=== PATIENT | female | born 1965 | race Caucasian/White ===

== ENCOUNTER 2020-03-25 15:01 | Inpatient (IN) | payer OTHER, SELFPAY ==
[2020-03-25] VITALS (11 sets, daily range): BP systolic 121–170; BP diastolic 81–102; PULSE 98–106; RESP 14–30; TEMP 36.3–36.8; O2SAT 95–99; BMI 32.5
--- NOTE | 2020-03-25 15:02 | ED.ASTHMA ---
HPI - Asthma General Chief Complaint: Dyspnea Stated Complaint: COPD EXACERBATION Time Seen by Provider: 03/25/20 15:02 Source: patient and EMS Mode of arrival: EMS Limitations: no limitations History of Present Illness HPI Narrative: 54 yo female with hx of COPD on cpap, still smokes, currently on 20mg prednisone, IV magnesium en route, EMS was told by facility sats were 70%, given treatment and CPAP en route on arrival [facility] was asking for Savana MOYER complaint: shortness of breath Onset (ago): day(s) (last night) Severity: severe Context: smoke exposure Associated symptoms: productive cough Treatments Prior to Arrival: inhaled bronchodilator, CPAP and other (2grams IV magnesium) Related Data Current Asthma Therapy: inhaled bronchodilator and inhaled steroid Allergies Allergy/AdvReac Type Severity Reaction Status Date / Time No Known Allergies Allergy Unknown UNKNOWN Verified 03/25/20 15:02 [NO KNOWN ALLERGIES] Review of Systems Review of Systems: Constitutional : No Fever, No Chills ENT/Mouth : No sore throat, No Rhinorrhea, No Swallowing Difficulty Eyes: No Eye Pain, No Swelling, No Redness Cardiovascular : No Chest Pain, positive SOB, No Orthopnea, no Edema Respiratory : pos Cough, No Sputum, pos Wheezing, positive dyspnea Gastrointestinal : No Nausea, No Vomiting, No Diarrhea, No abdominal Pain, No Hematochezia, No Melena Genitourinary : No Dysuria, No Urinary Frequency, No Hematuria Musculoskeletal : No joint pain, No Myalgias Skin : No Skin Lesions, No rash Neuro : No Weakness, No Numbness, No Dizziness, No Headache Psych : No Anxiety/Panic, No Depression Heme/Lymph: No Bruising, No Lymphadenopathy Endocrine : No Polyuria, No Polydipsia All other systems reviewed and are negative PMFSH Past Medical History Medical History Anxiety COPD (chronic obstructive pulmonary disease) Diabetes H/O blood clots Hyperlipidemia Supplemental oxygen dependent Social History Social History Housing: Long Term Alcohol intake: never Smoking Status: Current every day smoker Use of substances other than those prescribed or required for medical reasons: No Advance Directives: No Advance Directives Information Provided: Yes Physical Exam Vital Signs and I&O and Narrative: Vital Signs and I&O: Vital Signs Temp 97.7 F 10/02/20 15:02 Pulse 99 03/25/20 15:02 Resp 30 H 03/25/20 15:02 BP 128/93 H 03/25/20 15:17 Intake & Output 03/24/20 03/25/20 03/25/20 18:59 06:59 18:59 Weight 177 kg Body Mass Index 66.9 Appearance: Alert. Oriented X3. mild resp distress Eyes: Pupils equal, round and reactive to light. ENT: Pharynx normal. Neck: Normal inspection. Neck supple. CVS: tachycardic heart rate and rhythm. Pulses normal. Respiratory: mildrespiratory distress. Breath sounds decreased with exp wheezes throughout Abdomen: Soft and nontender. Skin: Skin warm and dry. Normal skin color. Normal skin turgor. Extremities: No lower extremity edema. No lower extremity edema. Neuro: Oriented X 3. No motor deficit. No sensory deficit. Course Reevaluation(s) Reevaluation #1: signed out to Dr. Llanes pending bipap removal and admission, patient is improving MDM - Asthma MDM Narrative Medical decision making narrative: 54 yo female with longstanding COPD with heavy smoking use, here frequentlyl for same, reports dyspnea since last night she is wheezing, wants bipap for now, will trial for 2 hours and take off, labs, IV steroids, CXR, empiric antibiotics for COPD, doubt PE ACS given AC therapy, likely admit Lab Data Result diagrams: 03/25/20 15:18 03/25/20 15:18 Labs: Lab Results 03/25/20 03/25/20 03/25/20 Range/Units 15:18 15:18 15:18 WBC 12.2 H (4.8-10.8) X10*3/uL RBC 3.99 L (4.20-5.50) X10*6/uL Hgb 9.2 L (12.0-16.0) g/dl Hct 31.7 L (37-47) % MCV 79.4 L (80-98) fL MCH 23.1 L (27.0-33.0) pg MCHC 29.0 L (31.0-35.0) g/dl RDW 21.8 H (11.0-16.0) % Plt Count 274 (160-400) X10*3/uL MPV 10.4 (9.4-12.3) fL Immature Gran % (Auto) 0.5 H (0.0-0.4) % Neut % (Auto) 62.7 (45-73) % Lymph % (Auto) 23.8 (20-40) % [place] % (Auto) 8.8 (2-11) % Eos % (Auto) 3.5 (0-4) % Baso % (Auto) 0.7 (0-2) % Neut # (Auto) 7.6 (2.0-8.3) X10*3/uL Lymph # (Auto) 2.9 (1.2-4.9) X10*3/uL [place] # (Auto) 1.1 (0.1-1.2) X10*3/uL Eos # (Auto) 0.4 (0.0-0.4) X10*3/uL Baso # (Auto) 0.1 (0.0-0.2) X10*3/uL Abs Immat Gran (auto) 0.06 H (0.00-0.03) X10*3/uL Absolute Nucleated RBC 0.000 (0.0-0.012) X10*3/uL Nucleated RBC % (auto) 0.0 (0.0-0.2) /100WBC Hold Blue Top SEE NOTE VBG pH (7.32-7.43) VBG pCO2 mmhg VBG Oxygen Liters/Min VBG pO2 mmhg VBG HCO3 mmol/L VBG O2 Saturation % VBG Base Excess mmol/L Sodium 141 (135-145) mmol/L Potassium 4.2 (3.3-5.1) mmol/l Chloride 106 (96-108) mmol/L Carbon Dioxide 24 (22-29) mmol/L Anion Gap 15 (12-20) BUN 7 L (9-16) mg/dL Creatinine 0.68 (0.5-1.4) mg/dL Estim Creat Clear Calc 151.0 Estimated GFR > 60 Random Glucose 137 H (60-115) mg/dL Lactic Acid (0.5-2.0) mmol/L Calcium 8.6 (8.4-10.2) mg/dL Magnesium 2.0 (1.6-2.6) mg/dL Total Bilirubin 0.3 (0.0-1.0) mg/dL Direct Bilirubin < 0.2 (0.0-0.5) mg/dL AST 16 (5-31) U/L ALT 15 (0-31) U/L Alkaline Phosphatase 80 (39-117) U/L B-Natriuretic Peptide (<100) pg/mL Total Protein 6.0 L (6.5-8.0) g/dL Albumin 3.9 (3.5-5.0) g/dL 03/25/20 03/25/20 03/25/20 Range/Units 15:18 15:18 15:18 WBC (4.8-10.8) X10*3/uL RBC (4.20-5.50) X10*6/uL Hgb (12.0-16.0) g/dl Hct (37-47) % MCV (80-98) fL MCH (27.0-33.0) pg MCHC (31.0-35.0) g/dl RDW (11.0-16.0) % Plt Count (160-400) X10*3/uL MPV (9.4-12.3) fL Immature Gran % (Auto) (0.0-0.4) % Neut % (Auto) (45-73) % Lymph % (Auto) (20-40) % [place] % (Auto) (2-11) % Eos % (Auto) (0-4) % Baso % (Auto) (0-2) % Neut # (Auto) (2.0-8.3) X10*3/uL Lymph # (Auto) (1.2-4.9) X10*3/uL [place] # (Auto) (0.1-1.2) X10*3/uL Eos # (Auto) (0.0-0.4) X10*3/uL Baso # (Auto) (0.0-0.2) X10*3/uL Abs Immat Gran (auto) (0.00-0.03) X10*3/uL Absolute Nucleated RBC (0.0-0.012) X10*3/uL Nucleated RBC % (auto) (0.0-0.2) /100WBC Hold Blue Top VBG pH 7.42 (7.32-7.43) VBG pCO2 40 mmhg VBG Oxygen Liters/Min 30% VBG pO2 160 mmhg VBG HCO3 26 mmol/L VBG O2 Saturation 98.8 % VBG Base Excess 1.4 mmol/L Sodium (135-145) mmol/L Potassium (3.3-5.1) mmol/l Chloride (96-108) mmol/L Carbon Dioxide (22-29) mmol/L Anion Gap (12-20) BUN (9-16) mg/dL Creatinine (0.5-1.4) mg/dL Estim Creat Clear Calc Estimated GFR Random Glucose (60-115) mg/dL Lactic Acid 0.8 (0.5-2.0) mmol/L Calcium (8.4-10.2) mg/dL Magnesium (1.6-2.6) mg/dL Total Bilirubin (0.0-1.0) mg/dL Direct Bilirubin (0.0-0.5) mg/dL AST (5-31) U/L ALT (0-31) U/L Alkaline Phosphatase (39-117) U/L B-Natriuretic Peptide 37 (<100) pg/mL Total Protein (6.5-8.0) g/dL Albumin (3.5-5.0) g/dL ECG Data Attestation: I personally reviewed and interpreted this ECG as follows: ECG interpretation date: 03/25/20 ECG interpretation time: 16:03 Interpretation: Rate: 102 Rhythm:sinus tach [place]: normal Normal P waves. Normal AGUILAR. Normal QRS complex. ST T wave : inverted anterior V1-V3, nonspecific qTC:normal prior studies: unchanged The study has been interpreted contemporaneously by me. . Critical Care Time Critical Care Time Critical Care Time: Yes Total Critical Care Time: 45 Attestation: I personally attest to this time spent taking care of the patient Discharge Plan Discharge Clinical Impression: COPD (chronic obstructive pulmonary disease) Patient Disposition: Admitted As Inpatient
--- NOTE | 2020-03-25 15:03 | ECG_ITS ---
Test Reason : DIFFICULTY BREATHING Blood Pressure : / mmHG Vent. Rate : 102 BPM Atrial Rate : 102 BPM P-R Int : 178 ms QRS Dur : 078 ms QT Int : 356 ms P-R-T Axes : 070 031 066 degrees QTc Int : 463 ms Sinus tachycardia Possible Left atrial enlargement Nonspecific T wave abnormality Abnormal ECG When compared with ECG of 08-MAR-2020 03:45, No significant change was found Referred By: Carmen Ty Electronically Signed By:CECELIA BALDWIN
--- NOTE | 2020-03-25 15:04 | XR_ITS ---
EXAMINATION: XR CHEST CLINICAL INFORMATION: Dyspnea. COMPARISON: Prior chest radiographs, most recently 03/10/2020; CTA chest dated 01/13/2020. TECHNIQUE: Frontal view of the chest was obtained. FINDINGS: No significant abnormality is noted involving the heart, lungs, mediastinum, bony thorax or soft tissues. There are old, healed posterolateral right eighth and ninth rib fractures. IMPRESSION: Unremarkable examination.
[2020-03-25] MEDS: Albuterol Sulfate (0.083%) 2.5 MG/3 ML VIAL.NEB 10 MG INHALE (15:07)
[2020-03-25 15:25] LABS: MANUAL DIFF FLAG NO; Pt Ventilation O2% Venous 30%
[2020-03-25 15:29] LABS: Basophils Absolute Auto 0.1 X10*3/uL (0.0-0.2); Basophils Percent Auto 0.7 % (0-2); Eosinophils Absolute Auto 0.4 X10*3/uL (0.0-0.4); Eosinophils Percent Auto 3.5 % (0-4); Hematocrit 31.7 % (37-47); Hemoglobin 9.2 g/dl (12.0-16.0); Imm Gran Abs Auto 0.06 X10*3/uL (0.00-0.03); Imm Gran Pct Auto 0.5 % (0.0-0.4); Lymphocytes Absolute Auto 2.9 X10*3/uL (1.2-4.9); Lymphocytes Percent Auto 23.8 % (20-40); Mean Corpuscular Hemoglobin 23.1 pg (27.0-33.0); Mean Corpuscular Volume 79.4 fL (80-98); Mean Platelet Volume 10.4 fL (9.4-12.3); Monocytes Absolute Auto 1.1 X10*3/uL (0.1-1.2); Monocytes Percent Auto 8.8 % (2-11); Neutrophils Absolute Auto 7.6 X10*3/uL (2.0-8.3); Neutrophils Percent Auto 62.7 % (45-73); Platelet Count 274 X10*3/uL (160-400); Red Blood Count 3.99 X10*6/uL (4.20-5.50); Red Cell Distribution Width 21.8 % (11.0-16.0); White Blood Count 12.2 X10*3/uL (4.8-10.8)
[2020-03-25 15:39] LABS: PCO2 VBG 40 mmhg; PO2 VBG 160 mmhg; pH VBG 7.42 (7.32-7.43)
[2020-03-25 15:40] LABS: Base Excess VBG 1.4 mmol/L; HCO3 VBG 26 mmol/L; Oxygen Saturation VBG 98.8 %
[2020-03-25 15:41] LABS: Blood Gas Serial # 5414
[2020-03-25] MEDS: methylPREDNISolone Sod Succ/PF 125 MG/2 ML VIAL IVPUSH (15:54)
[2020-03-25] MEDS: cefTRIAXone sodium 1 GM in 0.9 % Sodium Chloride 50 ML IV (15:55)
[2020-03-25 15:56] LABS: Lactic Acid 0.8 mmol/L (0.5-2.0)
--- NOTE | 2020-03-25 15:56 | PC.NURSE ---
pt placed on bipap by rt upon arrival to ed, settings 30%, 05/29
[2020-03-25 16:03] LABS: Alanine Aminotransferase 15 U/L (0-31); Albumin Level 3.9 g/dL (3.5-5.0); Alkaline Phosphatase 80 U/L (39-117); Anion Gap 15 (12-20); Aspartate Amino Transferase 16 U/L (5-31); Bilirubin Direct < 0.2 mg/dL (0.0-0.5); Bilirubin Total 0.3 mg/dL (0.0-1.0); Blood Urea Nitrogen 7 mg/dL (9-16); Calcium 8.6 mg/dL (8.4-10.2); Carbon Dioxide 24 mmol/L (22-29); Chloride 106 mmol/L (96-108); Estimated Glomerular Filt Rate > 60; Glucose Random 137 mg/dL (60-115); Potassium 4.2 mmol/l (3.3-5.1); Sodium 141 mmol/L (135-145)
[2020-03-25 16:06] LABS: B Type Natriuretic Peptide 37 pg/mL (<100)
--- NOTE | 2020-03-25 16:40 | PC.NURSE ---
PT ALERT AND ORIENTED X4. SKIN WPD. RESPIRATIONS LABORED; TACHYPNEIC AT APPROX 30 BREATHS/MIN AT REST, ACCESSORY MUSCLE USE. LUNGS SOUNDS DIMINISHED WITH COURSE WHEEZES BILATERALLY THROUGHOUT. SPO2 100% ON BIPAP 30%, 05/29. SINUS TACH, LOW 100S. IV ACCESS IN PLACE. LABS SENT. MEDICATED ON WAY TO ED WITH 2G MAG AND UPDRAFT BY EMS. MEDICATED WITH SOLUMEDROL, ABX BY THIS RN.
[2020-03-25] MEDS: Doxycycline Hyclate 100 MG in 0.9 % Sodium Chloride 250 ML 250 MG IV (16:43)
--- NOTE | 2020-03-25 18:07 | PC.NURSE ---
pt removed from bipap by rt, per dr. braga order. placed on 3l via nc; spo2 maintaining mid-90s. rr wnl. accessory muscle use still present.
--- NOTE | 2020-03-25 18:30 | ED.SOB ---
HPI - SOB/Dyspnea General Chief Complaint: Dyspnea Stated Complaint: COPD EXACERBATION Time Seen by Provider: 03/25/20 15:02 Source: patient and EMS Mode of arrival: EMS Limitations: no limitations Related Data Home Medications Medication Instructions Recorded Confirmed albuterol sulfate 0.63 mg INHALATION QID PRN 03/25/20 03/25/20 amlodipine 2.5 mg PO DAILY 03/25/20 03/25/20 apixaban 5 mg BID 03/25/20 03/25/20 atorvastatin 20 mg PO BEDTIME 03/25/20 03/25/20 clonidine HCl 0.1 mg PO BEDTIME 03/25/20 03/25/20 clotrimazole 10 mg MUCOUS MEMBRANE 5XD 03/25/20 03/25/20 docusate sodium 100 mg PO BID PRN 03/25/20 03/25/20 doxepin 200 mg PO DAILY 03/25/20 03/25/20 duloxetine 30 mg PO DAILY 03/25/20 03/25/20 fluticasone furoate-vilanterol 1 inh INHALATION DAILY 03/25/20 03/25/20 [Breo Ellipta] folic acid 1 mg PO DAILY 03/25/20 03/25/20 gabapentin 600 mg PO TID 03/25/20 03/25/20 loratadine 10 mg DAILY 03/25/20 03/25/20 melatonin 10 mg PO BEDTIME 03/25/20 03/25/20 metformin 850 mg PO BID 03/25/20 03/25/20 montelukast 10 mg PO BEDTIME 03/25/20 03/25/20 multivitamin 1 tab PO DAILY 03/25/20 03/25/20 paroxetine HCl 40 mg PO DAILY 03/25/20 03/25/20 quetiapine 200 mg PO BEDTIME 03/25/20 03/25/20 tiotropium bromide 1 cap INHALATION DAILY 03/25/20 03/25/20 valsartan 40 mg PO BID 03/25/20 03/25/20 Allergies Allergy/AdvReac Type Severity Reaction Status Date / Time No Known Allergies Allergy Unknown UNKNOWN Verified 03/25/20 15:02 [NO KNOWN ALLERGIES] PMFSH Past Medical History Medical History Anxiety COPD (chronic obstructive pulmonary disease) Diabetes H/O blood clots Hyperlipidemia Supplemental oxygen dependent Social History Social History Housing: Shelter Alcohol intake: never Smoking Status: Current every day smoker Use of substances other than those prescribed or required for medical reasons: No Advance Directives: No Advance Directives Information Provided: Yes Physical Exam Vital Signs and I&O and Narrative: Vital Signs and I&O: Vital Signs Temp 97.3 F 03/25/20 17:01 Pulse 98 03/25/20 18:06 Resp 14 03/25/20 18:06 BP 144/102 H 03/25/20 18:06 Pulse Ox 95 03/25/20 18:06 Intake & Output 03/24/20 03/25/20 03/25/20 18:59 06:59 18:59 Intake Total 300 / 300 Balance 300 / 300 Weight 86 kg Intake: Intake, IV Amoun t 300 / 300 Doxycycline Hy clate 100 mg In 0 250 / 250 .9 % Sodium Ch loride 250 ml @ 250 mls/hr IV ONCE ONE Rx#: [id number] cefTRIAXone so dium 1 gm In 0.9 50 / 50 % Sodium Chlor ana 50 ml @ 100 mls/hr IV ONCE ONE Rx#: [id number] Body Mass Index 32.5 MDM - SOB/Dyspnea Lab Data Result diagrams: 03/25/20 15:18 03/25/20 15:18 Labs: Lab Results 03/25/20 03/25/20 03/25/20 Range/Units 15:18 15:18 15:18 WBC 12.2 H (4.8-10.8) X10*3/uL RBC 3.99 L (4.20-5.50) X10*6/uL Hgb 9.2 L (12.0-16.0) g/dl Hct 31.7 L (37-47) % MCV 79.4 L (80-98) fL MCH 23.1 L (27.0-33.0) pg MCHC 29.0 L (31.0-35.0) g/dl RDW 21.8 H (11.0-16.0) % Plt Count 274 (160-400) X10*3/uL MPV 10.4 (9.4-12.3) fL Immature Gran % (Auto) 0.5 H (0.0-0.4) % Neut % (Auto) 62.7 (45-73) % Lymph % (Auto) 23.8 (20-40) % [place] % (Auto) 8.8 (2-11) % Eos % (Auto) 3.5 (0-4) % Baso % (Auto) 0.7 (0-2) % Neut # (Auto) 7.6 (2.0-8.3) X10*3/uL Lymph # (Auto) 2.9 (1.2-4.9) X10*3/uL [place] # (Auto) 1.1 (0.1-1.2) X10*3/uL Eos # (Auto) 0.4 (0.0-0.4) X10*3/uL Baso # (Auto) 0.1 (0.0-0.2) X10*3/uL Abs Immat Gran (auto) 0.06 H (0.00-0.03) X10*3/uL Absolute Nucleated RBC 0.000 (0.0-0.012) X10*3/uL Nucleated RBC % (auto) 0.0 (0.0-0.2) /100WBC Hold Blue Top SEE NOTE VBG pH (7.32-7.43) VBG pCO2 mmhg VBG Oxygen Liters/Min VBG pO2 mmhg VBG HCO3 mmol/L VBG O2 Saturation % VBG Base Excess mmol/L Sodium 141 (135-145) mmol/L Potassium 4.2 (3.3-5.1) mmol/l Chloride 106 (96-108) mmol/L Carbon Dioxide 24 (22-29) mmol/L Anion Gap 15 (12-20) BUN 7 L (9-16) mg/dL Creatinine 0.68 (0.5-1.4) mg/dL Estim Creat Clear Calc 151.0 Estimated GFR > 60 Random Glucose 137 H (60-115) mg/dL Lactic Acid (0.5-2.0) mmol/L Calcium 8.6 (8.4-10.2) mg/dL Magnesium 2.0 (1.6-2.6) mg/dL Total Bilirubin 0.3 (0.0-1.0) mg/dL Direct Bilirubin < 0.2 (0.0-0.5) mg/dL AST 16 (5-31) U/L ALT 15 (0-31) U/L Alkaline Phosphatase 80 (39-117) U/L B-Natriuretic Peptide (<100) pg/mL Total Protein 6.0 L (6.5-8.0) g/dL Albumin 3.9 (3.5-5.0) g/dL 03/25/20 03/25/20 03/25/20 Range/Units 15:18 15:18 15:18 WBC (4.8-10.8) X10*3/uL RBC (4.20-5.50) X10*6/uL Hgb (12.0-16.0) g/dl Hct (37-47) % MCV (80-98) fL MCH (27.0-33.0) pg MCHC (31.0-35.0) g/dl RDW (11.0-16.0) % Plt Count (160-400) X10*3/uL MPV (9.4-12.3) fL Immature Gran % (Auto) (0.0-0.4) % Neut % (Auto) (45-73) % Lymph % (Auto) (20-40) % [place] % (Auto) (2-11) % Eos % (Auto) (0-4) % Baso % (Auto) (0-2) % Neut # (Auto) (2.0-8.3) X10*3/uL Lymph # (Auto) (1.2-4.9) X10*3/uL [place] # (Auto) (0.1-1.2) X10*3/uL Eos # (Auto) (0.0-0.4) X10*3/uL Baso # (Auto) (0.0-0.2) X10*3/uL Abs Immat Gran (auto) (0.00-0.03) X10*3/uL Absolute Nucleated RBC (0.0-0.012) X10*3/uL Nucleated RBC % (auto) (0.0-0.2) /100WBC Hold Blue Top VBG pH 7.42 (7.32-7.43) VBG pCO2 40 mmhg VBG Oxygen Liters/Min 30% VBG pO2 160 mmhg VBG HCO3 26 mmol/L VBG O2 Saturation 98.8 % VBG Base Excess 1.4 mmol/L Sodium (135-145) mmol/L Potassium (3.3-5.1) mmol/l Chloride (96-108) mmol/L Carbon Dioxide (22-29) mmol/L Anion Gap (12-20) BUN (9-16) mg/dL Creatinine (0.5-1.4) mg/dL Estim Creat Clear Calc Estimated GFR Random Glucose (60-115) mg/dL Lactic Acid 0.8 (0.5-2.0) mmol/L Calcium (8.4-10.2) mg/dL Magnesium (1.6-2.6) mg/dL Total Bilirubin (0.0-1.0) mg/dL Direct Bilirubin (0.0-0.5) mg/dL AST (5-31) U/L ALT (0-31) U/L Alkaline Phosphatase (39-117) U/L B-Natriuretic Peptide 37 (<100) pg/mL Total Protein (6.5-8.0) g/dL Albumin (3.5-5.0) g/dL Discharge Plan Discharge Clinical Impression: COPD (chronic obstructive pulmonary disease), Sepsis Patient Disposition: Admitted As Inpatient
--- NOTE | 2020-03-25 20:12 | PC.NURSE ---
PT AMBULATED TO BATHROOM UNASSISTED. INCREASED RESPIRATIONS AND WHEEZING UPON RETURN TO BED. SAO2 96-97%ON 3L NC. MD NOTIFIED OF INCREASED WOB AWAITING RT FOR TREATMENT. PT AWARE OF PLAN OF CARE.
[2020-03-25] MEDS: Albuterol/Iprat 2.5/0.5MG 3 ML AMPUL.NEB INHALE (20:20)
--- NOTE | 2020-03-25 20:33 | PM.IMHP ---
History of Present Illness Date of Service: 03/25/20 Chief Complaint: shortness of breath this is a 54-year-old female with history of COPD on home O2 2 L, type 2 diabetes, hypertension, HLD, Onc others with frequent hospitalization for COPD exacerbation comes to the hospital complaints of acute onset shortness of breath, cough, increased sputum production. Patient reports that her symptoms started yesterday but worsened overnight. She woke up this morning very fatigued, short of breath, was hardly able to catch her breath, with worsening cough. She has not had any fever or chills, no recent sick contacts and no recent travel. No chest pain, no Palpitations. Patient was recently discharged from the hospital on March 12 After being managed for COPD exacerbation. Patient otherwise denies any headache, change in vision, abdominal pain nausea or vomiting no diarrhea constipation, no urinary symptoms and no lower extremity edema on arrival hemodynamically stable with a pulse ox of 106 and respiratory rate of 24, labs are significant for WBC count of 12.2 ( improving from previous), hemoglobin of 9.2 which is her baseline, pH of 7.42, pCO2 of 40. labs otherwise unremarkable Chest x-ray unremarkable patient will be admitted for management of COPD exacerbation PAST MEDICAL HISTORY: 1. COPD/chronic respiratory failure on 2 L of home O2. 2. History of alcohol dependence. 3. Depression. 4. Hypertension. 5. Dyslipidemia. 6. Peripheral neuropathy. 7. Renal infarct on anticoagulation with Eliquis. 8. Type 2 diabetes. 9. COVID positivity in September 2019. 10. Fatty liver disease 11. diabetes mellitus on metformin Past surgical hx: None Family hx: DM, [facility] in father Social hx: Lives in [facility] house, current active smoker smokes about 1-3 cig/day, denies alcohol and no illicit drugs Review of Systems Review of Systems: Yes all other systems are reviewed and are negative [facility] Medical History Anxiety COPD (chronic obstructive pulmonary disease) Diabetes H/O blood clots Hyperlipidemia Supplemental oxygen dependent Social History Housing: Retirement Alcohol intake: never Smoking Status: Current every day smoker Use of substances other than those prescribed or required for medical reasons: No Advance Directives: No Advance Directives Information Provided: Yes Meds Allergies Allergy/AdvReac Type Severity Reaction Status Date / Time No Known Allergies Allergy Unknown UNKNOWN Verified 03/25/20 15:02 [NO KNOWN ALLERGIES] Home Medications Medication Instructions Recorded Confirmed Type albuterol sulfate 0.63 mg INHALATION QID PRN 03/25/20 03/25/20 History amlodipine 2.5 mg PO DAILY 03/25/20 03/25/20 History apixaban 5 mg BID 03/25/20 03/25/20 History atorvastatin 20 mg PO BEDTIME 03/25/20 03/25/20 History clonidine HCl 0.1 mg PO BEDTIME 03/25/20 03/25/20 History clotrimazole 10 mg MUCOUS MEMBRANE 5XD 03/25/20 03/25/20 History docusate sodium 100 mg PO BID PRN 03/25/20 03/25/20 History doxepin 200 mg PO DAILY 03/25/20 03/25/20 History duloxetine 30 mg PO DAILY 03/25/20 03/25/20 History fluticasone furoate-vilanterol 1 inh INHALATION DAILY 03/25/20 03/25/20 History [Breo Ellipta] folic acid 1 mg PO DAILY 03/25/20 03/25/20 History gabapentin 600 mg PO TID 03/25/20 03/25/20 History loratadine 10 mg DAILY 03/25/20 03/25/20 History melatonin 10 mg PO BEDTIME 03/25/20 03/25/20 History metformin 850 mg PO BID 03/25/20 03/25/20 History montelukast 10 mg PO BEDTIME 03/25/20 03/25/20 History multivitamin 1 tab PO DAILY 03/25/20 03/25/20 History paroxetine HCl 40 mg PO DAILY 03/25/20 03/25/20 History quetiapine 200 mg PO BEDTIME 03/25/20 03/25/20 History tiotropium bromide 1 cap INHALATION DAILY 03/25/20 03/25/20 History valsartan 40 mg PO BID 03/25/20 03/25/20 History Physical Exam Vital Signs and Narrative: Vital Signs: Last Vital Signs Temp 97.6 F 03/25/20 20:07 Pulse 106 H 03/25/20 20:07 Resp 24 H 03/25/20 20:07 BP 129/81 03/25/20 20:07 Pulse Ox 98 10/02/20 19:35 Body Mass Index 32.5 Const: General: cooperative and no acute distress Orientation/consciousness: patient oriented x3 Eyes: General: appearance normal, both eyes and all related structures Pupils: Equal, round and reactive pupils present Resp: Effort & Inspection: normal respiratory effort and able to speak in complete sentences Auscultation: wheezes Cardio: Rate: regular rate Rhythm: regular rhythm GI: Palpation (GI): Soft to palpation Auscultation: normal bowel sounds Skin: General skin exam: no rashes or lesions noted Neuro: General: patient oriented x3 Cranial nerves: Yes Equal, round and reactive pupils present Cognition (Neuro): normal cognition Extrem: General: Yes normal to inspection and Yes no pedal edema Results Labs Labs: Laboratory Tests 03/25/20 03/25/20 03/25/20 15:18 15:18 15:18 WBC 12.2 H RBC 3.99 L Hgb 9.2 L Hct 31.7 L MCV 79.4 L MCH 23.1 L MCHC 29.0 L RDW 21.8 H Plt Count 274 MPV 10.4 Immature Gran % (Auto) 0.5 H Neut % (Auto) 62.7 Lymph % (Auto) 23.8 [place] % (Auto) 8.8 Eos % (Auto) 3.5 Baso % (Auto) 0.7 Neut # (Auto) 7.6 Lymph # (Auto) 2.9 [place] # (Auto) 1.1 Eos # (Auto) 0.4 Baso # (Auto) 0.1 Abs Immat Gran (auto) 0.06 H Absolute Nucleated RBC 0.000 Nucleated RBC % (auto) 0.0 Hold Blue Top SEE NOTE VBG pH VBG pCO2 VBG Oxygen Liters/Min VBG pO2 VBG HCO3 VBG O2 Saturation VBG Base Excess Sodium 141 Potassium 4.2 Chloride 106 Carbon Dioxide 24 Anion Gap 15 BUN 7 L Creatinine 0.68 Estim Creat Clear Calc 151.0 Estimated GFR > 60 Random Glucose 137 H Lactic Acid Calcium 8.6 Magnesium 2.0 Total Bilirubin 0.3 Direct Bilirubin < 0.2 AST 16 ALT 15 Alkaline Phosphatase 80 B-Natriuretic Peptide Total Protein 6.0 L Albumin 3.9 03/25/20 03/25/20 03/25/20 15:18 15:18 15:18 WBC RBC Hgb Hct MCV MCH MCHC RDW Plt Count MPV Immature Gran % (Auto) Neut % (Auto) Lymph % (Auto) [place] % (Auto) Eos % (Auto) Baso % (Auto) Neut # (Auto) Lymph # (Auto) [place] # (Auto) Eos # (Auto) Baso # (Auto) Abs Immat Gran (auto) Absolute Nucleated RBC Nucleated RBC % (auto) Hold Blue Top VBG pH 7.42 VBG pCO2 40 VBG Oxygen Liters/Min 30% VBG pO2 160 VBG HCO3 26 VBG O2 Saturation 98.8 VBG Base Excess 1.4 Sodium Potassium Chloride Carbon Dioxide Anion Gap BUN Creatinine Estim Creat Clear Calc Estimated GFR Random Glucose Lactic Acid 0.8 Calcium Magnesium Total Bilirubin Direct Bilirubin AST ALT Alkaline Phosphatase B-Natriuretic Peptide 37 Total Protein Albumin Assessment and Plan (1) Sepsis: Qualifiers: Severe sepsis acute organ dysfunction type: acute respiratory failure Status: Acute (2) COPD exacerbation: Status: Acute (3) Hypertension: Status: Acute (4) Anxiety: Status: Acute (5) Hyperlipidemia: Status: Acute (6) Diabetes: Status: Acute (7) Renal infarct: Status: Acute # Sepsis - Tachycardia, tachypnea, leukocytosis - Due to COPD exacerbation - Tachycardia and tachypnea has improved - Was initially placed on BIPAP in the ED due to increased work of breathing but has now improved Plan: - Management of COPD with IV Solu-Medrol, DuoNeb, scheduled and p.r.n. - azithromycin for COPD - cultures have been collected and will be followed # COPD exacerbation - with frequent admissions for the same - has dyspnea, sputum production, and worsened cough - she is currently on 3 L of oxygen satting 98%, patient is on 2 L of baseline O2 plan: - 40 IV Solu-Medrol b.i.d., DuoNeb q.i.d. and p.r.n. - azithromycin - titrate O2 to baseline as tolerated # leukocytosis - it has actually improved from previous admission and is most likely secondary to steroid use Plan: - Will follow CBC # hypertension - stable - continue amlodipine # history of renal infarct - continue Eliquis # diabetes mellitus - on metformin- will hold - start low-dose sliding scale insulin - diabetic diet # history of depression/anxiety - will hold Seroquel, and her other psych meds for tonight given her lethargy, resume tomorrow date of service 03/25/2020 DVT prophylaxis: Leigh
--- NOTE | 2020-03-25 21:23 | PC.NURSE ---
PT RESTING IN BED 96%ON 3L VIA NC. AWAITING ADMISSION. SKIN PWD RESPIRATIONS EVEN UNLABORED. IMPROVED WITH PREVIOUSLY ADMINISTERED UPDRAFT.
--- NOTE | 2020-03-25 21:57 | PC.NURSE ---
REPORT GIVEN TO FLOOR, PT AWAITING TRANSPORT.
--- NOTE | 2020-03-25 22:41 | PC.NURSE ---
PATIENT IS RESTING QUIETLY. PULSE RATE DOWN TO 96. PATIENT IS NO LONGER BUCKING THE VENT. SKIN WPD
[2020-03-25] MEDS: Azithromycin 500 MG TABLET PO (23:17)
[2020-03-25 23:35] LABS: Glucose, Whole Blood 232 mg/dL (60-115)
[2020-03-25] MEDS: Apixaban 5 MG TABLET PO (23:55)
[2020-03-25] MEDS: Atorvastatin Calcium 20 MG TABLET PO (23:55)
[2020-03-25] MEDS: Gabapentin 600 MG TABLET PO (23:55)
[2020-03-25] MEDS: cloNIDine HCL 0.1 MG TABLET PO (23:55)
[2020-03-25] MEDS: Montelukast Sodium 10 MG TABLET PO (23:55)
[2020-03-25] MEDS: QUEtiapine Fumarate 200 MG TABLET PO (23:55)
[2020-03-25] MEDS: Valsartan 40 MG TABLET PO (23:55)
[2020-03-26] VITALS (13 sets, daily range): BP systolic 128–161; BP diastolic 76–96; PULSE 102–118; RESP 18–22; TEMP 36.1–37; O2SAT 93–99; BMI 71.4
[2020-03-26] MEDS: 0.9 % Sodium Chloride Flush 3 ML SYRINGE 2 ML IVFLUSH ×5 (00:10→21:31)
[2020-03-26] MEDS: Insulin Lispro 100 UNIT/ML 3 ML VIAL SUBCUT ×4 (00:15→17:07)
[2020-03-26] MEDS: Albuterol/Iprat 2.5/0.5MG 3 ML AMPUL.NEB INHALE ×5 (07:24→19:56)
[2020-03-26 08:01] LABS: Glucose, Whole Blood 190 mg/dL (60-115)
[2020-03-26] MEDS: Apixaban 5 MG TABLET PO ×2 (08:10→21:34)
[2020-03-26] MEDS: PARoxetine HCL 40 MG TABLET PO (08:10)
[2020-03-26] MEDS: amLODIPine Besylate 2.5 MG TABLET PO (08:10)
[2020-03-26] MEDS: Loratadine 10 MG TABLET PO (08:10)
[2020-03-26] MEDS: Valsartan 40 MG TABLET PO ×2 (08:10→21:15)
[2020-03-26] MEDS: Multivitamin TABLET 1 TAB PO (08:11)
[2020-03-26] MEDS: Folic Acid 1 MG TABLET PO (08:11)
[2020-03-26] MEDS: Gabapentin 600 MG TABLET PO ×3 (08:11→21:15)
[2020-03-26] MEDS: DULoxetine HCl 30 MG CAPSULE.DR PO (08:12)
[2020-03-26 08:15] LABS: MANUAL DIFF FLAG NO
--- NOTE | 2020-03-26 08:25 | MHC.CM.PN ---
Patient lives at [facility] and her goal is to return there at time of dc. CM has initiated and will follow for dc planning.Patient is functionally independent and her O2 is supplied through [employer]. PCP/PA is Patti Duckworth at [phone].Patient states that her Sister is her HCP.
[2020-03-26 10:08] LABS: Basophils Percent Auto 0.2 % (0-2); Hematocrit 31.2 % (37-47); Hemoglobin 8.9 g/dl (12.0-16.0); Imm Gran Abs Auto 0.06 X10*3/uL (0.00-0.03); Imm Gran Pct Auto 0.6 % (0.0-0.4); Lymphocytes Absolute Auto 1.2 X10*3/uL (1.2-4.9); Lymphocytes Percent Auto 11.9 % (20-40); Mean Corpuscular HGB Conc 28.5 g/dl (31.0-35.0); Mean Corpuscular Hemoglobin 22.5 pg (27.0-33.0); Mean Corpuscular Volume 78.8 fL (80-98); Mean Platelet Volume 10.2 fL (9.4-12.3); Monocytes Absolute Auto 0.3 X10*3/uL (0.1-1.2); Monocytes Percent Auto 3.5 % (2-11); Neutrophils Absolute Auto 8.1 X10*3/uL (2.0-8.3); Neutrophils Percent Auto 83.8 % (45-73); Platelet Count 291 X10*3/uL (160-400); Red Blood Count 3.96 X10*6/uL (4.20-5.50); Red Cell Distribution Width 21.6 % (11.0-16.0); White Blood Count 9.7 X10*3/uL (4.8-10.8)
[2020-03-26 10:25] LABS: Anion Gap 13 (12-20); Blood Urea Nitrogen 8 mg/dL (9-16); Calcium 8.2 mg/dL (8.4-10.2); Carbon Dioxide 27 mmol/L (22-29); Chloride 104 mmol/L (96-108); Creatinine Clr Calc Pharmacy 141.2; Estimated Glomerular Filt Rate > 60; Glucose Random 262 mg/dL (60-115); Potassium 4.2 mmol/l (3.3-5.1); Sodium 140 mmol/L (135-145)
--- NOTE | 2020-03-26 11:22 | P.PNIM_ITS ---
Subjective Subjective Date of Service: 03/26/20 Interval History: feeling better but still short of breath Physical Exam Vital Signs and I&O and Narrative: Vital Signs and I&O: Vital Signs Temp 98.6 F 03/26/20 09:29 Pulse 115 H 03/26/20 09:29 Resp 18 03/26/20 09:29 BP 138/86 03/26/20 09:29 Pulse Ox 97 03/26/20 09:31 Intake & Output 03/25/20 03/26/20 03/26/20 18:59 06:59 18:59 Intake Total 300 / 2880 2580 / 2880 Output Total 0 / 0 Balance 300 / 2880 2580 / 2880 Urine Output (Aver age ml/kg/hr) 0.00 Weight 86 kg 188.6 kg Intake: Intake, Oral [place] unt 0 / 0 Intake, Intraper itoneal Amount 0 / 0 Intake, IV Amoun t 300 / 2880 2580 / 2880 Doxycycline Hy clate 100 mg In 0 250 / 250 .9 % Sodium Ch loride 250 ml @ 250 mls/hr IV ONCE ONE Rx#: [id number] cefTRIAXone so dium 1 gm In 0.9 50 / 50 % Sodium Chlor ana 50 ml @ 100 mls/hr IV ONCE ONE Rx#: [id number] 0.9 % Sodium C hloride 2,580 ml 2580 / 2580 @ 2580 mls/hr IVCONT .Q1H ONE Rx#:[id number] Output: Output, Urine Am ount 0 / 0 Body Mass Index 71.4 Appearance: Alert. Oriented X3. mild resp distress Eyes: Pupils equal, round and reactive to light. ENT: Pharynx normal. Neck: Normal inspection. Neck supple. CVS: tachycardic heart rate and rhythm. Pulses normal. Respiratory: mildrespiratory distress. Breath sounds decreased with exp wheezes throughout Abdomen: Soft and nontender. Skin: Skin warm and dry. Normal skin color. Normal skin turgor. Extremities: No lower extremity edema. No lower extremity edema. Neuro: Oriented X 3. No motor deficit. No sensory deficit. Const: General: cooperative and no acute distress Orientation/consc iousness: patient oriented x3 Eyes: General: appearance normal, both eyes and all related structures Pupils: Equal, round and reactive pupils present Resp: Effort & Inspection: normal respiratory effort and able to speak in complete sentences Auscultation: wheezes Cardio: Rate: regular rate Rhythm: regular rhythm GI: Palpation (GI): Soft to palpation Auscultation: normal bowel sounds Skin: General skin exam: no rashes or lesions noted Neuro: General: patient oriented x3 Cranial nerves: Yes Equal, round and reactive pupils present Cognition (Neuro): normal cognition Extrem: General: Yes normal to inspection and Yes no pedal edema Objective Data Current Medications Generic Name Dose Route Start Last Admin Trade Name Freq PRN Reason Stop Dose Admin Acetaminophen 650 mg 03/25/20 19:58 Acetaminophen 325 Mg Tablet PO Q6H PRN Pain, Mild (Pain Scale 1-3) Albuterol/Ipratropium 3 ml 03/25/20 19:58 Albuterol/Iprat 2.5/0.5mg 3 Ml Ampul.Neb INHALE RQ4H PRN Shortness of Breath Albuterol/Ipratropium 3 ml 03/26/20 12:00 03/26/20 11:11 Albuterol/Iprat 2.5/0.5mg 3 Ml Ampul.Neb INHALE 3 ml RQ4H WHILE AWAKE CARLOS Administration Amlodipine Besylate 2.5 mg 03/26/20 09:00 03/26/20 08:10 Amlodipine Besylate 2.5 Mg Tablet PO 2.5 mg DAILY CARLOS Administration Protocol Apixaban 5 mg 03/25/20 23:02 03/26/20 08:10 Apixaban 5 Mg Tablet PO 5 mg BID CARLOS Administration Atorvastatin Calcium 20 mg 03/25/20 23:02 03/25/20 23:55 Atorvastatin Calcium 20 Mg Tablet PO 20 mg BEDTIME CARLOS Administration Azithromycin 500 mg 03/25/20 22:00 03/25/20 23:17 Azithromycin 500 Mg Tablet PO 500 mg Q24H CARLOS Administration Clonidine HCl 0.1 mg 03/25/20 23:02 03/25/20 23:55 Clonidine Hcl 0.1 Mg Tablet PO 0.1 mg BEDTIME CARLOS Administration Protocol Clotrimazole 10 mg 03/25/20 23:02 03/26/20 11:09 Clotrimazole 10 Mg Jesus MUCOUS MEM 10 mg 5XD CARLOS Administration Duloxetine HCl 30 mg 03/26/20 09:00 03/26/20 08:12 Duloxetine Hcl 30 Mg Capsule.Dr PO 30 mg DAILY CARLOS Administration Fluticasone/Vilanterol 1 puff 03/26/20 09:00 Fluticasone/Vilanterol 100/25 Blst.W.Dev INHALE DAILY [facility] Folic Acid 1 mg 03/26/20 09:00 03/26/20 08:11 Folic Acid 1 Mg Tablet PO 1 mg DAILY CARLOS Administration Gabapentin 600 mg 03/25/20 23:02 03/26/20 08:11 Gabapentin 600 Mg Tablet PO 600 mg TID CARLOS Administration Insulin Human Lispro 0 unit 03/26/20 07:30 03/26/20 08:09 Insulin Lispro 100 Unit/Ml 3 Ml Vial SUBCUT 2 unit QIDACHS CARLOS Administration Protocol Loratadine 10 mg 03/26/20 09:00 03/26/20 08:10 Loratadine 10 Mg Tablet PO 10 mg DAILY CARLOS Administration Methylprednisolone Sodium Succinate 40 mg 03/25/20 21:00 03/26/20 08:10 Methylprednisolone Sod Succ/Pf 40 Mg/Ml Vial IVPUSH 40 mg Q12H CARLOS Administration Montelukast Sodium 10 mg 03/25/20 23:02 03/25/20 23:55 Montelukast Sodium 10 Mg Tablet PO 10 mg BEDTIME CARLOS Administration Multivitamins/Vitamin C 1 tab 03/26/20 09:00 03/26/20 08:11 Multivitamin Tablet PO 1 tab DAILY CARLOS Administration Ondansetron HCl 4 mg 03/25/20 19:58 Ondansetron Hcl 4 Mg/2 Ml Vial IVPUSH Q8H PRN Nausea and Vomiting Paroxetine HCl 40 mg 03/26/20 09:00 03/26/20 08:10 Paroxetine Hcl 40 Mg Tablet PO 40 mg DAILY CARLOS Administration Pharmacy Consult 1 each 03/25/20 15:50 Consult Rx Perform Med Rec MISCELLANE ONCE PRN Consult order Quetiapine Fumarate 200 mg 03/25/20 23:02 03/25/20 23:55 Quetiapine Fumarate 200 Mg Tablet PO 200 mg BEDTIME CARLOS Administration Sodium Chloride 2 ml 03/26/20 00:00 03/26/20 08:11 0.9 % Sodium Chloride Flush 3 Ml Syringe IVFLUSH 2 ml QSHIFT CARLOS Administration Tiotropium [place] 1 puff 03/26/20 08:00 03/26/20 09:19 Tiotropium [place] 18 Mcg Cap.W.Dev INHALE 1 puff RDAILY CARLOS Administration Valsartan 40 mg 03/25/20 23:02 03/26/20 08:10 Valsartan 40 Mg Tablet PO 40 mg BID CARLOS Administration Protocol Labs CBC & Chem 7: 03/26/20 09:10 03/26/20 09:10 Labs: Laboratory Results - last 24 hr 03/25/20 03/25/20 03/25/20 15:18 15:18 15:18 MCV 79.4 L MCH 23.1 L MCHC 29.0 L RDW 21.8 H Plt Count 274 MPV 10.4 Immature Gran % (Auto) 0.5 H Neut % (Auto) 62.7 Lymph % (Auto) 23.8 [place] % (Auto) 8.8 Eos % (Auto) 3.5 Baso % (Auto) 0.7 Neut # (Auto) 7.6 Lymph # (Auto) 2.9 [place] # (Auto) 1.1 Eos # (Auto) 0.4 Baso # (Auto) 0.1 Abs Immat Gran (auto) 0.06 H Absolute Nucleated RBC 0.000 Nucleated RBC % (auto) 0.0 Hold Blue Top SEE NOTE VBG pH VBG pCO2 VBG Oxygen Liters/Min VBG pO2 VBG HCO3 VBG O2 Saturation VBG Base Excess Anion Gap 15 Estim Creat Clear Calc 151.0 Estimated GFR > 60 POC Glucose Random Glucose 137 H Lactic Acid Calcium 8.6 Magnesium 2.0 Total Bilirubin 0.3 Direct Bilirubin < 0.2 AST 16 ALT 15 Alkaline Phosphatase 80 B-Natriuretic Peptide Total Protein 6.0 L Albumin 3.9 03/25/20 03/25/20 03/25/20 15:18 15:18 15:18 MCV MCH MCHC RDW Plt Count MPV Immature Gran % (Auto) Neut % (Auto) Lymph % (Auto) [place] % (Auto) Eos % (Auto) Baso % (Auto) Neut # (Auto) Lymph # (Auto) [place] # (Auto) Eos # (Auto) Baso # (Auto) Abs Immat Gran (auto) Absolute Nucleated RBC Nucleated RBC % (auto) Hold Blue Top VBG pH 7.42 VBG pCO2 40 VBG Oxygen Liters/Min 30% VBG pO2 160 VBG HCO3 26 VBG O2 Saturation 98.8 VBG Base Excess 1.4 Anion Gap Estim Creat Clear Calc Estimated GFR POC Glucose Random Glucose Lactic Acid 0.8 Calcium Magnesium Total Bilirubin Direct Bilirubin AST ALT Alkaline Phosphatase B-Natriuretic Peptide 37 Total Protein Albumin 03/25/20 03/26/20 03/26/20 23:31 07:58 09:10 MCV 78.8 L MCH 22.5 L MCHC 28.5 L RDW 21.6 H Plt Count 291 MPV 10.2 Immature Gran % (Auto) 0.6 H Neut % (Auto) 83.8 H Lymph % (Auto) 11.9 L [place] % (Auto) 3.5 Eos % (Auto) 0.0 Baso % (Auto) 0.2 Neut # (Auto) 8.1 Lymph # (Auto) 1.2 [place] # (Auto) 0.3 Eos # (Auto) 0.0 Baso # (Auto) 0.0 Abs Immat Gran (auto) 0.06 H Absolute Nucleated RBC 0.000 Nucleated RBC % (auto) 0.0 Hold Blue Top VBG pH VBG pCO2 VBG Oxygen Liters/Min VBG pO2 VBG HCO3 VBG O2 Saturation VBG Base Excess Anion Gap Estim Creat Clear Calc Estimated GFR POC Glucose 232 H 190 H Random Glucose Lactic Acid Calcium Magnesium Total Bilirubin Direct Bilirubin AST ALT Alkaline Phosphatase B-Natriuretic Peptide Total Protein Albumin 03/26/20 09:10 MCV MCH MCHC RDW Plt Count MPV Immature Gran % (Auto) Neut % (Auto) Lymph % (Auto) [place] % (Auto) Eos % (Auto) Baso % (Auto) Neut # (Auto) Lymph # (Auto) [place] # (Auto) Eos # (Auto) Baso # (Auto) Abs Immat Gran (auto) Absolute Nucleated RBC Nucleated RBC % (auto) Hold Blue Top VBG pH VBG pCO2 VBG Oxygen Liters/Min VBG pO2 VBG HCO3 VBG O2 Saturation VBG Base Excess Anion Gap 13 Estim Creat Clear Calc 141.2 Estimated GFR > 60 POC Glucose Random Glucose 262 H D Lactic Acid Calcium 8.2 L Magnesium Total Bilirubin Direct Bilirubin AST ALT Alkaline Phosphatase B-Natriuretic Peptide Total Protein Albumin Assessment and Plan (1) Sepsis: Status: Acute (2) COPD exacerbation: Status: Acute (3) Hypertension: Status: Acute (4) Anxiety: Status: Acute (5) Hyperlipidemia: Status: Acute (6) Diabetes: Status: Acute (7) Renal infarct: Status: Acute Assessment and Plan: 54-year-old female presented with shortness of breath sepsis present on admission due to COPD exacerbation with chronic hypoxic respiratory failure continue steroids and bronchodilators, azithromycin hypertension amlodipine history of renal infarct Eliquis diabetes mellitus - on metformin- will hold - start low-dose sliding scale insulin - diabetic diet
[2020-03-26 12:00] LABS: Glucose, Whole Blood 164 mg/dL (60-115)
[2020-03-26 17:11] LABS: Glucose, Whole Blood 212 mg/dL (60-115)
[2020-03-26] MEDS: Montelukast Sodium 10 MG TABLET PO (21:14)
[2020-03-26] MEDS: QUEtiapine Fumarate 200 MG TABLET PO (21:15)
[2020-03-26] MEDS: Atorvastatin Calcium 20 MG TABLET PO (21:15)
[2020-03-26] MEDS: Azithromycin 500 MG TABLET PO (21:15)
[2020-03-26 21:30] LABS: Glucose, Whole Blood 122 mg/dL (60-115)
[2020-03-26] MEDS: cloNIDine HCL 0.1 MG TABLET PO (21:34)
[2020-03-27] VITALS: BP 123/74; PULSE 109; RESP 18; O2SAT 92
[2020-03-27 03:52] VITALS: BP 121/68; PULSE 102; RESP 19; TEMP 36.4; O2SAT 95
[2020-03-27 04:00] VITALS: O2SAT 95
[2020-03-27 06:00] VITALS: BMI 68.5
[2020-03-27] MEDS: Albuterol/Iprat 2.5/0.5MG 3 ML AMPUL.NEB INHALE (07:31)
[2020-03-27 08:00] VITALS: BP 137/95; PULSE 104; RESP 18; TEMP 36.7; O2SAT 98
[2020-03-27 08:11] LABS: Glucose, Whole Blood 148 mg/dL (60-115)
[2020-03-27 08:25] VITALS: BP 137/95; PULSE 104
[2020-03-27] MEDS: amLODIPine Besylate 2.5 MG TABLET PO (08:25)
[2020-03-27] MEDS: Multivitamin TABLET 1 TAB PO (08:25)
[2020-03-27] MEDS: Loratadine 10 MG TABLET PO (08:25)
[2020-03-27] MEDS: Gabapentin 600 MG TABLET PO (08:25)
[2020-03-27] MEDS: DULoxetine HCl 30 MG CAPSULE.DR PO (08:25)
[2020-03-27] MEDS: Valsartan 40 MG TABLET PO (08:25)
[2020-03-27] MEDS: Apixaban 5 MG TABLET PO (08:25)
[2020-03-27] MEDS: PARoxetine HCL 40 MG TABLET PO (08:25)
[2020-03-27] MEDS: Folic Acid 1 MG TABLET PO (08:25)
--- NOTE | 2020-03-27 09:55 | PM.DS ---
DS: Providers Provider Date of admission: 03/25/20 19:58 Primary care physician: Unknown Physician DS: Diagnosis Discharge Diagnosis (1) Sepsis: Status: Acute (2) COPD exacerbation: Status: Acute (3) Hypertension: Status: Acute (4) Anxiety: Status: Acute (5) Hyperlipidemia: Status: Acute (6) Diabetes: Status: Acute (7) Renal infarct: Status: Acute DS: Summary Hospital Course Hospital Course: patient was admitted for sepsis secondary to COPD exacerbation. She was given steroids and bronchodilators along with azithromycin. Her symptoms significantly improved and she is feeling close to back to baseline. Patient will be discharged home on 5 more days of prednisone 40 mg daily. She will follow-up with Pulmonary as outpatient. Time Spent with Patient Time attestation: Total time spent providing and/or coordinating discharge services: Physical Exam Vital Signs and I&O and Narrative: Vital Signs and I&O: Vital Signs Temp 98.1 F 03/27/20 08:00 Pulse 104 H 03/27/20 08:25 Resp 18 03/27/20 08:00 BP 137/95 H 03/27/20 08:25 Pulse Ox 98 03/27/20 08:00 Intake & Output 03/26/20 03/27/20 03/27/20 18:59 06:59 18:59 Intake Total 240 / 490 250 / 490 Output Total 900 / 1500 600 / 1500 Balance -660 / -1010 -350 / -1010 Urine Output (Aver age ml/kg/hr) 0.40 0.28 Weight 181 kg Intake: Intake, Oral [place] unt 240 / 490 250 / 490 Output: Output, Urine Am ount 900 / 1500 600 / 1500 Other: Breakfast % Eate n 100% Lunch % Eaten 100% Number of Incont inent Voids 0 Number of Unmeas ured Voids 1 Urine Bathroom Urine Color Yellow Yellow Body Mass Index 68.5 Const: General: cooperative and comfortable Resp: Other: Diminished breath sounds, no longer wheezing GI: Other: soft nontender DS: Data Data Completed and Pending Labs on day of discharge: Labs from last 24 hours 03/27/20 03/26/20 03/26/20 08:07 21:07 16:57 WBC RBC Hgb Hct MCV MCH MCHC RDW Plt Count MPV Immature Gran % (Auto) Neut % (Auto) Lymph % (Auto) [place] % (Auto) Eos % (Auto) Baso % (Auto) Neut # (Auto) Lymph # (Auto) [place] # (Auto) Eos # (Auto) Baso # (Auto) Abs Immat Gran (auto) Absolute Nucleated RBC Nucleated RBC % (auto) Sodium Potassium Chloride Carbon Dioxide Anion Gap BUN Creatinine Estim Creat Clear Calc Estimated GFR POC Glucose 148 H 122 H 212 H Random Glucose Calcium 03/26/20 03/26/20 03/26/20 11:57 09:10 09:10 WBC 9.7 RBC 3.96 L Hgb 8.9 L Hct 31.2 L MCV 78.8 L MCH 22.5 L MCHC 28.5 L RDW 21.6 H Plt Count 291 MPV 10.2 Immature Gran % (Auto) 0.6 H Neut % (Auto) 83.8 H Lymph % (Auto) 11.9 L [place] % (Auto) 3.5 Eos % (Auto) 0.0 Baso % (Auto) 0.2 Neut # (Auto) 8.1 Lymph # (Auto) 1.2 [place] # (Auto) 0.3 Eos # (Auto) 0.0 Baso # (Auto) 0.0 Abs Immat Gran (auto) 0.06 H Absolute Nucleated RBC 0.000 Nucleated RBC % (auto) 0.0 Sodium 140 Potassium 4.2 Chloride 104 Carbon Dioxide 27 Anion Gap 13 BUN 8 L Creatinine 0.76 Estim Creat Clear Calc 141.2 Estimated GFR > 60 POC Glucose 164 H Random Glucose 262 H D Calcium 8.2 L Preliminary micro results at discharge 03/25/20 15:51 Blood Culture - Preliminary Blood - Venous No growth after 24 hours. 03/25/20 15:18 Blood Culture - Preliminary Blood - Venous No growth after 24 hours. Discharge Plan Discharge Patient Disposition: Home, Self-Care Referrals: Physician,Unknown [Primary Care Provider] - Discharge Medications: New prednisone 20 mg tablet 40 mg PO DAILY Qty: 10 RF: 0 Continued multivitamin Tablet 1 tab PO DAILY RF: 0 clotrimazole 10 mg Jesus 10 mg MUCOUS MEMBRANE 5XD RF: 0 clonidine HCl 0.1 mg Tablet 0.1 mg PO BEDTIME RF: 0 gabapentin 600 mg Tablet 600 mg PO TID RF: 0 atorvastatin 20 mg Tablet 20 mg PO BEDTIME RF: 0 metformin 850 mg Tablet 850 mg PO BID RF: 0 folic acid 1 mg Tablet 1 mg PO DAILY RF: 0 montelukast 10 mg Tablet 10 mg PO BEDTIME RF: 0 paroxetine HCl 40 mg Tablet 40 mg PO DAILY RF: 0 loratadine 10 mg Tablet 10 mg DAILY RF: 0 valsartan 40 mg Tablet 40 mg PO BID RF: 0 tiotropium bromide 18 mcg Capsule, W/Inhalation Device 1 cap INHALATION DAILY RF: 0 duloxetine 30 mg Capsule,Delayed Release(Dr/Ec) 30 mg PO DAILY RF: 0 Breo Ellipta 100-25 mcg/dose Blister With Device 1 inh INHALATION DAILY RF: 0 albuterol sulfate 0.63 mg/3 mL Solution For Nebulization 0.63 mg INHALATION QID PRN (Reason: Shortness Of Breath) RF: 0 quetiapine 200 mg Tablet 200 mg PO BEDTIME RF: 0 amlodipine 2.5 mg Tablet 2.5 mg PO DAILY RF: 0 doxepin 100 mg Capsule 200 mg PO DAILY RF: 0 docusate sodium 100 mg Tablet 100 mg PO BID PRN (Reason: Constipation) RF: 0 apixaban 5 mg Tablet 5 mg BID RF: 0 melatonin 10 mg Capsule 10 mg PO BEDTIME RF: 0 Discharge Orders: Discharge Order (Routine); Ordered 03/27/20 Ordered By: Rafa Mcfarland Activity on Discharge: As tolerated Visit Report Forms: Patient Portal Discharge page Care Plan Goals: recovery Health Concerns: COPD Plan of Treatment: Prednisone, follow-up pulmonary
--- NOTE | 2020-03-27 10:13 | MHC.CM.PN ---
Patient has been medically cleared for dc to home today, no services. Patient will return home to [facility] via taxi.
== END 2020-03-27 11:10 | disposition home or self-care (01) | DRG 720 ==
LOC: HO.ED 19:54 → HO.S3 20:11 → HO.IMC 21:10
PROVIDERS: Emergency Medicine; Admitting Provider Internal Medicine; Emergency Provider Emergency Medicine; Visit Provider Internal Medicine
DX: A41.9 Sepsis, unspecified organism (principal); Z99.81 Dependence on supplemental oxygen; J44.1 Chronic obstructive pulmonary disease with (acute) exacerbation; E78.5 Hyperlipidemia, unspecified; E11.9 Type 2 diabetes mellitus without complications; D72.829 Elevated white blood cell count, unspecified; F41.9 Anxiety disorder, unspecified; F32.9 Major depressive disorder, single episode, unspecified; Z86.19 Personal history of other infectious and parasitic diseases; F10.21 Alcohol dependence, in remission; F17.210 Nicotine dependence, cigarettes, uncomplicated; Z71.6 Tobacco abuse counseling; Z79.01 Long term (current) use of anticoagulants; Z79.84 Long term (current) use of oral hypoglycemic drugs; Z79.52 Long term (current) use of systemic steroids; Z79.899 Other long term (current) drug therapy
CPT/HCPCS: 36415; 71045; 80048; 80076; 82803; 82947; 83605; 83735; 83880; 85025; 87040; 93005; 93010; 96361; 96365; 96367; 96375; 99284; 99285; 99291; J0696; J2920; J2930

== ENCOUNTER 2020-04-03 02:49 | Inpatient (IN) | payer OTHER, SELFPAY ==
[2020-04-03] VITALS (16 sets, daily range): BP systolic 108–155; BP diastolic 60–90; PULSE 78–120; RESP 15–24; TEMP 36.6–37.2; O2SAT 91–100; BMI 64.5
--- NOTE | 2020-04-03 03:03 | XR_ITS ---
EXAMINATION: XR CHEST CLINICAL INFORMATION: COPD COMPARISON: 03/25/2020 TECHNIQUE: Frontal view of the chest was obtained. FINDINGS: The lungs are well expanded. Linear left basilar atelectasis. No pleural effusion or pneumothorax. The cardiomediastinal silhouette is within normal limits of size. There is a calcified aorta. No acute osseous abnormality. IMPRESSION: Linear left basilar atelectasis. Otherwise clear lungs.
[2020-04-03] MEDS: Albuterol Sulfate (0.083%) 2.5 MG/3 ML VIAL.NEB 10 MG INHALE ×3 (03:09→06:42)
--- NOTE | 2020-04-03 03:10 | ED.SOB ---
HPI - SOB/Dyspnea General Stated Complaint: respiratory distress Time Seen by Provider: 04/03/20 03:01 Source: EMS Mode of arrival: EMS History of Present Illness HPI Narrative: was called bedside secondary to patient being on BiPAP. Patient unable to give history secondary to respiratory distress. As per EMS patient stated to them of increased shortness breath past 2 -3 days to get her home without help and called 9 1 no other history available MD elicited complaint: shortness of breath Pertinent past history: COPD Related Data Home Medications Medication Instructions Recorded Confirmed Breo Ellipta 1 inh INHALATION DAILY 03/25/20 03/25/20 albuterol sulfate 0.63 mg INHALATION QID PRN 03/25/20 03/25/20 amlodipine 2.5 mg PO DAILY 03/25/20 03/25/20 apixaban 5 mg BID 03/25/20 03/25/20 atorvastatin 20 mg PO BEDTIME 03/25/20 03/25/20 clonidine HCl 0.1 mg PO BEDTIME 03/25/20 03/25/20 clotrimazole 10 mg MUCOUS MEMBRANE 5XD 03/25/20 03/25/20 docusate sodium 100 mg PO BID PRN 03/25/20 03/25/20 doxepin 200 mg PO DAILY 03/25/20 03/25/20 duloxetine 30 mg PO DAILY 03/25/20 03/25/20 folic acid 1 mg PO DAILY 03/25/20 03/25/20 gabapentin 600 mg PO TID 03/25/20 03/25/20 loratadine 10 mg DAILY 03/25/20 03/25/20 melatonin 10 mg PO BEDTIME 03/25/20 03/25/20 metformin 850 mg PO BID 03/25/20 03/25/20 montelukast 10 mg PO BEDTIME 03/25/20 03/25/20 multivitamin 1 tab PO DAILY 03/25/20 03/25/20 paroxetine HCl 40 mg PO DAILY 03/25/20 03/25/20 quetiapine 200 mg PO BEDTIME 03/25/20 03/25/20 tiotropium bromide 1 cap INHALATION DAILY 03/25/20 03/25/20 valsartan 40 mg PO BID 03/25/20 03/25/20 Previous Rx's Medication Instructions Recorded prednisone 40 mg PO DAILY #10 tab 10/04/20 Allergies Allergy/AdvReac Type Severity Reaction Status Date / Time No Known Allergies Allergy Unknown UNKNOWN Verified 03/26/20 04:26 [NO KNOWN ALLERGIES] Review of Systems Review of Systems: unable to obtain secondary to respiratory status [facility] Past Medical History Medical History (Updated 03/25/20 @ 21:34 by China Carcamo MD) Anxiety COPD (chronic obstructive pulmonary disease) Diabetes H/O blood clots Hyperlipidemia Supplemental oxygen dependent Family History Family History (Updated 04/03/20 @ 03:11 by Heraclio Llanes DO) Other Family history non-contributory Social History Social History Household Members: Other Housing: Apartment Alcohol intake: former Smoking Status: Current every day smoker Tobacco Type: Cigarette Second Hand Smoke Exposure: Yes service: No Current occupational status: retired Physical Exam Vital Signs: Appearance: Alert. Oriented X3. No acute distress. Eyes: Pupils equal, round and reactive to light. ENT: Pharynx normal. Neck: Normal inspection. Neck supple. No lymph nodes noted. No crepitus CVS: Normal heart rate and rhythm. Pulses normal. Normal S1 and S2 Respiratory: moderate to severe respiratory distress. Breath sounds abnormall. bilateral Wheezing. No rales Abdomen: Soft and nontender. No rigidity. No distention. good BS x4 Skin: Skin warm and dry. Normal skin color. Normal skin turgor. Extremities: No lower extremity edema. Neurovascular intact to all extremities. No Lacerations. No Rash Neuro: Oriented X 3. No motor deficit. No sensory deficit. Moving all extermities. No slurred speech. Course Course Course Narrative: 54-year-old on BiPAP placed by EMS continue the emergency department monitored by me. Patient did receive IV steroids and IV magnesium prior to arrival Critical Care Time Critical Care Time Critical Care Time: Yes Total Critical Care Time: 35 Attestation: I have personally provided the time allotted of critical care time exclusive of time spent on separately billable procedures. Time includes review of laboratory data, radiology results, discussion with consultants and monitoring for potential decompensation. Interventions were performed and documented Discharge Plan Discharge Prescriptions: No Action multivitamin Tablet 1 tab PO DAILY RF: 0 clotrimazole 10 mg Jesus 10 mg MUCOUS MEMBRANE 5XD RF: 0 clonidine HCl 0.1 mg Tablet 0.1 mg PO BEDTIME RF: 0 gabapentin 600 mg Tablet 600 mg PO TID RF: 0 atorvastatin 20 mg Tablet 20 mg PO BEDTIME RF: 0 metformin 850 mg Tablet 850 mg PO BID RF: 0 folic acid 1 mg Tablet 1 mg PO DAILY RF: 0 montelukast 10 mg Tablet 10 mg PO BEDTIME RF: 0 paroxetine HCl 40 mg Tablet 40 mg PO DAILY RF: 0 loratadine 10 mg Tablet 10 mg DAILY RF: 0 valsartan 40 mg Tablet 40 mg PO BID RF: 0 tiotropium bromide 18 mcg Capsule, W/Inhalation Device 1 cap INHALATION DAILY RF: 0 duloxetine 30 mg Capsule,Delayed Release(Dr/Ec) 30 mg PO DAILY RF: 0 Breo Ellipta 100-25 mcg/dose Blister With Device 1 inh INHALATION DAILY RF: 0 albuterol sulfate 0.63 mg/3 mL Solution For Nebulization 0.63 mg INHALATION QID PRN (Reason: Shortness Of Breath) RF: 0 quetiapine 200 mg Tablet 200 mg PO BEDTIME RF: 0 amlodipine 2.5 mg Tablet 2.5 mg PO DAILY RF: 0 doxepin 100 mg Capsule 200 mg PO DAILY RF: 0 docusate sodium 100 mg Tablet 100 mg PO BID PRN (Reason: Constipation) RF: 0 apixaban 5 mg Tablet 5 mg BID RF: 0 melatonin 10 mg Capsule 10 mg PO BEDTIME RF: 0 prednisone 20 mg tablet 40 mg PO DAILY Qty: 10 RF: 0
[2020-04-03 03:58] LABS: MANUAL DIFF FLAG NO
[2020-04-03 04:00] LABS: Basophils Absolute Auto 0.1 X10*3/uL (0.0-0.2); Basophils Percent Auto 0.8 % (0-2); Eosinophils Absolute Auto 0.4 X10*3/uL (0.0-0.4); Eosinophils Percent Auto 3.8 % (0-4); Hematocrit 31.2 % (37-47); Hemoglobin 8.9 g/dl (12.0-16.0); Imm Gran Abs Auto 0.05 X10*3/uL (0.00-0.03); Imm Gran Pct Auto 0.5 % (0.0-0.4); Lymphocytes Absolute Auto 2.3 X10*3/uL (1.2-4.9); Mean Corpuscular HGB Conc 28.5 g/dl (31.0-35.0); Mean Corpuscular Hemoglobin 23.1 pg (27.0-33.0); Mean Corpuscular Volume 80.8 fL (80-98); Mean Platelet Volume 10.2 fL (9.4-12.3); Monocytes Absolute Auto 0.6 X10*3/uL (0.1-1.2); Monocytes Percent Auto 6.6 % (2-11); Neutrophils Absolute Auto 5.8 X10*3/uL (2.0-8.3); Neutrophils Percent Auto 63.3 % (45-73); Platelet Count 359 X10*3/uL (160-400); Red Blood Count 3.86 X10*6/uL (4.20-5.50); Red Cell Distribution Width 21.9 % (11.0-16.0); White Blood Count 9.2 X10*3/uL (4.8-10.8)
[2020-04-03] MEDS: cefTRIAXone sodium 1 GM in 0.9 % Sodium Chloride 50 ML IV (04:09)
[2020-04-03 04:30] LABS: Alanine Aminotransferase 14 U/L (0-31); Albumin Level 3.8 g/dL (3.5-5.0); Alkaline Phosphatase 76 U/L (39-117); Anion Gap 15 (12-20); Aspartate Amino Transferase 10 U/L (5-31); Bilirubin Direct < 0.2 mg/dL (0.0-0.5); Bilirubin Total 0.3 mg/dL (0.0-1.0); Blood Urea Nitrogen 8 mg/dL (9-16); Calcium 8.6 mg/dL (8.4-10.2); Carbon Dioxide 25 mmol/L (22-29); Chloride 104 mmol/L (96-108); Estimated Glomerular Filt Rate > 60; Glucose Random 172 mg/dL (60-115); Lipase 12 U/L (8-78); Potassium 3.7 mmol/l (3.3-5.1); Sodium 140 mmol/L (135-145); Total Protein 5.7 g/dL (6.5-8.0)
[2020-04-03 04:33] LABS: B Type Natriuretic Peptide 20 pg/mL (<100); Troponin-I High Sensitivity < 3.5 ng/L (<3.5-17.0)
[2020-04-03 04:53] LABS: Lactic Acid 1.5 mmol/L (0.5-2.0)
[2020-04-03 05:54] LABS: Base Excess VBG -4.2 mmol/L; HCO3 VBG 24 mmol/L; Oxygen Saturation VBG 90.9 %; PCO2 VBG 56 mmhg; PO2 VBG 72 mmhg; pH VBG 7.24 (7.32-7.43)
[2020-04-03 06:40] LABS: ABG PCO2 58 mmhg (32-45); Base Excess ABG -1.5; HCO3 ABG 26 mmol/l (22-26); PO2 ABG 101 mmhg (83-108); pH ABG 7.27 (7.35-7.45)
[2020-04-03 06:41] LABS: Oxygen Saturation ABG 96.8 %
--- NOTE | 2020-04-03 08:11 | PC.NURSE ---
respiratory called for ABGs
--- NOTE | 2020-04-03 08:22 | PC.NURSE ---
breakfast tray ordered for patient w/ verbal order from Dr. Grier, waiting for results of ABG's prior to giving pt tray
[2020-04-03 08:31] LABS: Pt Ventilation O2% 3 L
[2020-04-03 08:38] LABS: ABG PCO2 46 mmhg (32-45); Base Excess ABG -1.2; HCO3 ABG 25 mmol/l (22-26); Oxygen Saturation ABG 91.4 %; PO2 ABG 68 mmhg (83-108); pH ABG 7.35 (7.35-7.45)
--- NOTE | 2020-04-03 10:58 | PC.NURSE ---
INTRODUCED SELF TO PT. SPO2 ON 2L AT 96%, O2 WAS LOWERED TO 1L , NOW AT 94% SPO2. PT HAS EATEN 100% OF BREAKFAST. WAITING FOR HOSPITALIST INDIRAAL, PT AWARE OF PLAN FOR CARE.
--- NOTE | 2020-04-03 11:08 | PC.NURSE ---
PT REPORTS SIGNIFICANT IMPROVEMENT IN WORK OF BREATHING, CURRENTLY AT BASELINE. RALES HEARD THROUGHOUT. INQURING ABOUT AM MEDS, MEDS TO BE RECONCILED AND APPROVED BY
--- NOTE | 2020-04-03 11:33 | P.HPIM_ITS ---
History of Present Illness Date of Service: 04/03/20 Chief Complaint: SHORTNESS OF BREATH 54-year-old woman well known to the hospitalist service presented with complaints of worsening shortness of breath. She reports her symptoms started yesterday when she went to the store. She was feeling quite short of breath and when she came home 30 in the evening she was trying to get her oxygen set up and the tubing was all twisted and in her effort to get it set up she became quite dyspneic and anxious. She denied fever, chills, nausea, vomiting, recent illness, sick contacts. She uses 2 L of home oxygen as needed. She continues to smoke 2 cigarettes a day. She was noted to be hypoxic by EMS initially she w as placed on BiPAP in the ER. Her symptoms did improve and she was placed on nasal cannula. Initial blood gas was 0.27 however after BiPAP did improve to 7.35 with pCO2 46. She was given several doses of albuterol, 1 dose of Rocephin. She will be admitted for further management of acute on chronic respiratory failure related to COPD. Review of Systems Review of Systems: Denies any recent fever chills or decrease in appetite respiratory See HPI cardiovascular is adjustment of any PND or edema gastrointestinal denies any dysphagia abdominal pain nausea vomiting or diarrhea genitourinary denies any dysuria frequency or hematuria musculoskeletal denies any joint pain or swelling neuropsych denies any weakness or seizures all other systems reviewed are negative [facility] Medical History (Updated 04/03/20 @ 12:10 by Camelia Moore NP) Anxiety COPD (chronic obstructive pulmonary disease) Diabetes H/O blood clots History of DVT (deep vein thrombosis) Hyperlipidemia Supplemental oxygen dependent Functional capacity: independent ambulation Family History (Updated 04/03/20 @ 12:07 by Camelia Moore NP) Father Diabetes mellitus Myocardial infarction Social History (Updated 04/03/20 @ 12:08 by Camelia Moore NP) Household Members: Other Housing: Apartment Alcohol intake: former Smoking Status: Current every day smoker Tobacco Type: Cigarette Second Hand Smoke Exposure: Yes Use of substances other than those prescribed or required for medical reasons: No Advance Directives: No Advance Directives Information Provided: No service: No Current occupational status: retired Meds Allergies Allergy/AdvReac Type Severity Reaction Status Date / Time No Known Allergies Allergy Unknown UNKNOWN Verified 03/26/20 04:26 [NO KNOWN ALLERGIES] Home Medications Medication Instructions Recorded Confirmed Type Breo Ellipta 1 inh INHALATION DAILY 03/25/20 04/03/20 History albuterol sulfate 0.63 mg INHALATION QID PRN 03/25/20 04/03/20 History amlodipine 2.5 mg PO DAILY 03/25/20 04/03/20 History apixaban 5 mg BID 03/25/20 04/03/20 History atorvastatin 20 mg PO BEDTIME 03/25/20 04/03/20 History clonidine HCl 0.1 mg PO BEDTIME 03/25/20 04/03/20 History clotrimazole 10 mg MUCOUS MEMBRANE 5XD 03/25/20 03/25/20 History docusate sodium 100 mg PO BID PRN 03/25/20 04/03/20 History doxepin 200 mg PO DAILY 03/25/20 04/03/20 History duloxetine 30 mg PO DAILY 03/25/20 04/03/20 History folic acid 1 mg PO DAILY 03/25/20 04/03/20 History gabapentin 600 mg PO TID 03/25/20 04/03/20 History loratadine 10 mg DAILY 03/25/20 04/03/20 History melatonin 10 mg PO BEDTIME 03/25/20 04/03/20 History metformin 850 mg PO BID 03/25/20 04/03/20 History montelukast 10 mg PO BEDTIME 03/25/20 04/03/20 History multivitamin 1 tab PO DAILY 03/25/20 04/03/20 History paroxetine HCl 40 mg PO DAILY 03/25/20 04/03/20 History quetiapine 200 mg PO BEDTIME 03/25/20 04/03/20 History tiotropium bromide 1 cap INHALATION DAILY 03/25/20 04/03/20 History valsartan 40 mg PO BID 03/25/20 04/03/20 History Physical Exam Vital Signs and Narrative: Vital Signs: Last Vital Signs Temp 98.6 F 04/03/20 10:56 Pulse 120 H 04/03/20 10:56 Resp 22 H 04/03/20 10:56 BP 123/74 04/03/20 10:56 Pulse Ox 93 04/03/20 10:56 Body Mass Index 64.5 Appearing in no acute distress head is normocephalic atraumatic eyes pupils are PERRLA sclera is anicteric mouth throat mucous membranes are intact and moist neck is supple no lymphadenopathy, no JVD noted lung sounds diminished throughout, with some movement of air heart regular rate rhythm, clear S1, S2 positive bowel sounds, abdomen is soft, nontender neuro patient is alert x3, no focal deficits Results Labs Labs: Laboratory Tests 04/03/20 04/03/20 04/03/20 03:23 03:54 03:54 WBC 9.2 RBC 3.86 L Hgb 8.9 L Hct 31.2 L MCV 80.8 MCH 23.1 L MCHC 28.5 L RDW 21.9 H Plt Count 359 MPV 10.2 Immature Gran % (Auto) 0.5 H Neut % (Auto) 63.3 Lymph % (Auto) 25.0 [place] % (Auto) 6.6 Eos % (Auto) 3.8 Baso % (Auto) 0.8 Lymph # (Auto) 2.3 [place] # (Auto) 0.6 Eos # (Auto) 0.4 Baso # (Auto) 0.1 Abs Immat Gran (auto) 0.05 H Absolute Neuts (auto) 5.8 Absolute Nucleated RBC 0.000 Nucleated RBC % (auto) 0.0 ABG pH 7.27 L ABG pCO2 58 H ABG pO2 101 ABG HCO3 26 ABG O2 Saturation 96.8 ABG Base Excess -1.5 VBG pH VBG pCO2 VBG Oxygen Liters/Min VBG pO2 VBG HCO3 VBG O2 Saturation VBG Base Excess Oxygen Given . Sodium 140 Potassium 3.7 Chloride 104 Carbon Dioxide 25 Anion Gap 15 BUN 8 L Creatinine 0.84 Estim Creat Clear Calc 103.0 Estimated GFR > 60 Random Glucose 172 H Lactic Acid Calcium 8.6 Total Bilirubin 0.3 Direct Bilirubin < 0.2 AST 10 ALT 14 Alkaline Phosphatase 76 Troponin I High Sens B-Natriuretic Peptide Total Protein 5.7 L Albumin 3.8 Lipase 12 04/03/20 04/03/20 04/03/20 03:54 04:08 05:35 WBC RBC Hgb Hct MCV MCH MCHC RDW Plt Count MPV Immature Gran % (Auto) Neut % (Auto) Lymph % (Auto) [place] % (Auto) Eos % (Auto) Baso % (Auto) Lymph # (Auto) [place] # (Auto) Eos # (Auto) Baso # (Auto) Abs Immat Gran (auto) Absolute Neuts (auto) Absolute Nucleated RBC Nucleated RBC % (auto) ABG pH ABG pCO2 ABG pO2 ABG HCO3 ABG O2 Saturation ABG Base Excess VBG pH 7.24 L VBG pCO2 56 VBG Oxygen Liters/Min TNP VBG pO2 72 VBG HCO3 24 VBG O2 Saturation 90.9 VBG Base Excess -4.2 Oxygen Given Sodium Potassium Chloride Carbon Dioxide Anion Gap BUN Creatinine Estim Creat Clear Calc Estimated GFR Random Glucose Lactic Acid 1.5 Calcium Total Bilirubin Direct Bilirubin AST ALT Alkaline Phosphatase Troponin I High Sens < 3.5 B-Natriuretic Peptide 20 Total Protein Albumin Lipase 04/03/20 08:24 WBC RBC Hgb Hct MCV MCH MCHC RDW Plt Count MPV Immature Gran % (Auto) Neut % (Auto) Lymph % (Auto) [place] % (Auto) Eos % (Auto) Baso % (Auto) Lymph # (Auto) [place] # (Auto) Eos # (Auto) Baso # (Auto) Abs Immat Gran (auto) Absolute Neuts (auto) Absolute Nucleated RBC Nucleated RBC % (auto) ABG pH 7.35 ABG pCO2 46 H ABG pO2 68 L ABG HCO3 25 ABG O2 Saturation 91.4 ABG Base Excess -1.2 VBG pH VBG pCO2 VBG Oxygen Liters/Min VBG pO2 VBG HCO3 VBG O2 Saturation VBG Base Excess Oxygen Given 3 L Sodium Potassium Chloride Carbon Dioxide Anion Gap BUN Creatinine Estim Creat Clear Calc Estimated GFR Random Glucose Lactic Acid Calcium Total Bilirubin Direct Bilirubin AST ALT Alkaline Phosphatase Troponin I High Sens B-Natriuretic Peptide Total Protein Albumin Lipase Assessment and Plan (1) Acute and chronic respiratory failure: Status: Acute (2) COPD exacerbation: Status: Acute (3) Diabetes: Status: Acute (4) Hypertension: Status: Acute (5) Anxiety: Status: Acute (6) Hyperlipidemia: Status: Acute (7) History of DVT (deep vein thrombosis): Status: Inactive 54-year-old woman admitted with acute on chronic respiratory failure related to COPD exacerbation. Initially placed on BiPAP while in the ER, symptoms improved patient now on nasal cannula. He Acute on chronic respiratory failure related to COPD exacerbation. Symptoms improved after BiPAP initiation. Will continue IV Solu-Medrol, levalbuterol due to tachycardia, doxycycline. Monitor for worsening symptoms and transferred to higher level of care if BiPAP required. Diabetes mellitus. Sliding scale, ADA diet, continue metformin. Hypertension. Soft blood pressures. Will hold antihypertensives for now. Anxiety/depression. Continue paroxetine and Seroquel. Hyperlipidemia. Continue statin. History of DVT. Continue Eliquis. DVT prophylaxis with Eliquis. Discussed with Dr. Reyes Full code
--- NOTE | 2020-04-03 11:58 | PC.NURSE ---
seen by hospitalist, awaiting transfer orders.
--- NOTE | 2020-04-03 12:53 | PC.NURSE ---
called up to [facility]
--- NOTE | 2020-04-03 12:58 | PC.NURSE ---
report given to andre MIRANDA
[2020-04-03] MEDS: Multivitamin TABLET 1 TAB PO (14:49)
[2020-04-03] MEDS: Gabapentin 600 MG TABLET PO ×2 (14:50→21:29)
[2020-04-03] MEDS: Folic Acid 1 MG TABLET PO (14:50)
[2020-04-03] MEDS: Loratadine 10 MG TABLET PO (14:50)
[2020-04-03] MEDS: PARoxetine HCL 40 MG TABLET PO (14:50)
[2020-04-03] MEDS: metFORMIN HCl 850 MG TABLET PO ×2 (14:50→16:29)
[2020-04-03] MEDS: levalbuterol HCL 1.25 MG/3 ML VIAL.NEB INHALE ×3 (15:09→19:10)
[2020-04-03 16:26] LABS: Glucose, Whole Blood 227 mg/dL (60-115)
[2020-04-03] MEDS: Insulin Lispro 100 UNIT/ML 3 ML VIAL SUBCUT (16:28)
--- NOTE | 2020-04-03 17:36 | P.EN_ITS ---
Event Note Event Note: the patient was seen and evaluated with Camelia Moore NP. I agree with her note, assessment and plan with the following. In summary, 54 years old lady with PMH of COPD on 2 L home O2, active smoker, anxiety and diabetes who presents to the hospital complaining of sudden onset shortness of breath. Denies any fever, chills but reported coughing and bringing clear sputum. CXR in emergency showed no acute changes. She was treated initially on BiPAP in the emergency. Acute on chronic hypoxic respiratory failure COPD exacerbation O2 supplement IV steroids Bronchodilator nebulizer Keep on doxycycline to use BiPAP if needed for worsening symptoms To get home oxygen concentrator. Rest of evaluations by SALES PLANNING ANALYST note.
[2020-04-03 20:37] LABS: Glucose, Whole Blood 144 mg/dL (60-115)
[2020-04-03] MEDS: Atorvastatin Calcium 20 MG TABLET PO (21:29)
[2020-04-03] MEDS: Doxepin HCl 25 MG CAPSULE 200 MG PO (21:29)
[2020-04-03] MEDS: QUEtiapine Fumarate 200 MG TABLET PO (21:29)
[2020-04-03] MEDS: Montelukast Sodium 10 MG TABLET PO (21:29)
[2020-04-03] MEDS: Apixaban 5 MG TABLET PO (21:29)
[2020-04-04 03:53] VITALS: BP 128/77; PULSE 117; RESP 20; TEMP 36.6; O2SAT 93
[2020-04-04 06:40] LABS: MANUAL DIFF FLAG NO
[2020-04-04 07:05] LABS: Basophils Percent Auto 0.3 % (0-2); Eosinophils Absolute Auto 0.1 X10*3/uL (0.0-0.4); Eosinophils Percent Auto 1.1 % (0-4); Hematocrit 32.4 % (37-47); Hemoglobin 9.3 g/dl (12.0-16.0); Imm Gran Abs Auto 0.05 X10*3/uL (0.00-0.03); Imm Gran Pct Auto 0.4 % (0.0-0.4); Lymphocytes Absolute Auto 2.6 X10*3/uL (1.2-4.9); Lymphocytes Percent Auto 21.8 % (20-40); Mean Corpuscular HGB Conc 28.7 g/dl (31.0-35.0); Mean Platelet Volume 10.5 fL (9.4-12.3); Monocytes Absolute Auto 1.3 X10*3/uL (0.1-1.2); Neutrophils Absolute Auto 7.7 X10*3/uL (2.0-8.3); Neutrophils Percent Auto 65.4 % (45-73); Platelet Count 396 X10*3/uL (160-400); Red Blood Count 4.05 X10*6/uL (4.20-5.50); Red Cell Distribution Width 21.8 % (11.0-16.0); White Blood Count 11.8 X10*3/uL (4.8-10.8)
[2020-04-04 07:13] LABS: Glucose, Whole Blood 93 mg/dL (60-115)
[2020-04-04 08:00] VITALS: BP 159/99; PULSE 120; RESP 20; TEMP 36.8; O2SAT 95
[2020-04-04] MEDS: Loratadine 10 MG TABLET PO (08:03)
[2020-04-04] MEDS: metFORMIN HCl 850 MG TABLET PO (08:03)
[2020-04-04] MEDS: Folic Acid 1 MG TABLET PO (08:03)
[2020-04-04] MEDS: Multivitamin TABLET 1 TAB PO (08:03)
[2020-04-04] MEDS: DULoxetine HCl 30 MG CAPSULE.DR PO (08:03)
[2020-04-04] MEDS: Apixaban 5 MG TABLET PO (08:04)
[2020-04-04] MEDS: PARoxetine HCL 40 MG TABLET PO (08:04)
[2020-04-04] MEDS: Gabapentin 600 MG TABLET PO (08:04)
[2020-04-04] MEDS: levalbuterol HCL 1.25 MG/3 ML VIAL.NEB INHALE ×2 (08:13→11:23)
[2020-04-04 11:32] LABS: Glucose, Whole Blood 88 mg/dL (60-115)
[2020-04-04 12:00] VITALS: BP 140/74; PULSE 62; RESP 18; TEMP 36.4; O2SAT 97
--- NOTE | 2020-04-04 17:05 | P.DS_ITS ---
DS: Providers Provider Date of admission: 04/03/20 12:01 Primary care physician: Unknown Physician DS: Diagnosis Discharge Diagnosis (1) Acute and chronic respiratory failure: Status: Acute (2) COPD exacerbation: Status: Acute (3) Diabetes: Status: Acute (4) Hypertension: Status: Acute (5) Anxiety: Status: Acute (6) Hyperlipidemia: Status: Acute (7) History of DVT (deep vein thrombosis): Status: Inactive DS: Summary Hospital Course Hospital Course: admission note HPI 54-year-old woman well known to the hospitalist service presented with complaints of worsening shortness of breath. She reports her symptoms started yesterday when she went to the store. She was feeling quite short of breath and when she came home 30 in the evening she was trying to get her oxygen set up and the tubing was all twisted and in her effort to get it set up she became quite dyspneic and anxious. She denied fever, chills, nausea, vomiting, recent illness, sick contacts. She uses 2 L of home oxygen as needed. She continues to smoke 2 cigarettes a day. She was noted to be hypoxic by EMS initially she was placed on BiPAP in the ER. Her symptoms did improve and she was placed on nasal cannula. Initial blood gas was 0.27 however after BiPAP did improve to 7.35 with pCO2 46. She was given several doses of albuterol, 1 dose of Rocephin. She will be admitted for further management of acute on chronic respiratory failure related to COPD. The patient was admitted to the hospital and started treatment with bronchodilator nebulizers, oxygen supplement, IV steroids, IV doxycycline with fair response as wheezing resolved by the next day and she was saturating 95% on room air. She reported feeling much better and wanted to be discharged home. I have worked with the respiratory therapy to get her concentrator for the oxyg en at home. Continue doxycycline prednisone as prescribed Use nebulizer 6 times a day for the next 3 days at least Use oxygen all the time quit smoking Time Spent with Patient Time attestation: Total time spent providing and/or coordinating discharge services: Physical Exam Vital Signs: Vital Signs: Vital Signs Temp Pulse Resp BP Pulse Ox 04/04/20 12:00 97.6 F 62 18 140/74 H 97 04/04/20 08:00 98.3 F 120 H 20 159/99 H 95 04/04/20 03:53 97.8 F 117 H 20 128/77 93 04/03/20 23:51 98.7 F 110 H 18 139/74 96 04/03/20 19:26 97.9 F 116 H 19 138/72 98 Body Mass Index 64.5 Constitutional : Alert, oriented, not in distress Neck : Normal inspection, Supple Cardiovascular : RRR, S1 S2, no lower extremity edema Respiratory : Fair bilateral air entry but much better time of admission, no crackles or rhonchi, bilateral scattered wheezes. Gastrointestinal: soft, lax, Normal bowel sounds, Non tender Skin : Warm/Dry, No rash Neurological : Alert & oriented x3, No focal deficit DS: Data Data Completed and Pending Labs on day of discharge: Labs from last 24 hours 04/04/20 04/04/20 04/04/20 11:26 07:05 05:52 WBC 11.8 H RBC 4.05 L Hgb 9.3 L Hct 32.4 L MCV 80.0 MCH 23.0 L MCHC 28.7 L RDW 21.8 H Plt Count 396 MPV 10.5 Immature Gran % (Auto) 0.4 Neut % (Auto) 65.4 Lymph % (Auto) 21.8 [place] % (Auto) 11.0 Eos % (Auto) 1.1 Baso % (Auto) 0.3 Lymph # (Auto) 2.6 [place] # (Auto) 1.3 H Eos # (Auto) 0.1 Baso # (Auto) 0.0 Abs Immat Gran (auto) 0.05 H Absolute Neuts (auto) 7.7 Absolute Nucleated RBC 0.000 Nucleated RBC % (auto) 0.0 POC Glucose 88 93 04/03/20 20:34 WBC RBC Hgb Hct MCV MCH MCHC RDW Plt Count MPV Immature Gran % (Auto) Neut % (Auto) Lymph % (Auto) [place] % (Auto) Eos % (Auto) Baso % (Auto) Lymph # (Auto) [place] # (Auto) Eos # (Auto) Baso # (Auto) Abs Immat Gran (auto) Absolute Neuts (auto) Absolute Nucleated RBC Nucleated RBC % (auto) POC Glucose 144 H Preliminary micro results at discharge 04/03/20 04:08 Blood Culture - Preliminary Blood - Venous No growth after 24 hours. 04/03/20 04:08 Blood Culture - Preliminary Blood - Venous No growth after 24 hours. Discharge Plan Discharge Patient Disposition: Home, Self-Care Referrals: Physician,Unknown [Primary Care Provider] - Discharge Medications: New prednisone 20 mg tablet 40 mg PO DAILY Qty: 8 RF: 0 doxycycline monohydrate 100 mg capsule 100 mg PO BID Qty: 8 RF: 0 Continued multivitamin Tablet 1 tab PO DAILY RF: 0 clotrimazole 10 mg Jesus 10 mg MUCOUS MEMBRANE 5XD RF: 0 clonidine HCl 0.1 mg Tablet 0.1 mg PO BEDTIME RF: 0 gabapentin 600 mg Tablet 600 mg PO TID RF: 0 atorvastatin 20 mg Tablet 20 mg PO BEDTIME RF: 0 metformin 850 mg Tablet 850 mg PO BID RF: 0 folic acid 1 mg Tablet 1 mg PO DAILY RF: 0 montelukast 10 mg Tablet 10 mg PO BEDTIME RF: 0 paroxetine HCl 40 mg Tablet 40 mg PO DAILY RF: 0 loratadine 10 mg Tablet 10 mg DAILY RF: 0 valsartan 40 mg Tablet 40 mg PO BID RF: 0 tiotropium bromide 18 mcg Capsule, W/Inhalation Device 1 cap INHALATION DAILY RF: 0 duloxetine 30 mg Capsule,Delayed Release(Dr/Ec) 30 mg PO DAILY RF: 0 Breo Ellipta 100-25 mcg/dose Blister With Device 1 inh INHALATION DAILY RF: 0 albuterol sulfate 0.63 mg/3 mL Solution For Nebulization 0.63 mg INHALATION QID PRN (Reason: Shortness Of Breath) RF: 0 quetiapine 200 mg Tablet 200 mg PO BEDTIME RF: 0 amlodipine 2.5 mg Tablet 2.5 mg PO DAILY RF: 0 doxepin 100 mg Capsule 200 mg PO DAILY RF: 0 docusate sodium 100 mg Tablet 100 mg PO BID PRN (Reason: Constipation) RF: 0 apixaban 5 mg Tablet 5 mg BID RF: 0 melatonin 10 mg Capsule 10 mg PO BEDTIME RF: 0 prednisone 20 mg tablet 40 mg PO DAILY Qty: 10 RF: 0 Discharge Orders: Discharge Order (Routine); Ordered 04/04/20 Ordered By: Mahendra Reyes Diet: advance to your usual diet Activity on Discharge: As tolerated Stand Alone Forms: Community Support Discharge Date/Time: 04/04/20 14:05 Visit Report Forms: Patient Portal Discharge page Care Plan Goals: - Health Concerns: - Plan of Treatment: you were admitted to the hospital and treated for COPD exacerbation with bronchodilators, oxygen, steroids and antibiotic with good response. You were weaned off the oxygen and was able to ambulate on room air. You feel your ready to go home. A concentrator should be delivered to your home today. Continue doxycycline prednisone as prescribed Use your nebulizer 6 times a day for the next 3 days at least Use oxygen all the time quit smoking
== END 2020-04-04 14:05 | disposition home or self-care (01) | DRG 140 ==
LOC: HO.ED 11:24 → HO.IMC 12:44
PROVIDERS: Nurse Practitioner Acute Care; Admitting Provider Internal Medicine; Emergency Provider Emergency Medicine; Visit Provider Student in an Organized Health Care Education/Training Program
DX: J44.1 Chronic obstructive pulmonary disease with (acute) exacerbation (principal); J96.21 Acute and chronic respiratory failure with hypoxia; Z99.81 Dependence on supplemental oxygen; F17.210 Nicotine dependence, cigarettes, uncomplicated; E11.9 Type 2 diabetes mellitus without complications; E78.5 Hyperlipidemia, unspecified; F32.9 Major depressive disorder, single episode, unspecified; F41.9 Anxiety disorder, unspecified; Z86.718 Personal history of other venous thrombosis and embolism; Z71.6 Tobacco abuse counseling; Z79.01 Long term (current) use of anticoagulants; Z79.84 Long term (current) use of oral hypoglycemic drugs; Z79.899 Other long term (current) drug therapy
CPT/HCPCS: 36415; 71045; 80048; 80076; 82803; 82947; 83605; 83690; 83880; 84484; 85025; 87040; 96365; 99285; 99291; J2920

== ENCOUNTER 2020-04-09 15:14 | Emergency (ER) | payer OTHER, SELFPAY ==
[2020-04-09 15:24] VITALS: BP 132/76; BP 136/76; PULSE 115; PULSE 116; RESP 22; TEMP 37.1; O2SAT 99; BMI 35.9
[2020-04-09 15:29] VITALS: RESP 24
[2020-04-09 15:32] VITALS: PULSE 113; O2SAT 99
--- NOTE | 2020-04-09 16:02 | PC.NURSE ---
pt off bipap at this time, sts feeling so much better . pt sts i think all i needed was a tx. i should have taken one before i left the house . pt on 2l o2 nc att, spo2 96%. pt still awaiting primary eval. asking to be discharged since she is feeling better .
--- NOTE | 2020-04-09 16:25 | ECG_ITS ---
Test Reason : DIFF BREATHING Blood Pressure : / mmHG Vent. Rate : 112 BPM Atrial Rate : 112 BPM P-R Int : 180 ms QRS Dur : 080 ms QT Int : 316 ms P-R-T Axes : 069 042 076 degrees QTc Int : 431 ms Sinus tachycardia Low voltage QRS Possible Left atrial enlargement Nonspecific T wave abnormality Abnormal ECG When compared with ECG of 25-MAR-2020 15:50, No significant change was found Referred By: Surekha Chi Electronically Signed By:BARTOLO GONZALEZ MD
--- NOTE | 2020-04-09 16:30 | XR_ITS ---
EXAMINATION: XR CHEST CLINICAL INFORMATION: Shortness of breath, history of COPD. COMPARISON: 04/03/2020 and 03/25/2020 chest radiographs. TECHNIQUE: 2 views of the chest were obtained. FINDINGS: There is generalized hyperinflation. Mild bibasilar linear markings are seen. Diminished lung markings are seen in the upper lobes. The heart and mediastinal structures are unremarkable. IMPRESSION: Mild bibasilar linear atelectasis versus scarring. Evidence for COPD, but no acute cardiopulmonary process.
[2020-04-09 16:42] LABS: MANUAL DIFF FLAG NO
[2020-04-09 16:45] LABS: Basophils Absolute Auto 0.1 X10*3/uL (0.0-0.2); Basophils Percent Auto 0.6 % (0-2); Eosinophils Absolute Auto 0.2 X10*3/uL (0.0-0.4); Eosinophils Percent Auto 1.6 % (0-4); Hematocrit 32.4 % (37-47); Hemoglobin 9.6 g/dl (12.0-16.0); Imm Gran Abs Auto 0.07 X10*3/uL (0.00-0.03); Imm Gran Pct Auto 0.5 % (0.0-0.4); Lymphocytes Absolute Auto 4.9 X10*3/uL (1.2-4.9); Lymphocytes Percent Auto 34.5 % (20-40); Mean Corpuscular HGB Conc 29.6 g/dl (31.0-35.0); Mean Corpuscular Hemoglobin 23.4 pg (27.0-33.0); Mean Platelet Volume 10.4 fL (9.4-12.3); Monocytes Absolute Auto 1.3 X10*3/uL (0.1-1.2); Monocytes Percent Auto 9.2 % (2-11); Neutrophils Absolute Auto 7.7 X10*3/uL (2.0-8.3); Neutrophils Percent Auto 53.6 % (45-73); Platelet Count 365 X10*3/uL (160-400); Red Cell Distribution Width 21.4 % (11.0-16.0); White Blood Count 14.3 X10*3/uL (4.8-10.8)
[2020-04-09 16:54] LABS: Anion Gap 15 (12-20); Blood Urea Nitrogen 16 mg/dL (9-16); Calcium 9.4 mg/dL (8.4-10.2); Carbon Dioxide 28 mmol/L (22-29); Chloride 104 mmol/L (96-108); Creatinine Clr Calc Pharmacy 82.5; Estimated Glomerular Filt Rate > 60; Glucose Random 82 mg/dL (60-115); Sodium 143 mmol/L (135-145)
[2020-04-09 17:02] LABS: B Type Natriuretic Peptide 29 pg/mL (<100)
[2020-04-09 17:19] VITALS: BP 122/75; PULSE 108; RESP 23; TEMP 36.4; O2SAT 92
--- NOTE | 2020-04-09 17:24 | ED_ITS ---
HPI - SOB/Dyspnea General Chief Complaint: Dyspnea Stated Complaint: diff breathing Time Seen by Provider: 04/09/20 16:24 Source: patient Mode of arrival: EMS Limitations: no limitations History of Present Illness HPI Narrative: 54yoF c PMHx of asthma/COPD on home O2 as needed, DM, diverticulosis, ETOH abuse, HTN, HLD c/o worsening SOB while at [employer]. Patient reports she usually uses her [employer] machine prior to leaving her house although today she did not. patient arrived on CPAP with 100% for oxygen satura tion on room air she was found to be 88%. Patient reports she just finished a course of steroids yesterday. Denies any other symptoms complaints or concerns at this time. Related Data Home Medications Medication Instructions Recorded Confirmed Breo Ellipta 1 inh INHALATION DAILY 03/25/20 04/03/20 albuterol sulfate 0.63 mg INHALATION QID PRN 03/25/20 04/03/20 amlodipine 2.5 mg PO DAILY 03/25/20 04/03/20 apixaban 5 mg BID 03/25/20 04/03/20 atorvastatin 20 mg PO BEDTIME 03/25/20 04/03/20 clonidine HCl 0.1 mg PO BEDTIME 03/25/20 04/03/20 clotrimazole 10 mg MUCOUS MEMBRANE 5XD 03/25/20 03/25/20 docusate sodium 100 mg PO BID PRN 03/25/20 04/03/20 doxepin 200 mg PO DAILY 03/25/20 04/03/20 duloxetine 30 mg PO DAILY 03/25/20 04/03/20 folic acid 1 mg PO DAILY 03/25/20 04/03/20 gabapentin 600 mg PO TID 03/25/20 04/03/20 loratadine 10 mg DAILY 03/25/20 04/03/20 melatonin 10 mg PO BEDTIME 03/25/20 04/03/20 metformin 850 mg PO BID 03/25/20 04/03/20 montelukast 10 mg PO BEDTIME 03/25/20 04/03/20 multivitamin 1 tab PO DAILY 03/25/20 04/03/20 paroxetine HCl 40 mg PO DAILY 03/25/20 04/03/20 quetiapine 200 mg PO BEDTIME 03/25/20 04/03/20 tiotropium bromide 1 cap INHALATION DAILY 03/25/20 04/03/20 valsartan 40 mg PO BID 03/25/20 04/03/20 Previous Rx's Medication Instructions Recorded prednisone 40 mg PO DAILY #10 tab 03/27/20 doxycycline monohydrate 100 mg PO BID #8 cap 04/04/20 prednisone 40 mg PO DAILY #8 tab 04/04/20 azithromycin See Rx Instructions .ROUTE 04/09/20 .COMPLEX #6 tab prednisone 40 mg PO DAILY 5 Days #10 tab NS 04/09/20 Allergies Allergy/AdvReac Type Severity Reaction Status Date / Time No Known Allergies Allergy Unknown UNKNOWN Verified 03/26/20 04:26 [NO KNOWN ALLERGIES] Review of Systems Review of Systems: Constitutional : denies med noncompliance, no history of PE or DVT, denies recent travel, No Fever, No Chills ENT/Mouth : No Hoarseness, No sore throat, No Rhinorrhea Eyes: No Redness, No Discharge, No Vision Changes Cardiovascular : No Chest Pain, No Edema, no pleurisy, Respiratory : No Sputum, no stridor, no hemoptysis, Gastrointestinal : No Nausea, No Vomiting, No Diarrhea, No abdominal Pain Genitourinary : No Dysuria, No Hematuria Musculoskeletal : No joint pain, No Myalgias Extremities: no extremity swelling /pain Skin : No rash, no itching, no swelling Neuro : No Weakness, No Numbness, No Headache Psych : No anxiety, depression Heme/Lymph: No Bruising, No Bleeding Endocrine : No Polyuria, No Polydipsia Yes all other systems are reviewed and are negative PMFSH Past Medical History Attestation statement: The following information was validated with the patient. Medical History Anxiety COPD (chronic obstructive pulmonary disease) Diabetes H/O blood clots History of DVT (deep vein thrombosis) Hyperlipidemia Supplemental oxygen dependent Family History Family History Father Diabetes mellitus Myocardial infarction Social History Social History Household Members: Other Housing: Other Alcohol intake: never Smoking Status: Light tobacco smoker Tobacco Type: Cigarette Smoked in Last 30 Days: Yes Second Hand Smoke Exposure: Yes Use of substances other than those prescribed or required for medical reasons: No Advance Directives: No Advance Directives Information Provided: Yes service: No Current occupational status: retired Physical Exam Vital Signs: Vital Signs: Vital Signs Temp Pulse Resp BP Pulse Ox 04/09/20 17:19 97.6 F 108 H 23 H 122/75 92 04/09/20 15:29 24 H 04/09/20 15:24 98.7 F 116 H 22 H 132/76 99 Body Mass Index 35.9 Appearance: Alert. Oriented X3. Mild respiratory distress. Head: Normal external exam. Normocephalic. Atraumatic. No Lester signs noted. N o raccoon eyes noted Eyes: PERRLA. EOMI. Conjunctiva and sclera normal. Eyelids normal. ENT: EAC normal. TM's Normal. Pharynx normal. Uvula midline. Moist mucous membranes. No trismus noted. No drooling noted. No muffled voice noted. Neck: Normal inspection. Neck supple. FROM. No adenopathy. Thyroid Normal. No meningeal signs. No neck mass noted. CVS: Normal heart rate and rhythm. Heart sound normal. No murmurs noted. Pulses normal throughout. Respiratory: Mild respiratory distress. Decreased air movement with inspiratory and expiratory wheezes throughout. No rales/rhonchi noted. Chest nontender. No accessory muscle usage noted. Abdomen: Soft and nontender. Bowel sounds normal in all 4 quadrants. No distention noted. No organomegaly noted. No visible injury noted. Back: No CVA tenderness. Full range of motion noted. Skin: Skin warm and dry. Normal skin color. Normal skin turgor. No rashes/lesions/lacerations noted. Extremities: No lower extremity edema. Extremities exhibit normal range of motion. Extremities nontender. Neuro: Oriented X 3. No motor deficit. No sensory deficit. Reflexes normal. Course Course Course Narrative: 54yoF c PMHx of asthma/COPD on home O2 as needed, DM, diverticulosis, ETOH abuse, HTN, HLD c/o worsening SOB while at [employer]. Patient reports she usually uses her [employer] machine prior to leaving her house although today she did not. patient arrived on CPAP with 100% for oxygen saturation on room air she was found to be 88%. Patient reports she just finished a course of steroids yesterday. Denies any other symptoms complaints or concerns at this time. - Plan: Labs, CXR, blood cultures, EKG. Provide a breathing tx and 125mg of So nathen-Medrol and then re-evaluate. Reevaluation(s) Reevaluation #1: Patient tachycardic an elevated white blood cell count although the tachycardia is most likely related to the breathing treatment she received prior to arrival and the elevated white blood cell count she usually has a chronic elevated white blood cell count it is more elevated today due to the course of steroids she finished yesterday. This is not sepsis this is chronic COPD/Bronchitis. all other labs are within normal limits. EKG within normal limits no acute processes noted. Chest x-ray within normal limits no acute processes noted. Will DC home with instructions to return if any new or worsening symptoms to follow-up with primary care provider. Patient understands agrees the plan. MDM - SOB/Dyspnea MDM Narrative Medical decision making narrative: COPD/chronic bronchitis versus acute exacerbation of COPD/acute bronchitis versus pneumonia versus CHF Medical Records Attestation: I reviewed the patient's medical records. Lab Data Attestation: I reviewed the patient's lab results. Result diagrams: 04/09/20 15:40 04/09/20 15:40 Labs: Lab Results 04/09/20 04/09/20 04/09/20 Range/Units 15:40 15:40 15:40 WBC 14.3 H (4.8-10.8) X10*3/uL RBC 4.10 L (4.20-5.50) X10*6/uL Hgb 9.6 L (12.0-16.0) g/dl Hct 32.4 L (37-47) % MCV 79.0 L (80-98) fL MCH 23.4 L (27.0-33.0) pg MCHC 29.6 L (31.0-35.0) g/dl RDW 21.4 H (11.0-16.0) % Plt Count 365 (160-400) X10*3/uL MPV 10.4 (9.4-12.3) fL Immature Gran % (Auto) 0.5 H (0.0-0.4) % Neut % (Auto) 53.6 (45-73) % Lymph % (Auto) 34.5 (20-40) % [place] % (Auto) 9.2 (2-11) % Eos % (Auto) 1.6 (0-4) % Baso % (Auto) 0.6 (0-2) % Lymph # (Auto) 4.9 (1.2-4.9) X10*3/uL [place] # (Auto) 1.3 H (0.1-1.2) X10*3/uL Eos # (Auto) 0.2 (0.0-0.4) X10*3/uL Baso # (Auto) 0.1 (0.0-0.2) X10*3/uL Abs Immat Gran (auto) 0.07 H (0.00-0.03) X10*3/uL Absolute Neuts (auto) 7.7 (2.0-8.3) X10*3/uL Absolute Nucleated RBC 0.000 (0.0-0.012) X10*3/uL Nucleated RBC % (auto) 0.0 (0.0-0.2) /100WBC Hold Purple Top SEE NOTE Hold Blue Top SEE NOTE Sodium (135-145) mmol/L Potassium (3.3-5.1) mmol/l Chloride (96-108) mmol/L Carbon Dioxide (22-29) mmol/L Anion Gap (12-20) BUN (9-16) mg/dL Creatinine (0.5-1.4) mg/dL Estim Creat Clear Calc Estimated GFR Random Glucose (60-115) mg/dL Calcium (8.4-10.2) mg/dL B-Natriuretic Peptide (<100) pg/mL 04/09/20 04/09/20 Range/Units 15:40 15:40 WBC (4.8-10.8) X10*3/uL RBC (4.20-5.50) X10*6/uL Hgb (12.0-16.0) g/dl Hct (37-47) % MCV (80-98) fL MCH (27.0-33.0) pg MCHC (31.0-35.0) g/dl RDW (11.0-16.0) % Plt Count (160-400) X10*3/uL MPV (9.4-12.3) fL Immature Gran % (Auto) (0.0-0.4) % Neut % (Auto) (45-73) % Lymph % (Auto) (20-40) % [place] % (Auto) (2-11) % Eos % (Auto) (0-4) % Baso % (Auto) (0-2) % Lymph # (Auto) (1.2-4.9) X10*3/uL [place] # (Auto) (0.1-1.2) X10*3/uL Eos # (Auto) (0.0-0.4) X10*3/uL Baso # (Auto) (0.0-0.2) X10*3/uL Abs Immat Gran (auto) (0.00-0.03) X10*3/uL Absolute Neuts (auto) (2.0-8.3) X10*3/uL Absolute Nucleated RBC (0.0-0.012) X10*3/uL Nucleated RBC % (auto) (0.0-0.2) /100WBC Hold Purple Top Hold Blue Top Sodium 143 (135-145) mmol/L Potassium 4.0 (3.3-5.1) mmol/l Chloride 104 (96-108) mmol/L Carbon Dioxide 28 (22-29) mmol/L Anion Gap 15 (12-20) BUN 16 D (9-16) mg/dL Creatinine 0.82 (0.5-1.4) mg/dL Estim Creat Clear Calc 82.5 Estimated GFR > 60 Random Glucose 82 D (60-115) mg/dL Calcium 9.4 (8.4-10.2) mg/dL B-Natriuretic Peptide 29 (<100) pg/mL ECG Data Attestation: I personally reviewed and interpreted this ECG as follows: ECG interpretation date: 04/09/20 ECG interpretation time: 15:50 Prior ECG tracings: available for review Interpretation: patient EKG sinus tachycardia with ventricular rate of 102 with a normal GA interval and normal acute RS duration with a normal QT/ QTC interval. No acute ischemic changes. Similar compared to prior 03/25/2020. Discharge Plan Discharge Clinical Impression: COPD (chronic obstructive pulmonary disease) with chronic bronchitis Patient Disposition: Home, Self-Care Instructions: COPD (Chronic Obstructive Pulmonary Disease) (ED), Chronic Bronchitis (ED) Additional Instructions: Follow-up with your primary care provider return if any new or worsening symptoms. Prescriptions: New azithromycin 250 mg tablet See Rx Instructions .ROUTE .COMPLEX Qty: 6 RF: 0 prednisone 20 mg tablet 40 mg PO DAILY 5 Days Qty: 10 RF: 0 No Action prednisone 20 mg tablet 40 mg PO DAILY Qty: 8 RF: 0 doxycycline monohydrate 100 mg capsule 100 mg PO BID Qty: 8 RF: 0 multivitamin Tablet 1 tab PO DAILY RF: 0 clotrimazole 10 mg Jesus 10 mg MUCOUS MEMBRANE 5XD RF: 0 clonidine HCl 0.1 mg Tablet 0.1 mg PO BEDTIME RF: 0 gabapentin 600 mg Tablet 600 mg PO TID RF: 0 atorvastatin 20 mg Tablet 20 mg PO BEDTIME RF: 0 metformin 850 mg Tablet 850 mg PO BID RF: 0 folic acid 1 mg Tablet 1 mg PO DAILY RF: 0 montelukast 10 mg Tablet 10 mg PO BEDTIME RF: 0 paroxetine HCl 40 mg Tablet 40 mg PO DAILY RF: 0 loratadine 10 mg Tablet 10 mg DAILY RF: 0 valsartan 40 mg Tablet 40 mg PO BID RF: 0 tiotropium bromide 18 mcg Capsule, W/Inhalation Device 1 cap INHALATION DAILY RF: 0 duloxetine 30 mg Capsule,Delayed Release(Dr/Ec) 30 mg PO DAILY RF: 0 Breo Ellipta 100-25 mcg/dose Blister With Device 1 inh INHALATION DAILY RF: 0 albuterol sulfate 0.63 mg/3 mL Solution For Nebulization 0.63 mg INHALATION QID PRN (Reason: Shortness Of Breath) RF: 0 quetiapine 200 mg Tablet 200 mg PO BEDTIME RF: 0 amlodipine 2.5 mg Tablet 2.5 mg PO DAILY RF: 0 doxepin 100 mg Capsule 200 mg PO DAILY RF: 0 docusate sodium 100 mg Tablet 100 mg PO BID PRN (Reason: Constipation) RF: 0 apixaban 5 mg Tablet 5 mg BID RF: 0 melatonin 10 mg Capsule 10 mg PO BEDTIME RF: 0 prednisone 20 mg tablet 40 mg PO DAILY Qty: 10 RF: 0 Print Language: Sammarinese
== END 2020-04-09 18:02 | disposition home or self-care (01) ==
PROVIDERS: Physician Assistant Medical; Emergency Provider Emergency Medicine
DX: J42 Unspecified chronic bronchitis (principal); I10 Essential (primary) hypertension; E11.9 Type 2 diabetes mellitus without complications; F17.210 Nicotine dependence, cigarettes, uncomplicated; Z86.718 Personal history of other venous thrombosis and embolism; Z99.81 Dependence on supplemental oxygen
CPT/HCPCS: 36415; 71046; 80048; 83880; 85025; 87040; 93005; 96361; 96374; 99284; 99285

== ENCOUNTER 2020-04-09 18:20 | Inpatient (IN) | payer OTHER, SELFPAY ==
[2020-04-09 18:33] VITALS: BP 147/82; PULSE 117; RESP 22; TEMP 36.7; O2SAT 99; BMI 31.4
[2020-04-09] MEDS: Albuterol Sulfate (0.083%) 2.5 MG/3 ML VIAL.NEB 10 MG INHALE (18:46)
[2020-04-09 19:40] VITALS: BP 139/96; PULSE 115; PULSE 116; RESP 20; O2SAT 98; O2SAT 99
[2020-04-09 19:41] VITALS: O2SAT 98
[2020-04-09 20:00] VITALS: BP 108/85; PULSE 115; RESP 20; O2SAT 96
--- NOTE | 2020-04-09 20:17 | ED_ITS ---
HPI - SOB/Dyspnea General Chief Complaint: Upper Respiratory Symptoms Stated Complaint: SOB Time Seen by Provider: 04/09/20 18:39 Source: patient Mode of arrival: ambulatory Limitations: no limitations History of Present Illness HPI Narrative: 54yoF c PMHx of asthma/COPD on home O2 as needed, DM, diverticulosis, ETOH abuse, HTN, HLD c/o worsening SOB while at [facility]. was brought here earlier by EMS and arrived on CPAP with 100% for oxygen saturation although on room air she was found to be 88% therefore was placed on 1 L of nasal cannula oxygen. patient admitted that she just finished a course of steroids yesterday. Was seen here had labs received a breathing treatment and IV steroids and then requested to leave after admission was offered therefore discharge the patient and she tried to walk to her car and felt too short of breath therefore returned. Denies any new symptoms from earlier today. Related Data Home Medications Medication Instructions Recorded Confirmed Breo Ellipta 1 inh INHALATION DAILY 03/25/20 04/03/20 albuterol sulfate 0.63 mg INHALATION QID PRN 03/25/20 04/03/20 amlodipine 2.5 mg PO DAILY 03/25/20 04/03/20 apixaban 5 mg BID 03/25/20 04/03/20 atorvastatin 20 mg PO BEDTIME 03/25/20 04/03/20 clonidine HCl 0.1 mg PO BEDTIME 03/25/20 04/03/20 clotrimazole 10 mg MUCOUS MEMBRANE 5XD 03/25/20 03/25/20 docusate sodium 100 mg PO BID PRN 03/25/20 04/03/20 doxepin 200 mg PO DAILY 03/25/20 04/03/20 duloxetine 30 mg PO DAILY 03/25/20 04/03/20 folic acid 1 mg PO DAILY 03/25/20 04/03/20 gabapentin 600 mg PO TID 03/25/20 04/03/20 loratadine 10 mg DAILY 03/25/20 04/03/20 melatonin 10 mg PO BEDTIME 03/25/20 04/03/20 metformin 850 mg PO BID 03/25/20 04/03/20 montelukast 10 mg PO BEDTIME 03/25/20 04/03/20 multivitamin 1 tab PO DAILY 03/25/20 04/03/20 paroxetine HCl 40 mg PO DAILY 03/25/20 04/03/20 quetiapine 200 mg PO BEDTIME 03/25/20 04/03/20 tiotropium bromide 1 cap INHALATION DAILY 03/25/20 04/03/20 valsartan 40 mg PO BID 03/25/20 04/03/20 Previous Rx's Medication Instructions Recorded prednisone 40 mg PO DAILY #10 tab 03/27/20 doxycycline monohydrate 100 mg PO BID #8 cap 04/04/20 prednisone 40 mg PO DAILY #8 tab 04/04/20 azithromycin See Rx Instructions .ROUTE 04/09/20 .COMPLEX #6 tab prednisone 40 mg PO DAILY 5 Days #10 tab NS 04/09/20 Allergies Allergy/AdvReac Type Severity Reaction Status Date / Time No Known Allergies Allergy Unknown UNKNOWN Verified 03/26/20 04:26 [NO KNOWN ALLERGIES] Review of Systems Review of Systems: Constitutional : Denies med noncompliance, no history of PE or DVT, denies recent travel, No Fever, No Chills ENT/Mouth : No Hoarseness, No sore throat, No Rhinorrhea Eyes: No Redness, No Discharge, No Vision Changes Cardiovascular : No Chest Pain, No Edema, no pleurisy, Respiratory : No Sputum, no stridor, no hemoptysis, Gastrointestinal : No Nausea, No Vomiting, No Diarrhea, No abdominal Pain Genitourinary : No Dysuria, No Hematuria Musculoskeletal : No joint pain, No Myalgias Extremities: no extremity swelling /pain Skin : No rash, no itching, no swelling Neuro : No Weakness, No Numbness, No Headache Psych : No anxiety, depression Heme/Lymph: No Bruising, No Bleeding Endocrine : No Polyuria, No Polydipsia Yes all other systems are reviewed and are negative Yes all other systems are reviewed and are negative [facility] Past Medical History Medical History Anxiety COPD (chronic obstructive pulmonary disease) Diabetes H/O blood clots History of DVT (deep vein thrombosis) Hyperlipidemia Supplemental oxygen dependent Family History Family History Father Diabetes mellitus Myocardial infarction Social History Social History Household Members: Other Housing: Other Alcohol intake: never Smoking Status: Never smoker Tobacco Type: Cigarette Smoked in Last 30 Days: No Second Hand Smoke Exposure: Yes Use of substances other than those prescribed or required for medical reasons: No Advance Directives: No Advance Directives Information Provided: Yes service: No Current occupational status: retired Physical Exam Vital Signs: Vital Signs: Vital Signs Temp Pulse Resp BP Pulse Ox 04/09/20 20:00 115 H 20 108/85 96 04/09/20 19:40 116 H 20 139/96 H 98 04/09/20 18:33 98.1 F 117 H 22 H 147/82 H 99 Body Mass Index 31.4 Appearance: Alert. Oriented X3. Mild respiratory distress. Head: Normal external exam. Normocephalic. Atraumatic. No Lester signs noted. No raccoon eyes noted Eyes: PERRLA. EOMI. Conjunctiva and sclera normal. Eyelids normal. ENT: EAC normal. TM's Normal. Pharynx normal. Uvula midline. Moist mucous membranes. No trismus noted. No drooling noted. No muffled voice noted. Neck: Normal inspection. Neck supple. FROM. No adenopathy. Thyroid Normal. No meningeal signs. No neck mass noted. CVS: Normal heart rate and rhythm. Heart sound normal. No murmurs noted. Pulses normal throughout. Respiratory: Mild respiratory distress. Decreased air movement with inspiratory and expiratory wheezes throughout. No rales/rhonchi noted. Chest nontender. No accessory muscle usage noted. Abdomen: Soft and nontender. Bowel sounds normal in all 4 quadrants. No distention noted. No organomegaly noted. No visible injury noted. Back: No CVA tenderness. Full range of motion noted. Skin: Skin warm and dry. Normal skin color. Normal skin turgor. No rashes/lesions/lacerations noted. Extremities: No lower extremity edema. Extremities exhibit normal range of motion. Extremities nontender. Neuro: Oriented X 3. No motor deficit. No sensory deficit. Reflexes normal. Course Course Course Narrative: 54yoF c PMHx of asthma/COPD on home O2 as needed, DM, diverticulosis, ETOH abuse, HTN, HLD c/o worsening SOB while at [employer]. was brought here earlier by EMS and arrived on CPAP with 100% for oxygen saturation although on room air she was found to be 88% therefore was placed on 1 L of nasal cannula oxygen. patient admitted that she just finished a course of steroids yesterday. Was seen here had labs received a breathing treatment and IV steroids and then requested to leave after admission was offered therefore discharge the patient and she tried to walk to her car and felt too short of breath therefore returned. Denies any new symptoms from earlier today. - Plan: Provide a breathing tx and 2 mg of IV Magnesium. Obtain lactic acid although this is not sepsis as patient just finished a course of steroids and has had multiple breathing tx's therefore lactic acid may be elevated. - Will plan to admit for COPD. Pt agree this time when offered. MDM - SOB/Dyspnea Medical Records Attestation: I reviewed the patient's medical records. Lab Data Attestation: I reviewed the patient's lab results. Labs: Lab Results 04/09/20 04/09/20 Range/Units 19:55 19:57 ABG pH 7.34 L (7.35-7.45) ABG pCO2 49 H (32-45) mmhg ABG pO2 102 (83-108) mmhg ABG HCO3 26 (22-26) mmol/l ABG O2 Saturation 97.6 % ABG Base Excess -0.1 Oxygen Given 7 L Lactic Acid 0.7 (0.5-2.0) mmol/L Critical Care Time Critical Care Time Critical Care Time: Yes Total Critical Care Time: 60 Attestation: I personally attest to this time spent taking care of the patient Discharge Plan Discharge Prescriptions: No Action prednisone 20 mg tablet 40 mg PO DAILY Qty: 8 RF: 0 doxycycline monohydrate 100 mg capsule 100 mg PO BID Qty: 8 RF: 0 azithromycin 250 mg tablet See Rx Instructions .ROUTE .COMPLEX Qty: 6 RF: 0 prednisone 20 mg tablet 40 mg PO DAILY 5 Days Qty: 10 RF: 0 multivitamin Tablet 1 tab PO DAILY RF: 0 clotrimazole 10 mg Jesus 10 mg MUCOUS MEMBRANE 5XD RF: 0 clonidine HCl 0.1 mg Tablet 0.1 mg PO BEDTIME RF: 0 gabapentin 600 mg Tablet 600 mg PO TID RF: 0 atorvastatin 20 mg Tablet 20 mg PO BEDTIME RF: 0 metformin 850 mg Tablet 850 mg PO BID RF: 0 folic acid 1 mg Tablet 1 mg PO DAILY RF: 0 montelukast 10 mg Tablet 10 mg PO BEDTIME RF: 0 paroxetine HCl 40 mg Tablet 40 mg PO DAILY RF: 0 loratadine 10 mg Tablet 10 mg DAILY RF: 0 valsartan 40 mg Tablet 40 mg PO BID RF: 0 tiotropium bromide 18 mcg Capsule, W/Inhalation Device 1 cap INHALATION DAILY RF: 0 duloxetine 30 mg Capsule,Delayed Release(Dr/Ec) 30 mg PO DAILY RF: 0 Breo Ellipta 100-25 mcg/dose Blister With Device 1 inh INHALATION DAILY RF: 0 albuterol sulfate 0.63 mg/3 mL Solution For Nebulization 0.63 mg INHALATION QID PRN (Reason: Shortness Of Breath) RF: 0 quetiapine 200 mg Tablet 200 mg PO BEDTIME RF: 0 amlodipine 2.5 mg Tablet 2.5 mg PO DAILY RF: 0 doxepin 100 mg Capsule 200 mg PO DAILY RF: 0 docusate sodium 100 mg Tablet 100 mg PO BID PRN (Reason: Constipation) RF: 0 apixaban 5 mg Tablet 5 mg BID RF: 0 melatonin 10 mg Capsule 10 mg PO BEDTIME RF: 0 prednisone 20 mg tablet 40 mg PO DAILY Qty: 10 RF: 0
[2020-04-09 20:21] LABS: Pt Ventilation O2% 7 L
[2020-04-09 20:23] LABS: ABG PCO2 49 mmhg (32-45); PO2 ABG 102 mmhg (83-108); pH ABG 7.34 (7.35-7.45)
[2020-04-09 20:24] LABS: Base Excess ABG -0.1; Blood Gas Serial # 5414; HCO3 ABG 26 mmol/l (22-26); Oxygen Saturation ABG 97.6 %
[2020-04-09 20:25] LABS: Lactic Acid 0.7 mmol/L (0.5-2.0)
[2020-04-09] MEDS: Magnesium Sulfate/H2O 2 GM/50 ML PIGGYBACK IV (20:28)
[2020-04-09] MEDS: 0.9 % Sodium Chloride 1,000 ML 999 ML IVCONT (20:28)
--- NOTE | 2020-04-09 20:54 | PC.NURSE ---
SPOKE WITH MATT GRAVES ABOUT SECOND SET OF BLOOD CULTURES THAT WERE NOT OBTAINED FROM THE FIRST ER VISIT TODAY. EXPLAINING TO LAB THAT PATIENT HAS SINCE RETURNED TO THE DEPARTMENT FOR TREATMENT. PROVIDER WANTING THE SECOND SET OF CULTURES DRAWN. PROVIDER PLACING IN CULTURE ORDER. OCCUPATIONAL ANALYST STATING THAT SHE WILL PRINT STICKERS FOR THE SECOND SET OF CULTURES FROM [facility] AND LEAVE A NOTE FOR MICROBIOLOGY ABOUT PATIENTS LABS.
[2020-04-09 21:08] VITALS: PULSE 105; RESP 20; O2SAT 96
[2020-04-09 22:00] VITALS: BP 128/68; PULSE 101; RESP 20; TEMP 36.6; O2SAT 95
--- NOTE | 2020-04-09 22:28 | PM.IMHP ---
History of Present Illness Date of Service: 04/09/20 Chief Complaint: SOB 54 y/o with an extensive PMHX including COPD with acute on chronic respiratory failure requiring home oxygen now continuously 2 liters, who presents today due to worsening difficulty breathing for the past 1 day. Patient is known to us, was admitted recently and discharged 5 days ago, treated for COPD exacerbation. Patient was discharged on a taper dose of prednisone and PO antbx. Today presented to the ED due to difficulty breathing at rest. Patient denies any fever, nausea, vomiting, constipation or diarrhea. No sick contacts or recent travel. On presentation patient was brought in on CPAP by ambulance and later titrated down to nasal cannula 1 liter saturating well at rest. Patient requested to leave and when walking towards the car felt that symptoms recurred for what decided to come to the ER. Patient was givcen multiple doses per ED of albuterol, one dose of IV solumedrol and magnesium with partial symptoms relieve for what decision for admission was given. On presentation patient was hypertensive and tachycardic, now HR down to 101 and BP of 128/68 mmHg. Saturation of O2 stable 88 percent on room air. Patient reports still feeling fatigue. Patient reports that still continues to smoke. PAST MEDICAL HISTORY: 1. COPD/chronic respiratory failure on 2 L of home O2. 2. History of alcohol dependence. 3. Depression. 4. Hypertension. 5. Dyslipidemia. 6. Peripheral neuropathy. 7. Renal infarct on anticoagulation with Eliquis. 8. Type 2 diabetes. 9. COVID positivity in September 2019. 10. Fatty liver disease 11. diabetes mellitus on metformin Past surgical hx: None Family hx: DM, [place] in father Social hx: Lives in senior living house, current active smoker smokes about 1-3 cig/day, denies alcohol and no illicit drugs Review of Systems Cardiovascular: Cardiovascular: Reports dyspnea and Reports dyspnea on exertion Respiratory: Respiratory: Reports dyspnea, Reports dyspnea on exertion and Reports wheezing Allergic/Immunologic: Allergic/Immunologic: Reports wheezing [facility] Medical History Anxiety COPD (chronic obstructive pulmonary disease) Diabetes H/O blood clots History of DVT (deep vein thrombosis) Hyperlipidemia Supplemental oxygen dependent Functional capacity: independent ambulation Family History Father Diabetes mellitus Myocardial infarction Family history: reviewed and not pertinent Social History Household Members: Other Housing: Other Alcohol intake: never Smoking Status: Never smoker Tobacco Type: Cigarette Smoked in Last 30 Days: No Second Hand Smoke Exposure: Yes Use of substances other than those prescribed or required for medical reasons: No Advance Directives: No Advance Directives Information Provided: Yes service: No Current occupational status: retired [email or web address] Allergies Allergy/AdvReac Type Severity Reaction Status Date / Time No Known Allergies Allergy Unknown UNKNOWN Verified 03/26/20 04:26 [NO KNOWN ALLERGIES] Home Medications Medication Instructions Recorded Confirmed Type Breo Ellipta 1 inh INHALATION DAILY 03/25/20 04/09/20 History albuterol sulfate 0.63 mg INHALATION QID PRN 03/25/20 04/09/20 History amlodipine 2.5 mg PO DAILY 03/25/20 04/09/20 History apixaban 5 mg BID 03/25/20 04/09/20 History atorvastatin 20 mg PO BEDTIME 03/25/20 04/09/20 History clonidine HCl 0.1 mg PO BEDTIME 03/25/20 04/09/20 History clotrimazole 10 mg MUCOUS MEMBRANE 5XD 03/25/20 04/09/20 History docusate sodium 100 mg PO BID PRN 03/25/20 04/09/20 History doxepin 200 mg PO DAILY 03/25/20 04/09/20 History duloxetine 30 mg PO DAILY 03/25/20 04/09/20 History folic acid 1 mg PO DAILY 03/25/20 04/09/20 History gabapentin 600 mg PO TID 03/25/20 04/09/20 History loratadine 10 mg DAILY 03/25/20 04/09/20 History melatonin 10 mg PO BEDTIME 03/25/20 04/09/20 History metformin 850 mg PO BID 03/25/20 04/09/20 History montelukast 10 mg PO BEDTIME 03/25/20 04/09/20 History multivitamin 1 tab PO DAILY 03/25/20 04/09/20 History paroxetine HCl 40 mg PO DAILY 03/25/20 04/09/20 History quetiapine 200 mg PO BEDTIME 03/25/20 04/09/20 History tiotropium bromide 1 cap INHALATION DAILY 03/25/20 04/09/20 History valsartan 40 mg PO BID 03/25/20 04/09/20 History Physical Exam Vital Signs and Narrative: Vital Signs: Last Vital Signs Temp 97.9 F 04/09/20 22:00 Pulse 101 H 04/09/20 22:00 Resp 20 04/09/20 22:00 BP 128/68 04/09/20 22:00 Pulse Ox 95 04/09/20 22:00 Body Mass Index 31.4 Results Labs Labs: Laboratory Tests 04/09/20 04/09/20 19:55 19:57 ABG pH 7.34 L ABG pCO2 49 H ABG pO2 102 ABG HCO3 26 ABG O2 Saturation 97.6 ABG Base Excess -0.1 Oxygen Given 7 L Lactic Acid 0.7 Assessment and Plan (1) COPD exacerbation: Status: Acute albuterol updraft Oxygen as ordered and taper as tolerated Solumedrol IV as ordered and taper as tolerated No need of antbx at present as there is no evidence of any acute infectious process (2) Diabetes: Status: Acute Insulin regimen as ordered (3) Hyperlipidemia: Status: Acute continue with statin home dose (4) Hypertension: Status: Acute continue with antihypertensive meds as ordered (5) Anxiety: Status: Acute continue with antipsychotic meds as ordered (6) Renal infarct: Status: Acute continue with apixaban home dose (7) Acute and chronic respiratory failure: Status: Acute continue with treatment as per above upon discharged patient is to continue with home oxygen 2 liters
--- NOTE | 2020-04-09 22:53 | PM.IMHP ---
History of Present Illness Date of Service: 04/09/20 Chief Complaint: SOB 54 y/o female with extensive PMHX including end stage COPD with home oxyge and chronic respiratory failure who presented from home due to SOB. Patient was brought in by ambulance on CPAP which was later titrated down to nasal cannula 1 liter saturating 88 percent. After given multiple doses of albuterol updraft, solumedrol and magnesium in the ED, patient requested to leave. While walking towards the car patient reports that symptoms recurred for what decided to come back to the ED. Patient was recently discharged 5 days ago from our hospital due to COPD exacerbation with acute on chronic respiratory failure. Was treated successfuilly6 and discharged on tape PO steroids and antibiotics PO. On presentation patient was noted to be hypertensive and tachycardiac, now BP under controlled with HR of 101. saturation of oxygen 88-89 on room air. PAST MEDICAL HISTORY: 1. COPD/chronic respiratory failure on 2 L of home O2. 2. History of alcohol dependence. 3. Depression. 4. Hypertension. 5. Dyslipidemia. 6. Peripheral neuropathy. 7. Renal infarct on anticoagulation with Eliquis. 8. Type 2 diabetes. 9. COVID positivity in September 2019. 10. Fatty liver disease 11. diabetes mellitus on metformin Past surgical hx: None Family hx: DM, [place] in father Social hx: Lives in [facility], current active smoker smokes about 1-3 cig/day, denies alcohol and no illicit drugs Review of Systems Cardiovascular: Cardiovascular: Reports dyspnea and Reports dyspnea on exertion Respiratory: Respiratory: Reports dyspnea, Reports dyspnea on exertion and Reports wheezing Allergic/Immunologic: Allergic/Immunologic: Reports wheezing [facility] Medical History Anxiety COPD (chronic obstructive pulmonary disease) Diabetes H/O blood clots History of DVT (deep vein thrombosis) Hyperlipidemia Supplemental oxygen dependent Functional capacity: independent ambulation Family History Father Diabetes mellitus Myocardial infarction Family history: reviewed and not pertinent Social History Household Members: Other Housing: Other Alcohol intake: never Smoking Status: Never smoker Tobacco Type: Cigarette Smoked in Last 30 Days: No Second Hand Smoke Exposure: Yes Use of substances other than those prescribed or required for medical reasons: No Advance Directives: No Advance Directives Information Provided: Yes service: No Current occupational status: retired Meds Allergies Allergy/AdvReac Type Severity Reaction Status Date / Time No Known Allergies Allergy Unknown UNKNOWN Verified 03/26/20 04:26 [NO KNOWN ALLERGIES] Home Medications Medication Instructions Recorded Confirmed Type Breo Ellipta 1 inh INHALATION DAILY 03/25/20 04/09/20 History albuterol sulfate 0.63 mg INHALATION QID PRN 03/25/20 04/09/20 History amlodipine 2.5 mg PO DAILY 03/25/20 04/09/20 History apixaban 5 mg BID 03/25/20 04/09/20 History atorvastatin 20 mg PO BEDTIME 03/25/20 04/09/20 History clonidine HCl 0.1 mg PO BEDTIME 03/25/20 04/09/20 History clotrimazole 10 mg MUCOUS MEMBRANE 5XD 03/25/20 04/09/20 History docusate sodium 100 mg PO BID PRN 03/25/20 04/09/20 History doxepin 200 mg PO DAILY 03/25/20 04/09/20 History duloxetine 30 mg PO DAILY 03/25/20 04/09/20 History folic acid 1 mg PO DAILY 03/25/20 04/09/20 History gabapentin 600 mg PO TID 03/25/20 04/09/20 History loratadine 10 mg DAILY 03/25/20 04/09/20 History melatonin 10 mg PO BEDTIME 03/25/20 04/09/20 History metformin 850 mg PO BID 03/25/20 04/09/20 History montelukast 10 mg PO BEDTIME 03/25/20 04/09/20 History multivitamin 1 tab PO DAILY 03/25/20 04/09/20 History paroxetine HCl 40 mg PO DAILY 03/25/20 04/09/20 History quetiapine 200 mg PO BEDTIME 03/25/20 04/09/20 History tiotropium bromide 1 cap INHALATION DAILY 03/25/20 04/09/20 History valsartan 40 mg PO BID 03/25/20 04/09/20 History Physical Exam Vital Signs and Narrative: Vital Signs: Last Vital Signs Temp 97.9 F 04/09/20 22:00 Pulse 101 H 04/09/20 22:00 Resp 20 04/09/20 22:00 BP 128/68 04/09/20 22:00 Pulse Ox 95 04/09/20 22:00 Body Mass Index 31.4 Results Labs Labs: Laboratory Tests 04/09/20 04/09/20 19:55 19:57 ABG pH 7.34 L ABG pCO2 49 H ABG pO2 102 ABG HCO3 26 ABG O2 Saturation 97.6 ABG Base Excess -0.1 Oxygen Given 7 L Lactic Acid 0.7 Assessment and Plan (1) COPD exacerbation: Status: Acute Solumedrol IV. taper as tolerated Oxygen supplementation Albuterol updraft PRN No need for antbx as there is no evidence of any acute infectious process at present (2) Diabetes: Status: Acute Insulin regimen as ordered (3) Hyperlipidemia: Status: Acute statin home dose as ordered (4) Anxiety: Status: Acute antipsychotic med as ordered (5) Hypertension: Status: Acute amlodipine home dose clonidine home dose (6) Renal infarct: Status: Acute continue with eliquis home dose
[2020-04-09 23:58] LABS: Glucose, Whole Blood 213 mg/dL (60-115)
[2020-04-10 00:02] VITALS: BP 120/83; PULSE 104; RESP 18; TEMP 36.1; O2SAT 96
[2020-04-10] MEDS: Melatonin 3 MG TABLET 9 MG PO (00:22)
[2020-04-10] MEDS: Gabapentin 600 MG TABLET PO ×2 (00:22→09:02)
[2020-04-10] MEDS: Insulin Lispro 100 UNIT/ML 3 ML VIAL SUBCUT ×2 (00:22→09:03)
[2020-04-10 00:23] VITALS: BP 120/83; PULSE 104
[2020-04-10] MEDS: cloNIDine HCL 0.1 MG TABLET PO (00:23)
[2020-04-10] MEDS: QUEtiapine Fumarate 200 MG TABLET PO (00:23)
[2020-04-10] MEDS: Atorvastatin Calcium 20 MG TABLET PO (00:25)
[2020-04-10] MEDS: 0.9 % Sodium Chloride Flush 3 ML SYRINGE IVFLUSH ×2 (00:25→09:01)
[2020-04-10] MEDS: Montelukast Sodium 10 MG TABLET PO (00:54)
[2020-04-10 02:44] LABS: Glucose, Whole Blood 190 mg/dL (60-115)
[2020-04-10 03:54] VITALS: BP 116/77; PULSE 97; RESP 16; TEMP 36.1; O2SAT 97
[2020-04-10] MEDS: Heparin Sodium,Porcine 5,000 UNIT/ML VIAL 5000 UNIT SUBCUT (05:22)
[2020-04-10 06:30] LABS: Basophils Percent Auto 0.3 % (0-2); Eosinophils Percent Auto 0.1 % (0-4); Hemoglobin 9.4 g/dl (12.0-16.0); Imm Gran Abs Auto 0.08 X10*3/uL (0.00-0.03); Imm Gran Pct Auto 0.6 % (0.0-0.4); Lymphocytes Absolute Auto 2.3 X10*3/uL (1.2-4.9); Lymphocytes Percent Auto 17.5 % (20-40); MANUAL DIFF FLAG NO; Mean Corpuscular HGB Conc 28.5 g/dl (31.0-35.0); Mean Corpuscular Hemoglobin 22.8 pg (27.0-33.0); Mean Corpuscular Volume 79.9 fL (80-98); Monocytes Absolute Auto 0.8 X10*3/uL (0.1-1.2); Monocytes Percent Auto 6.1 % (2-11); Neutrophils Absolute Auto 9.7 X10*3/uL (2.0-8.3); Neutrophils Percent Auto 75.4 % (45-73); Platelet Count 352 X10*3/uL (160-400); Red Blood Count 4.13 X10*6/uL (4.20-5.50); Red Cell Distribution Width 21.1 % (11.0-16.0); White Blood Count 12.9 X10*3/uL (4.8-10.8)
[2020-04-10 06:50] LABS: Anion Gap 10 (12-20); Blood Urea Nitrogen 10 mg/dL (9-16); Calcium 8.6 mg/dL (8.4-10.2); Carbon Dioxide 33 mmol/L (22-29); Chloride 104 mmol/L (96-108); Creatinine Clr Calc Pharmacy 94.9; Estimated Glomerular Filt Rate > 60; Glucose Random 135 mg/dL (60-115); Potassium 4.9 mmol/l (3.3-5.1); Sodium 142 mmol/L (135-145)
[2020-04-10 07:34] VITALS: BP 140/88; PULSE 95; RESP 18; TEMP 36.4; O2SAT 99
[2020-04-10 07:38] LABS: Glucose, Whole Blood 127 mg/dL (60-115)
[2020-04-10] MEDS: Albuterol Sulfate (0.042%) 1.25 MG/3 ML VIAL.NEB INHALE (08:02)
[2020-04-10] MEDS: Fluticasone/Vilanterol 100/25 BLST.W.DEV 1 PUFF INHALE (08:06)
[2020-04-10] MEDS: Folic Acid 1 MG TABLET PO (09:01)
[2020-04-10 09:02] VITALS: BP 140/88; PULSE 95
[2020-04-10] MEDS: DULoxetine HCl 30 MG CAPSULE.DR PO (09:02)
[2020-04-10] MEDS: PARoxetine HCL 40 MG TABLET PO (09:02)
[2020-04-10] MEDS: Multivitamin TABLET 1 TAB PO (09:02)
[2020-04-10] MEDS: Valsartan 40 MG TABLET PO (09:02)
[2020-04-10] MEDS: amLODIPine Besylate 2.5 MG TABLET PO (09:02)
--- NOTE | 2020-04-10 09:08 | P.DS_ITS ---
DS: Providers Provider Date of admission: 04/09/20 23:01 Primary care physician: Unknown Physician DS: Diagnosis Discharge Diagnosis (1) COPD exacerbation: Status: Acute (2) Diabetes: Status: Acute (3) Hyperlipidemia: Status: Acute (4) Anxiety: Status: Acute (5) Hypertension: Status: Acute (6) Renal infarct: Status: Acute DS: Summary Hospital Course Hospital Course: 54-year-old female with a COPD the required frequent hospitalization and frequent steroid use who presented yet again with a shortness of breath and was admitted overnight for exacerbation of COPD. Hospital course: Patient was treated overnight with IV steroid, bronchodilators by nebulizer. By the next morning was feeling great and wanted to go home her lungs is on was a completely clear. She will be discharged with her bronchodilators and the very short course of prednisone. She is instructed to avoid smoking follow-up with her primary care physician. Time Spent with Patient Time attestation: Total time spent providing and/or coordinating discharge services: Physical Exam Vital Signs: Vital Signs: Vital Signs Temp Pulse Resp BP Pulse Ox 04/10/20 09:02 95 140/88 H 04/10/20 07:34 97.6 F 95 18 140/88 H 99 04/10/20 03:54 97 F 97 16 116/77 97 04/10/20 00:23 104 H 120/83 04/10/20 00:02 96.9 F 104 H 18 120/83 96 04/09/20 22:00 97.9 F 101 H 20 128/68 95 04/09/20 21:08 105 H 20 96 04/09/20 20:00 115 H 20 108/85 96 04/09/20 19:40 116 H 20 139/96 H 98 04/09/20 18:33 98.1 F 117 H 22 H 147/82 H 99 Body Mass Index 31.4 Constitutional Awake and Alert, No apparent distress Neck Supple, No lymphadenopathy Cardiovascular RRR, No M/R/G, S1 S2, No S3 S4, No pedal edema Respiratory Lungs clear, No respiratory distress Gastrointestinal Non tender, Non-distended Skin No rash Neurological Alert & oriented x3 Psychological Appropriate affect DS: Data Data Completed and Pending Completed studies during hospitalization [Text1]: Procedures Assistance with Respiratory Ventilation, Less than 24 Consecutive Hours, Continuous Positive Airway Pressure (04/03/20) Labs on day of discharge: Labs from last 24 hours 04/10/20 04/10/20 04/10/20 07:32 06:07 06:07 WBC 12.9 H RBC 4.13 L Hgb 9.4 L Hct 33.0 L MCV 79.9 L MCH 22.8 L MCHC 28.5 L RDW 21.1 H Plt Count 352 MPV 10.0 Immature Gran % (Auto) 0.6 H Neut % (Auto) 75.4 H Lymph % (Auto) 17.5 L [place] % (Auto) 6.1 Eos % (Auto) 0.1 Baso % (Auto) 0.3 Lymph # (Auto) 2.3 [place] # (Auto) 0.8 Eos # (Auto) 0.0 Baso # (Auto) 0.0 Abs Immat Gran (auto) 0.08 H Absolute Neuts (auto) 9.7 H Absolute Nucleated RBC 0.000 Nucleated RBC % (auto) 0.0 ABG pH ABG pCO2 ABG pO2 ABG HCO3 ABG O2 Saturation ABG Base Excess Oxygen Given Sodium 142 Potassium 4.9 D Chloride 104 Carbon Dioxide 33 H Anion Gap 10 L BUN 10 Creatinine 0.69 Estim Creat Clear Calc 94.9 Estimated GFR > 60 POC Glucose 127 H Random Glucose 135 H D Lactic Acid Calcium 8.6 04/10/20 04/09/20 04/09/20 02:39 23:52 19:57 WBC RBC Hgb Hct MCV MCH MCHC RDW Plt Count MPV Immature Gran % (Auto) Neut % (Auto) Lymph % (Auto) [place] % (Auto) Eos % (Auto) Baso % (Auto) Lymph # (Auto) [place] # (Auto) Eos # (Auto) Baso # (Auto) Abs Immat Gran (auto) Absolute Neuts (auto) Absolute Nucleated RBC Nucleated RBC % (auto) ABG pH ABG pCO2 ABG pO2 ABG HCO3 ABG O2 Saturation ABG Base Excess Oxygen Given Sodium Potassium Chloride Carbon Dioxide Anion Gap BUN Creatinine Estim Creat Clear Calc Estimated GFR POC Glucose 190 H 213 H Random Glucose Lactic Acid 0.7 Calcium 04/09/20 19:55 WBC RBC Hgb Hct MCV MCH MCHC RDW Plt Count MPV Immature Gran % (Auto) Neut % (Auto) Lymph % (Auto) [place] % (Auto) Eos % (Auto) Baso % (Auto) Lymph # (Auto) [place] # (Auto) Eos # (Auto) Baso # (Auto) Abs Immat Gran (auto) Absolute Neuts (auto) Absolute Nucleated RBC Nucleated RBC % (auto) ABG pH 7.34 L ABG pCO2 49 H ABG pO2 102 ABG HCO3 26 ABG O2 Saturation 97.6 ABG Base Excess -0.1 Oxygen Given 7 L Sodium Potassium Chloride Carbon Dioxide Anion Gap BUN Creatinine Estim Creat Clear Calc Estimated GFR POC Glucose Random Glucose Lactic Acid Calcium Discharge Plan Discharge Patient Disposition: Home, Self-Care Referrals: Physician,Unknown [Primary Care Provider] - Discharge Medications: New prednisone 10 mg tablet 10 mg PO DAILY Qty: 4 RF: 0 Continued doxycycline monohydrate 100 mg capsule 100 mg PO BID Qty: 8 RF: 0 azithromycin 250 mg tablet See Rx Instructions .ROUTE .COMPLEX Qty: 6 RF: 0 multivitamin Tablet 1 tab PO DAILY RF: 0 clotrimazole 10 mg Jesus 10 mg MUCOUS MEMBRANE 5XD RF: 0 clonidine HCl 0.1 mg Tablet 0.1 mg PO BEDTIME RF: 0 gabapentin 600 mg Tablet 600 mg PO TID RF: 0 atorvastatin 20 mg Tablet 20 mg PO BEDTIME RF: 0 metformin 850 mg Tablet 850 mg PO BID RF: 0 folic acid 1 mg Tablet 1 mg PO DAILY RF: 0 montelukast 10 mg Tablet 10 mg PO BEDTIME RF: 0 paroxetine HCl 40 mg Tablet 40 mg PO DAILY RF: 0 loratadine 10 mg Tablet 10 mg DAILY RF: 0 valsartan 40 mg Tablet 40 mg PO BID RF: 0 tiotropium bromide 18 mcg Capsule, W/Inhalation Device 1 cap INHALATION DAILY RF: 0 duloxetine 30 mg Capsule,Delayed Release(Dr/Ec) 30 mg PO DAILY RF: 0 Breo Ellipta 100-25 mcg/dose Blister With Device 1 inh INHALATION DAILY RF: 0 albuterol sulfate 0.63 mg/3 mL Solution For Nebulization 0.63 mg INHALATION QID PRN (Reason: Shortness Of Breath) RF: 0 quetiapine 200 mg Tablet 200 mg PO BEDTIME RF: 0 amlodipine 2.5 mg Tablet 2.5 mg PO DAILY RF: 0 doxepin 100 mg Capsule 200 mg PO DAILY RF: 0 docusate sodium 100 mg Tablet 100 mg PO BID PRN (Reason: Constipation) RF: 0 apixaban 5 mg Tablet 5 mg BID RF: 0 melatonin 10 mg Capsule 10 mg PO BEDTIME RF: 0 Discontinued prednisone 20 mg tablet 40 mg PO DAILY Qty: 8 RF: 0 prednisone 20 mg tablet 40 mg PO DAILY 5 Days Qty: 10 RF: 0 prednisone 20 mg tablet 40 mg PO DAILY Qty: 10 RF: 0 Discharge Orders: Discharge Order (Routine); Ordered 04/10/20 Ordered By: Levi Pierre Diet: diabetic diet Activity on Discharge: As tolerated Discharge Date/Time: 04/10/20 10:46 Visit Report Forms: Patient Portal Discharge page Care Plan Goals: Prevent rehospitalization and flares of COPD. Health Concerns: Worsen of COPD, and the long-term a health concerns of right chronic steroid use Plan of Treatment: use inhalers as directed take prednisone as directed follow up with your doctor within a week call for appointment.
--- NOTE | 2020-04-10 10:15 | MHC.CM.PN ---
Pt resides in sober living program run by [facility]. Pt is independent with ADLs and mobility and is dependent on oxygen which is provided by [employer]. Pts PCP is Patti Duckworth and she has a HCP completed. Current DC plan is to return to the [facility] program pt will need assistance with transportation
== END 2020-04-10 10:46 | disposition home or self-care (01) | DRG 140 ==
LOC: HO.ED 21:13 → HO.S3 23:10
PROVIDERS: Physician Assistant Medical; Admitting Provider Internal Medicine; Emergency Provider Emergency Medicine; Visit Provider Internal Medicine
DX: J44.1 Chronic obstructive pulmonary disease with (acute) exacerbation (principal); J96.20 Acute and chronic respiratory failure, unspecified whether with hypoxia or hypercapnia; E11.42 Type 2 diabetes mellitus with diabetic polyneuropathy; Z99.81 Dependence on supplemental oxygen; Z86.718 Personal history of other venous thrombosis and embolism; Z99.89 Dependence on other enabling machines and devices; F17.210 Nicotine dependence, cigarettes, uncomplicated; Z71.6 Tobacco abuse counseling; Z86.19 Personal history of other infectious and parasitic diseases; E78.5 Hyperlipidemia, unspecified; F10.21 Alcohol dependence, in remission; Z79.01 Long term (current) use of anticoagulants; Z79.84 Long term (current) use of oral hypoglycemic drugs; Z79.899 Other long term (current) drug therapy
CPT/HCPCS: 36415; 80048; 82803; 82947; 83605; 85025; 96361; 96365; 96366; 99285; 99291; J2920; J3475

== ENCOUNTER 2020-04-14 10:15 | Inpatient (IN) | payer OTHER, SELFPAY ==
[2020-04-14] VITALS (10 sets, daily range): BP systolic 102–144; BP diastolic 50–108; PULSE 97–105; RESP 20–30; TEMP 36.4–36.8; O2SAT 93–989; BMI 29.2
--- NOTE | 2020-04-14 10:24 | ECG_ITS ---
Test Reason : SOB Blood Pressure : / mmHG Vent. Rate : 100 BPM Atrial Rate : 100 BPM P-R Int : 188 ms QRS Dur : 074 ms QT Int : 324 ms P-R-T Axes : 073 032 076 degrees QTc Int : 417 ms Normal sinus rhythm Possible Left atrial enlargement Low voltage QRS Nonspecific ST and T wave abnormality Abnormal ECG When compared with ECG of 09-APR-2020 15:36, No significant change was found Referred By: Sabrina Sheikh Electronically Signed By:BARTOLO GONZALEZ MD
--- NOTE | 2020-04-14 10:26 | ED_ITS ---
HPI - SOB/Dyspnea General Chief Complaint: Dyspnea Stated Complaint: RESP DISTRESS, ON CPAP Time Seen by Provider: 04/14/20 10:17 Source: patient and EMS Mode of arrival: EMS Limitations: no limitations and other History of Present Illness HPI Narrative: patient comes to emergency room complaining of shortness of b reath. Patient states yesterday she used 6 nebulization treatments and this morning for, patient has had no relief from her asthma exacerbation. Patient states she has been taking prednisone for 1 week now. Per EMS, oxygen saturation on room air when the high 80s/ low 90s, placed on CPAP by EMS, oxygen saturation now in the high 90s on 2 L. patient did not get Solu-Medrol or magnesium by EMS. Related Data Home Medications Medication Instructions Recorded Confirmed Breo Ellipta 1 inh INHALATION DAILY 03/25/20 04/09/20 albuterol sulfate 0.63 mg INHALATION QID PRN 03/25/20 04/09/20 amlodipine 2.5 mg PO DAILY 03/25/20 04/09/20 apixaban 5 mg BID 03/25/20 04/09/20 atorvastatin 20 mg PO BEDTIME 03/25/20 04/09/20 clonidine HCl 0.1 mg PO BEDTIME 03/25/20 04/09/20 clotrimazole 10 mg MUCOUS MEMBRANE 5XD 03/25/20 04/09/20 docusate sodium 100 mg PO BID PRN 03/25/20 04/09/20 doxepin 200 mg PO DAILY 03/25/20 04/09/20 duloxetine 30 mg PO DAILY 03/25/20 04/09/20 folic acid 1 mg PO DAILY 03/25/20 04/09/20 gabapentin 600 mg PO TID 03/25/20 04/09/20 loratadine 10 mg DAILY 03/25/20 04/09/20 melatonin 10 mg PO BEDTIME 03/25/20 04/09/20 metformin 850 mg PO BID 03/25/20 04/09/20 montelukast 10 mg PO BEDTIME 03/25/20 04/09/20 multivitamin 1 tab PO DAILY 03/25/20 04/09/20 paroxetine HCl 40 mg PO DAILY 03/25/20 04/09/20 quetiapine 200 mg PO BEDTIME 03/25/20 04/09/20 tiotropium bromide 1 cap INHALATION DAILY 03/25/20 04/09/20 valsartan 40 mg PO BID 03/25/20 04/09/20 Previous Rx's Medication Instructions Recorded doxycycline monohydrate 100 mg PO BID #8 cap 04/04/20 azithromycin See Rx Instructions .ROUTE 04/09/20 .COMPLEX #6 tab prednisone 10 mg PO DAILY #4 tab 04/10/20 Allergies Allergy/AdvReac Type Severity Reaction Status Date / Time No Known Allergies Allergy Verified 04/14/20 10:25 Review of Systems Review of Systems: Constitutional : No Weight loss, No Fever, No Chills, No Night Sweats, No Fatigue, No Malaise ENT/Mouth : No Hearing loss, No Ear Pain, No Nasal Congestion, No Sinus Pain, No Hoarseness, No sore throat, No Rhinorrhea, No Swallowing Difficulty Eyes: No Eye Pain, No Swelling, No Redness, No Foreign Body, No Discharge, No Vision Changes Cardiovascular : No Chest Pain, No SOB, No Dyspnea on Exertion, No Orthopnea, No Edema, No Palpitations Respiratory : Complaining of Wheezing, moderate shortness of breath Gastrointestinal : No Nausea, No Vomiting, No Diarrhea, No Constipation, No abdominal Pain, No Hematochezia, No Melena Genitourinary : no irregular bleeding, No Dysuria, No Urinary Frequency, No Hematuria, No Urinary Incontinence, No Urgency, No Flank Pain, No Urinary Flow Changes, No Hesitancy Musculoskeletal : No joint pain, No Myalgias, No Joint Swelling Skin : No Skin Lesions, No rash Neuro : No Weakness, No Numbness, No Paresthesias, No Loss of Consciousness, No Dizziness, No Headache Psych : No Anxiety/Panic, No Depression, No SI/HI/AH/VH, No Social Issues, Heme/Lymph: No Bruising, No Bleeding,No Lymphadenopathy Endocrine : No Polyuria, No Polydipsia, No Temperature Intolerance PMF Past Medical History Medical History Anxiety COPD (chronic obstructive pulmonary disease) Diabetes H/O blood clots History of DVT (deep vein thrombosis) Hyperlipidemia Supplemental oxygen dependent Family History Family History Father Diabetes mellitus Myocardial infarction Social History Social History Household Members: Other Housing: Other Alcohol intake: never Smoking Status: Current some day smoker Tobacco Type: Cigarette Second Hand Smoke Exposure: No Use of substances other than those prescribed or required for medical reasons: No Advance Directives: No Advance Directives Information Provided: Yes service: No Current occupational status: disabled Physical Exam Vital Signs: Vital Signs: Vital Signs Temp Pulse Resp BP Pulse Ox 04/14/20 12:31 97.6 F 97 21 H 102/50 L 95 04/14/20 11:03 99 20 989 H 04/14/20 10:21 98.3 F 103 H 25 H 138/108 H 97 Body Mass Index 29.2 Course Course Course Narrative: when patient arrived to emergency room, she was on CPAP, we switched her to a non-rebreather, then to nasal cannula, patient did very well, she received magnesium and Solu-Medrol. Patient maintained a saturation 95-97% on 2 L, patient got up to go to the bathroom, her oxygen saturation immediately dropped to 62% and became very short of breath. Patient was taken back to her room, she recovered quickly with supplemental oxygen. I discussed the above- mentioned with our hospitalist, patient being admitted at this time, patient's white blood cell count is elevated but is chronic, sarita eldridge has no fever, sepsis is not suspected. Patient has both history of asthma and COPD, most likely to have an asthma exacerbation rather than COPD. Patient declines any increased coughing with purulence. MDM - SOB/Dyspnea Lab Data Result diagrams: 04/14/20 10:50 04/14/20 10:51 Labs: Lab Results 04/14/20 04/14/20 04/14/20 Range/Units 10:38 10:50 10:50 WBC 13.7 H (4.8-10.8) X10*3/uL RBC 3.90 L (4.20-5.50) X10*6/uL Hgb 9.0 L (12.0-16.0) g/dl Hct 30.7 L (37-47) % MCV 78.7 L (80-98) fL MCH 23.1 L (27.0-33.0) pg MCHC 29.3 L (31.0-35.0) g/dl RDW 21.2 H (11.0-16.0) % Plt Count 312 (160-400) X10*3/uL MPV 10.5 (9.4-12.3) fL Immature Gran % (Auto) 0.6 H (0.0-0.4) % Neut % (Auto) 70.1 (45-73) % Lymph % (Auto) 17.8 L (20-40) % Bertie % (Auto) 9.2 (2-11) % Eos % (Auto) 1.9 (0-4) % Baso % (Auto) 0.4 (0-2) % Lymph # (Auto) 2.4 (1.2-4.9) X10*3/uL Bertie # (Auto) 1.3 H (0.1-1.2) X10*3/uL Eos # (Auto) 0.3 (0.0-0.4) X10*3/uL Baso # (Auto) 0.1 (0.0-0.2) X10*3/uL Abs Immat Gran (auto) 0.08 H (0.00-0.03) X10*3/uL Absolute Neuts (auto) 9.6 H (2.0-8.3) X10*3/uL Absolute Nucleated RBC 0.000 (0.0-0.012) X10*3/uL Nucleated RBC % (auto) 0.0 (0.0-0.2) /100WBC Sodium 141 (135-145) mmol/L Potassium 4.0 (3.3-5.1) mmol/l Chloride 102 (96-108) mmol/L Carbon Dioxide 29 (22-29) mmol/L Anion Gap 14 (12-20) BUN 10 (9-16) mg/dL Creatinine 0.75 (0.5-1.4) mg/dL Estim Creat Clear Calc 84.2 Estimated GFR > 60 Random Glucose 131 H (60-115) mg/dL Lactic Acid (0.5-2.0) mmol/L Calcium 9.8 (8.4-10.2) mg/dL B-Natriuretic Peptide (<100) pg/mL Coronavirus (PCR) NEGATIVE (Negative) 04/14/20 04/14/20 04/14/20 Range/Units 10:50 10:51 10:51 WBC (4.8-10.8) X10*3/uL RBC (4.20-5.50) X10*6/uL Hgb (12.0-16.0) g/dl Hct (37-47) % MCV (80-98) fL MCH (27.0-33.0) pg MCHC (31.0-35.0) g/dl RDW (11.0-16.0) % Plt Count (160-400) X10*3/uL MPV (9.4-12.3) fL Immature Gran % (Auto) (0.0-0.4) % Neut % (Auto) (45-73) % Lymph % (Auto) (20-40) % Bertie % (Auto) (2-11) % Eos % (Auto) (0-4) % Baso % (Auto) (0-2) % Lymph # (Auto) (1.2-4.9) X10*3/uL Bertie # (Auto) (0.1-1.2) X10*3/uL Eos # (Auto) (0.0-0.4) X10*3/uL Baso # (Auto) (0.0-0.2) X10*3/uL Abs Immat Gran (auto) (0.00-0.03) X10*3/uL Absolute Neuts (auto) (2.0-8.3) X10*3/uL Absolute Nucleated RBC (0.0-0.012) X10*3/uL Nucleated RBC % (auto) (0.0-0.2) /100WBC Sodium 140 (135-145) mmol/L Potassium 3.9 (3.3-5.1) mmol/l Chloride 100 (96-108) mmol/L Carbon Dioxide 30 H (22-29) mmol/L Anion Gap 14 (12-20) BUN 10 (9-16) mg/dL Creatinine 0.76 (0.5-1.4) mg/dL Estim Creat Clear Calc 83.0 Estimated GFR > 60 Random Glucose 132 H (60-115) mg/dL Lactic Acid 1.8 (0.5-2.0) mmol/L Calcium 10.0 (8.4-10.2) mg/dL B-Natriuretic Peptide 51 (<100) pg/mL Coronavirus (PCR) (Negative) ECG Data Attestation: I personally reviewed and interpreted this ECG as follows: ( sinus rhythm, heart rate 100, QTC 417, low voltage, nonspecific T-wave abnormalities, no ST segment elevation or depression.) Discharge Plan Discharge Clinical Impression: Asthma with exacerbation Patient Disposition: Admitted As Inpatient Prescriptions: No Action doxycycline monohydrate 100 mg capsule 100 mg PO BID Qty: 8 RF: 0 azithromycin 250 mg tablet See Rx Instructions .ROUTE .COMPLEX Qty: 6 RF: 0 multivitamin Tablet 1 tab PO DAILY RF: 0 clotrimazole 10 mg Jesus 10 mg MUCOUS MEMBRANE 5XD RF: 0 clonidine HCl 0.1 mg Tablet 0.1 mg PO BEDTIME RF: 0 gabapentin 600 mg Tablet 600 mg PO TID RF: 0 atorvastatin 20 mg Tablet 20 mg PO BEDTIME RF: 0 metformin 850 mg Tablet 850 mg PO BID RF: 0 folic acid 1 mg Tablet 1 mg PO DAILY RF: 0 montelukast 10 mg Tablet 10 mg PO BEDTIME RF: 0 paroxetine HCl 40 mg Tablet 40 mg PO DAILY RF: 0 loratadine 10 mg Tablet 10 mg DAILY RF: 0 valsartan 40 mg Tablet 40 mg PO BID RF: 0 tiotropium bromide 18 mcg Capsule, W/Inhalation Device 1 cap INHALATION DAILY RF: 0 duloxetine 30 mg Capsule,Delayed Release(Dr/Ec) 30 mg PO DAILY RF: 0 Breo Ellipta 100-25 mcg/dose Blister With Device 1 inh INHALATION DAILY RF: 0 albuterol sulfate 0.63 mg/3 mL Solution For Nebulization 0.63 mg INHALATION QID PRN (Reason: Shortness Of Breath) RF: 0 quetiapine 200 mg Tablet 200 mg PO BEDTIME RF: 0 amlodipine 2.5 mg Tablet 2.5 mg PO DAILY RF: 0 doxepin 100 mg Capsule 200 mg PO DAILY RF: 0 docusate sodium 100 mg Tablet 100 mg PO BID PRN (Reason: Constipation) RF: 0 apixaban 5 mg Tablet 5 mg BID RF: 0 melatonin 10 mg Capsule 10 mg PO BEDTIME RF: 0 prednisone 10 mg tablet 10 mg PO DAILY Qty: 4 RF: 0
[2020-04-14] MEDS: Magnesium Sulfate/H2O 2 GM/50 ML PIGGYBACK IV (10:28)
[2020-04-14] MEDS: methylPREDNISolone Sod Succ/PF 125 MG/2 ML VIAL IVPUSH (10:28)
[2020-04-14] MEDS: Albuterol Sulfate (0.083%) 2.5 MG/3 ML VIAL.NEB 10 MG INHALE (10:31)
[2020-04-14 11:00] LABS: MANUAL DIFF FLAG NO
[2020-04-14] MEDS: Piperacillin Sodium/Tazobactam 3.375 GM in 0.9 % Sodium Chloride 50 ML IV (11:02)
[2020-04-14] MEDS: 0.9 % Sodium Chloride 1,000 ML 999 ML IVCONT (11:02)
[2020-04-14 11:03] LABS: Basophils Absolute Auto 0.1 X10*3/uL (0.0-0.2); Basophils Percent Auto 0.4 % (0-2); Eosinophils Absolute Auto 0.3 X10*3/uL (0.0-0.4); Eosinophils Percent Auto 1.9 % (0-4); Hematocrit 30.7 % (37-47); Imm Gran Abs Auto 0.08 X10*3/uL (0.00-0.03); Imm Gran Pct Auto 0.6 % (0.0-0.4); Lymphocytes Absolute Auto 2.4 X10*3/uL (1.2-4.9); Lymphocytes Percent Auto 17.8 % (20-40); Mean Corpuscular HGB Conc 29.3 g/dl (31.0-35.0); Mean Corpuscular Hemoglobin 23.1 pg (27.0-33.0); Mean Corpuscular Volume 78.7 fL (80-98); Mean Platelet Volume 10.5 fL (9.4-12.3); Monocytes Absolute Auto 1.3 X10*3/uL (0.1-1.2); Monocytes Percent Auto 9.2 % (2-11); Neutrophils Absolute Auto 9.6 X10*3/uL (2.0-8.3); Neutrophils Percent Auto 70.1 % (45-73); Platelet Count 312 X10*3/uL (160-400); Red Cell Distribution Width 21.2 % (11.0-16.0); White Blood Count 13.7 X10*3/uL (4.8-10.8)
--- NOTE | 2020-04-14 11:10 | PC.NURSE ---
second set of blood cultures drawn prior to iv abx hung. issue with scanning into computer. pct attempting to scan in at bedside.
--- NOTE | 2020-04-14 11:12 | XR_ITS ---
EXAMINATION: XR CHEST CLINICAL INFORMATION: Shortness of breath, COPD COMPARISON: Chest radiographs 04/09/2020, 04/03/2020, 03/25/2020; CT chest 03/08/2020 TECHNIQUE: Portable upright AP view of the chest was obtained. FINDINGS: Patient is rotated to the left. There is subsegmental atelectasis left lateral base. Tapering density is also related to epicardial areolar tissue as seen on CT 2019. There is coarsening of the bronchiolar markings greater lower zones. No hyperinflation. No lobar or segmental airspace consolidation or definite groundglass opacity. The heart is normal in size and the vascularity is normal. No acute bony abnormality. XR/XR chest 1V IMPRESSION: 1. Subsegmental atelectasis left lateral base superimposed upon benign areolar tissue at the cardiac apex. 2. Coarsening bronchiolar markings. No lobar or segmental airspace consolidation.
[2020-04-14 11:21] LABS: Lactic Acid 1.8 mmol/L (0.5-2.0)
[2020-04-14 11:24] LABS: Anion Gap 14 (12-20); Blood Urea Nitrogen 10 mg/dL (9-16); Calcium 9.8 mg/dL (8.4-10.2); Carbon Dioxide 29 mmol/L (22-29); Chloride 102 mmol/L (96-108); Creatinine Clr Calc Pharmacy 84.2; Estimated Glomerular Filt Rate > 60; Glucose Random 131 mg/dL (60-115); Sodium 141 mmol/L (135-145)
[2020-04-14 11:25] LABS: Anion Gap 14 (12-20); Blood Urea Nitrogen 10 mg/dL (9-16); Carbon Dioxide 30 mmol/L (22-29); Chloride 100 mmol/L (96-108); Estimated Glomerular Filt Rate > 60; Glucose Random 132 mg/dL (60-115); Potassium 3.9 mmol/l (3.3-5.1); Sodium 140 mmol/L (135-145)
[2020-04-14 11:32] LABS: B Type Natriuretic Peptide 51 pg/mL (<100)
[2020-04-14 11:48] LABS: SARS COV2 PCR INHOUSE NEGATIVE (Negative)
--- NOTE | 2020-04-14 13:29 | PC.NURSE ---
PT SITTIN UP EATING IN BED. AWAITING DISPO FROM . STATES SHE FEELS A LOT BETTER AND WONDERING IF SHE CAN GO HOME. VSS.
--- NOTE | 2020-04-14 14:46 | PC.NURSE ---
AT 1430 PT ATTEMPTED TO AMBULATE TO BATHROOM. PT WALKED TO BATHROOM WITH NO ISSUES. PT SOB AND WC BACK TO ROOM. HIGH 60S ROOM SAT. PLACED ON VENTI MASK AND CAME BACK UP TO 100% MD WITNESS TO EPISODE. PT NOW CALM AND COOPERATIVE, RESP EVEN AND UNLABORED AT 100%
--- NOTE | 2020-04-14 15:26 | PM.IMHP ---
History of Present Illness Date of Service: 04/14/20 Chief Complaint: Shortness of breath 54 year female with multiple medical problems including COPD which require frequent ED visit and or hospitalization. She was discharged just 4 days earlier and comes back today with icreasing shortness of breath since this morning and not responding to in halers at home. She has non productive cough and no fever or chills. EMS put her on CPAP and was transitioned to 2 liter by Nasal canula and was doing fine but after ambulating to bathroom she became markedly dyspnic and was switched to NRB. CXR shows no pneumonia. Covid is negative. Treated with albuterol, Magnesium and IV solumedrol and Zosyn for increased wBC. She has no fever. Review of Systems Review of Systems: Gen: no fever/chills Resp: SOB, wheezes CV: no chest pain Yes all other systems are reviewed and are negative [facility] Medical History (Updated 04/14/20 @ 15:52 by Levi Pierre MD) Acute and chronic respiratory failure ([id number]) Acute exacerbation of COPD with asthma Anxiety COPD (chronic obstructive pulmonary disease) COPD (chronic obstructive pulmonary disease) Diabetes H/O blood clots History of DVT (deep vein thrombosis) Hyperlipidemia Hypertension Renal infarct Supplemental oxygen dependent Cognitive capacity: Generally intact Functional capacity: independent ambulation Family History Father Diabetes mellitus Myocardial infarction Social History Household Members: Other Household Members Other:: [facility] [place] Housing: Other Alcohol intake: never Smoking Status: Current some day smoker Tobacco Type: Cigarette Smoked in Last 30 Days: Yes Patient Interested in Nicotine Replacement: No Patient Given Instructions on How to Stop Smoking: Yes Date Education Initiated: 04/14/20 Second Hand Smoke Exposure: No Use of substances other than those prescribed or required for medical reasons: No Currently Displaying Signs/Symptoms of Drug Intoxication Withdrawal: No Have you been hit, kicked, punched, or otherwise hurt by someone within the past year? If so, by whom?: No Do you feel safe in your current relationship?: Yes Is there a partner from a previous relationship who is making you feel unsafe now?: No Are you made to feel afraid or neglected: No Advance Directives: No Advance Directives Information Provided: Yes Do you have thoughts of harming others: None Do you have a plan to hurt others: No Plan Recently lost weight without trying: No service: No Current occupational status: disabled Meds Allergies Allergy/AdvReac Type Severity Reaction Status Date / Time No Known Allergies Allergy Verified 04/14/20 10:25 Home Medications Medication Instructions Recorded Confirmed Type albuterol sulfate 0.63 mg INHALATION QID PRN 03/25/20 04/14/20 History amlodipine 2.5 mg PO DAILY 03/25/20 04/14/20 History apixaban 5 mg BID 03/25/20 04/14/20 History atorvastatin 20 mg PO BEDTIME 03/25/20 04/14/20 History clonidine HCl 0.1 mg PO BEDTIME 03/25/20 04/14/20 History clotrimazole 10 mg MUCOUS MEMBRANE 5XD 03/25/20 04/14/20 History doxepin 200 mg PO DAILY 03/25/20 04/14/20 History duloxetine 30 mg PO DAILY 03/25/20 04/14/20 History folic acid 1 mg PO DAILY 03/25/20 04/14/20 History gabapentin 600 mg PO TID 03/25/20 04/14/20 History loratadine 10 mg DAILY 03/25/20 04/14/20 History metformin 850 mg PO BID 03/25/20 04/14/20 History montelukast 10 mg PO BEDTIME 03/25/20 04/14/20 History multivitamin 1 tab PO DAILY 03/25/20 04/14/20 History paroxetine HCl 40 mg PO DAILY 03/25/20 04/14/20 History quetiapine 200 mg PO BEDTIME 03/25/20 04/14/20 History tiotropium bromide 1 cap INHALATION DAILY 03/25/20 04/14/20 History valsartan 40 mg PO BID 03/25/20 04/14/20 History Physical Exam Vital Signs and Narrative: Vital Signs: Last Vital Signs Temp 97.6 F 04/14/20 12:31 Pulse 97 04/14/20 12:31 Resp 21 H 04/14/20 12:31 BP 102/50 L 04/14/20 12:31 Pulse Ox 95 04/14/20 12:31 Body Mass Index 29.2 Constitutional Awake and Alert, No apparent distress Neck Supple, No lymphadenopathy Cardiovascular RRR, No M/R/G, S1 S2, No S3 S4, No pedal edema, slightly tachy Respiratory tachypnic, juvenal wheezes, early use of accessory muscles Gastrointestinal Non tender, Non-distended Skin No rash Neurological Alert & oriented x3 Psychological Appropriate affect Results Labs Labs: Laboratory Tests 04/14/20 04/14/20 04/14/20 10:38 10:50 10:50 WBC 13.7 H RBC 3.90 L Hgb 9.0 L Hct 30.7 L MCV 78.7 L MCH 23.1 L MCHC 29.3 L RDW 21.2 H Plt Count 312 MPV 10.5 Immature Gran % (Auto) 0.6 H Neut % (Auto) 70.1 Lymph % (Auto) 17.8 L Ness % (Auto) 9.2 Eos % (Auto) 1.9 Baso % (Auto) 0.4 Lymph # (Auto) 2.4 Ness # (Auto) 1.3 H Eos # (Auto) 0.3 Baso # (Auto) 0.1 Abs Immat Gran (auto) 0.08 H Absolute Neuts (auto) 9.6 H Absolute Nucleated RBC 0.000 Nucleated RBC % (auto) 0.0 Sodium 141 Potassium 4.0 Chloride 102 Carbon Dioxide 29 Anion Gap 14 BUN 10 Creatinine 0.75 Estim Creat Clear Calc 84.2 Estimated GFR > 60 Random Glucose 131 H Lactic Acid Calcium 9.8 B-Natriuretic Peptide Coronavirus (PCR) NEGATIVE 04/14/20 04/14/20 04/14/20 10:50 10:51 10:51 WBC RBC Hgb Hct MCV MCH MCHC RDW Plt Count MPV Immature Gran % (Auto) Neut % (Auto) Lymph % (Auto) Ness % (Auto) Eos % (Auto) Baso % (Auto) Lymph # (Auto) Ness # (Auto) Eos # (Auto) Baso # (Auto) Abs Immat Gran (auto) Absolute Neuts (auto) Absolute Nucleated RBC Nucleated RBC % (auto) Sodium 140 Potassium 3.9 Chloride 100 Carbon Dioxide 30 H Anion Gap 14 BUN 10 Creatinine 0.76 Estim Creat Clear Calc 83.0 Estimated GFR > 60 Random Glucose 132 H Lactic Acid 1.8 Calcium 10.0 B-Natriuretic Peptide 51 Coronavirus (PCR) XR/XR chest 1V 04/12/20 IMPRESSION: 1. Subsegmental atelectasis left lateral base superimposed upon benign areolar tissue at the cardiac apex. 2. Coarsening bronchiolar markings. No lobar or segmental airspace consolidation. Assessment and Plan (1) Acute and chronic respiratory failure ([id number]): Status: Acute (2) Acute exacerbation of COPD with asthma: Status: Acute (3) History of DVT (deep vein thrombosis): Status: Acute (4) Anxiety: Status: Inactive (5) Diabetes: Status: Inactive (6) Hypertension: Status: Inactive (7) Renal infarct: Status: Inactive (8) Hyperlipidemia: Status: Inactive 54 female with COPD on home O2, chronic smoker, frequent hospitalization now being readmitted for acute on chronic respiratory failure due to COPD exacerbation 1. Acute and chronic respiratory failure due to COPD exacerbation. -IV Solumedrol -Continue bronchodilators by Nebs -O2 at 2 Liters by Nasal cannula 2. Oral thrush--d/t chronic steroid use, nyastatin 3. Diabetes. continue metformin. Cover with sliding scale. ADA diet. 4. Hypertension. Continue clonidine, valsartan and Norvasc. 5. History of renal infarction. Continue Eliquis. 6. Dyslipidemia. Continue Lipitor. 7. Mood. Continue Cymbalta,Paxil, and Seroquel. 8. Neuropathy. Continue gabapentin.
[2020-04-14 15:50] LABS: Pt Ventilation O2% 2 L
[2020-04-14 15:52] LABS: ABG PCO2 51 mmhg (32-45); HCO3 ABG 29 mmol/l (22-26); PO2 ABG 117 mmhg (83-108); pH ABG 7.37 (7.35-7.45)
--- NOTE | 2020-04-14 17:27 | PC.NURSE ---
called to [facility] [place]
--- NOTE | 2020-04-14 17:50 | PC.NURSE ---
CALL PLACED TO [facility] [place] AGAIN TO TRY AND GIVE REPORT
--- NOTE | 2020-04-14 17:55 | PC.NURSE ---
SISTER CALLED ASKING WHY PT ISNT BEING TAKEN CARE OF. OKAY TO SPEAK TO SISTER PER PT. PT AND SISTER EDUCATED ON PROCESS OF ADMISSION- STILL NOT PLEASED BUT AWARE OF PLAN OF CARE.
--- NOTE | 2020-04-14 18:00 | PC.NURSE ---
PT STARTING TO GET ANXIOUS, NOT WANTING TO BE IN THE ED. TAHCYPNEA AND REQUESTING CPAP. ROOM SAT 99% ON VENTI AT 35% HOSPITALIST AWARE.
--- NOTE | 2020-04-14 18:03 | PC.NURSE ---
THIRD ATTEMPT TO GIVE REPORT TO IM, STILL NO ANSWER
--- NOTE | 2020-04-14 18:25 | PC.NURSE ---
REPORT GIVEN TO [facility]
[2020-04-14] MEDS: levalbuterol HCL 1.25 MG/3 ML VIAL.NEB INHALE (21:37)
[2020-04-15] VITALS (11 sets, daily range): BP systolic 121–155; BP diastolic 58–94; PULSE 10–116; RESP 20–24; TEMP 36.1–36.7; O2SAT 93–99
[2020-04-15] MEDS: 0.9 % Sodium Chloride Flush 3 ML SYRINGE IVFLUSH ×4 (00:02→21:13)
[2020-04-15] MEDS: levalbuterol HCL 1.25 MG/3 ML VIAL.NEB INHALE ×5 (00:04→17:50)
[2020-04-15 08:18] LABS: Glucose, Whole Blood 168 mg/dL (60-115)
[2020-04-15] MEDS: metFORMIN HCl 850 MG TABLET PO ×2 (08:20→21:10)
[2020-04-15] MEDS: DULoxetine HCl 30 MG CAPSULE.DR PO (08:20)
[2020-04-15] MEDS: PARoxetine HCL 40 MG TABLET PO (08:20)
[2020-04-15] MEDS: Doxepin HCl 25 MG CAPSULE 200 MG PO (08:20)
[2020-04-15] MEDS: Multivitamin TABLET 1 TAB PO (08:21)
[2020-04-15] MEDS: Valsartan 40 MG TABLET PO ×2 (08:21→21:10)
[2020-04-15] MEDS: Gabapentin 600 MG TABLET PO ×3 (08:21→21:10)
[2020-04-15] MEDS: amLODIPine Besylate 2.5 MG TABLET PO (08:21)
[2020-04-15] MEDS: Folic Acid 1 MG TABLET PO (08:21)
[2020-04-15] MEDS: Apixaban 5 MG TABLET PO ×3 (08:21→21:10)
[2020-04-15] MEDS: Loratadine 10 MG TABLET PO (08:21)
--- NOTE | 2020-04-15 09:02 | P.PNIM_ITS ---
Subjective Subjective Date of Service: 04/15/20 Interval History: Seen in follow up for acute and chronic respiratory failure due to copd exacerbation. She doesn't feel better, feels anxious, there is no hypoxia Review of Systems Card: no chest pain GI: No n/v Resp: SOB, no wheezes Physical Exam Vital Signs: Vital Signs: Vital Signs Temp Pulse Resp BP Pulse Ox 04/15/20 08:21 114 H 155/94 H 04/15/20 08:00 97.5 F 114 H 24 H 155/94 H 93 04/15/20 03:01 98.0 F 105 H 24 H 137/80 98 04/15/20 02:59 98.0 F 105 H 24 H 137/80 98 04/14/20 23:56 97.6 F 100 20 144/79 H 98 04/14/20 23:49 97.6 F 100 20 144/79 H 98 04/14/20 22:46 24 H 04/14/20 19:48 97.6 F 98 20 143/79 H 93 04/14/20 18:00 103 H 30 H 140/84 H 99 04/14/20 17:29 105 H 20 98 04/14/20 12:31 97.6 F 97 21 H 102/50 L 95 04/14/20 11:03 99 20 989 H 04/14/20 10:21 98.3 F 103 H 25 H 138/108 H 97 Body Mass Index 29.2 Constitutional Awake and Alert, No apparent distress Neck Supple, No lymphadenopathy Cardiovascular RRR, No M/R/G, S1 S2, No S3 S4, No pedal edema Respiratory tight air movement, no wheezes, no accessory muscle use Gastrointestinal Non tender, Non-distended Skin No rash Neurological Alert & oriented x3 Psychological Appropriate affect Objective Data Current Medications Generic Name Dose Route Start Last Admin Trade Name Freq PRN Reason Stop Dose Admin Albuterol Sulfate 0.63 mg 04/14/20 23:12 Albuterol Sulfate (0.042%) 1.25 Mg/3 Ml Vial.Neb INHALE QID PRN Shortness Of Breath Amlodipine Besylate 2.5 mg 04/15/20 09:00 04/15/20 08:21 Amlodipine Besylate 2.5 Mg Tablet PO 2.5 mg DAILY CARLOS Administration Protocol Apixaban 5 mg 04/14/20 23:18 04/15/20 08:21 Apixaban 5 Mg Tablet PO 5 mg BID CARLOS Administration Atorvastatin Calcium 20 mg 04/15/20 21:00 Atorvastatin Calcium 20 Mg Tablet PO BEDTIME CARLOS Clonidine HCl 0.1 mg 04/15/20 21:00 Clonidine Hcl 0.1 Mg Tablet PO BEDTIME [facility] Protocol Clotrimazole 10 mg 04/15/20 06:00 04/15/20 08:07 Clotrimazole 10 Mg Jesus MUCOUS MEM Not Given 5XD CARLOS Doxepin HCl 200 mg 04/15/20 09:00 04/15/20 08:20 Doxepin Hcl 25 Mg Capsule PO 200 mg DAILY CARLOS Administration Duloxetine HCl 30 mg 04/15/20 09:00 04/15/20 08:20 Duloxetine Hcl 30 Mg Capsule.Dr PO 30 mg DAILY CARLOS Administration Folic Acid 1 mg 04/15/20 09:00 04/15/20 08:21 Folic Acid 1 Mg Tablet PO 1 mg DAILY CARLOS Administration Gabapentin 600 mg 04/15/20 09:00 04/15/20 08:21 Gabapentin 600 Mg Tablet PO 600 mg TID CARLOS Administration Levalbuterol HCl 1.25 mg 04/14/20 19:05 04/14/20 21:37 Levalbuterol Hcl 1.25 Mg/3 Ml Vial.Neb INHALE 1.25 mg RQ4H WHILE AWAKE PRN Administration Shortness of Breath Levalbuterol HCl 1.25 mg 04/14/20 19:06 04/15/20 02:58 Levalbuterol Hcl 1.25 Mg/3 Ml Vial.Neb INHALE 1.25 mg Q2H PRN Administration Shortness of Breath Loratadine 10 mg 04/15/20 09:00 04/15/20 08:21 Loratadine 10 Mg Tablet PO 10 mg DAILY CARLOS Administration Metformin HCl 850 mg 04/15/20 09:00 04/15/20 08:20 Metformin Hcl 850 Mg Tablet PO 850 mg BID CARLOS Administration Methylprednisolone Sodium Succinate 40 mg 04/14/20 19:15 04/15/20 08:20 Methylprednisolone Sod Succ/Pf 40 Mg/Ml Vial IVPUSH 40 mg Q6H CARLOS Administration Montelukast Sodium 10 mg 04/15/20 21:00 Montelukast Sodium 10 Mg Tablet PO BEDTIME [facility] Multivitamins/Vitamin C 1 tab 04/15/20 09:00 04/15/20 08:21 Multivitamin Tablet PO 1 tab DAILY CARLOS Administration Paroxetine HCl 40 mg 04/15/20 09:00 04/15/20 08:20 Paroxetine Hcl 40 Mg Tablet PO 40 mg DAILY CARLOS Administration Quetiapine Fumarate 200 mg 04/15/20 21:00 Quetiapine Fumarate 200 Mg Tablet PO BEDTIME CARLOS Sodium Chloride 3 ml 04/15/20 00:00 04/15/20 08:20 0.9 % Sodium Chloride Flush 3 Ml Syringe IVFLUSH 3 ml QSHIFT CARLOS Administration Tiotropium Paul 1 puff 04/15/20 09:00 Tiotropium Paul 18 Mcg Cap.W.Dev INHALE DAILY CARLOS Valsartan 40 mg 04/15/20 09:00 04/15/20 08:21 Valsartan 40 Mg Tablet PO 40 mg BID CARLOS Administration Protocol Labs CBC & Chem 7: 04/14/20 10:50 04/14/20 10:51 Assessment and Plan (1) Acute and chronic respiratory failure ([id number]): Status: Acute (2) Acute exacerbation of COPD with asthma: Status: Acute (3) History of DVT (deep vein thrombosis): Status: Acute (4) Diabetes: Status: Acute (5) Hypertension: Status: Acute (6) Hyperlipidemia: Status: Acute (7) Anxiety: Status: Acute Assessment and Plan: 54 female with COPD on home O2, chronic smoker, frequent hospitalization now being readmitted for acute on chronic respiratory failure due to COPD exacerbation 1. Acute and chronic respiratory failure due to COPD exacerbation. -IV Solumedrol -Continue bronchodilators (Xopenex) by Nebs -Consult pulmonology -O2 at 2 Liters by Nasal cannula 2. Oral thrush--d/t chronic steroid use, nyastatin 3. Diabetes. continue metformin. Cover with sliding scale. ADA diet. 4. Hypertension. Continue clonidine, valsartan and Norvasc. 5. History of renal infarction/ho DVT Continue Eliquis. 6. Dyslipidemia. Continue Lipitor. 7. Mood. Continue Cymbalta,Paxil, and Seroquel. 8. Neuropathy. Continue gabapentin. 9. Anxity--Ativan PRN
[2020-04-15] MEDS: LORazepam 2 MG/ML VIAL 0.5 MG IVPUSH (09:27)
--- NOTE | 2020-04-15 10:04 | PM.CNPUL ---
History of Present Illness History of Present Illness Chief complaint: Acute & Chronic Resp Failure COPD exacerbation Narrative: The patient is a 54-year-old woman with a known history of COPD, tobacco dependency and chronic hypoxic hypercarbic respiratory failure. She has had multiple admissions to the hospital and also requiring ICU level of care. She was evaluated several days ago and did have a covid test that was negative. Now she returns with worsening shortness of breath. Severe in natur. EMS was called and she was brought to the [facility] ED. Initially she was acidotic and then her ABG improve. She was able to be transferred to the floor. Now again she is having significant shortness of breath and chest tightness. She did receive a breathing treatment and also given lorazepam for work of breathing. She states she has never been the sick before. On her chest exam she has significant diffuse wheezing along with evidence of respiratory distress. The patient was given additional 125 mg of Solu-Medrol and 2 g of magnesium. My suspicion that with work of breathing and respiratory distress she probably would need BiPAP again. Therefore, I will request a an ABG at this time. Review of Systems Constitutional: Constitutional: Reports difficulty sleeping, Reports fatigue, Reports malaise and Denies night sweats ENT: Denies change in voice, Denies lip swelling, Denies mouth pain, Reports nasal congestion, Reports nasal discharge and Denies tongue swelling Cardiovascular: Cardiovascular: Denies chest pain and Reports dyspnea Respiratory: Respiratory: Reports cough and Reports dyspnea Gastrointestinal: Gastrointestinal: Denies abdominal pain Musculoskeletal: Musculoskeletal: Denies no additional musculoskeletal complaints Neurologic: Denies Neuro-related abnormal movements Psychiatric: Psychiatric: Denies no additional psychiatric complaints Endocrine: Endocrine: Reports fatigue Hematologic/Lymphatic: Hematologic/Lymphatic: Denies easy bleeding and Denies lymphadenopathy Allergic/Immunologic: Allergic/Immunologic: Denies lip swelling and Denies tongue swelling [facility] Past Medical History Medical History (Updated 04/15/20 @ 10:57 by Job Moore MD) Acute and chronic respiratory failure ([id number]) Acute exacerbation of COPD with asthma Anxiety Bronchitis COPD (chronic obstructive pulmonary disease) COPD (chronic obstructive pulmonary disease) COPD exacerbation Diabetes H/O blood clots History of DVT (deep vein thrombosis) Hyperlipidemia Hypertension Renal infarct Supplemental oxygen dependent Functional capacity: independent ambulation Family History Family History Father Diabetes mellitus Myocardial infarction Social History Social History Household Members: Other Household Members Other:: al[place] Housing: Other Alcohol intake: never Smoking Status: Current some day smoker Tobacco Type: Cigarette Smoked in Last 30 Days: Yes Patient Interested in Nicotine Replacement: No Patient Given Instructions on How to Stop Smoking: Yes Date Education Initiated: 04/14/20 Second Hand Smoke Exposure: No Use of substances other than those prescribed or required for medical reasons: No Currently Displaying Signs/Symptoms of Drug Intoxication Withdrawal: No Have you been hit, kicked, punched, or otherwise hurt by someone within the past year? If so, by whom?: No Do you feel safe in your current relationship?: Yes Is there a partner from a previous relationship who is making you feel unsafe now?: No Are you made to feel afraid or neglected: No Advance Directives: No Advance Directives Information Provided: Yes Do you have thoughts of harming others: None Do you have a plan to hurt others: No Plan Recently lost weight without trying: No service: No Current occupational status: disabled Meds Allergies Allergy/AdvReac Type Severity Reaction Status Date / Time No Known Allergies Allergy Verified 04/14/20 10:25 Home Medications Medication Instructions Recorded Confirmed Type albuterol sulfate 0.63 mg INHALATION QID PRN 03/25/20 04/14/20 History amlodipine 2.5 mg PO DAILY 03/25/20 04/14/20 History apixaban 5 mg BID 03/25/20 04/14/20 History atorvastatin 20 mg PO BEDTIME 03/25/20 04/14/20 History clonidine HCl 0.1 mg PO BEDTIME 03/25/20 04/14/20 History clotrimazole 10 mg MUCOUS MEMBRANE 5XD 03/25/20 04/14/20 History doxepin 200 mg PO DAILY 03/25/20 04/14/20 History duloxetine 30 mg PO DAILY 03/25/20 04/14/20 History folic acid 1 mg PO DAILY 03/25/20 04/14/20 History gabapentin 600 mg PO TID 03/25/20 04/14/20 History loratadine 10 mg DAILY 03/25/20 04/14/20 History metformin 850 mg PO BID 03/25/20 04/14/20 History montelukast 10 mg PO BEDTIME 03/25/20 04/14/20 History multivitamin 1 tab PO DAILY 03/25/20 04/14/20 History paroxetine HCl 40 mg PO DAILY 03/25/20 04/14/20 History quetiapine 200 mg PO BEDTIME 03/25/20 04/14/20 History tiotropium bromide 1 cap INHALATION DAILY 03/25/20 04/14/20 History valsartan 40 mg PO BID 03/25/20 04/14/20 History Physical Exam Vital Signs: Vital Signs: Vital Signs Temp Pulse Resp BP Pulse Ox 04/15/20 08:21 114 H 155/94 H 04/15/20 08:00 97.5 F 114 H 24 H 155/94 H 93 04/15/20 03:01 98.0 F 105 H 24 H 137/80 98 04/15/20 02:59 98.0 F 105 H 24 H 137/80 98 04/14/20 23:56 97.6 F 100 20 144/79 H 98 04/14/20 23:49 97.6 F 100 20 144/79 H 98 04/14/20 22:46 24 H 04/14/20 19:48 97.6 F 98 20 143/79 H 93 04/14/20 18:00 103 H 30 H 140/84 H 99 04/14/20 17:29 105 H 20 98 04/14/20 12:31 97.6 F 97 21 H 102/50 L 95 04/14/20 11:03 99 20 989 H 04/14/20 10:21 98.3 F 103 H 25 H 138/108 H 97 Body Mass Index 29.2 Const: General: in distress, ill appearing and lethargic Orientation/consciousness: lethargic HENMT: General nose exam: Abnormal external nose present and Nasal discharge present Eyes: Pupils: Equal, round and reactive pupils present Neck: Neck: Yes normal visual inspection, Yes full ROM and Yes no lymphadenopathy Chest: Chest palpation & inspection: normal inspection of the chest Resp: Auscultation: diminished lung sounds Cardio: Rate: regular rate Rhythm: regular rhythm Heart sounds: S1 normal heart sound present and S2 normal heart sound present GI: Palpation (GI): Soft to palpation and nontender Auscultation: normal bowel sounds : General: Yes no CVA tenderness Back/Spine/Pelvis: Back: no CVA tenderness Skin: General skin exam: rashes and/or lesions noted Neuro: Cranial nerves: Yes Equal, round and reactive pupils present Results Laboratory Findings CBC and BMP: 04/14/20 10:50 04/14/20 10:51 ABG, PT/INR, D-dimer: ABG ABG pH 7.37 (7.35-7.45) 04/14/20 15:45 ABG pCO2 51 mmhg (32-45) H 04/14/20 15:45 ABG pO2 117 mmhg (83-108) H 04/14/20 15:45 ABG O2 Saturation 98.0 % 04/14/20 15:45 Abnormal lab findings: Abnormal Labs 04/14/20 04/14/20 04/14/20 10:50 10:50 10:51 WBC 13.7 H RBC 3.90 L Hgb 9.0 L Hct 30.7 L MCV 78.7 L MCH 23.1 L MCHC 29.3 L RDW 21.2 H Immature Gran % (Auto) 0.6 H Lymph % (Auto) 17.[address] [place] # (Auto) 1.3 H Abs Immat Gran (auto) 0.08 H Absolute Neuts (auto) 9.6 H ABG pCO2 ABG pO2 ABG HCO3 Carbon Dioxide 30 H POC Glucose Random Glucose 131 H 132 H 04/14/20 04/15/20 15:45 08:15 WBC RBC Hgb Hct MCV MCH MCHC RDW Immature Gran % (Auto) Lymph % (Auto) [facility] # (Auto) Abs Immat Gran (auto) Absolute Neuts (auto) ABG pCO2 51 H ABG pO2 117 H ABG HCO3 29 H Carbon Dioxide POC Glucose 168 H Random Glucose Assessment and Plan (1) Acute and chronic respiratory failure ([id number]): Status: Acute Oxygen supplementation (2) Acute exacerbation of COPD with asthma: Status: Acute Aditional steroids IV ABG requested (3) Bronchitis: Status: Acute Start azithromycin
[2020-04-15] MEDS: Magnesium Sulfate/H2O 2 GM/50 ML PIGGYBACK IV (10:08)
[2020-04-15] MEDS: methylPREDNISolone Sod Succ/PF 125 MG/2 ML VIAL IV (10:39)
[2020-04-15 11:06] LABS: Pt Ventilation O2% 45%
[2020-04-15 11:10] LABS: ABG PCO2 42 mmhg (32-45); Base Excess ABG 2.8; HCO3 ABG 28 mmol/l (22-26); Oxygen Saturation ABG 97.7 %; PO2 ABG 99 mmhg (83-108); pH ABG 7.43 (7.35-7.45)
[2020-04-15] MEDS: Insulin Lispro 100 UNIT/ML 3 ML VIAL SUBCUT ×3 (12:03→21:13)
[2020-04-15 12:06] LABS: Glucose, Whole Blood 213 mg/dL (60-115)
[2020-04-15 15:58] LABS: Glucose, Whole Blood 222 mg/dL (60-115)
[2020-04-15 20:52] LABS: Glucose, Whole Blood 276 mg/dL (60-115)
[2020-04-15] MEDS: QUEtiapine Fumarate 200 MG TABLET PO (21:10)
[2020-04-15] MEDS: Atorvastatin Calcium 20 MG TABLET PO (21:10)
[2020-04-15] MEDS: Montelukast Sodium 10 MG TABLET PO (21:10)
[2020-04-15] MEDS: cloNIDine HCL 0.1 MG TABLET PO (21:12)
[2020-04-15] MEDS: diphenhydrAMINE HCL 50 MG/ML VIAL 25 MG IVPUSH (22:19)
[2020-04-16] VITALS (9 sets, daily range): BP systolic 124–154; BP diastolic 58–98; PULSE 99–122; RESP 18–20; TEMP 36.3–36.8; O2SAT 96–98
[2020-04-16] MEDS: levalbuterol HCL 1.25 MG/3 ML VIAL.NEB INHALE (07:55)
[2020-04-16 08:10] LABS: Glucose, Whole Blood 162 mg/dL (60-115)
[2020-04-16] MEDS: Folic Acid 1 MG TABLET PO (08:20)
[2020-04-16] MEDS: amLODIPine Besylate 2.5 MG TABLET PO (08:20)
[2020-04-16] MEDS: metFORMIN HCl 850 MG TABLET PO ×2 (08:20→22:01)
[2020-04-16] MEDS: Apixaban 5 MG TABLET PO ×2 (08:20→22:01)
[2020-04-16] MEDS: Gabapentin 600 MG TABLET PO ×3 (08:21→22:01)
[2020-04-16] MEDS: Loratadine 10 MG TABLET PO (08:21)
[2020-04-16] MEDS: Valsartan 40 MG TABLET PO ×2 (08:21→22:01)
[2020-04-16] MEDS: DULoxetine HCl 30 MG CAPSULE.DR PO (08:21)
[2020-04-16] MEDS: Multivitamin TABLET 1 TAB PO (08:21)
[2020-04-16] MEDS: PARoxetine HCL 40 MG TABLET PO (08:21)
[2020-04-16] MEDS: 0.9 % Sodium Chloride Flush 3 ML SYRINGE IVFLUSH ×3 (08:30→22:04)
[2020-04-16] MEDS: Insulin Lispro 100 UNIT/ML 3 ML VIAL SUBCUT ×3 (08:30→22:04)
[2020-04-16] MEDS: Azithromycin 500 MG TABLET PO (08:32)
--- NOTE | 2020-04-16 10:46 | P.PNIM_ITS ---
Subjective Subjective Date of Service: 04/16/20 Interval History: still significant palm still coughing and wheezing Review of Systems General - no fevers or chills Cardiovascular - no chest pain Respiratory - +sob, +cough, +PALM Abdominal- no abdominal pain, nausea, vomiting, diarrhea Physical Exam Vital Signs: Vital Signs: Vital Signs Temp Pulse Resp BP Pulse Ox 04/16/20 08:21 99 138/68 04/16/20 08:20 99 138/58 L 04/16/20 07:26 97.8 F 99 20 138/58 L 96 04/16/20 03:19 98.2 F 109 H 18 137/81 98 04/15/20 23:22 97.7 F 104 H 20 133/73 98 04/15/20 21:12 113 H 126/75 04/15/20 21:10 113 H 126/75 04/15/20 19:01 98 F 115 H 24 H 121/58 L 96 04/15/20 15:14 97.7 F 116 H 22 H 131/81 99 04/15/20 12:00 97.0 F 114 H 24 H 138/82 96 04/15/20 11:22 97.0 F 114 H 24 H 131/82 99 Body Mass Index 29.2 General - no acute distress, appears comfortable Cardiovascular - regular rate and rhythm, S1-S2 Lungs - rhonchi, wheezing, no tachypnea Abdomen - soft, nontender, no rebound regarding Extremities - no edema bilaterally Neuro - awake and alert, no focal deficits Objective Data Current Medications Generic Name Dose Route Start Last Admin Trade Name Freq PRN Reason Stop Dose Admin Acetaminophen 650 mg 04/15/20 09:46 Acetaminophen 325 Mg Tablet PO Q6H PRN Pain, Mild (Pain Scale 1-3) Albuterol Sulfate 0.63 mg 04/14/20 23:12 Albuterol Sulfate (0.042%) 1.25 Mg/3 Ml Vial.Neb INHALE QID PRN Shortness Of Breath Amlodipine Besylate 2.5 mg 04/15/20 09:00 04/16/20 08:20 Amlodipine Besylate 2.5 Mg Tablet PO 2.5 mg DAILY CARLOS Administration Protocol Apixaban 5 mg 04/14/20 23:18 04/16/20 08:20 Apixaban 5 Mg Tablet PO 5 mg BID CARLOS Administration Atorvastatin Calcium 20 mg 04/15/20 21:00 04/15/20 21:10 Atorvastatin Calcium 20 Mg Tablet PO 20 mg BEDTIME CARLOS Administration Azithromycin 500 mg 04/16/20 09:00 04/16/20 08:32 Azithromycin 500 Mg Tablet PO 500 mg Q24H CARLOS Administration Clonidine HCl 0.1 mg 04/15/20 21:00 04/15/20 21:12 Clonidine Hcl 0.1 Mg Tablet PO 0.1 mg BEDTIME CARLOS Administration Protocol Clotrimazole 10 mg 04/15/20 06:00 04/16/20 06:13 Clotrimazole 10 Mg Jesus MUCOUS MEM 10 mg 5XD CARLOS Administration Doxepin HCl 200 mg 04/15/20 09:00 04/16/20 08:26 Doxepin Hcl 25 Mg Capsule PO Not Given DAILY CARLOS Duloxetine HCl 30 mg 04/15/20 09:00 04/16/20 08:21 Duloxetine Hcl 30 Mg Capsule.Dr PO 30 mg DAILY CARLOS Administration Folic Acid 1 mg 04/15/20 09:00 04/16/20 08:20 Folic Acid 1 Mg Tablet PO 1 mg DAILY CARLOS Administration Gabapentin 600 mg 04/15/20 09:00 04/16/20 08:21 Gabapentin 600 Mg Tablet PO 600 mg TID CARLOS Administration Levalbuterol HCl 1.25 mg 04/14/20 19:05 04/16/20 07:55 Levalbuterol Hcl 1.25 Mg/3 Ml Vial.Neb INHALE 1.25 mg RQ4H WHILE AWAKE PRN Administration Shortness of Breath Levalbuterol HCl 1.25 mg 04/14/20 19:06 04/15/20 02:58 Levalbuterol Hcl 1.25 Mg/3 Ml Vial.Neb INHALE 1.25 mg Q2H PRN Administration Shortness of Breath Levalbuterol HCl 1.25 mg 04/15/20 09:03 Levalbuterol Hcl 1.25 Mg/3 Ml Vial.Neb INHALE Q2H PRN Shortness of Breath Loratadine 10 mg 04/15/20 09:00 04/16/20 08:21 Loratadine 10 Mg Tablet PO 10 mg DAILY CARLOS Administration Lorazepam 0.5 mg 04/15/20 09:08 04/15/20 09:27 Lorazepam 2 Mg/Ml Vial IVPUSH 0.5 mg Q6H PRN Administration amxiety Metformin HCl 850 mg 04/15/20 09:00 04/16/20 08:20 Metformin Hcl 850 Mg Tablet PO 850 mg BID CARLOS Administration Methylprednisolone Sodium Succinate 40 mg 04/14/20 19:15 04/16/20 06:13 Methylprednisolone Sod Succ/Pf 40 Mg/Ml Vial IVPUSH 40 mg Q6H CARLOS Administration Montelukast Sodium 10 mg 04/15/20 21:00 04/15/20 21:10 Montelukast Sodium 10 Mg Tablet PO 10 mg BEDTIME CARLOS Administration Multivitamins/Vitamin C 1 tab 04/15/20 09:00 04/16/20 08:21 Multivitamin Tablet PO 1 tab DAILY CARLOS Administration Paroxetine HCl 40 mg 04/15/20 09:00 04/16/20 08:21 Paroxetine Hcl 40 Mg Tablet PO 40 mg DAILY CARLOS Administration Quetiapine Fumarate 200 mg 04/15/20 21:00 04/15/20 21:10 Quetiapine Fumarate 200 Mg Tablet PO 200 mg BEDTIME CARLOS Administration Sodium Chloride 3 ml 04/15/20 00:00 04/16/20 08:30 0.9 % Sodium Chloride Flush 3 Ml Syringe IVFLUSH 3 ml QSHIFT CARLOS Administration Tiotropium [place] 1 puff 04/15/20 09:00 04/16/20 08:00 Tiotropium [place] 18 Mcg Cap.W.Dev INHALE 1 puff DAILY CARLOS Administration Valsartan 40 mg 04/15/20 09:00 04/16/20 08:21 Valsartan 40 Mg Tablet PO 40 mg BID CARLOS Administration Protocol Labs CBC & Chem 7: 04/14/20 10:50 04/14/20 10:51 Microbiology Microbiology Results: Microbiology 04/14/20 11:09 Blood - Venous Blood Culture - Preliminary No growth after 24 hours. 04/14/20 10:51 Blood - Venous Blood Culture - Preliminary No growth after 24 hours. Assessment and Plan (1) Acute and chronic respiratory failure ([id number]): Status: Acute (2) Acute exacerbation of COPD with asthma: Status: Acute (3) History of DVT (deep vein thrombosis): Status: Acute (4) Diabetes: Status: Acute (5) Hypertension: Status: Acute (6) Hyperlipidemia: Status: Acute (7) Anxiety: Status: Acute Assessment and Plan: 54 female with COPD on home O2, chronic smoker, frequent hospitalization now being readmitted for acute on chronic respiratory failure due to COPD exacerbation 1. Acute on chronic respiratory failure due to COPD exacerbation on venti-mask, wean to NC as tolerated still significant wheezing/rhonchi and PALM contineu steroids continue updrafts zithromax added 2. Oral thrush antifungals 3. Diabetes. continue metformin. Cover with sliding scale. ADA diet. 4. Hypertension. Continue clonidine, valsartan and Norvasc. 5. History of renal infarction/ho DVT Continue Eliquis. 6. Dyslipidemia. Continue Lipitor. 7. Mood. Continue Cymbalta,Paxil, and Seroquel. 8. Neuropathy. Continue gabapentin. Full Code DVT pptx, Eliqiis
--- NOTE | 2020-04-16 11:19 | P.PNPL_ITS ---
Subjective Subjective Interval history: Seen and examined. Feels a little bettter. ABG was reassuring. Working on purse lip breathing and tripod position. Objective Data Labs CBC & Chem 7: 04/14/20 10:50 04/14/20 10:51 Labs: Laboratory Results - last 24 hr 04/15/20 04/15/20 04/15/20 11:59 15:55 20:39 POC Glucose 213 H 222 H 276 H 04/16/20 07:25 POC Glucose 162 H Microbiology Microbiology Results: Microbiology 04/14/20 11:09 Blood - Venous Blood Culture - Preliminary No growth after 24 hours. 04/14/20 10:51 Blood - Venous Blood Culture - Preliminary No growth after 24 hours. Review of Systems Constitutional: Denies night sweats Denies change in voice, Denies lip swelling, Denies mouth pain, Reports nasal congestion, Reports nasal discharge and Denies tongue swelling Cardiovascular: Denies chest pain and Reports dyspnea Respiratory: Reports cough, Reports dyspnea and Reports wheezing Gastrointestinal: Denies abdominal pain Musculoskeletal: Denies no additional musculoskeletal complaints Denies Neuro-related abnormal movements Psychiatric: Denies no additional psychiatric complaints Hematologic/Lymphatic: Denies easy bleeding and Denies lymphadenopathy Allergic/Immunologic: Denies lip swelling, Denies tongue swelling and Reports wheezing Physical Exam Vital Signs: Vital Signs: Vital Signs Temp Pulse Resp BP Pulse Ox 04/16/20 08:21 99 138/68 04/16/20 08:20 99 138/58 L 04/16/20 07:26 97.8 F 99 20 138/58 L 96 04/16/20 03:19 98.2 F 109 H 18 137/81 98 04/15/20 23:22 97.7 F 104 H 20 133/73 98 04/15/20 21:12 113 H 126/75 04/15/20 21:10 113 H 126/75 04/15/20 19:01 98 F 115 H 24 H 121/58 L 96 04/15/20 15:14 97.7 F 116 H 22 H 131/81 99 04/15/20 12:00 97.0 F 114 H 24 H 138/82 96 04/15/20 11:22 97.0 F 114 H 24 H 131/82 99 Body Mass Index 29.2 Const: General: alert HENMT: General nose exam: Abnormal external nose present and Nasal discharge present Eyes: Pupils: Equal, round and reactive pupils present Neck: Neck: Yes normal visual inspection, Yes full ROM and Yes no lym phadenopathy Chest: Chest palpation & inspection: normal inspection of the chest Resp: Auscultation: wheezes and diminished lung sounds Cardio: Rate: regular rate Rhythm: regular rhythm Heart sounds: S1 normal heart sound present and S2 normal heart sound present GI: Palpation (GI): Soft to palpation and nontender Auscultation: normal bowel sounds : General: Yes no CVA tenderness Back/Spine/Pelvis: Back: no CVA tenderness Skin: General skin exam: rashes and/or lesions noted Neuro: Cranial nerves: Yes Equal, round and reactive pupils present Assessment and Plan Assessment and plan (1) Acute and chronic respiratory failure ([id number]-[id number]): Status: Acute Assessment and Plan: changed to nasal cannula (2) COPD exacerbation: Status: Acute Assessment and Plan: cont katie therapy Add theophilline Time Spent With Patient Time: Total time spent is greater than 50% in coordination of care (as doc umented) at patient's floor/unit and/or counseling patient: Time with patient: 15 - 24 minutes
[2020-04-16 11:29] LABS: Glucose, Whole Blood 231 mg/dL (60-115)
[2020-04-16] MEDS: Theophylline Anhydrous ER 300 MG TAB.ER.12H PO ×2 (12:24→22:00)
--- NOTE | 2020-04-16 13:52 | MHC.CM.PN ---
PT RESIDES IN A [facility] PROGRAM RUN BY [facility]. PT IS OXYGEN DEPENDENT WHICH IS PROVIDED BY [facility]. PT ALSO HAS A NEBULIZER AT HOME. PTS PCP IS JUVE GA AND SHE HAS A HCP ON FILE CURRENT DC PLAN IS TO RETURN TO [facility] PT WILL NEED TRANSPORT ARRANGED
[2020-04-16 17:11] LABS: Glucose, Whole Blood 212 mg/dL (60-115)
[2020-04-16 20:52] LABS: Glucose, Whole Blood 171 mg/dL (60-115)
[2020-04-16] MEDS: Doxepin HCl 25 MG CAPSULE 200 MG PO (22:00)
[2020-04-16] MEDS: QUEtiapine Fumarate 200 MG TABLET PO (22:01)
[2020-04-16] MEDS: Montelukast Sodium 10 MG TABLET PO (22:01)
[2020-04-16] MEDS: Atorvastatin Calcium 20 MG TABLET PO (22:01)
[2020-04-16] MEDS: cloNIDine HCL 0.1 MG TABLET PO (22:03)
[2020-04-16] MEDS: Morphine Sulfate 2 MG/ML CARTRIDGE IVPUSH (22:18)
[2020-04-17] VITALS (10 sets, daily range): BP systolic 107–141; BP diastolic 55–94; PULSE 99–137; RESP 16–20; TEMP 36.3–36.7; O2SAT 96–98
[2020-04-17] MEDS: traMADoL HCL 50 MG TABLET PO (02:53)
[2020-04-17] MEDS: Metoprolol Tartrate 5 MG/5 ML VIAL 2.5 MG IVPUSH (05:35)
[2020-04-17 07:15] LABS: Basophils Percent Auto 0.1 % (0-2); Eosinophils Percent Auto 0.1 % (0-4); Hematocrit 37.4 % (37-47); Hemoglobin 10.6 g/dl (12.0-16.0); Imm Gran Abs Auto 0.19 X10*3/uL (0.00-0.03); Imm Gran Pct Auto 0.8 % (0.0-0.4); Lymphocytes Absolute Auto 3.1 X10*3/uL (1.2-4.9); Lymphocytes Percent Auto 13.3 % (20-40); MANUAL DIFF FLAG SCAN; Mean Corpuscular HGB Conc 28.3 g/dl (31.0-35.0); Mean Corpuscular Hemoglobin 22.8 pg (27.0-33.0); Mean Corpuscular Volume 80.4 fL (80-98); Monocytes Absolute Auto 2.3 X10*3/uL (0.1-1.2); Monocytes Percent Auto 10.1 % (2-11); NRBC Pct Auto 0.1 /100WBC (0.0-0.2); Neutrophils Absolute Auto 17.3 X10*3/uL (2.0-8.3); Neutrophils Percent Auto 75.6 % (45-73); Platelet Count 439 X10*3/uL (160-400); Red Blood Count 4.65 X10*6/uL (4.20-5.50); Red Cell Distribution Width 21.6 % (11.0-16.0); SCAN SMEAR FLAG 1; White Blood Count 22.9 X10*3/uL (4.8-10.8)
[2020-04-17] MEDS: levalbuterol HCL 1.25 MG/3 ML VIAL.NEB INHALE (07:40)
[2020-04-17 07:42] LABS: Anion Gap 14 (12-20); Blood Urea Nitrogen 17 mg/dL (9-16); Calcium 8.8 mg/dL (8.4-10.2); Carbon Dioxide 27 mmol/L (22-29); Chloride 100 mmol/L (96-108); Creatinine Clr Calc Pharmacy 80.9; Estimated Glomerular Filt Rate > 60; Glucose Random 142 mg/dL (60-115); Potassium 4.2 mmol/l (3.3-5.1); Sodium 137 mmol/L (135-145)
[2020-04-17 07:47] LABS: Glucose, Whole Blood 163 mg/dL (60-115)
[2020-04-17 07:53] LABS: SLIDE REVIEW VERIFIED
[2020-04-17] MEDS: metFORMIN HCl 850 MG TABLET PO ×2 (08:19→21:36)
[2020-04-17] MEDS: DULoxetine HCl 30 MG CAPSULE.DR PO (08:19)
[2020-04-17] MEDS: Apixaban 5 MG TABLET PO ×2 (08:19→21:35)
[2020-04-17] MEDS: Theophylline Anhydrous ER 300 MG TAB.ER.12H PO ×2 (08:19→21:35)
[2020-04-17] MEDS: PARoxetine HCL 40 MG TABLET PO (08:19)
[2020-04-17] MEDS: Azithromycin 500 MG TABLET PO (08:19)
[2020-04-17] MEDS: Loratadine 10 MG TABLET PO (08:19)
[2020-04-17] MEDS: Gabapentin 600 MG TABLET PO ×3 (08:19→21:35)
[2020-04-17] MEDS: amLODIPine Besylate 2.5 MG TABLET PO (08:20)
[2020-04-17] MEDS: Folic Acid 1 MG TABLET PO (08:20)
[2020-04-17] MEDS: Multivitamin TABLET 1 TAB PO (08:20)
[2020-04-17] MEDS: Valsartan 40 MG TABLET PO ×2 (08:21→21:36)
[2020-04-17] MEDS: 0.9 % Sodium Chloride Flush 3 ML SYRINGE IVFLUSH ×2 (08:21→16:13)
[2020-04-17] MEDS: Morphine Sulfate 2 MG/ML CARTRIDGE IVPUSH (08:32)
[2020-04-17 11:45] LABS: Glucose, Whole Blood 220 mg/dL (60-115)
[2020-04-17] MEDS: Insulin Lispro 100 UNIT/ML 3 ML VIAL SUBCUT (11:49)
--- NOTE | 2020-04-17 13:29 | P.PNIM_ITS ---
Subjective Subjective Date of Service: 04/17/20 Interval History: seen and examined this AM breathing a bit easier, still wheezy tho reports constipation and some abdominal discomfort / pain. reports 1 loose BM yesterday but otherwise non in a few days. no nausea. tolerating diet. Review of Systems General - no fevers or chills Cardiovascular - no chest pain Respiratory - +sob, +cough, +PALM, +wheeze Abdominal-+ abd pain, constipation Physical Exam Vital Signs: Vital Signs: Vital Signs Temp Pulse Resp BP Pulse Ox 04/17/20 11:11 97.6 F 122 H 20 141/71 H 96 04/17/20 08:32 16 04/17/20 08:21 118 H 129/86 04/17/20 08:20 118 H 129/86 04/17/20 07:19 97.8 F 118 H 18 129/86 97 04/17/20 05:35 136 H 124/86 04/17/20 04:00 97.4 F 137 H 20 130/94 H 96 04/16/20 23:34 97.3 F 113 H 20 143/94 H 96 04/16/20 22:01 119 H 154/98 H 04/16/20 19:27 97.7 F 122 H 20 138/60 97 04/16/20 15:58 97.8 F 121 H 18 124/72 96 Body Mass Index 29.2 General - no acute distress, appears comfortable Cardiovascular - regular rate and rhythm, S1-S2 Lungs - rhonchi, wheezing, no tachypnea Abdomen - mild ttp, no rebound or guarding, +BS Extremities - no edema bilaterally Neuro - awake and alert, no focal deficits Objective Data Current Medications Generic Name Dose Route Start Last Admin Trade Name Freq PRN Reason Stop Dose Admin Acetaminophen 650 mg 04/15/20 09:46 Acetaminophen 325 Mg Tablet PO Q6H PRN Pain, Mild (Pain Scale 1-3) Albuterol Sulfate 0.63 mg 04/14/20 23:12 Albuterol Sulfate (0.042%) 1.25 Mg/3 Ml Vial.Neb INHALE QID PRN Shortness Of Breath Apixaban 5 mg 04/14/20 23:18 04/17/20 08:19 Apixaban 5 Mg Tablet PO 5 mg BID CARLOS Administration Atorvastatin Calcium 20 mg 04/15/20 21:00 04/16/20 22:01 Atorvastatin Calcium 20 Mg Tablet PO 20 mg BEDTIME CARLOS Administration Azithromycin 500 mg 04/16/20 09:00 04/17/20 08:19 Azithromycin 500 Mg Tablet PO 500 mg Q24H CARLOS Administration Clonidine HCl 0.1 mg 04/15/20 21:00 04/16/20 22:03 Clonidine Hcl 0.1 Mg Tablet PO 0.1 mg BEDTIME CARLOS Administration Protocol Clotrimazole 10 mg 04/15/20 06:00 04/17/20 08:31 Clotrimazole 10 Mg Jesus MUCOUS MEM 10 mg 5XD CARLOS Administration Doxepin HCl 200 mg 04/16/20 21:00 04/16/20 22:00 Doxepin Hcl 25 Mg Capsule PO 200 mg BEDTIME CARLOS Administration Duloxetine HCl 30 mg 04/15/20 09:00 04/17/20 08:19 Duloxetine Hcl 30 Mg Capsule.Dr PO 30 mg DAILY CARLOS Administration Folic Acid 1 mg 04/15/20 09:00 04/17/20 08:20 Folic Acid 1 Mg Tablet PO 1 mg DAILY CARLOS Administration Gabapentin 600 mg 04/15/20 09:00 04/17/20 08:19 Gabapentin 600 Mg Tablet PO 600 mg TID CARLOS Administration Insulin Human Lispro 0 unit 04/16/20 21:00 04/17/20 11:49 Insulin Lispro 100 Unit/Ml 3 Ml Vial SUBCUT 4 unit QIDACHS CARLOS Administration Protocol Levalbuterol HCl 1.25 mg 04/14/20 19:05 04/17/20 07:40 Levalbuterol Hcl 1.25 Mg/3 Ml Vial.Neb INHALE 1.25 mg RQ4H WHILE AWAKE PRN Administration Shortness of Breath Levalbuterol HCl 1.25 mg 04/14/20 19:06 04/15/20 02:58 Levalbuterol Hcl 1.25 Mg/3 Ml Vial.Neb INHALE 1.25 mg Q2H PRN Administration Shortness of Breath Levalbuterol HCl 1.25 mg 04/15/20 09:03 Levalbuterol Hcl 1.25 Mg/3 Ml Vial.Neb INHALE Q2H PRN Shortness of Breath Loratadine 10 mg 04/15/20 09:00 04/17/20 08:19 Loratadine 10 Mg Tablet PO 10 mg DAILY CARLOS Administration Lorazepam 0.5 mg 04/15/20 09:08 04/15/20 09:27 Lorazepam 2 Mg/Ml Vial IVPUSH 0.5 mg Q6H PRN Administration amxiety Metformin HCl 850 mg 04/15/20 09:00 04/17/20 08:19 Metformin Hcl 850 Mg Tablet PO 850 mg BID CARLOS Administration Methylprednisolone Sodium Succinate 40 mg 04/14/20 19:15 04/17/20 06:36 Methylprednisolone Sod Succ/Pf 40 Mg/Ml Vial IVPUSH 40 mg Q6H CARLOS Administration Montelukast Sodium 10 mg 04/15/20 21:00 04/16/20 22:01 Montelukast Sodium 10 Mg Tablet PO 10 mg BEDTIME CARLOS Administration Morphine Sulfate 2 mg 04/16/20 10:57 04/17/20 08:32 Morphine Sulfate 2 Mg/Ml Cartridge IVPUSH 2 mg Q3H PRN Administration severe respiratory distress Multivitamins/Vitamin C 1 tab 04/15/20 09:00 04/17/20 08:20 Multivitamin Tablet PO 1 tab DAILY CARLOS Administration Paroxetine HCl 40 mg 04/15/20 09:00 04/17/20 08:19 Paroxetine Hcl 40 Mg Tablet PO 40 mg DAILY CARLOS Administration Quetiapine Fumarate 200 mg 04/15/20 21:00 04/16/20 22:01 Quetiapine Fumarate 200 Mg Tablet PO 200 mg BEDTIME CARLOS Administration Sodium Chloride 3 ml 04/15/20 00:00 04/17/20 08:21 0.9 % Sodium Chloride Flush 3 Ml Syringe IVFLUSH 3 ml QSHIFT CARLOS Administration Theophylline 300 mg 04/16/20 11:25 04/17/20 08:19 Theophylline Anhydrous Er 300 Mg Tab.Er.12h PO 300 mg BID CARLOS Administration Tiotropium [place] 1 puff 04/15/20 09:00 04/17/20 07:42 Tiotropium [place] 18 Mcg Cap.W.Dev INHALE Not Given DAILY CARLOS Valsartan 40 mg 04/15/20 09:00 04/17/20 08:21 Valsartan 40 Mg Tablet PO 40 mg BID CARLOS Administration Protocol Labs CBC & Chem 7: 04/17/20 06:33 04/17/20 06:33 Microbiology Microbiology Results: Microbiology 04/14/20 11:09 Blood - Venous Blood Culture - Preliminary No growth after 48 hours. 04/14/20 10:51 Blood - Venous Blood Culture - Preliminary No growth after 48 hours. Assessment and Plan (1) Acute and chronic respiratory failure ([id number]): Status: Acute (2) Acute exacerbation of COPD with asthma: Status: Acute (3) History of DVT (deep vein thrombosis): Status: Acute (4) Diabetes: Status: Acute (5) Hypertension: Status: Acute (6) Hyperlipidemia: Status: Acute (7) Anxiety: Status: Acute Assessment and Plan: 54 female with COPD on home O2, chronic smoker, frequent hospitalization now being readmitted for acute on chronic respiratory failure due to COPD exacerbation 1. Acute on chronic respiratory failure due to COPD exacerbation tolerating nc @ 3L taper iv steriods, theophyllin added by pulm continue xopenex 2. Oral thrush antifungals 3. Diabetes. continue metformin. Cover with sliding scale. ADA diet. 4. Hypertension / sinus tachycardia continue clonidine / valsartan stop norvasc, start cardizem to help with sinus tach 5. History of renal infarction/ho DVT Continue Eliquis. 6. Dyslipidemia. Continue Lipitor. 7. Mood. Continue Cymbalta,Paxil, and Seroquel. 8. Neuropathy. Continue gabapentin. Full Code DVT pptx, [place]
[2020-04-17] MEDS: dilTIAZem HCL 30 MG TABLET PO ×3 (13:54→21:36)
[2020-04-17 16:42] LABS: Glucose, Whole Blood 147 mg/dL (60-115)
[2020-04-17 20:52] LABS: Glucose, Whole Blood 164 mg/dL (60-115)
[2020-04-17] MEDS: Doxepin HCl 25 MG CAPSULE 200 MG PO (21:34)
[2020-04-17] MEDS: QUEtiapine Fumarate 200 MG TABLET PO (21:35)
[2020-04-17] MEDS: Montelukast Sodium 10 MG TABLET PO (21:35)
[2020-04-17] MEDS: Atorvastatin Calcium 20 MG TABLET PO (21:35)
[2020-04-17] MEDS: cloNIDine HCL 0.1 MG TABLET PO (21:36)
[2020-04-18] MEDS: 0.9 % Sodium Chloride Flush 3 ML SYRINGE IVFLUSH ×2 (00:25→10:00)
[2020-04-18 04:00] VITALS: BP 130/76; PULSE 113; RESP 20; TEMP 36.4; O2SAT 98
[2020-04-18 07:20] VITALS: BP 122/84; PULSE 121; RESP 18; TEMP 36.3; O2SAT 93
[2020-04-18] MEDS: levalbuterol HCL 1.25 MG/3 ML VIAL.NEB INHALE (07:41)
[2020-04-18 07:45] LABS: Glucose, Whole Blood 145 mg/dL (60-115)
[2020-04-18 10:00] VITALS: BP 122/84; PULSE 121
[2020-04-18] MEDS: Folic Acid 1 MG TABLET PO (10:00)
[2020-04-18] MEDS: Loratadine 10 MG TABLET PO (10:00)
[2020-04-18] MEDS: metFORMIN HCl 850 MG TABLET PO (10:00)
[2020-04-18] MEDS: dilTIAZem HCL 30 MG TABLET PO ×2 (10:00→14:10)
[2020-04-18 10:01] VITALS: BP 122/84; PULSE 121
[2020-04-18] MEDS: Theophylline Anhydrous ER 300 MG TAB.ER.12H PO (10:01)
[2020-04-18] MEDS: Azithromycin 500 MG TABLET PO (10:01)
[2020-04-18] MEDS: DULoxetine HCl 30 MG CAPSULE.DR PO (10:01)
[2020-04-18] MEDS: PARoxetine HCL 40 MG TABLET PO (10:01)
[2020-04-18] MEDS: Valsartan 40 MG TABLET PO (10:01)
[2020-04-18] MEDS: Apixaban 5 MG TABLET PO (10:01)
[2020-04-18] MEDS: Multivitamin TABLET 1 TAB PO (10:01)
[2020-04-18] MEDS: Gabapentin 600 MG TABLET PO ×2 (10:02→14:10)
[2020-04-18] MEDS: Acetaminophen 325 MG TABLET 650 MG PO (10:06)
[2020-04-18 11:04] VITALS: BP 126/80; PULSE 126; RESP 20; TEMP 36.8; O2SAT 95
[2020-04-18 11:35] LABS: Glucose, Whole Blood 232 mg/dL (60-115)
[2020-04-18] MEDS: Insulin Lispro 100 UNIT/ML 3 ML VIAL SUBCUT (12:00)
[2020-04-18 14:10] VITALS: BP 126/80; PULSE 126
--- NOTE | 2020-04-18 14:30 | P.DS_ITS ---
DS: Providers Provider Date of admission: 04/14/20 16:34 Primary care physician: Unknown Physician Consults: 04/15/20 09:07 Consult to Pulmonology Routine Consulting Provider: [facility] [place] [facility] Reason for consultation: acute and chronic copd with respiratory failure Has provider been notified: Yes DS: Diagnosis Discharge Diagnosis (1) Acute and chronic respiratory failure ([id number]): Status: Acute (2) Acute exacerbation of COPD with asthma: Status: Acute (3) History of DVT (deep vein thrombosis): Status: Acute (4) Diabetes: Status: Acute (5) Hypertension: Status: Acute (6) Hyperlipidemia: Status: Acute (7) Anxiety: Status: Acute (8) Sinus tachycardia: Status: Acute DS: Summary Hospital Course Hospital Course: Patient was treated for her COPD exacerbation with high-dose systemic steroids and bronchodilators. Pulmonary was consulted to help in managing her in recommended starting her on theophylline 300 mg twice daily As well as Zithromax. over the course of 4 night, her steroids were slowly tapered from IV and she will be discharged home on prednisone azithromycin for 5 more days as well as the often 3 mg twice daily. She has been encouraged to continue using her oxygen as prescribed as well as tobacco cessation. She reports that she has a follow-up with a dairy specialist at [facility] tomorrow. Time Spent with Patient Time attestation: Total time spent providing and/or coordinating discharge se rvices: Physical Exam Vital Signs: Vital Signs: Vital Signs Temp Pulse Resp BP Pulse Ox 04/18/20 14:10 126 H 126/80 04/18/20 11:04 98.2 F 126 H 20 126/80 95 04/18/20 10:01 121 H 122/84 04/18/20 10:00 121 H 122/84 04/18/20 07:20 97.3 F 121 H 18 122/84 93 04/18/20 04:00 97.6 F 113 H 20 130/76 98 04/17/20 23:51 97.4 F 115 H 20 109/59 L 98 04/17/20 18:58 98.1 F 123 H 18 107/55 L 96 04/17/20 15:38 98 F 99 18 130/74 96 Body Mass Index 29.2 DS: Data Data Completed and Pending Completed studies during hospitalization [Text1]: Procedures Assistance with Respiratory Ventilation, Less than 24 Consecutive Hours, Continuous Positive Airway Pressure (04/03/20) Labs on day of discharge: Labs from last 24 hours 04/18/20 04/18/20 04/17/20 11:30 07:40 20:43 POC Glucose 232 H 145 H 164 H 04/17/20 16:11 POC Glucose 147 H Preliminary micro results at discharge 04/14/20 11:09 Blood Culture - Preliminary Blood - Venous No growth after 48 hours. 04/14/20 10:51 Blood Culture - Preliminary Blood - Venous No growth after 48 hours. Discharge Plan Discharge Patient Disposition: Home, Self-Care Referrals: Patti Duckworth PA [Physician Paper Gluing Operator] - 1 Week (Please call and schedule a follow up appointment.) Discharge Medications: New prednisone 20 mg tablet 40 mg PO DAILY Qty: 10 RF: 0 azithromycin 500 mg tablet 500 mg PO DAILY 5 Days Qty: 5 RF: 0 theophylline 300 mg Tablet Extended Release 12 Hr 300 mg PO BID Qty: 60 RF: 0 Continued multivitamin Tablet 1 tab PO DAILY RF: 0 clotrimazole 10 mg Jesus 10 mg MUCOUS MEMBRANE 5XD RF: 0 clonidine HCl 0.1 mg Tablet 0.1 mg PO BEDTIME RF: 0 gabapentin 600 mg Tablet 600 mg PO TID RF: 0 atorvastatin 20 mg Tablet 20 mg PO BEDTIME RF: 0 metformin 850 mg Tablet 850 mg PO BID RF: 0 folic acid 1 mg Tablet 1 mg PO DAILY RF: 0 montelukast 10 mg Tablet 10 mg PO BEDTIME RF: 0 paroxetine HCl 40 mg Tablet 40 mg PO DAILY RF: 0 loratadine 10 mg Tablet 10 mg DAILY RF: 0 valsartan 40 mg Tablet 40 mg PO BID RF: 0 tiotropium bromide 18 mcg Capsule, W/Inhalation Device 1 cap INHALATION DAILY RF: 0 duloxetine 30 mg Capsule,Delayed Release(Dr/Ec) 30 mg PO DAILY RF: 0 albuterol sulfate 0.63 mg/3 mL Solution For Nebulization 0.63 mg INHALATION QID PRN (Reason: Shortness Of Breath) RF: 0 quetiapine 200 mg Tablet 200 mg PO BEDTIME RF: 0 amlodipine 2.5 mg Tablet 2.5 mg PO DAILY RF: 0 doxepin 100 mg Capsule 200 mg PO DAILY RF: 0 apixaban 5 mg Tablet 5 mg BID RF: 0 prednisone 10 mg tablet 10 mg PO DAILY Qty: 4 RF: 0 Discontinued doxycycline monohydrate 100 mg capsule 100 mg PO BID Qty: 8 RF: 0 azithromycin 250 mg tablet See Rx Instructions .ROUTE .COMPLEX Qty: 6 RF: 0 Discharge Orders: Discharge Order (Routine); Ordered 04/18/20 Ordered By: Izaiah Campos Diet: advance to your usual diet Activity on Discharge: As tolerated Visit Report Forms: Patient Portal Discharge page Care Plan Goals: To feel better and stay out of the hospital Health Concerns: Recurrent COPD exacerbations Plan of Treatment: Take your inhalers and pumps as prescribed F/u with your lung doctors Complete 5 more days of prednisone / azithromcyin Use your oxygen as prescribed and do not smoke
--- NOTE | 2020-04-18 15:02 | MHC.CM.PN ---
pt returning to [facility] by kierra
== END 2020-04-18 15:39 | disposition home or self-care (01) | DRG 140 ==
LOC: HO.ED 15:20 → HO.IMC 17:14
PROVIDERS: Admitting Provider Internal Medicine; Emergency Provider Emergency Medicine; Visit Provider Family Medicine
DX: J44.1 Chronic obstructive pulmonary disease with (acute) exacerbation (principal); J96.20 Acute and chronic respiratory failure, unspecified whether with hypoxia or hypercapnia; B37.0 Candidal stomatitis; E11.42 Type 2 diabetes mellitus with diabetic polyneuropathy; Z99.81 Dependence on supplemental oxygen; E78.5 Hyperlipidemia, unspecified; F17.210 Nicotine dependence, cigarettes, uncomplicated; F41.9 Anxiety disorder, unspecified; J44.0 Chronic obstructive pulmonary disease with (acute) lower respiratory infection; J20.9 Acute bronchitis, unspecified; Z20.828 Contact with and (suspected) exposure to other viral communicable diseases; Z71.6 Tobacco abuse counseling; Z86.718 Personal history of other venous thrombosis and embolism; Z79.01 Long term (current) use of anticoagulants; Z79.899 Other long term (current) drug therapy
CPT/HCPCS: 36415; 36600; 71045; 80048; 82803; 82947; 83605; 83880; 85025; 87040; 87635; 93005; 94640; 96361; 96365; 96375; 99285; J1200; J2060; J2270; J2920; J2930; J3475

== ENCOUNTER 2020-04-19 08:58 | Inpatient (IN) | payer OTHER, SELFPAY ==
[2020-04-19] VITALS (11 sets, daily range): BP systolic 66–138; BP diastolic 44–76; PULSE 96–111; RESP 11–18; TEMP 36.6–36.8; O2SAT 91–97; BMI 33.7
--- NOTE | 2020-04-19 | ECG_ITS ---
Test Reason : SOB,WEAKNESS Blood Pressure : / mmHG Vent. Rate : 112 BPM Atrial Rate : 112 BPM P-R Int : 164 ms QRS Dur : 072 ms QT Int : 312 ms P-R-T Axes : 077 015 073 degrees QTc Int : 425 ms Sinus tachycardia Possible Left atrial enlargement Nonspecific ST and T wave abnormality Abnormal ECG When compared with ECG of 14-APR-2020 10:32, No significant change was found Referred By: Sabrina Sheikh Electronically Signed By:BARTOLO GONZALEZ MD
[2020-04-19 09:14] LABS: Glucose, Whole Blood 251 mg/dL (60-115)
--- NOTE | 2020-04-19 09:19 | XR_ITS ---
EXAMINATION: XR CHEST CLINICAL INFORMATION: Central line placement. COMPARISON: None TECHNIQUE: Frontal view of the chest was obtained. FINDINGS: The lungs are well-expanded and clear of acute process. Heart size and pulmonary vascularity is normal. There is a central line insertion with its tip in mid SVC. No gross bony abnormality seen. XR/XR chest 1V IMPRESSION: No acute cardiopulmonary process seen.
--- NOTE | 2020-04-19 09:48 | ED_ITS ---
HPI - General Adult General Chief complaint: Altered Mental Status Stated complaint: lethargy w/fall from chair @ tx facility,no narcan Time Seen by Provider: 04/19/20 09:11 Source: patient Mode of arrival: ambulatory Limitations: no limitations History of Present Illness HPI narrative: patient comes to emergency room complaining of shortness of breath, not feeling well, lightheaded. Patient was discharged yesterday from the hospital. Patient was here from April 14 through , admitted for COPD exacerbation. Patient was discharged to facility, this morning patient Head her chair, landed on her buttocks. She did not hit her head, did not lose consciousness. Patient complaining of overall not feeling well. Related Data Home Medications Medication Instructions Recorded Confirmed albuterol sulfate 0.63 mg INHALATION QID PRN 03/25/20 04/19/20 amlodipine 2.5 mg PO DAILY 03/25/20 04/19/20 apixaban 5 mg BID 03/25/20 04/19/20 atorvastatin 20 mg PO BEDTIME 03/25/20 04/19/20 clonidine HCl 0.1 mg PO BEDTIME 03/25/20 04/19/20 clotrimazole 10 mg MUCOUS MEMBRANE 5XD 03/25/20 04/19/20 doxepin 200 mg PO DAILY 03/25/20 04/19/20 duloxetine 30 mg PO DAILY 03/25/20 04/19/20 folic acid 1 mg PO DAILY 03/25/20 04/19/20 gabapentin 600 mg PO TID 03/25/20 04/19/20 loratadine 10 mg DAILY 03/25/20 04/19/20 metformin 850 mg PO BID 03/25/20 04/19/20 montelukast 10 mg PO BEDTIME 03/25/20 04/19/20 multivitamin 1 tab PO DAILY 03/25/20 04/19/20 paroxetine HCl 40 mg PO DAILY 03/25/20 04/19/20 quetiapine 200 mg PO BEDTIME 03/25/20 04/19/20 tiotropium bromide 1 cap INHALATION DAILY 03/25/20 04/19/20 valsartan 40 mg PO BID 03/25/20 04/19/20 Previous Rx's Medication Instructions Recorded prednisone 10 mg PO DAILY #4 tab 04/10/20 azithromycin 500 mg PO DAILY 5 Days #5 tab 04/18/20 prednisone 40 mg PO DAILY #10 tab 04/18/20 theophylline 300 mg PO BID #60 tab 04/18/20 Allergies Allergy/AdvReac Type Severity Reaction Status Date / Time No Known Allergies Allergy Verified 04/14/20 10:25 Review of Systems Review of Systems: Constitutional : No Weight loss, No Fever, No Chills, No Night Sweats, Complaining of fatigue and general malaise ENT/Mouth : No Hearing loss, No Ear Pain, No Nasal Congestion, No Sinus Pain, No Hoarseness, No sore throat, No Rhinorrhea, No Swallowing Difficulty Eyes: No Eye Pain, No Swelling, No Redness, No Foreign Body, No Discharge, No Vision Changes Cardiovascular : No Chest Pain, No SOB, No Dyspnea on Exertion, No Orthopnea, No Edema, No Palpitations Respiratory : complaining of chronic cough, chronic dyspnea and chronic shortness of breath Gastrointestinal : No Nausea, No Vomiting, No Diarrhea, No Constipation, No abdominal Pain, No Hematochezia, No Melena Genitourinary : no irregular bleeding, No Dysuria, No Urinary Frequency, No Hematuria, No Urinary Incontinence, No Urgency, No Flank Pain, No Urinary Flow Changes, No Hesitancy Musculoskeletal : No joint pain, No Myalgias, No Joint Swelling Skin : No Skin Lesions, No rash Neuro : No Weakness, No Numbness, No Paresthesias, No Loss of Consciousness, denies headache, but complaining of feeling lightheaded especially every times that she stands up. Psych : No Anxiety/Panic, No Depression, No SI/HI/AH/VH, No Social Issues, Heme/Lymph: No Bruising, No Bleeding,No Lymphadenopathy Endocrine : No Polyuria, No Polydipsia, No Temperature Intolerance [facility] Past Medical History Medical History (Updated 04/19/20 @ 15:21 by Camelia Moore NP) Acute and chronic respiratory failure ([id number]) Anxiety Bronchitis COPD (chronic obstructive pulmonary disease) Diabetes H/O blood clots History of DVT (deep vein thrombosis) Hyperlipidemia Hypertension Renal infarct Sinus tachycardia Supplemental oxygen dependent Family History Family History Father Diabetes mellitus Myocardial infarction Social History Social History Household Members: Other Housing: Other Alcohol intake: unknown Smoking Status: Unknown if ever smoked Tobacco Type: Cigarette Second Hand Smoke Exposure: No Use of substances other than those prescribed or required for medical reasons: Unknown Advance Directives: No Advance Directives Information Provided: No service: No Current occupational status: disabled Physical Exam Vital Signs: Vital Signs: Vital Signs Temp Pulse Resp BP Pulse Ox 04/19/20 14:24 104 H 91/56 L 04/19/20 14:23 108 H 18 138/74 96 04/19/20 12:00 101 H 14 128/64 97 04/19/20 11:14 101 H 12 86/62 L 96 04/19/20 10:00 66/44 L 94 04/19/20 09:02 97.8 F 107 H 14 91 L Body Mass Index 33.7 Appearance: Alert. Oriented X3. At times seems confused, lethargic Eyes: Pupils equal, round and reactive to light. ENT: Pharynx normal. Neck: Normal inspection. Neck supple. No lymph nodes noted. No crepitus CVS: Normal heart rate and rhythm. Pulses normal. Normal S1 and S2 Respiratory: bilateral wheezing, diminished breath sounds bilaterally, speaking in 3 word sentences and then gasping for air Abdomen: Soft and nontender. No rigidity. No distention. good BS x4 Skin: Skin warm and dry. Normal skin color. Normal skin turgor. Extremities: No lower extremity edema. No lower extremity edema. No Lacerations. No Rash Neuro: Oriented X 3. No motor deficit. No sensory deficit. Moving all extermities. No slurred speech. Course Course Course Narrative: as patient came in, her blood pressure was in the low to mid 60s systolic. It was confirmed on both arms and with a manual blood pressure. The nurses had a difficult time finding a vein, therefore a central line was placed immediately for fluid resuscitation and IV medications. at this time, , patient's blood pressure ranges between 170s systolic to 80 systolic. Patient has had so far 1.5 L of fluid, still needs 1.5 L After the 3 L of normal saline, patient's blood pressure remained in the 115 to 120 range systolic steady. However, when patient stood up, her blood pressure drops to ninety systolic, eventually the blood pressure kept further dropping down to 80 systolic. Patient recuperated well, blood pressure increasing to 90 systolic. I discussed the above-mentioned with our hospitalist, Patient will be admitted. Patient grudgingly accepts to be admitted. Of note, patient's low blood pressure is unlikely due to sepsis, more likely due to orthostatic hypotension. At this time sepsis is not suspected patient has COPD is chronic, no acute exacerbation suspected at this time Procedures Central Line Placement Right IJ: Time Out Performed: Yes Patient Placed on Monitor/Pulse Ox: Yes MD Prep: mask, gown and gloves Central Line Prep: Chlorhexidine scrub Local Anesthetic: lidocaine 1% Amount of anesthesia used (mL): 7 Ultrasound Used for Placement: Yes Central Line Lumen Inserted: triple Post Procedure: sutured in place, good blood return, all ports aspirated, flushed, capped and sterile dressing applied Post Procedure X-Ray: tip of catheter in good position Patient Tolerated Procedure: well Complications: none Medical Decision Making Lab Data Result diagrams: 04/19/20 10:07 04/19/20 10:07 Labs: Lab Results 04/19/20 04/19/20 04/19/20 Range/Units 09:10 10:06 10:07 WBC 20.0 H (4.8-10.8) X10*3/uL RBC 4.23 (4.20-5.50) X10*6/uL Hgb 9.8 L (12.0-16.0) g/dl Hct 34.1 L (37-47) % MCV 80.6 (80-98) fL MCH 23.2 L (27.0-33.0) pg MCHC 28.7 L (31.0-35.0) g/dl RDW 21.3 H (11.0-16.0) % Plt Count 364 (160-400) X10*3/uL MPV 10.5 (9.4-12.3) fL Immature Gran % (Auto) 0.9 H (0.0-0.4) % Neut % (Auto) 81.8 H (45-73) % Lymph % (Auto) 10.1 L (20-40) % [place] % (Auto) 6.4 (2-11) % Eos % (Auto) 0.6 (0-4) % Baso % (Auto) 0.2 (0-2) % Lymph # (Auto) 2.0 (1.2-4.9) X10*3/uL [place] # (Auto) 1.3 H (0.1-1.2) X10*3/uL Eos # (Auto) 0.1 (0.0-0.4) X10*3/uL Baso # (Auto) 0.0 (0.0-0.2) X10*3/uL Abs Immat Gran (auto) 0.18 H (0.00-0.03) X10*3/uL Absolute Neuts (auto) 16.4 H (2.0-8.3) X10*3/uL Absolute Nucleated RBC 0.000 (0.0-0.012) X10*3/uL Nucleated RBC % (auto) 0.0 (0.0-0.2) /100WBC ABG pH (7.35-7.45) ABG pCO2 (32-45) mmhg ABG pO2 (83-108) mmhg ABG HCO3 (22-26) mmol/l ABG O2 Saturation % ABG Base Excess Oxygen Given Sodium (135-145) mmol/L Potassium (3.3-5.1) mmol/l Chloride (96-108) mmol/L Carbon Dioxide (22-29) mmol/L Anion Gap (12-20) BUN (9-16) mg/dL Creatinine (0.5-1.4) mg/dL Estim Creat Clear Calc Estimated GFR POC Glucose 251 H (60-115) mg/dL Random Glucose (60-115) mg/dL Lactic Acid (0.5-2.0) mmol/L Lactic Acid Fup @ 2Hr (0.5-2.0) mmol/L Calcium (8.4-10.2) mg/dL Total Bilirubin (0.0-1.0) mg/dL Direct Bilirubin (0.0-0.5) mg/dL AST (5-31) U/L ALT (0-31) U/L Alkaline Phosphatase (39-117) U/L B-Natriuretic Peptide (<100) pg/mL Total Protein (6.5-8.0) g/dL Albumin (3.5-5.0) g/dL Urine Color Urine Appearance Urine pH (5.0-8.0) Ur Specific [place] (1.005-1.025) Urine Protein (NEG-TRACE) MG/DL Urine Glucose (UA) (NEG) MG/DL Urine Ketones (NEG) MG/DL Urine Blood (NEG) Urine Nitrite (NEG) Ur Leukocyte Esterase (NEG) Urine RBC (0) /HPF Urine WBC (0-4) /HPF Ur Squamous Epith Cells /LPF Urine Bacteria /LPF Urine Opiates Screen (Not Detect) Ur Barbiturates Screen (Not Detect) Ur Phencyclidine Scrn (Not Detect) Ur Amphetamines Screen (Not Detect) U Benzodiazepines Scrn (Not Detect) Urine Cocaine Screen (Not Detect) U Marijuana (THC) Screen (Not Detect) Ethyl Alcohol < 10 mg/dL 04/19/20 04/19/20 04/19/20 Range/Units 10:07 10:07 10:07 WBC (4.8-10.8) X10*3/uL RBC (4.20-5.50) X10*6/uL Hgb (12.0-16.0) g/dl Hct (37-47) % MCV (80-98) fL MCH (27.0-33.0) pg MCHC (31.0-35.0) g/dl RDW (11.0-16.0) % Plt Count (160-400) X10*3/uL MPV (9.4-12.3) fL Immature Gran % (Auto) (0.0-0.4) % Neut % (Auto) (45-73) % Lymph % (Auto) (20-40) % [place] % (Auto) (2-11) % Eos % (Auto) (0-4) % Baso % (Auto) (0-2) % Lymph # (Auto) (1.2-4.9) X10*3/uL [place] # (Auto) (0.1-1.2) X10*3/uL Eos # (Auto) (0.0-0.4) X10*3/uL Baso # (Auto) (0.0-0.2) X10*3/uL Abs Immat Gran (auto) (0.00-0.03) X10*3/uL Absolute Neuts (auto) (2.0-8.3) X10*3/uL Absolute Nucleated RBC (0.0-0.012) X10*3/uL Nucleated RBC % (auto) (0.0-0.2) /100WBC ABG pH (7.35-7.45) ABG pCO2 (32-45) mmhg ABG pO2 (83-108) mmhg ABG HCO3 (22-26) mmol/l ABG O2 Saturation % ABG Base Excess Oxygen Given Sodium 135 (135-145) mmol/L Potassium 4.5 (3.3-5.1) mmol/l Chloride 98 (96-108) mmol/L Carbon Dioxide 27 (22-29) mmol/L Anion Gap 15 (12-20) BUN 40 H D (9-16) mg/dL Creatinine 2.55 H (0.5-1.4) mg/dL Estim Creat Clear Calc 24.7 Estimated GFR 19 POC Glucose (60-115) mg/dL Random Glucose 237 H D (60-115) mg/dL Lactic Acid 2.2 H* (0.5-2.0) mmol/L Lactic Acid Fup @ 2Hr (0.5-2.0) mmol/L Calcium 9.5 (8.4-10.2) mg/dL Total Bilirubin 0.4 (0.0-1.0) mg/dL Direct Bilirubin < 0.2 (0.0-0.5) mg/dL AST 12 (5-31) U/L ALT 12 (0-31) U/L Alkaline Phosphatase 59 D (39-117) U/L B-Natriuretic Peptide 250 H (<100) pg/mL Total Protein 5.5 L (6.5-8.0) g/dL Albumin 3.7 (3.5-5.0) g/dL Urine Color Urine Appearance Urine pH (5.0-8.0) Ur Specific [place] (1.005-1.025) Urine Protein (NEG-TRACE) MG/DL Urine Glucose (UA) (NEG) MG/DL Urine Ketones (NEG) MG/DL Urine Blood (NEG) Urine Nitrite (NEG) Ur Leukocyte Esterase (NEG) Urine RBC (0) /HPF Urine WBC (0-4) /HPF Ur Squamous Epith Cells /LPF Urine Bacteria /LPF Urine Opiates Screen (Not Detect) Ur Barbiturates Screen (Not Detect) Ur Phencyclidine Scrn (Not Detect) Ur Amphetamines Screen (Not Detect) U Benzodiazepines Scrn (Not Detect) Urine Cocaine Screen (Not Detect) U Marijuana (THC) Screen (Not Detect) Ethyl Alcohol mg/dL 04/19/20 04/19/20 04/19/20 Range/Units 11:40 13:00 13:38 WBC (4.8-10.8) X10*3/uL RBC (4.20-5.50) X10*6/uL Hgb (12.0-16.0) g/dl Hct (37-47) % MCV (80-98) fL MCH (27.0-33.0) pg MCHC (31.0-35.0) g/dl RDW (11.0-16.0) % Plt Count (160-400) X10*3/uL MPV (9.4-12.3) fL Immature Gran % (Auto) (0.0-0.4) % Neut % (Auto) (45-73) % Lymph % (Auto) (20-40) % [place] % (Auto) (2-11) % Eos % (Auto) (0-4) % Baso % (Auto) (0-2) % Lymph # (Auto) (1.2-4.9) X10*3/uL [place] # (Auto) (0.1-1.2) X10*3/uL Eos # (Auto) (0.0-0.4) X10*3/uL Baso # (Auto) (0.0-0.2) X10*3/uL Abs Immat Gran (auto) (0.00-0.03) X10*3/uL Absolute Neuts (auto) (2.0-8.3) X10*3/uL Absolute Nucleated RBC (0.0-0.012) X10*3/uL Nucleated RBC % (auto) (0.0-0.2) /100WBC ABG pH 7.30 L (7.35-7.45) ABG pCO2 40 (32-45) mmhg ABG pO2 102 (83-108) mmhg ABG HCO3 19 L (22-26) mmol/l ABG O2 Saturation 96.9 % ABG Base Excess -6.7 Oxygen Given 3 L Sodium (135-145) mmol/L Potassium (3.3-5.1) mmol/l Chloride (96-108) mmol/L Carbon Dioxide (22-29) mmol/L Anion Gap (12-20) BUN (9-16) mg/dL Creatinine (0.5-1.4) mg/dL Estim Creat Clear Calc Estimated GFR POC Glucose (60-115) mg/dL Random Glucose (60-115) mg/dL Lactic Acid (0.5-2.0) mmol/L Lactic Acid Fup @ 2Hr 1.3 (0.5-2.0) mmol/L Calcium (8.4-10.2) mg/dL Total Bilirubin (0.0-1.0) mg/dL Direct Bilirubin (0.0-0.5) mg/dL AST (5-31) U/L ALT (0-31) U/L Alkaline Phosphatase (39-117) U/L B-Natriuretic Peptide (<100) pg/mL Total Protein (6.5-8.0) g/dL Albumin (3.5-5.0) g/dL Urine Color Urine Appearance Urine pH (5.0-8.0) Ur Specific [place] (1.005-1.025) Urine Protein (NEG-TRACE) MG/DL Urine Glucose (UA) (NEG) MG/DL Urine Ketones (NEG) MG/DL Urine Blood (NEG) Urine Nitrite (NEG) Ur Leukocyte Esterase (NEG) Urine RBC (0) /HPF Urine WBC (0-4) /HPF Ur Squamous Epith Cells /LPF Urine Bacteria /LPF Urine Opiates Screen POSITIVE H (Not Detect) Ur Barbiturates Screen Not Detected (Not Detect) Ur Phencyclidine Scrn Not Detected (Not Detect) Ur Amphetamines Screen Not Detected (Not Detect) U Benzodiazepines Scrn Not Detected (Not Detect) Urine Cocaine Screen Not Detected (Not Detect) U Marijuana (THC) Screen Not Detected (Not Detect) Ethyl Alcohol mg/dL 04/19/20 Range/Units 13:38 WBC (4.8-10.8) X10*3/uL RBC (4.20-5.50) X10*6/uL Hgb (12.0-16.0) g/dl Hct (37-47) % MCV (80-98) fL MCH (27.0-33.0) pg MCHC (31.0-35.0) g/dl RDW (11.0-16.0) % Plt Count (160-400) X10*3/uL MPV (9.4-12.3) fL Immature Gran % (Auto) (0.0-0.4) % Neut % (Auto) (45-73) % Lymph % (Auto) (20-40) % [place] % (Auto) (2-11) % Eos % (Auto) (0-4) % Baso % (Auto) (0-2) % Lymph # (Auto) (1.2-4.9) X10*3/uL [place] # (Auto) (0.1-1.2) X10*3/uL Eos # (Auto) (0.0-0.4) X10*3/uL Baso # (Auto) (0.0-0.2) X10*3/uL Abs Immat Gran (auto) (0.00-0.03) X10*3/uL Absolute Neuts (auto) (2.0-8.3) X10*3/uL Absolute Nucleated RBC (0.0-0.012) X10*3/uL Nucleated RBC % (auto) (0.0-0.2) /100WBC ABG pH (7.35-7.45) ABG pCO2 (32-45) mmhg ABG pO2 (83-108) mmhg ABG HCO3 (22-26) mmol/l ABG O2 Saturation % ABG Base Excess Oxygen Given Sodium (135-145) mmol/L Potassium (3.3-5.1) mmol/l Chloride (96-108) mmol/L Carbon Dioxide (22-29) mmol/L Anion Gap (12-20) BUN (9-16) mg/dL Creatinine (0.5-1.4) mg/dL Estim Creat Clear Calc Estimated GFR POC Glucose (60-115) mg/dL Random Glucose (60-115) mg/dL Lactic Acid (0.5-2.0) mmol/L Lactic Acid Fup @ 2Hr (0.5-2.0) mmol/L Calcium (8.4-10.2) mg/dL Total Bilirubin (0.0-1.0) mg/dL Direct Bilirubin (0.0-0.5) mg/dL AST (5-31) U/L ALT (0-31) U/L Alkaline Phosphatase (39-117) U/L B-Natriuretic Peptide (<100) pg/mL Total Protein (6.5-8.0) g/dL Albumin (3.5-5.0) g/dL Urine Color YELLOW Urine Appearance CLOUDY Urine pH 5.5 (5.0-8.0) Ur Specific [place] 1.025 (1.005-1.025) Urine Protein NEG (NEG-TRACE) MG/DL Urine Glucose (UA) NEG (NEG) MG/DL Urine Ketones NEG (NEG) MG/DL Urine Blood NEG (NEG) Urine Nitrite NEG (NEG) Ur Leukocyte Esterase TRACE H (NEG) Urine RBC 0 (0) /HPF Urine WBC 1-4 (0-4) /HPF Ur Squamous Epith Cells 2+ /LPF Urine Bacteria TRACE /LPF Urine Opiates Screen (Not Detect) Ur Barbiturates Screen (Not Detect) Ur Phencyclidine Scrn (Not Detect) Ur Amphetamines Screen (Not Detect) U Benzodiazepines Scrn (Not Detect) Urine Cocaine Screen (Not Detect) U Marijuana (THC) Screen (Not Detect) Ethyl Alcohol mg/dL ECG Data Attestation: I personally reviewed and interpreted this ECG as follows: ( heart rate 112, sinus tachycardia, QTC 425, nonspecific ST and T-wave abnormalities.) Discharge Plan Discharge Clinical Impression: Autonomic orthostatic hypotension COPD (chronic obstructive pulmonary disease) Qualifiers: COPD type: chronic bronchitis Chronic bronchitis type: unspecified Qualified Code(s): J42 - Unspecified chronic bronchitis Patient Disposition: Admitted As Inpatient
[2020-04-19] MEDS: Albuterol Sulfate (0.083%) 2.5 MG/3 ML VIAL.NEB 10 MG INHALE (09:51)
[2020-04-19] MEDS: 0.9 % Sodium Chloride 1,000 ML 999 ML IVCONT ×3 (10:16→11:21)
[2020-04-19] MEDS: levoFLOXacin/D5W 500 MG/100 ML PIGGYBACK 100 MG IV (10:16)
[2020-04-19] MEDS: methylPREDNISolone Sod Succ/PF 125 MG/2 ML VIAL IVPUSH (10:16)
[2020-04-19 10:17] LABS: Basophils Percent Auto 0.2 % (0-2); Eosinophils Absolute Auto 0.1 X10*3/uL (0.0-0.4); Eosinophils Percent Auto 0.6 % (0-4); Hematocrit 34.1 % (37-47); Hemoglobin 9.8 g/dl (12.0-16.0); Imm Gran Abs Auto 0.18 X10*3/uL (0.00-0.03); Imm Gran Pct Auto 0.9 % (0.0-0.4); Lymphocytes Percent Auto 10.1 % (20-40); MANUAL DIFF FLAG NO; Mean Corpuscular HGB Conc 28.7 g/dl (31.0-35.0); Mean Corpuscular Hemoglobin 23.2 pg (27.0-33.0); Mean Corpuscular Volume 80.6 fL (80-98); Mean Platelet Volume 10.5 fL (9.4-12.3); Monocytes Absolute Auto 1.3 X10*3/uL (0.1-1.2); Monocytes Percent Auto 6.4 % (2-11); Neutrophils Absolute Auto 16.4 X10*3/uL (2.0-8.3); Neutrophils Percent Auto 81.8 % (45-73); Platelet Count 364 X10*3/uL (160-400); Red Blood Count 4.23 X10*6/uL (4.20-5.50); Red Cell Distribution Width 21.3 % (11.0-16.0)
[2020-04-19 10:47] LABS: Ethanol < 10 mg/dL
[2020-04-19 10:48] LABS: Lactic Acid 2.2 mmol/L (0.5-2.0)
[2020-04-19 10:51] LABS: Alanine Aminotransferase 12 U/L (0-31); Albumin Level 3.7 g/dL (3.5-5.0); Alkaline Phosphatase 59 U/L (39-117); Anion Gap 15 (12-20); Aspartate Amino Transferase 12 U/L (5-31); Bilirubin Direct < 0.2 mg/dL (0.0-0.5); Bilirubin Total 0.4 mg/dL (0.0-1.0); Blood Urea Nitrogen 40 mg/dL (9-16); Calcium 9.5 mg/dL (8.4-10.2); Carbon Dioxide 27 mmol/L (22-29); Chloride 98 mmol/L (96-108); Creatinine Clr Calc Pharmacy 24.7; Estimated Glomerular Filt Rate 19; Glucose Random 237 mg/dL (60-115); Potassium 4.5 mmol/l (3.3-5.1); Sodium 135 mmol/L (135-145); Total Protein 5.5 g/dL (6.5-8.0)
[2020-04-19 10:56] LABS: B Type Natriuretic Peptide 250 pg/mL (<100)
--- NOTE | 2020-04-19 11:00 | PC.NURSE ---
central line placed in right side neck by MD Sheikh
[2020-04-19 11:44] LABS: Pt Ventilation O2% 3 L
[2020-04-19 11:47] LABS: ABG PCO2 40 mmhg (32-45); Base Excess ABG -6.7; HCO3 ABG 19 mmol/l (22-26); Oxygen Saturation ABG 96.9 %; PO2 ABG 102 mmhg (83-108)
[2020-04-19 12:15] LABS: Reflex Lactate? Lactic Acid Added
[2020-04-19 13:27] LABS: ~Lactic Acid-LAB USE ONLY 1.3 mmol/L (0.5-2.0)
[2020-04-19 14:01] LABS: Glucose Urine UA NEG (NEG); Leukocyte Esterase Urine TRACE (NEG); Nitrite Urine NEG (NEG); PH 5.5 (5.0-8.0); Specific Gravity - Urine 1.025 (1.005-1.025); Urine Blood NEG (NEG); Urine Ketones NEG (NEG); Urine Protein NEG (NEG-TRACE)
[2020-04-19 14:06] LABS: Appearance Urine CLOUDY; Color Urine YELLOW
[2020-04-19 14:12] LABS: Bacteria Urine TRACE /LPF; RBC Urine 0 /HPF (0); Squamous Epithelial Cell Urine 2+ /LPF
[2020-04-19 14:28] LABS: Amphetamine Screen Urine Not Detected (Not Detect); Barbiturates, Urine Not Detected (Not Detect); Benzodiazepines Screen Urine Not Detected (Not Detect); Cannabinoid Screen Urine Not Detected (Not Detect); Cocaine Screen Urine Not Detected (Not Detect); Opiate Screen Urine POSITIVE (Not Detect); Phencyclidine Screen Urine Not Detected (Not Detect)
--- NOTE | 2020-04-19 15:10 | PM.IMHP ---
History of Present Illness Date of Service: 04/19/20 <Camelia Moore NP - Last Filed: 04/19/20 18:38> Chief Complaint: Hypotension <Camelia Moore NP - Last Filed: 04/19/20 18:38> 54 year old women well know to the hospitalist service presenting to the ED after a fall. She reported that she was sitting on a chair and then fell over. She denied loss of consciousness pole reported that she had felt dizzy since yesterday. Did not cause any trauma after fall. She was discharged from [facility] yesterday and treated for COPD exacerbation. Orthostatic blood pressures were positive. chest x-ray negative for consolidation or effusion. She was given Solu-Medrol, albuterol, Levaquin and 2 L of IV fluids. She will be admitted for further management and treatment of orthostatic hypotension. <Camelia Moore NP - Last Filed: 04/19/20 18:38> Review of Systems Review of Systems: Denies any recent fever chills or decrease in appetite respiratory Chronic shortness of breath cardiovascular is adjustment of any PND or edema gastrointestinal denies any dysphagia abdominal pain nausea vomiting or diarrhea genitourinary denies any dysuria frequency or hematuria musculoskeletal denies any joint pain or swelling neuropsych denies any weakness or seizures all other systems reviewed are negative <Camelia Moore NP - Last Filed: 04/19/20 18:38> [facility] Medical History: Medical History Acute and chronic respiratory failure ([id number]) Acute exacerbation of COPD with asthma Anxiety Bronchitis COPD (chronic obstructive pulmonary disease) COPD (chronic obstructive pulmonary disease) Diabetes H/O blood clots History of DVT (deep vein thrombosis) Hyperlipidemia Hypertension Hypotension Renal infarct Sinus tachycardia Supplemental oxygen dependent <Camelia Moore NP - Last Filed: 04/19/20 18:38> Functional capacity: independent ambulation <Camelia Moore NP - Last Filed: 04/19/20 18:38> Family History: Family History Father Diabetes mellitus Myocardial infarction <Camelia Moore NP - Last Filed: 04/19/20 18:38> Social History: Social History Household Members: Other Housing: Other Alcohol intake: unknown Smoking Status: Current every day smoker Tobacco Type: Cigarette Cigarettes Per Day: 2 Second Hand Smoke Exposure: Yes Use of substances other than those prescribed or required for medical reasons: No Advance Directives: No Advance Directives Information Provided: Yes service: No Current occupational status: disabled <Camelia Moore NP - Last Filed: 04/19/20 18:38> Meds Allergies/Adverse reactions: Allergies Allergy/AdvReac Type Severity Reaction Status Date / Time No Known Allergies Allergy Verified 04/14/20 10:25 <Camelia Moore NP - Last Filed: 04/19/20 18:38> Home medications: Home Medications Medication Instructions Recorded Confirmed Type albuterol sulfate 0.63 mg INHALATION QID PRN 03/25/20 04/19/20 History amlodipine 2.5 mg PO DAILY 03/25/20 04/19/20 History apixaban 5 mg BID 03/25/20 04/19/20 History atorvastatin 20 mg PO BEDTIME 03/25/20 04/19/20 History clonidine HCl 0.1 mg PO BEDTIME 03/25/20 04/19/20 History clotrimazole 10 mg MUCOUS MEMBRANE 5XD 03/25/20 04/19/20 History doxepin 200 mg PO DAILY 03/25/20 04/19/20 History duloxetine 30 mg PO DAILY 03/25/20 04/19/20 History folic acid 1 mg PO DAILY 03/25/20 04/19/20 History gabapentin 600 mg PO TID 03/25/20 04/19/20 History loratadine 10 mg DAILY 03/25/20 04/19/20 History metformin 850 mg PO BID 03/25/20 04/19/20 History montelukast 10 mg PO BEDTIME 03/25/20 04/19/20 History multivitamin 1 tab PO DAILY 03/25/20 04/19/20 History paroxetine HCl 40 mg PO DAILY 03/25/20 04/19/20 History quetiapine 200 mg PO BEDTIME 03/25/20 04/19/20 History tiotropium bromide 1 cap INHALATION DAILY 03/25/20 04/19/20 History valsartan 40 mg PO BID 03/25/20 04/19/20 History <Camelia Moore NP - Last Filed: 04/19/20 18:38> Physical Exam Vital Signs and Narrative: Vital Signs: Last Vital Signs Temp 97.8 F 04/19/20 09:02 Pulse 104 H 04/19/20 14:24 Resp 18 04/19/20 14:23 BP 133/64 04/19/20 14:24 Pulse Ox 96 04/19/20 14:23 Body Mass Index 33.7 <Camelia Moore NP - Last Filed: 04/19/20 18:38> Appearing in no acute distress head is normocephalic atraumatic eyes pupils are PERRLA sclera is anicteric mouth throat mucous membranes are intact and moist neck is supple no lymphadenopathy, no JVD noted lung sounds rhonchi with wheezing heart regular rate rhythm, clear S1, S2 positive bowel sounds, abdomen is soft, nontender neuro patient is alert x3, no focal deficits <Camelia Moore NP - Last Filed: 04/19/20 18:38> Results Labs Labs: Laboratory Tests 04/19/20 04/19/20 04/19/20 09:10 10:06 10:07 WBC 20.0 H RBC 4.23 Hgb 9.8 L Hct 34.1 L MCV 80.6 MCH 23.2 L MCHC 28.7 L RDW 21.3 H Plt Count 364 MPV 10.5 Immature Gran % (Auto) 0.9 H Neut % (Auto) 81.8 H Lymph % (Auto) 10.1 L Pettis % (Auto) 6.4 Eos % (Auto) 0.6 Baso % (Auto) 0.2 Lymph # (Auto) 2.0 Pettis # (Auto) 1.3 H Eos # (Auto) 0.1 Baso # (Auto) 0.0 Abs Immat Gran (auto) 0.18 H Absolute Neuts (auto) 16.4 H Absolute Nucleated RBC 0.000 Nucleated RBC % (auto) 0.0 ABG pH ABG pCO2 ABG pO2 ABG HCO3 ABG O2 Saturation ABG Base Excess Oxygen Given Sodium Potassium Chloride Carbon Dioxide Anion Gap BUN Creatinine Estim Creat Clear Calc Estimated GFR POC Glucose 251 H Random Glucose Lactic Acid Lactic Acid Fup @ 2Hr Calcium Total Bilirubin Direct Bilirubin AST ALT Alkaline Phosphatase B-Natriuretic Peptide Total Protein Albumin Urine Color Urine Appearance Urine pH Ur Specific [place] Urine Protein Urine Glucose (UA) Urine Ketones Urine Blood Urine Nitrite Ur Leukocyte Esterase Urine RBC Urine WBC Ur Squamous Epith Cells Urine Bacteria Urine Opiates Screen Ur Barbiturates Screen Ur Phencyclidine Scrn Ur Amphetamines Screen U Benzodiazepines Scrn Urine Cocaine Screen U Marijuana (THC) Screen Ethyl Alcohol < 10 04/19/20 04/19/20 04/19/20 10:07 10:07 10:07 WBC RBC Hgb Hct MCV MCH MCHC RDW Plt Count MPV Immature Gran % (Auto) Neut % (Auto) Lymph % (Auto) Pettis % (Auto) Eos % (Auto) Baso % (Auto) Lymph # (Auto) Pettis # (Auto) Eos # (Auto) Baso # (Auto) Abs Immat Gran (auto) Absolute Neuts (auto) Absolute Nucleated RBC Nucleated RBC % (auto) ABG pH ABG pCO2 ABG pO2 ABG HCO3 ABG O2 Saturation ABG Base Excess Oxygen Given Sodium 135 Potassium 4.5 Chloride 98 Carbon Dioxide 27 Anion Gap 15 BUN 40 H D Creatinine 2.55 H Estim Creat Clear Calc 24.7 Estimated GFR 19 POC Glucose Random Glucose 237 H D Lactic Acid 2.2 H* Lactic Acid Fup @ 2Hr Calcium 9.5 Total Bilirubin 0.4 Direct Bilirubin < 0.2 AST 12 ALT 12 Alkaline Phosphatase 59 D B-Natriuretic Peptide 250 H Total Protein 5.5 L Albumin 3.7 Urine Color Urine Appearance Urine pH Ur Specific [place] Urine Protein Urine Glucose (UA) Urine Ketones Urine Blood Urine Nitrite Ur Leukocyte Esterase Urine RBC Urine WBC Ur Squamous Epith Cells Urine Bacteria Urine Opiates Screen Ur Barbiturates Screen Ur Phencyclidine Scrn Ur Amphetamines Screen U Benzodiazepines Scrn Urine Cocaine Screen U Marijuana (THC) Screen Ethyl Alcohol 04/19/20 04/19/20 04/19/20 11:40 13:00 13:38 WBC RBC Hgb Hct MCV MCH MCHC RDW Plt Count MPV Immature Gran % (Auto) Neut % (Auto) Lymph % (Auto) Pettis % (Auto) Eos % (Auto) Baso % (Auto) Lymph # (Auto) Pettis # (Auto) Eos # (Auto) Baso # (Auto) Abs Immat Gran (auto) Absolute Neuts (auto) Absolute Nucleated RBC Nucleated RBC % (auto) ABG pH 7.30 L ABG pCO2 40 ABG pO2 102 ABG HCO3 19 L ABG O2 Saturation 96.9 ABG Base Excess -6.7 Oxygen Given 3 L Sodium Potassium Chloride Carbon Dioxide Anion Gap BUN Creatinine Estim Creat Clear Calc Estimated GFR POC Glucose Random Glucose Lactic Acid Lactic Acid Fup @ 2Hr 1.3 Calcium Total Bilirubin Direct Bilirubin AST ALT Alkaline Phosphatase B-Natriuretic Peptide Total Protein Albumin Urine Color Urine Appearance Urine pH Ur Specific [place] Urine Protein Urine Glucose (UA) Urine Ketones Urine Blood Urine Nitrite Ur Leukocyte Esterase Urine RBC Urine WBC Ur Squamous Epith Cells Urine Bacteria Urine Opiates Screen POSITIVE H Ur Barbiturates Screen Not Detected Ur Phencyclidine Scrn Not Detected Ur Amphetamines Screen Not Detected U Benzodiazepines Scrn Not Detected Urine Cocaine Screen Not Detected U Marijuana (THC) Screen Not Detected Ethyl Alcohol 04/19/20 13:38 WBC RBC Hgb Hct MCV MCH MCHC RDW Plt Count MPV Immature Gran % (Auto) Neut % (Auto) Lymph % (Auto) Pettis % (Auto) Eos % (Auto) Baso % (Auto) Lymph # (Auto) Pettis # (Auto) Eos # (Auto) Baso # (Auto) Abs Immat Gran (auto) Absolute Neuts (auto) Absolute Nucleated RBC Nucleated RBC % (auto) ABG pH ABG pCO2 ABG pO2 ABG HCO3 ABG O2 Saturation ABG Base Excess Oxygen Given Sodium Potassium Chloride Carbon Dioxide Anion Gap BUN Creatinine Estim Creat Clear Calc Estimated GFR POC Glucose Random Glucose Lactic Acid Lactic Acid Fup @ 2Hr Calcium Total Bilirubin Direct Bilirubin AST ALT Alkaline Phosphatase B-Natriuretic Peptide Total Protein Albumin Urine Color YELLOW Urine Appearance CLOUDY Urine pH 5.5 Ur Specific [place] 1.025 Urine Protein NEG Urine Glucose (UA) NEG Urine Ketones NEG Urine Blood NEG Urine Nitrite NEG Ur Leukocyte Esterase TRACE H Urine RBC 0 Urine WBC 1-4 Ur Squamous Epith Cells 2+ Urine Bacteria TRACE Urine Opiates Screen Ur Barbiturates Screen Ur Phencyclidine Scrn Ur Amphetamines Screen U Benzodiazepines Scrn Urine Cocaine Screen U Marijuana (THC) Screen Ethyl Alcohol <Camelia Moore NP - Last Filed: 04/19/20 18:38> Assessment and Plan (1) Hypotension: (2) COPD (chronic obstructive pulmonary disease): Qualifiers: COPD type: chronic bronchitis Chronic bronchitis type: unspecified Qualified Code(s): J42 - Unspecified chronic bronchitis <Camelia Moore NP - Last Filed: 04/19/20 18:38> (3) Diabetes: (4) Hypertension: (5) Hyperlipidemia: 54-year-old woman admitted with orthostatic hypotension Orthostatic hypotension. Hypotensive episodes in the ER with blood pressure as low as 66/44. Patient was found to be orthostatic. Gentle IV fluids, hold antihypertensives. IVAN. Possibly related to hypotension. IV fluids. possible cause for dizziness and orthostasis. Lactic acidosis. No infection noted. Possibly related to albuterol. Trend. Leukocytosis. Chronic. No signs of infection. Diabetes mellitus. Sliding scale, ADA diet, continue home medications. Hyperlipidemia. Continue statin. History of DVT. Continue apixaban. COPD. No exacerbation. Continue albuterol and previous steroids and abx from recent admission DVT prophylaxis with Apixaban. Case discussed with Dr. Huertas Full code <Camelia Moore NP - Last Filed: 04/19/20 18:38>
[2020-04-19 17:17] LABS: SARS COV2 PCR INHOUSE NEGATIVE (Negative)
--- NOTE | 2020-04-19 18:14 | PM.EVENT ---
Event Note Event Note: This patient is seen and examined with APC. Patient was discharged yesterday she said she was feeling an easy and overnight she also felt dizzy but then she went to eat yogurt and felt better as per the patient on then this morning she said that she was feeling dizzy and she tumbled from her chair arm did not passed out. She felt like she was dehydrated as per the patient . She still has some cough and dry phlegm she was discharged on antibiotic yesterday-she was here for COPD exacerbation which was treated with nebs, steroids and also antibiotics Has borderline blood pressure, IVAN, mild leukocytosis Any chest pain Lab imaging, EKG reviewed. Chest x-ray, EKG NSR Physical exam: heent : mucosa seems dry Cvs: rrr, [id number] , no murmur res: clear to auscultation ,no rhonchii or wheezing abd: no rebound or guarding ,nt, bs present. ext pulses present , no cyanosis neuro: axo3 , nonfocal. Physical exam and assessment and plan coordinated in APCs note, Agree with the plan in addition: ivan/orthostasis Will start her on gentle hydration Check orthostasis in the morning If IVAN does not improve then will add Nephro evaluation Will continue on medications and antibiotic.
--- NOTE | 2020-04-19 18:27 | PC.NURSE ---
awaiting bed assignment for admission.
[2020-04-19] MEDS: QUEtiapine Fumarate 200 MG TABLET PO (22:04)
[2020-04-19] MEDS: Apixaban 5 MG TABLET PO (22:04)
[2020-04-19] MEDS: Gabapentin 600 MG TABLET PO (22:04)
[2020-04-19] MEDS: Atorvastatin Calcium 20 MG TABLET PO (22:04)
[2020-04-20] VITALS (13 sets, daily range): BP systolic 97–150; BP diastolic 58–90; PULSE 100–125; RESP 12–22; TEMP 35.9–36.8; O2SAT 90–99; BMI 32.3
--- NOTE | 2020-04-20 00:31 | PC.NURSE ---
CALLED FLOOR TO GIVE REPORT, ON HOLD FOR SEVERAL MINTES.
[2020-04-20] MEDS: Theophylline Anhydrous ER 300 MG TAB.ER.12H PO ×3 (00:39→20:57)
--- NOTE | 2020-04-20 01:08 | PC.NURSE ---
Called ED for report, on hold >5 minutes.
--- NOTE | 2020-04-20 01:17 | PC.NURSE ---
REPORT GIVEN TO RN ON FLOOR, PT READY FOR TRANSPORT.
[2020-04-20] MEDS: 0.9 % Sodium Chloride Flush 3 ML SYRINGE IVFLUSH ×3 (02:19→23:43)
[2020-04-20] MEDS: Doxycycline Hyclate 100 MG in 0.9 % Sodium Chloride 250 ML 166.67 MG IV ×2 (06:32→19:00)
[2020-04-20 06:42] LABS: Basophils Percent Auto 0.1 % (0-2); Eosinophils Percent Auto 0.1 % (0-4); Hematocrit 32.5 % (37-47); Hemoglobin 9.4 g/dl (12.0-16.0); Imm Gran Abs Auto 0.09 X10*3/uL (0.00-0.03); Imm Gran Pct Auto 0.6 % (0.0-0.4); Lymphocytes Absolute Auto 1.9 X10*3/uL (1.2-4.9); Lymphocytes Percent Auto 12.4 % (20-40); MANUAL DIFF FLAG SCAN; Mean Corpuscular HGB Conc 28.9 g/dl (31.0-35.0); Mean Corpuscular Hemoglobin 22.8 pg (27.0-33.0); Mean Corpuscular Volume 78.9 fL (80-98); Mean Platelet Volume 10.7 fL (9.4-12.3); Monocytes Absolute Auto 1.8 X10*3/uL (0.1-1.2); Monocytes Percent Auto 11.5 % (2-11); Neutrophils Absolute Auto 11.7 X10*3/uL (2.0-8.3); Neutrophils Percent Auto 75.3 % (45-73); Platelet Count 351 X10*3/uL (160-400); Red Blood Count 4.12 X10*6/uL (4.20-5.50); Red Cell Distribution Width 21.1 % (11.0-16.0); SCAN SMEAR FLAG 1; White Blood Count 15.5 X10*3/uL (4.8-10.8)
[2020-04-20 06:58] LABS: Alanine Aminotransferase 13 U/L (0-31); Albumin Level 3.6 g/dL (3.5-5.0); Alkaline Phosphatase 62 U/L (39-117); Anion Gap 13 (12-20); Aspartate Amino Transferase 10 U/L (5-31); Bilirubin Direct 0.2 mg/dL (0.0-0.5); Bilirubin Total 0.4 mg/dL (0.0-1.0); Blood Urea Nitrogen 21 mg/dL (9-16); Calcium 8.3 mg/dL (8.4-10.2); Carbon Dioxide 28 mmol/L (22-29); Chloride 101 mmol/L (96-108); Estimated Glomerular Filt Rate > 60; Glucose Random 211 mg/dL (60-115); Potassium 3.9 mmol/l (3.3-5.1); Sodium 138 mmol/L (135-145); Total Protein 5.5 g/dL (6.5-8.0)
[2020-04-20] MEDS: Loratadine 10 MG TABLET PO (07:37)
[2020-04-20] MEDS: Gabapentin 600 MG TABLET PO ×3 (07:37→20:57)
[2020-04-20] MEDS: predniSONE 20 MG TABLET 40 MG PO (07:38)
[2020-04-20] MEDS: Multivitamin TABLET 1 TAB PO (07:38)
[2020-04-20] MEDS: Apixaban 5 MG TABLET PO ×2 (07:38→20:57)
[2020-04-20] MEDS: PARoxetine HCL 40 MG TABLET PO (07:38)
[2020-04-20] MEDS: DULoxetine HCl 30 MG CAPSULE.DR PO (07:39)
[2020-04-20] MEDS: Folic Acid 1 MG TABLET PO (07:39)
[2020-04-20] MEDS: predniSONE 10 MG TABLET PO (07:39)
[2020-04-20 07:50] LABS: SLIDE REVIEW VERIFIED
[2020-04-20] MEDS: Azithromycin 500 MG in 0.9 % Sodium Chloride 250 ML 125 MG IV (08:53)
--- NOTE | 2020-04-20 10:23 | MHC.CM.PN ---
CM met with patient at the bedside who reports she lives in a sober home, independent and gets her home O2 from [employer]. Patient does have a HCP and a copy is on file. Discussed discharge plan, home no services. Patient will need taxi voucher for transport. CM will continue to follow for discharge needs.
--- NOTE | 2020-04-20 17:16 | HO.PM.IMPN ---
Subjective Subjective Date of Service: 04/20/20 Interval History: Dizziness Review of Systems Dizziness seems improving, denies any chest pain or shortness of breath Physical Exam Vital Signs: Vital Signs: Vital Signs Temp Pulse Resp BP Pulse Ox 04/20/20 15:27 98.1 F 120 H 16 128/77 94 04/20/20 11:50 96.7 F L 124 H 19 123/79 97 04/20/20 11:48 124 H 123/72 04/20/20 11:47 125 H 119/80 04/20/20 10:32 115 H 97/58 L 04/20/20 10:29 120 H 101/65 04/20/20 08:32 113 H 99/63 04/20/20 07:40 97.3 F 117 H 18 119/86 99 04/20/20 03:21 97.9 F 113 H 21 H 150/81 H 96 04/20/20 01:49 97.9 F 100 20 119/90 H 99 04/20/20 00:48 100 12 123/74 97 04/19/20 23:47 105 H 11 L 106/70 96 04/19/20 22:15 98.3 F 111 H 17 122/76 97 04/19/20 21:10 98.0 F 110 H 15 107/63 94 04/19/20 18:00 98 16 96 Body Mass Index 32.3 Physical exam: Cvs: [id number], [id number] , no murmur res: clear to auscultation ,no rhonchii or wheezing abd: no rebound or guarding ,nt, bs present. ext pulses present , no cyanosis neuro: axo3 , nonfocal. Objective Data Current Medications Generic Name Dose Route Start Last Admin Trade Name Freq PRN Reason Stop Dose Admin Acetaminophen 650 mg 04/20/20 01:13 Acetaminophen 325 Mg Tablet PO Q6H PRN Pain, Mild (Pain Scale 1-3) Apixaban 5 mg 04/19/20 21:00 04/20/20 07:38 Apixaban 5 Mg Tablet PO 5 mg BID CARLOS Administration Atorvastatin Calcium 20 mg 04/19/20 21:00 04/19/20 22:04 Atorvastatin Calcium 20 Mg Tablet PO 20 mg BEDTIME CARLOS Administration Duloxetine HCl 30 mg 04/20/20 09:00 04/20/20 07:39 Duloxetine Hcl 30 Mg Capsule.Dr PO 30 mg DAILY CARLOS Administration Folic Acid 1 mg 04/20/20 09:00 04/20/20 07:39 Folic Acid 1 Mg Tablet PO 1 mg DAILY CARLOS Administration Gabapentin 600 mg 04/19/20 21:00 04/20/20 15:49 Gabapentin 600 Mg Tablet PO 600 mg TID CARLOS Administration Azithromycin 500 mg/ Sodium 250 mls @ 125 mls/hr 04/20/20 08:00 04/20/20 11:06 Chloride IV Infused Q24H CARLOS Infusion Doxycycline Hyclate 100 mg/ 250 mls @ 166.67 mls/hr 04/20/20 19:00 Sodium Chloride IV Q12H CARLOS Loratadine 10 mg 04/20/20 09:00 04/20/20 07:37 Loratadine 10 Mg Tablet PO 10 mg DAILY CARLOS Administration Montelukast Sodium 10 mg 04/19/20 21:00 04/20/20 02:19 Montelukast Sodium 10 Mg Tablet PO Not Given BEDTIME CARLOS Multivitamins/Vitamin C 1 tab 04/20/20 09:00 04/20/20 07:38 Multivitamin Tablet PO 1 tab DAILY CARLOS Administration Ondansetron HCl 4 mg 04/20/20 01:13 Ondansetron Hcl 4 Mg/2 Ml Vial IVPUSH Q8H PRN Nausea and Vomiting Paroxetine HCl 40 mg 04/20/20 09:00 04/20/20 07:38 Paroxetine Hcl 40 Mg Tablet PO 40 mg DAILY CARLOS Administration Pharmacy Consult 1 each 04/19/20 15:56 Consult Rx Perform Med Rec MISCELLANE ONCE PRN Consult order Prednisone 40 mg 04/20/20 09:00 04/20/20 07:38 Prednisone 20 Mg Tablet PO 40 mg DAILY CARLOS Administration Prednisone 10 mg 04/20/20 09:00 04/20/20 07:39 Prednisone 10 Mg Tablet PO 10 mg DAILY CARLOS Administration Quetiapine Fumarate 200 mg 04/19/20 21:00 04/19/20 22:04 Quetiapine Fumarate 200 Mg Tablet PO 200 mg BEDTIME CARLOS Administration Sodium Chloride 3 ml 04/20/20 01:13 04/20/20 15:49 0.9 % Sodium Chloride Flush 3 Ml Syringe IVFLUSH 3 ml QSHIFT CARLOS Administration Theophylline 300 mg 04/19/20 21:00 04/20/20 07:38 Theophylline Anhydrous Er 300 Mg Tab.Er.12h PO 300 mg BID CARLOS Administration Labs CBC & Chem 7: 04/20/20 05:33 04/20/20 05:33 Microbiology Microbiology Results: Microbiology 04/19/20 10:15 Blood - Central Line Blood Culture - Preliminary No growth after 24 hours. 04/19/20 10:07 Blood - Central Line Blood Culture - Preliminary No growth after 24 hours. 04/19/20 Unknown Urine clean catch - Clean Catch Midstream Urine Culture - Final Assessment and Plan (1) Acute and chronic respiratory failure ([id number]): Status: Acute (2) Acute exacerbation of COPD with asthma: Status: Acute (3) History of DVT (deep vein thrombosis): Status: Acute (4) Diabetes: Status: Acute (5) Hypertension: Status: Acute (6) Hyperlipidemia: Status: Acute (7) Anxiety: Status: Acute Assessment and Plan: 54 female with COPD on home O2, chronic smoker, frequent hospitalization now being readmitted for acute on chronic respiratory failure due to COPD exacerbation 1. Acute on chronic respiratory failure due to COPD exacerbation tolerating nc @ 3L taper po steriods, theophyllin added by pulm, continue doxycycline and azithro . continue xopenex 2. Oral thrush antifungals 3. Diabetes. continue metformin. Cover with sliding scale. ADA diet. 4. Hypertension / sinus tachycardia continue clonidine / valsartan stop norvasc, start cardizem to help with sinus tach 5. History of renal infarction/ho DVT Continue Eliquis. 6. Dyslipidemia. Continue Lipitor. 7. Mood. Continue Cymbalta,Paxil, and Seroquel. 8. Neuropathy. Continue gabapentin.
[2020-04-20] MEDS: Omeprazole 20 MG CAPSULE.DR PO (18:29)
[2020-04-20] MEDS: QUEtiapine Fumarate 200 MG TABLET PO (20:57)
[2020-04-20] MEDS: Montelukast Sodium 10 MG TABLET PO (20:57)
[2020-04-20] MEDS: Atorvastatin Calcium 20 MG TABLET PO (20:57)
[2020-04-21 03:58] VITALS: BP 122/84; PULSE 128; RESP 18; TEMP 36.5; O2SAT 90
[2020-04-21] MEDS: Omeprazole 20 MG CAPSULE.DR PO (06:01)
[2020-04-21] MEDS: Doxycycline Hyclate 100 MG in 0.9 % Sodium Chloride 250 ML 166.67 MG IV (06:01)
[2020-04-21 07:46] VITALS: BP 140/85; PULSE 125; RESP 20; TEMP 36.6; O2SAT 94
[2020-04-21] MEDS: 0.9 % Sodium Chloride Flush 3 ML SYRINGE IVFLUSH (09:29)
[2020-04-21] MEDS: Azithromycin 500 MG in 0.9 % Sodium Chloride 250 ML 125 MG IV (09:29)
[2020-04-21] MEDS: Acetaminophen 325 MG TABLET 650 MG PO (09:30)
[2020-04-21] MEDS: Nystatin Oral Susp 500,000 UNIT/5 ML ORAL.SUSP 500000 UNIT PO ×2 (09:30→14:34)
[2020-04-21] MEDS: Gabapentin 600 MG TABLET PO ×2 (09:32→14:34)
[2020-04-21] MEDS: Theophylline Anhydrous ER 300 MG TAB.ER.12H PO (09:32)
[2020-04-21] MEDS: PARoxetine HCL 40 MG TABLET PO (09:32)
[2020-04-21] MEDS: predniSONE 10 MG TABLET PO (09:32)
[2020-04-21] MEDS: Folic Acid 1 MG TABLET PO (09:32)
[2020-04-21] MEDS: Loratadine 10 MG TABLET PO (09:32)
[2020-04-21] MEDS: predniSONE 20 MG TABLET 40 MG PO (09:32)
[2020-04-21] MEDS: Apixaban 5 MG TABLET PO (09:32)
[2020-04-21] MEDS: DULoxetine HCl 30 MG CAPSULE.DR PO (09:32)
[2020-04-21] MEDS: Multivitamin TABLET 1 TAB PO (09:32)
[2020-04-21 11:11] VITALS: BP 116/80; PULSE 121; RESP 16; TEMP 36.6; O2SAT 95
[2020-04-21 11:56] VITALS: BMI 32.3
--- NOTE | 2020-04-21 13:55 | MHC.CM.PN ---
CM spoke with Rhonda [phone] who is the manager therapy at [facility] for which patient resides. I instructed patient is ready to return home, Rhonda states she spoke with someone from the Care Team here at the hospital who said we would find patient higher level of care since they could not handle patient medically and they would contact CM. This singer songwriter has been patient's CM since admission and has not been contacted by anyone from Care team. Instructed MD feels patient is well enough to return to prior level of care and does not need rehab. Rhonda states she will speak with her boss and return call to CM. Also stated that she did not say she would not take her back. CM will continue to follow patient for discharge needs.
[2020-04-21] MEDS: levalbuterol HCL 1.25 MG/3 ML VIAL.NEB INHALE (14:49)
--- NOTE | 2020-04-21 15:07 | MHC.CM.PN ---
CM called Rhonda again at [facility] to ask about discharge time for patient. Instructed I'm not sure who you spoke with here at the hospital but that I have been her CM since admission and no one has spoke with me directly. Rhonda states she is talking with her nursing staff now. I said that I would need to know MATTHEW and Rhonda hung up on this CM. Reported incident to my sewing room supervisor.
--- NOTE | 2020-04-21 15:39 | MHC.CM.PN ---
CM spoke with the nurse Kraus at [facility] who states they are not medically able to care for patient. Instructed patient is cleared by MD to return home and does not feel patient needs rehab. Instructed patient is alert and oriented and does not want to go to rehab. Instructed we are not able to force someone to go somewhere they don't want to go. CM asked what time can we send her back and Brenda stated anytime you want. Patient, nurse and MD updated to patient is able to return home today. Taxi voucher given for transport. Patient verbalizes understanding and agrees with plan.
--- NOTE | 2020-04-21 16:28 | PM.DS ---
DS: Providers Provider Date of admission: 04/19/20 17:47 Primary care physician: Unknown Physician DS: Diagnosis Discharge Diagnosis (1) Acute and chronic respiratory failure ([id number]): Status: Acute (2) Acute exacerbation of COPD with asthma: Status: Acute (3) History of DVT (deep vein thrombosis): Status: Acute (4) Diabetes: Status: Acute (5) Hypertension: Status: Acute (6) Hyperlipidemia: Status: Acute (7) Anxiety: Status: Acute DS: Summary Hospital Course Hospital Course: 54 year old women well know to the hospitalist service presenting to the ED after a fall. She reported that she was sitting on a chair and then fell over. She denied loss of consciousness pole reported that she had felt dizzy since yesterday. Did not cause any trauma after fall. She was discharged from [facility] yesterday and treated for COPD exacerbation. Orthostatic blood pressures were positive. chest x-ray negative for consolidation or effusion. She was given Solu-Medrol, albuterol, Levaquin and 2 L of IV fluids. She will be admitted for further management and treatment of orthostatic hypotension. Hospital Course problem saenz section: 54 female with COPD on home O2, chronic smoker, frequent hospitalization now being readmitted for acute on chronic respiratory failure due to COPD . Acute on chronic respiratory failure due to COPD : Recently treated for COPD exacerbation, seems improved, Continue taper po steriods, theophyllin added by pulm, continue doxycycline and azithro . Patient is going home with above. IVAN/orthostasis, probably related to poor oral intake, with hydration seems to be improved monitor renal function and electrolytes outpatient with patient PCP and further management as per PCP. Seems orthostasis also improved with hydration , seems like probably related to dehydration and a KI. Monitor renal function and electrolytes with PCP outpatient and further management as per PCP. Above management discussed with the patient in detail length she understand and in agreement with the above plan, time spent 50 minutes and 50% time spent on counseling. Significant findings: As above. Procedures performed: None. Treatment and response: As above. Complications: None. . Time Spent with Patient Time attestation: Total time spent providing and/or coordinating discharge services: Physical Exam Vital Signs: Vital Signs: Vital Signs Temp Pulse Resp BP Pulse Ox 04/21/20 11:11 97.9 F 121 H 16 116/80 95 04/21/20 07:46 97.8 F 125 H 20 140/85 H 94 04/21/20 03:58 97.7 F 128 H 18 122/84 90 L 04/20/20 23:50 97.6 F 125 H 22 H 116/84 90 L 04/20/20 19:30 98.2 F 120 H 20 110/76 94 Body Mass Index 32.3 Physical exam: Cvs: rrr, [id number] , no murmur res: clear to auscultation ,no rhonchii or wheezing abd: no rebound or guarding ,nt, bs present. ext pulses present , no cyanosis neuro: axo3 , nonfocal. DS: Data Data Completed and Pending Completed studies during hospitalization [Text1]: Procedures Assistance with Respiratory Ventilation, Less than 24 Consecutive Hours, Continuous Positive Airway Pressure (04/14/20) Labs on day of discharge: Preliminary micro results at discharge 04/19/20 10:15 Blood Culture - Preliminary Blood - Central Line No growth after 48 hours. 04/19/20 10:07 Blood Culture - Preliminary Blood - Central Line No growth after 48 hours. Discharge Plan Discharge Patient Disposition: Home, Self-Care Referrals: Patti Duckworth PA [Physician Cement Sprayer Helper] - 1 Week (Please call and schedule a follow up appointment within 1 week.) Discharge Medications: New omeprazole 20 mg Capsule,Delayed Release(Dr/Ec) 20 mg PO DAILY@0630 Qty: 30 RF: 0 nystatin 100,000 unit/mL Suspension 500,000 unit PO QID Qty: 10 RF: 0 Continued prednisone 20 mg tablet 40 mg PO DAILY Qty: 10 RF: 0 azithromycin 500 mg tablet 500 mg PO DAILY 5 Days Qty: 5 RF: 0 theophylline 300 mg Tablet Extended Release 12 Hr 300 mg PO BID Qty: 60 RF: 0 multivitamin Tablet 1 tab PO DAILY RF: 0 clotrimazole 10 mg Jesus 10 mg MUCOUS MEMBRANE 5XD RF: 0 clonidine HCl 0.1 mg Tablet 0.1 mg PO BEDTIME RF: 0 gabapentin 600 mg Tablet 600 mg PO TID RF: 0 atorvastatin 20 mg Tablet 20 mg PO BEDTIME RF: 0 metformin 850 mg Tablet 850 mg PO BID RF: 0 folic acid 1 mg Tablet 1 mg PO DAILY RF: 0 montelukast 10 mg Tablet 10 mg PO BEDTIME RF: 0 paroxetine HCl 40 mg Tablet 40 mg PO DAILY RF: 0 loratadine 10 mg Tablet 10 mg DAILY RF: 0 valsartan 40 mg Tablet 40 mg PO BID RF: 0 tiotropium bromide 18 mcg Capsule, W/Inhalation Device 1 cap INHALATION DAILY RF: 0 duloxetine 30 mg Capsule,Delayed Release(Dr/Ec) 30 mg PO DAILY RF: 0 albuterol sulfate 0.63 mg/3 mL Solution For Nebulization 0.63 mg INHALATION QID PRN (Reason: Shortness Of Breath) RF: 0 quetiapine 200 mg Tablet 200 mg PO BEDTIME RF: 0 amlodipine 2.5 mg Tablet 2.5 mg PO DAILY RF: 0 doxepin 100 mg Capsule 200 mg PO DAILY RF: 0 apixaban 5 mg Tablet 5 mg BID RF: 0 prednisone 10 mg tablet 10 mg PO DAILY Qty: 4 RF: 0 Discharge Orders: Discharge Order (Routine); Ordered 04/21/20 Ordered By: Veronika Huertas Diet: advance to your usual diet Activity on Discharge: As tolerated Visit Report Forms: Patient Portal Discharge page Care Plan Goals: Patient came with orthostasis and sliding down from a chair: Found to have EKG on admission seems like IVAN is dated to dehydration and as well as orthostasis actually ortho stated status got aggravated also because of dehydration. With hydration her her condition improved significantly and going home now. Health Concerns: As above. Plan of Treatment: As above.
--- NOTE | 2020-04-21 17:27 | PC.NURSE ---
dc'd by taxi to half way house, dsg to rt ij dry and intact ,no bleeding.No sob at rest and short ambulation. oxygen saturation 97% on ra at rest. Oxygen saturation monitored for 1 hr after TLC was removed .
== END 2020-04-21 17:27 | disposition home or self-care (01) | DRG 204 ==
LOC: HO.ED 17:42 → HO.IMC 23:36
PROVIDERS: Nurse Practitioner Acute Care; Nurse Practitioner Family; Admitting Provider Internal Medicine; Emergency Provider Emergency Medicine; Visit Provider Internal Medicine
DX: I95.1 Orthostatic hypotension (principal); J96.20 Acute and chronic respiratory failure, unspecified whether with hypoxia or hypercapnia; N17.9 Acute kidney failure, unspecified; J96.10 Chronic respiratory failure, unspecified whether with hypoxia or hypercapnia; J44.1 Chronic obstructive pulmonary disease with (acute) exacerbation; D72.829 Elevated white blood cell count, unspecified; E11.9 Type 2 diabetes mellitus without complications; Z99.81 Dependence on supplemental oxygen; E78.5 Hyperlipidemia, unspecified; E86.0 Dehydration; F41.9 Anxiety disorder, unspecified; F17.210 Nicotine dependence, cigarettes, uncomplicated; Z71.6 Tobacco abuse counseling; Z20.828 Contact with and (suspected) exposure to other viral communicable diseases; Z86.718 Personal history of other venous thrombosis and embolism; Z79.01 Long term (current) use of anticoagulants; Z79.84 Long term (current) use of oral hypoglycemic drugs; Z79.899 Other long term (current) drug therapy
CPT/HCPCS: 36415; 71045; 80048; 80076; 80307; 80320; 81001; 82803; 82947; 83605; 83880; 85025; 87040; 87086; 87635; 93005; 94640; 96365; 96375; 99285; J0456; J1956; J2930

== ENCOUNTER 2020-05-05 10:04 | Emergency (ER) | payer OTHER, SELFPAY ==
[2020-05-05 10:07] VITALS: BP 103/65; BP 104/62; PULSE 106; PULSE 110; RESP 18; TEMP 36.7; O2SAT 90; O2SAT 95; BMI 29.5
--- NOTE | 2020-05-05 10:07 | ECG_ITS ---
Test Reason : SOB Blood Pressure : / mmHG Vent. Rate : 104 BPM Atrial Rate : 104 BPM P-R Int : 170 ms QRS Dur : 078 ms QT Int : 344 ms P-R-T Axes : 060 021 060 degrees QTc Int : 452 ms Sinus tachycardia Possible Left atrial enlargement Nonspecific ST and T wave abnormality Anterior leads Possible ischemia Abnormal ECG When compared with ECG of 19-APR-2020 09:06, ST more elevated in Anterior leads Clinical Correlation Advised Referred By: Carmen Ty Electronically Signed By:BARTOLO GONZALEZ MD
--- NOTE | 2020-05-05 10:07 | XR_ITS ---
EXAMINATION: XR CHEST CLINICAL INFORMATION: Dyspnea COMPARISON: Prior chest March 2020 TECHNIQUE: Frontal view of the chest was obtained. FINDINGS: There are some subtle opacity at the left base similar to prior examinations likely atelectasis or scarring. Cardiac silhouette mediastinum pulmonary vascularity normal XR/XR chest 1V IMPRESSION: Persistent opacity at the left base likely due to atelectasis or scarring Cannot exclude persistent or evolving pneumonia
--- NOTE | 2020-05-05 10:09 | ED.ASTHMA ---
HPI - Asthma General Chief Complaint: Dyspnea Stated Complaint: DIFF BREATHING Time Seen by Provider: 05/05/20 10:06 Source: patient, EMS and old records reviewed Mode of arrival: EMS Limitations: no limitations History of Present Illness HPI Narrative: 90% on RA, CPAP with EMS notes that she has been short of breath since MD complaint: asthma attack , shortness of breath and wheezing Onset (ago): day(s) (yesterday) Severity: moderate Context: none known Associated symptoms: productive cough and dry cough Asthma History: adult onset Treatments Prior to Arrival: inhaled bronchodilator, IV steroid and CPAP Related Data Current Asthma Therapy: inhaled bronchodilator, inhaled steroid and recent oral steroid Home Medications Medication Instructions Recorded Confirmed albuterol sulfate 0.63 mg INHALATION QID PRN 03/25/20 04/19/20 amlodipine 2.5 mg PO DAILY 03/25/20 04/19/20 apixaban 5 mg BID 03/25/20 04/19/20 atorvastatin 20 mg PO BEDTIME 03/25/20 04/19/20 clonidine HCl 0.1 mg PO BEDTIME 03/25/20 04/19/20 clotrimazole 10 mg MUCOUS MEMBRANE 5XD 03/25/20 04/19/20 doxepin 200 mg PO DAILY 03/25/20 04/19/20 duloxetine 30 mg PO DAILY 03/25/20 04/19/20 folic acid 1 mg PO DAILY 03/25/20 04/19/20 gabapentin 600 mg PO TID 03/25/20 04/19/20 loratadine 10 mg DAILY 03/25/20 04/19/20 metformin 850 mg PO BID 03/25/20 04/19/20 montelukast 10 mg PO BEDTIME 03/25/20 04/19/20 multivitamin 1 tab PO DAILY 03/25/20 04/19/20 paroxetine HCl 40 mg PO DAILY 03/25/20 04/19/20 quetiapine 200 mg PO BEDTIME 03/25/20 04/19/20 tiotropium bromide 1 cap INHALATION DAILY 03/25/20 04/19/20 valsartan 40 mg PO BID 03/25/20 04/19/20 Previous Rx's Medication Instructions Recorded prednisone 10 mg PO DAILY #4 tab 04/10/20 azithromycin 500 mg PO DAILY 5 Days #5 tab 04/18/20 prednisone 40 mg PO DAILY #10 tab 04/18/20 theophylline 300 mg PO BID #60 tab 04/18/20 nystatin 500,000 unit PO QID #10 ml 04/21/20 omeprazole 20 mg PO DAILY@0630 #30 cap 04/21/20 doxycycline hyclate 100 mg PO BID 7 Days #14 cap 05/05/20 prednisone 40 mg PO DAILY 5 Days #10 tab 05/05/20 Allergies Allergy/AdvReac Type Severity Reaction Status Date / Time No Known Allergies Allergy Verified 04/14/20 10:25 Review of Systems Review of Systems: Constitutional : No Fever, No Chills ENT/Mouth : No sore throat, No Rhinorrhea, No Swallowing Difficulty Eyes: No Eye Pain, No Swelling, No Redness Cardiovascular : No Chest Pain, positive SOB, No Orthopnea, no Edema Respiratory : pos Cough, pos Sputum, pos Wheezing, positive dyspnea Gastrointestinal : No Nausea, No Vomiting, No Diarrhea, No abdominal Pain, No Hematochezia, No Melena Genitourinary : No Dysuria, No Urinary Frequency, No Hematuria Musculoskeletal : No joint pain, No Myalgias Skin : No Skin Lesions, No rash Neuro : No Weakness, No Numbness, No Dizziness, No Headache Psych : No Anxiety/Panic, No Depression Heme/Lymph: No Bruising, No Lymphadenopathy Endocrine : No Polyuria, No Polydipsia All other systems reviewed and are negative [facility] Past Medical History Attestation statement: The following information was validated with the patient. Medical History Acute and chronic respiratory failure ([id number]) Acute exacerbation of COPD with asthma Anxiety Bronchitis COPD (chronic obstructive pulmonary disease) COPD (chronic obstructive pulmonary disease) Diabetes H/O blood clots History of DVT (deep vein thrombosis) Hyperlipidemia Hypertension Hypotension Renal infarct Sinus tachycardia Supplemental oxygen dependent Family History Family History Father Diabetes mellitus Myocardial infarction Social History Social History Household Members: Other Housing: Other Alcohol intake: unknown Smoking Status: Current every day smoker Tobacco Type: Cigarette Cigarettes Per Day: 2 Second Hand Smoke Exposure: Yes Use of substances other than those prescribed or required for medical reasons: No Advance Directives: No Advance Directives Information Provided: Yes service: No Current occupational status: disabled Physical Exam Vital Signs: Vital Signs: Last Vital Signs Temp 98.1 F 05/05/20 10:07 Pulse 106 H 05/05/20 10:07 Resp 18 05/05/20 10:07 BP 103/65 05/05/20 10:07 Pulse Ox 95 05/05/20 11:29 Body Mass Index 29.5 Appearance: Alert. Oriented X3. Mild acute distress. Eyes: Pupils equal, round and reactive to light. ENT: Pharynx normal. Neck: Normal inspection. Neck supple. CVS: Normal heart rate and rhythm. Pulses normal. Respiratory: mild respiratory distress. Breath sounds decreased with end exp wheezes, retractions Abdomen: Soft and nontender. Skin: Skin warm and dry. Normal skin color. Normal skin turgor. Extremities: No lower extremity edema. No calf ttp Neuro: Oriented X 3. No motor deficit. No sensory deficit. Course Course Course Narrative: 94% on RA, patient is not using her tanks due to them being off portable, she states most of her issues have to do with walking. patient still smokes, doesn't want to wear portable oxygen no distress, can go home, slightly more anemic but has been low before denies GIB symptoms, will order guiac, talking to RT and CM about WC and portable O2 has appointment with computer networking instructor next week CM notes she will have to go through that route to obtain over shoulder O2, they are looking into WC as well, workup negative, no hypoxia, no distress, safe for DC MDM - Asthma MDM Narrative Medical decision making narrative: 54 yo female with longstanding COPD - here with hypoxia brought in on CPAP [place] actually looks pretty good for her, already given steroids by EMS, will need hour long neb, supplemental O2, labs, cultures, CXR - likely COPD exacerbation, dispo per results and findings. Lab Data Result diagrams: 05/05/20 10:30 05/05/20 10:30 Labs: Lab Results 05/05/20 05/05/20 05/05/20 Range/Units 10:30 10:30 10:30 WBC 11.9 H (4.8-10.8) X10*3/uL RBC 3.54 L (4.20-5.50) X10*6/uL Hgb 8.1 L (12.0-16.0) g/dl Hct 27.9 L (37-47) % MCV 78.8 L (80-98) fL MCH 22.9 L (27.0-33.0) pg MCHC 29.0 L (31.0-35.0) g/dl RDW 20.6 H (11.0-16.0) % Plt Count 254 D (160-400) X10*3/uL MPV 10.1 (9.4-12.3) fL Immature Gran % (Auto) 0.5 H (0.0-0.4) % Neut % (Auto) 72.9 (45-73) % Lymph % (Auto) 17.5 L (20-40) % [place] % (Auto) 7.0 (2-11) % Eos % (Auto) 1.8 (0-4) % Baso % (Auto) 0.3 (0-2) % Lymph # (Auto) 2.1 (1.2-4.9) X10*3/uL [place] # (Auto) 0.8 (0.1-1.2) X10*3/uL Eos # (Auto) 0.2 (0.0-0.4) X10*3/uL Baso # (Auto) 0.0 (0.0-0.2) X10*3/uL Abs Immat Gran (auto) 0.06 H (0.00-0.03) X10*3/uL Absolute Neuts (auto) 8.7 H (2.0-8.3) X10*3/uL Absolute Nucleated RBC 0.000 (0.0-0.012) X10*3/uL Nucleated RBC % (auto) 0.0 (0.0-0.2) /100WBC PT 10.6 L (10.8-13.0) SEC INR 0.9 (0.9-1.1) APTT 35.1 (24.1-38.0) SEC Hold Blue Top SEE NOTE VBG pH (7.32-7.43) VBG pCO2 mmhg VBG Oxygen Liters/Min VBG pO2 mmhg VBG HCO3 mmol/L VBG O2 Saturation % VBG Base Excess mmol/L Sodium 139 (135-145) mmol/L Potassium 3.2 L (3.3-5.1) mmol/l Chloride 102 (96-108) mmol/L Carbon Dioxide 28 (22-29) mmol/L Anion Gap 12 (12-20) BUN 9 D (9-16) mg/dL Creatinine 0.69 (0.5-1.4) mg/dL Estim Creat Clear Calc 92.0 Estimated GFR > 60 Random Glucose 224 H (60-115) mg/dL Lactic Acid (0.5-2.0) mmol/L Calcium 8.4 (8.4-10.2) mg/dL Magnesium 1.2 L* (1.6-2.6) mg/dL Total Bilirubin 0.4 (0.0-1.0) mg/dL Direct Bilirubin 0.2 (0.0-0.5) mg/dL AST 6 (5-31) U/L ALT 14 (0-31) U/L Alkaline Phosphatase 81 D (39-117) U/L Troponin I High Sens (<3.5-17.0) ng/L B-Natriuretic Peptide (<100) pg/mL Total Protein 5.5 L (6.5-8.0) g/dL Albumin 3.6 (3.5-5.0) g/dL Stool Occult Blood (NEG) 05/05/20 05/05/20 05/05/20 Range/Units 10:30 10:30 11:21 WBC (4.8-10.8) X10*3/uL RBC (4.20-5.50) X10*6/uL Hgb (12.0-16.0) g/dl Hct (37-47) % MCV (80-98) fL MCH (27.0-33.0) pg MCHC (31.0-35.0) g/dl RDW (11.0-16.0) % Plt Count (160-400) X10*3/uL MPV (9.4-12.3) fL Immature Gran % (Auto) (0.0-0.4) % Neut % (Auto) (45-73) % Lymph % (Auto) (20-40) % [place] % (Auto) (2-11) % Eos % (Auto) (0-4) % Baso % (Auto) (0-2) % Lymph # (Auto) (1.2-4.9) X10*3/uL [place] # (Auto) (0.1-1.2) X10*3/uL Eos # (Auto) (0.0-0.4) X10*3/uL Baso # (Auto) (0.0-0.2) X10*3/uL Abs Immat Gran (auto) (0.00-0.03) X10*3/uL Absolute Neuts (auto) (2.0-8.3) X10*3/uL Absolute Nucleated RBC (0.0-0.012) X10*3/uL Nucleated RBC % (auto) (0.0-0.2) /100WBC PT (10.8-13.0) SEC INR (0.9-1.1) APTT (24.1-38.0) SEC Hold Blue Top VBG pH 7.40 (7.32-7.43) VBG pCO2 43 mmhg VBG Oxygen Liters/Min Not Reportable VBG pO2 49 mmhg VBG HCO3 26 mmol/L VBG O2 Saturation 84.0 % VBG Base Excess 1.1 mmol/L Sodium (135-145) mmol/L Potassium (3.3-5.1) mmol/l Chloride (96-108) mmol/L Carbon Dioxide (22-29) mmol/L Anion Gap (12-20) BUN (9-16) mg/dL Creatinine (0.5-1.4) mg/dL Estim Creat Clear Calc Estimated GFR Random Glucose (60-115) mg/dL Lactic Acid 1.8 (0.5-2.0) mmol/L Calcium (8.4-10.2) mg/dL Magnesium (1.6-2.6) mg/dL Total Bilirubin (0.0-1.0) mg/dL Direct Bilirubin (0.0-0.5) mg/dL AST (5-31) U/L ALT (0-31) U/L Alkaline Phosphatase (39-117) U/L Troponin I High Sens < 3.5 (<3.5-17.0) ng/L B-Natriuretic Peptide 41 (<100) pg/mL Total Protein (6.5-8.0) g/dL Albumin (3.5-5.0) g/dL Stool Occult Blood (NEG) 05/05/20 Range/Units 11:39 WBC (4.8-10.8) X10*3/uL RBC (4.20-5.50) X10*6/uL Hgb (12.0-16.0) g/dl Hct (37-47) % MCV (80-98) fL MCH (27.0-33.0) pg MCHC (31.0-35.0) g/dl RDW (11.0-16.0) % Plt Count (160-400) X10*3/uL MPV (9.4-12.3) fL Immature Gran % (Auto) (0.0-0.4) % Neut % (Auto) (45-73) % Lymph % (Auto) (20-40) % [place] % (Auto) (2-11) % Eos % (Auto) (0-4) % Baso % (Auto) (0-2) % Lymph # (Auto) (1.2-4.9) X10*3/uL [place] # (Auto) (0.1-1.2) X10*3/uL Eos # (Auto) (0.0-0.4) X10*3/uL Baso # (Auto) (0.0-0.2) X10*3/uL Abs Immat Gran (auto) (0.00-0.03) X10*3/uL Absolute Neuts (auto) (2.0-8.3) X10*3/uL Absolute Nucleated RBC (0.0-0.012) X10*3/uL Nucleated RBC % (auto) (0.0-0.2) /100WBC PT (10.8-13.0) SEC INR (0.9-1.1) APTT (24.1-38.0) SEC Hold Blue Top VBG pH (7.32-7.43) VBG pCO2 mmhg VBG Oxygen Liters/Min VBG pO2 mmhg VBG HCO3 mmol/L VBG O2 Saturation % VBG Base Excess mmol/L Sodium (135-145) mmol/L Potassium (3.3-5.1) mmol/l Chloride (96-108) mmol/L Carbon Dioxide (22-29) mmol/L Anion Gap (12-20) BUN (9-16) mg/dL Creatinine (0.5-1.4) mg/dL Estim Creat Clear Calc Estimated GFR Random Glucose (60-115) mg/dL Lactic Acid (0.5-2.0) mmol/L Calcium (8.4-10.2) mg/dL Magnesium (1.6-2.6) mg/dL Total Bilirubin (0.0-1.0) mg/dL Direct Bilirubin (0.0-0.5) mg/dL AST (5-31) U/L ALT (0-31) U/L Alkaline Phosphatase (39-117) U/L Troponin I High Sens (<3.5-17.0) ng/L B-Natriuretic Peptide (<100) pg/mL Total Protein (6.5-8.0) g/dL Albumin (3.5-5.0) g/dL Stool Occult Blood NEG (NEG) ECG Data Attestation: I personally reviewed and interpreted this ECG as follows: ECG interpretation date: 05/05/20 ECG interpretation time: 10:21 Interpretation: Rate: 104 Rhythm: sinus tachycardia [place]: normal Normal P waves. Normal AGUILAR. Normal QRS complex. ST T wave : nonspecific, inverted V2-V4 qTC:normal prior studies: artifact noted, no acute ischemia The study has been interpreted contemporaneously by me. . Critical Care Time Critical Care Time Critical Care Time: Yes Total Critical Care Time: 35 Attestation: hour long neb, repeat assessments I attest to this time spent taking care of the patient Discharge Plan Discharge Clinical Impression: COPD exacerbation Anemia Qualifiers: Anemia type: unspecified type Qualified Code(s): D64.9 - Anemia, unspecified Patient Disposition: Home, Self-Care Instructions: COPD (Chronic Obstructive Pulmonary Disease) (ED) Additional Instructions: return to ED for any worsening symptoms or concerns recheck hemoglobin in 1 week you were 8.1 but test for bleeding in gastrointestinal tract were negative, prior history of anemia Prescriptions: New prednisone 20 mg tablet 40 mg PO DAILY 5 Days Qty: 10 RF: 0 doxycycline hyclate 100 mg capsule 100 mg PO BID 7 Days Qty: 14 RF: 0 No Action prednisone 20 mg tablet 40 mg PO DAILY Qty: 10 RF: 0 azithromycin 500 mg tablet 500 mg PO DAILY 5 Days Qty: 5 RF: 0 theophylline 300 mg Tablet Extended Release 12 Hr 300 mg PO BID Qty: 60 RF: 0 nystatin 100,000 unit/mL Suspension 500,000 unit PO QID Qty: 10 RF: 0 omeprazole 20 mg Capsule,Delayed Release(Dr/Ec) 20 mg PO DAILY@0630 Qty: 30 RF: 0 multivitamin Tablet 1 tab PO DAILY RF: 0 clotrimazole 10 mg Jesus 10 mg MUCOUS MEMBRANE 5XD RF: 0 clonidine HCl 0.1 mg Tablet 0.1 mg PO BEDTIME RF: 0 gabapentin 600 mg Tablet 600 mg PO TID RF: 0 atorvastatin 20 mg Tablet 20 mg PO BEDTIME RF: 0 metformin 850 mg Tablet 850 mg PO BID RF: 0 folic acid 1 mg Tablet 1 mg PO DAILY RF: 0 montelukast 10 mg Tablet 10 mg PO BEDTIME RF: 0 paroxetine HCl 40 mg Tablet 40 mg PO DAILY RF: 0 loratadine 10 mg Tablet 10 mg DAILY RF: 0 valsartan 40 mg Tablet 40 mg PO BID RF: 0 tiotropium bromide 18 mcg Capsule, W/Inhalation Device 1 cap INHALATION DAILY RF: 0 duloxetine 30 mg Capsule,Delayed Release(Dr/Ec) 30 mg PO DAILY RF: 0 albuterol sulfate 0.63 mg/3 mL Solution For Nebulization 0.63 mg INHALATION QID PRN (Reason: Shortness Of Breath) RF: 0 quetiapine 200 mg Tablet 200 mg PO BEDTIME RF: 0 amlodipine 2.5 mg Tablet 2.5 mg PO DAILY RF: 0 doxepin 100 mg Capsule 200 mg PO DAILY RF: 0 apixaban 5 mg Tablet 5 mg BID RF: 0 prednisone 10 mg tablet 10 mg PO DAILY Qty: 4 RF: 0 Referrals: Physician,Unknown [Primary Care Provider] - 2 days (follow up with computer networking instructor)
[2020-05-05] MEDS: Magnesium Sulfate/H2O 2 GM/50 ML PIGGYBACK IV (10:24)
[2020-05-05] MEDS: Albuterol Sulfate (0.083%) 2.5 MG/3 ML VIAL.NEB 10 MG INHALE (10:30)
[2020-05-05 10:38] LABS: MANUAL DIFF FLAG NO
[2020-05-05 10:40] LABS: Basophils Percent Auto 0.3 % (0-2); Eosinophils Absolute Auto 0.2 X10*3/uL (0.0-0.4); Eosinophils Percent Auto 1.8 % (0-4); Hematocrit 27.9 % (37-47); Hemoglobin 8.1 g/dl (12.0-16.0); Imm Gran Abs Auto 0.06 X10*3/uL (0.00-0.03); Imm Gran Pct Auto 0.5 % (0.0-0.4); Lymphocytes Absolute Auto 2.1 X10*3/uL (1.2-4.9); Lymphocytes Percent Auto 17.5 % (20-40); Mean Corpuscular Hemoglobin 22.9 pg (27.0-33.0); Mean Corpuscular Volume 78.8 fL (80-98); Mean Platelet Volume 10.1 fL (9.4-12.3); Monocytes Absolute Auto 0.8 X10*3/uL (0.1-1.2); Neutrophils Absolute Auto 8.7 X10*3/uL (2.0-8.3); Neutrophils Percent Auto 72.9 % (45-73); Platelet Count 254 X10*3/uL (160-400); Red Blood Count 3.54 X10*6/uL (4.20-5.50); Red Cell Distribution Width 20.6 % (11.0-16.0); White Blood Count 11.9 X10*3/uL (4.8-10.8)
[2020-05-05 10:47] LABS: INTERNATIONAL NORM RATIO 0.9 (0.9-1.1); Prothrombin Time 10.6 SEC (10.8-13.0)
[2020-05-05 10:50] LABS: Partial Thromboplastin Time 35.1 SEC (24.1-38.0)
[2020-05-05 10:54] LABS: Lactic Acid 1.8 mmol/L (0.5-2.0)
[2020-05-05 11:06] LABS: B Type Natriuretic Peptide 41 pg/mL (<100); Troponin-I High Sensitivity < 3.5 ng/L (<3.5-17.0)
[2020-05-05 11:07] LABS: Alanine Aminotransferase 14 U/L (0-31); Albumin Level 3.6 g/dL (3.5-5.0); Alkaline Phosphatase 81 U/L (39-117); Anion Gap 12 (12-20); Aspartate Amino Transferase 6 U/L (5-31); Bilirubin Direct 0.2 mg/dL (0.0-0.5); Bilirubin Total 0.4 mg/dL (0.0-1.0); Blood Urea Nitrogen 9 mg/dL (9-16); Calcium 8.4 mg/dL (8.4-10.2); Carbon Dioxide 28 mmol/L (22-29); Chloride 102 mmol/L (96-108); Estimated Glomerular Filt Rate > 60; Glucose Random 224 mg/dL (60-115); Magnesium 1.2 mg/dL (1.6-2.6); Potassium 3.2 mmol/l (3.3-5.1); Sodium 139 mmol/L (135-145); Total Protein 5.5 g/dL (6.5-8.0)
--- NOTE | 2020-05-05 11:19 | MHC.CM.ED ---
Received case management consult from Dr Ty. Patient came to ER due to COPD exac symptoms. Per Itzel, RT, patient has oxygen and cpap at home. Patient has been non-compliant with both and continues to smoke. Patient told Itzel she doesn't use oxygen because the tank is too big. Itzel offered to get her a smaller tank. Patient stated I'm not going to use it anyway. Patient's PCP is Patti Duckworth. T/W spoke with Patti's nurse Sabrina via telephone. Explained above information. Sabrina stated patient has an appointment on 05/13 and will make provider aware. Continue to monitor for d/c needs.
[2020-05-05 11:24] VITALS: O2SAT 89
[2020-05-05 11:26] LABS: Base Excess VBG 1.1 mmol/L; HCO3 VBG 26 mmol/L; PCO2 VBG 43 mmhg; PO2 VBG 49 mmhg
[2020-05-05 11:27] LABS: Blood Gas Serial # 5414
[2020-05-05] MEDS: Potassium Chloride ER 20 MEQ TAB.ER.PRT PO (11:27)
[2020-05-05 11:29] VITALS: O2SAT 95
[2020-05-05 11:45] LABS: OBS Int Ctl Valid YES; OBS1 NEG (NEG)
[2020-05-05 12:09] VITALS: BP 131/66; PULSE 114; RESP 25; O2SAT 91
--- NOTE | 2020-05-05 12:21 | PC.NURSE ---
pt request to use bathroom, wanted to ambulate. pt given portable o2 to use, explained purpose to pt. pt ambulated steadily. SOB upon return but o2 sat 96% on 3 L. patient then took o2 off. continues to be SOB. informed pt to place o2 back on, pt states i don't see the use . explained to pt that need for continuous o2 and oxygen sat levels when off o2. RT calling to try to get portable concentrator for Pt home use, explained to pt there is a wait list and needs other authorization. CM spoke with nurse at [facility] and also made plan for home o2 use from current concentrator at this time.
--- NOTE | 2020-05-05 12:47 | MHC.CM.ED ---
Patient is requesting a cardiac walker and portable concentrator for oxygen. Itzel from [facility] spoke with [facility]. They will put her on a wait list for one. Spoke with [facility]. [facility] will not authorize a cardiac walker for her because she received a walker last year. Attempted to arrange transport home by [facility]. They are unable to accommodate patient at this time. Referral made to [facility]. Med nec with chart. Continue to monitor for d/c needs.
== END 2020-05-05 13:25 | disposition home or self-care (01) ==
PROVIDERS: Emergency Provider Emergency Medicine
DX: J44.1 Chronic obstructive pulmonary disease with (acute) exacerbation (principal); D64.9 Anemia, unspecified; I10 Essential (primary) hypertension; F17.210 Nicotine dependence, cigarettes, uncomplicated; Z71.6 Tobacco abuse counseling; Z79.899 Other long term (current) drug therapy
CPT/HCPCS: 36415; 71045; 80048; 80076; 82272; 82803; 83605; 83735; 83880; 84484; 85025; 85610; 85730; 87040; 93005; 94640; 94644; 96365; 99284; 99291; J3475

== ENCOUNTER 2020-05-19 13:35 | Inpatient (IN) | payer OTHER, SELFPAY ==
[2020-05-19 13:42] VITALS: BP 108/71; BP 128/80; PULSE 121; PULSE 147; RESP 24; TEMP 37.2; O2SAT 91; O2SAT 93; BMI 29.9
--- NOTE | 2020-05-19 14:03 | CT_ITS ---
EXAMINATION: CT HEAD WITHOUT CONTRAST CLINICAL INFORMATION: Headache. COMPARISON: 02/16/2017 TECHNIQUE: Contiguous axial imaging was performed from the skull base to vertex without intravenous administration of contrast. This CT examination was performed using dose optimization techniques as appropriate, variously including the following: *Automated exposure control *Adjustment of mA and/or kV according to patient size (this includes techniques or standardized protocols for targeted exams where dose is matched to indication/reason for exam; i.e. extremities or head) *Use of iterative reconstruction technique DLP: 642 mGy-cm This CT examination was performed using dose optimization techniques as appropriate, variously including the following: *Automated exposure control *Adjustment of mA and/or kV according to patient size (this includes techniques or standardized protocols for targeted exams where dose is matched to indication/reason for exam; i.e. extremities or head) *Use of iterative reconstruction technique FINDINGS: Brain parenchyma: Normal attenuation. Aleman-white matter differentiation is well preserved. No cerebral edema, major vascular territory infarction, hemorrhage, mass or midline shift. Cerebrospinal fluid spaces: Normal. No hydrocephalus or extra-axial fluid collections. Cerebellum and brainstem: Normal. The cerebellar tonsils are in normal position. The cerebellopontine angles are normal. Calvarium and temporomandibular joints: Calvarium is intact. Mastoid air cells and middle ear cavities are well aerated. The TMJs are normal. Paranasal sinuses and orbits: The visualized paranasal sinuses are well aerated and without air-fluid levels. The orbits and globes are intact. Other: No acute findings in the visualized extracranial soft tissues. CT/CT head/brain wo con IMPRESSION: No hemorrhage or other acute intracranial pathology.
--- NOTE | 2020-05-19 14:03 | ECG_ITS ---
Test Reason : SOB Blood Pressure : / mmHG Vent. Rate : 120 BPM Atrial Rate : 120 BPM P-R Int : 168 ms QRS Dur : 080 ms QT Int : 316 ms P-R-T Axes : 076 044 078 degrees QTc Int : 446 ms Sinus tachycardia Possible Left atrial enlargement Low voltage QRS Borderline ECG No significant changes seen Referred By: Giacomo Antoine Electronically Signed By:BARTOLO GONZALEZ MD
--- NOTE | 2020-05-19 14:32 | PC.NURSE ---
lungs - juvenal upper slight exp wheezing, juvenal lower lobes -diminished. mlp (divine) aware.
--- NOTE | 2020-05-19 14:34 | XR_ITS ---
EXAMINATION: XR CHEST CLINICAL INFORMATION: Shortness of breath COMPARISON: Prior chest May 05 2020 TECHNIQUE: Frontal view of the chest was obtained. FINDINGS: Minimal bibasilar opacities unchanged. Cardiac silhouette mediastinum pulmonary vascularity normal. Bone and soft tissues unremarkable XR/XR chest 1V IMPRESSION: Minimal bibasilar opacities unchanged compatible with atelectasis or scarring. Evolving infiltrate less likely given the unchanged appearance
[2020-05-19 14:46] LABS: MANUAL DIFF FLAG NO
[2020-05-19 14:49] LABS: Basophils Absolute Auto 0.1 X10*3/uL (0.0-0.2); Basophils Percent Auto 0.9 % (0-2); Eosinophils Absolute Auto 0.2 X10*3/uL (0.0-0.4); Eosinophils Percent Auto 1.6 % (0-4); Hematocrit 32.1 % (37-47); Imm Gran Abs Auto 0.07 X10*3/uL (0.00-0.03); Imm Gran Pct Auto 0.6 % (0.0-0.4); Lymphocytes Absolute Auto 2.6 X10*3/uL (1.2-4.9); Mean Corpuscular Hemoglobin 21.8 pg (27.0-33.0); Mean Corpuscular Volume 77.9 fL (80-98); Mean Platelet Volume 10.1 fL (9.4-12.3); Monocytes Percent Auto 9.5 % (2-11); Neutrophils Absolute Auto 6.9 X10*3/uL (2.0-8.3); Neutrophils Percent Auto 63.4 % (45-73); Platelet Count 483 X10*3/uL (160-400); Red Blood Count 4.12 X10*6/uL (4.20-5.50); Red Cell Distribution Width 20.1 % (11.0-16.0); White Blood Count 10.8 X10*3/uL (4.8-10.8)
[2020-05-19] MEDS: ondansetron HCL 4 MG/2 ML VIAL IVPUSH (14:50)
[2020-05-19] MEDS: methylPREDNISolone Sod Succ/PF 125 MG/2 ML VIAL IVPUSH (14:50)
[2020-05-19 14:51] VITALS: RESP 16
[2020-05-19] MEDS: Morphine Sulfate 4 MG/ML CARTRIDGE IVPUSH (14:51)
[2020-05-19] MEDS: 0.9 % Sodium Chloride 500 ML 1000 ML IV (14:52)
[2020-05-19 14:59] LABS: Prothrombin Time 11.5 SEC (10.8-13.0)
--- NOTE | 2020-05-19 15:00 | ED.SOB ---
HPI - SOB/Dyspnea General Chief Complaint: Dyspnea Stated Complaint: diff breathing headache Time Seen by Provider: 05/19/20 14:03 Source: EMS Limitations: no limitations History of Present Illness HPI Narrative: 54-year-old female reports to me that she has history of COPD who is currently a everyday smoker and uses oxygen at night, history of alcohol abuse is in to 1 year of sobriety hypertension, diabetes, hyperlipidemia, anxiety disorder, DVT on Eliquis she reports to me that for the past several days she has been feeling short of breath in the setting of her recent URI. States she for the past 1 week has had nasal congestion and frontal headache that has exacerbated her breathing problems. She comes from a senior care home and blood low states she has been very isolated and has not been exposed to anybody with COVID. No recent travel. States the facial congestion is giving her headache she has history of migraines as well and this is making it worse. States she has been using her inhaler without relief. MD elicited complaint: shortness of breath and cough Pertinent past history: COPD Context: recent illness Timing: constant Severity: moderate Exacerbating factors: nothing Relieving factors: nothing Known history of: COPD Associated symptoms: denies other symptoms Treatment prior to arrival: oxygen and bronchodilator Related Data Home oxygen amount: 2 liters Home Medications Medication Instructions Recorded Confirmed albuterol sulfate 0.63 mg INHALATION QID PRN 03/25/20 04/19/20 amlodipine 2.5 mg PO DAILY 03/25/20 04/19/20 apixaban 5 mg BID 03/25/20 04/19/20 atorvastatin 20 mg PO BEDTIME 03/25/20 04/19/20 clonidine HCl 0.1 mg PO BEDTIME 03/25/20 04/19/20 clotrimazole 10 mg MUCOUS MEMBRANE 5XD 03/25/20 04/19/20 doxepin 200 mg PO DAILY 03/25/20 04/19/20 duloxetine 30 mg PO DAILY 03/25/20 04/19/20 folic acid 1 mg PO DAILY 03/25/20 04/19/20 gabapentin 600 mg PO TID 03/25/20 04/19/20 loratadine 10 mg DAILY 03/25/20 04/19/20 metformin 850 mg PO BID 03/25/20 04/19/20 montelukast 10 mg PO BEDTIME 03/25/20 04/19/20 multivitamin 1 tab PO DAILY 03/25/20 04/19/20 paroxetine HCl 40 mg PO DAILY 03/25/20 04/19/20 quetiapine 200 mg PO BEDTIME 03/25/20 04/19/20 tiotropium bromide 1 cap INHALATION DAILY 03/25/20 04/19/20 valsartan 40 mg PO BID 03/25/20 04/19/20 Previous Rx's Medication Instructions Recorded prednisone 10 mg PO DAILY #4 tab 04/10/20 azithromycin 500 mg PO DAILY 5 Days #5 tab 04/18/20 prednisone 40 mg PO DAILY #10 tab 04/18/20 theophylline 300 mg PO BID #60 tab 04/18/20 nystatin 500,000 unit PO QID #10 ml 04/21/20 omeprazole 20 mg PO DAILY@0630 #30 cap 04/21/20 doxycycline hyclate 100 mg PO BID 7 Days #14 cap 05/05/20 prednisone 40 mg PO DAILY 5 Days #10 tab 05/05/20 Allergies Allergy/AdvReac Type Severity Reaction Status Date / Time No Known Allergies Allergy Verified 04/14/20 10:25 Review of Systems Review of Systems: Constitutional: No Weight loss, No Fever, No Chills, No Night Sweats, No Fatigue, No Malaise ENT/Mouth: No Hearing loss, No Ear Pain, + Nasal Congestion, No Sinus Pain, No Hoarseness, No sore throat, + Rhinorrhea, No Swallowing Difficulty Eyes: No Eye Pain, No Swelling, No Redness, No Foreign Body, No Discharge, No Vision Changes Cardiovascular: No Chest Pain, + SOB, + Dyspnea on Exertion, No Edema, No Palpitations Respiratory: + Cough, No Sputum, + Wheezing, No Dyspnea Gastrointestinal: No Nausea, No Vomiting, No Diarrhea, No Constipation, No abdominal Pain, No Hematochezia, No Melena Genitourinary: no irregular bleeding, No Dysuria, No Urinary Frequency, No Hematuria, No Urinary Incontinence Musculoskeletal: No joint pain, No Myalgias, No Joint Swelling Skin: No Skin Lesions, No rash Neuro: No Weakness, No Numbness, No Paresthesias, No Loss of Consciousness, No Dizziness, No Headache Psych: No Anxiety/Panic, No Depression, No SI/HI/AH/VH, No Social Issues Heme/Lymph: No Bruising, No Bleeding,No Lymphadenopathy Endocrine: No Polyuria, No Polydipsia, No Temperature Intolerance Yes all other systems are reviewed and are negative [facility] Past Medical History Medical History Acute and chronic respiratory failure ([id number]) Acute exacerbation of COPD with asthma Anxiety Bronchitis COPD (chronic obstructive pulmonary disease) COPD (chronic obstructive pulmonary disease) Diabetes H/O blood clots History of DVT (deep vein thrombosis) Hyperlipidemia Hypertension Hypotension Renal infarct Sinus tachycardia Supplemental oxygen dependent Family History Family History Father Diabetes mellitus Myocardial infarction Social History Social History Household Members: Other Housing: Other Alcohol intake: never Smoking Status: Current some day smoker Tobacco Type: Cigarette Cigarettes Per Day: 2 Second Hand Smoke Exposure: Yes Use of substances other than those prescribed or required for medical reasons: No Advance Directives: No Advance Directives Information Provided: Yes service: No Current occupational status: disabled Physical Exam Vital Signs: Vital Signs: Last Vital Signs Temp 98.3 F 05/19/20 15:17 Pulse 112 H 05/19/20 15:17 Resp 44 H 05/19/20 15:17 BP 138/89 05/19/20 15:17 Pulse Ox 98 05/19/20 15:17 Body Mass Index 29.9 Course Course Course Narrative: MDM - SOB/Dyspnea MDM Narrative Medical decision making narrative: Labs overall stable. No leukocytosis. Head CT negative. Chest x-ray unchanged finding from previous. A/P consistent with COPD exacerbation well known to this facility here there is compliance of her using her oxygen. On ambulation she did drop to 82%. Will be given Levaquin for COPD activation given nebs and albuterol already. Plan for admission. Differential Diagnosis Differential diagnosis: Likely acute exacerbation of chronic obstructive airways disease, pneumonia and asthma with exacerbation; Unlikely congestive heart failure, pulmonary embolism, pleural effusion, sleep apnea and anemia Medical Records Attestation: I reviewed the patient's medical records. Lab Data Attestation: I reviewed the patient's lab results. Result diagrams: 05/19/20 14:39 05/19/20 14:39 Labs: Lab Results 11/26/20 11/26/20 11/26/20 Range/Units 14:39 14:39 14:39 WBC 10.8 (4.8-10.8) X10*3/uL RBC 4.12 L (4.20-5.50) X10*6/uL Hgb 9.0 L (12.0-16.0) g/dl Hct 32.1 L (37-47) % MCV 77.9 L (80-98) fL MCH 21.8 L (27.0-33.0) pg MCHC 28.0 L (31.0-35.0) g/dl RDW 20.1 H (11.0-16.0) % Plt Count 483 H D (160-400) X10*3/uL MPV 10.1 (9.4-12.3) fL Immature Gran % (Auto) 0.6 H (0.0-0.4) % Neut % (Auto) 63.4 (45-73) % Lymph % (Auto) 24.0 (20-40) % [place] % (Auto) 9.5 (2-11) % Eos % (Auto) 1.6 (0-4) % Baso % (Auto) 0.9 (0-2) % Lymph # (Auto) 2.6 (1.2-4.9) X10*3/uL [place] # (Auto) 1.0 (0.1-1.2) X10*3/uL Eos # (Auto) 0.2 (0.0-0.4) X10*3/uL Baso # (Auto) 0.1 (0.0-0.2) X10*3/uL Abs Immat Gran (auto) 0.07 H (0.00-0.03) X10*3/uL Absolute Neuts (auto) 6.9 (2.0-8.3) X10*3/uL Absolute Nucleated RBC 0.000 (0.0-0.012) X10*3/uL Nucleated RBC % (auto) 0.0 (0.0-0.2) /100WBC PT 11.5 (10.8-13.0) SEC INR 1.0 (0.9-1.1) APTT 37.0 (24.1-38.0) SEC D-Dimer < 200 NG/ML Sodium 140 (135-145) mmol/L Potassium 4.2 D (3.3-5.1) mmol/l Chloride 104 (96-108) mmol/L Carbon Dioxide 26 (22-29) mmol/L Anion Gap 14 (12-20) BUN 5 L (9-16) mg/dL Creatinine 0.70 (0.5-1.4) mg/dL Estim Creat Clear Calc 91.2 Estimated GFR > 60 Random Glucose 99 D (60-115) mg/dL Lactic Acid (0.5-2.0) mmol/L Calcium 8.6 (8.4-10.2) mg/dL Total Bilirubin 0.4 (0.0-1.0) mg/dL AST 13 D (5-31) U/L ALT 16 (0-31) U/L Alkaline Phosphatase 75 (39-117) U/L Troponin I High Sens (<3.5-17.0) ng/L B-Natriuretic Peptide (<100) pg/mL Total Protein 5.9 L (6.5-8.0) g/dL Albumin 3.7 (3.5-5.0) g/dL Coronavirus (PCR) (Negative) Influenza Type A (PCR) (Negative) Influenza Type B (PCR) (Negative) RSV RNA Qual (PCR) (Negative) 05/19/20 05/19/20 05/19/20 Range/Units 14:39 14:39 14:39 WBC (4.8-10.8) X10*3/uL RBC (4.20-5.50) X10*6/uL Hgb (12.0-16.0) g/dl Hct (37-47) % MCV (80-98) fL MCH (27.0-33.0) pg MCHC (31.0-35.0) g/dl RDW (11.0-16.0) % Plt Count (160-400) X10*3/uL MPV (9.4-12.3) fL Immature Gran % (Auto) (0.0-0.4) % Neut % (Auto) (45-73) % Lymph % (Auto) (20-40) % [place] % (Auto) (2-11) % Eos % (Auto) (0-4) % Baso % (Auto) (0-2) % Lymph # (Auto) (1.2-4.9) X10*3/uL [place] # (Auto) (0.1-1.2) X10*3/uL Eos # (Auto) (0.0-0.4) X10*3/uL Baso # (Auto) (0.0-0.2) X10*3/uL Abs Immat Gran (auto) (0.00-0.03) X10*3/uL Absolute Neuts (auto) (2.0-8.3) X10*3/uL Absolute Nucleated RBC (0.0-0.012) X10*3/uL Nucleated RBC % (auto) (0.0-0.2) /100WBC PT (10.8-13.0) SEC INR (0.9-1.1) APTT (24.1-38.0) SEC D-Dimer NG/ML Sodium (135-145) mmol/L Potassium (3.3-5.1) mmol/l Chloride (96-108) mmol/L Carbon Dioxide (22-29) mmol/L Anion Gap (12-20) BUN (9-16) mg/dL Creatinine (0.5-1.4) mg/dL Estim Creat Clear Calc Estimated GFR Random Glucose (60-115) mg/dL Lactic Acid 1.5 (0.5-2.0) mmol/L Calcium (8.4-10.2) mg/dL Total Bilirubin (0.0-1.0) mg/dL AST (5-31) U/L ALT (0-31) U/L Alkaline Phosphatase (39-117) U/L Troponin I High Sens 4.9 (<3.5-17.0) ng/L B-Natriuretic Peptide 22 (<100) pg/mL Total Protein (6.5-8.0) g/dL Albumin (3.5-5.0) g/dL Coronavirus (PCR) NEGATIVE (Negative) Influenza Type A (PCR) NEGATIVE (Negative) Influenza Type B (PCR) NEGATIVE (Negative) RSV RNA Qual (PCR) NEGATIVE (Negative) ABG Data Attestation: I personally reviewed and interpreted this ABG as follows: ECG Data Interpretation: Sinus tachycardia Heart rate 104 Nonspecific T-wave abnormality in the anterior lead Compared to previous increased rate Discharge Plan Discharge Clinical Impression: COPD exacerbation Prescriptions: No Action prednisone 20 mg tablet 40 mg PO DAILY Qty: 10 RF: 0 azithromycin 500 mg tablet 500 mg PO DAILY 5 Days Qty: 5 RF: 0 theophylline 300 mg Tablet Extended Release 12 Hr 300 mg PO BID Qty: 60 RF: 0 nystatin 100,000 unit/mL Suspension 500,000 unit PO QID Qty: 10 RF: 0 omeprazole 20 mg Capsule,Delayed Release(Dr/Ec) 20 mg PO DAILY@0630 Qty: 30 RF: 0 prednisone 20 mg tablet 40 mg PO DAILY 5 Days Qty: 10 RF: 0 doxycycline hyclate 100 mg capsule 100 mg PO BID 7 Days Qty: 14 RF: 0 multivitamin Tablet 1 tab PO DAILY RF: 0 clotrimazole 10 mg Jesus 10 mg MUCOUS MEMBRANE 5XD RF: 0 clonidine HCl 0.1 mg Tablet 0.1 mg PO BEDTIME RF: 0 gabapentin 600 mg Tablet 600 mg PO TID RF: 0 atorvastatin 20 mg Tablet 20 mg PO BEDTIME RF: 0 metformin 850 mg Tablet 850 mg PO BID RF: 0 folic acid 1 mg Tablet 1 mg PO DAILY RF: 0 montelukast 10 mg Tablet 10 mg PO BEDTIME RF: 0 paroxetine HCl 40 mg Tablet 40 mg PO DAILY RF: 0 loratadine 10 mg Tablet 10 mg DAILY RF: 0 valsartan 40 mg Tablet 40 mg PO BID RF: 0 tiotropium bromide 18 mcg Capsule, W/Inhalation Device 1 cap INHALATION DAILY RF: 0 duloxetine 30 mg Capsule,Delayed Release(Dr/Ec) 30 mg PO DAILY RF: 0 albuterol sulfate 0.63 mg/3 mL Solution For Nebulization 0.63 mg INHALATION QID PRN (Reason: Shortness Of Breath) RF: 0 quetiapine 200 mg Tablet 200 mg PO BEDTIME RF: 0 amlodipine 2.5 mg Tablet 2.5 mg PO DAILY RF: 0 doxepin 100 mg Capsule 200 mg PO DAILY RF: 0 apixaban 5 mg Tablet 5 mg BID RF: 0 prednisone 10 mg tablet 10 mg PO DAILY Qty: 4 RF: 0
[2020-05-19 15:03] LABS: D Dimer < 200 NG/ML
[2020-05-19 15:04] LABS: Lactic Acid 1.5 mmol/L (0.5-2.0)
[2020-05-19 15:09] LABS: Alanine Aminotransferase 16 U/L (0-31); Albumin Level 3.7 g/dL (3.5-5.0); Alkaline Phosphatase 75 U/L (39-117); Anion Gap 14 (12-20); Aspartate Amino Transferase 13 U/L (5-31); Bilirubin Total 0.4 mg/dL (0.0-1.0); Blood Urea Nitrogen 5 mg/dL (9-16); Calcium 8.6 mg/dL (8.4-10.2); Carbon Dioxide 26 mmol/L (22-29); Chloride 104 mmol/L (96-108); Creatinine Clr Calc Pharmacy 91.2; Estimated Glomerular Filt Rate > 60; Glucose Random 99 mg/dL (60-115); Potassium 4.2 mmol/l (3.3-5.1); Sodium 140 mmol/L (135-145); Total Protein 5.9 g/dL (6.5-8.0)
[2020-05-19 15:16] LABS: B Type Natriuretic Peptide 22 pg/mL (<100); Troponin-I High Sensitivity 4.9 ng/L (<3.5-17.0)
[2020-05-19 15:17] VITALS: BP 138/89; PULSE 112; RESP 44; TEMP 36.8; O2SAT 98
[2020-05-19 15:23] LABS: Influenza A PCR NEGATIVE (Negative); Influenza B PCR NEGATIVE (Negative); Resp Syncy Virus RNA Qual PCR NEGATIVE (Negative); SARS COV2 PCR INHOUSE NEGATIVE (Negative)
[2020-05-19] MEDS: Acetaminophen 325 MG TABLET 975 MG PO (15:49)
[2020-05-19] MEDS: Albuterol Sulfate 90 MCG 8 GM INHALER 4 PUFF INHALE (15:51)
[2020-05-19] MEDS: levoFLOXacin/D5W 750 MG/150 ML PIGGYBACK 100 MG IV (15:53)
--- NOTE | 2020-05-19 18:28 | HP_ITS ---
DATE OF SERVICE: 05/19/2020 CHIEF COMPLAINT: Headache associated with generalized weakness, dizziness, and shortness of breath. HISTORY OF PRESENT ILLNESS: This is a 54-year-old female patient with multiple recent hospitalization in March of 2020 due to symptoms of shortness of breath, fall, orthostatic hypotension. The patient is a resident of [facility] with past medical history significant for COPD, on home O2 at 2 L at night, history of type 2 diabetes mellitus, hypertension, hyperlipidemia, renal infarction, on Eliquis, presented to [facility] since she developed migraine headache 5 days ago. She has been using her regular medications including aspirin. She became weak and yesterday was unable to get out of bed. She is also complaining of shortness of breath associated with cough productive of yellowish phlegm. She denies fever, but feels chilly and not well today and she has been mostly in wheelchair for last 1 month. Today, she wanted to get up and walk for her dinner. When she stood up to ambulate, she became short of breath, weak, and therefore was brought into [facility]. In the ER, the patient underwent extensive workup including a chest x-ray that showed no acute infiltrate. A CT head showed no acute abnormality. A COVID test came back negative. The patient was treated in the ER with IV fluid due to borderline low blood pressure on arrival of 108/71. She also received 1 dose of IV Solu-Medrol and updraft treatment. She was given a trial of ambulation in the emergency room, but was noted to have drop in oxygenation to low 80s. Therefore, it was decided to admit the patient for further treatment and evaluation for acute on chronic hypoxic respiratory failure, COPD exacerbation, and headache. Of note, the patient was recently discharged from [facility] after diagnosis of orthostatic hypotension. PAST MEDICAL HISTORY: Significant for: 1. COPD/chronic respiratory failure, on 2 L of home oxygen at night only. 2. History of alcohol dependence. 3. History of depression. 4. History of hypertension. 5. History of dyslipidemia. 6. History of peripheral neuropathy. 7. History of renal infarction, on anticoagulation with Eliquis. 8. History of type 2 diabetes mellitus. 9. History of COVID positivity in September of 2019. 10. History of fatty liver disease. 11. History of diabetes mellitus. PAST SURGICAL HISTORY: None. FAMILY HISTORY: Father has diabetes and coronary artery disease. SOCIAL HISTORY: The patient continued to reside at [facility]. She continued to smoke a few cigarettes a day. Denies alcohol or illicit drug use. REVIEW OF SYSTEMS: CONTROLS ENGINEER: The patient is complaining of headache, which she described as generalized headache with no associated visual symptoms. She also complained of dizziness. CVA: She denies any chest pain or palpitation. GI: She denies any nausea, vomiting, diarrhea. SKIN: She denies any rashes. Rest of all other systems are reviewed and are negative. ALLERGIES: THE PATIENT HAS NO KNOWN DRUG ALLERGIES. MEDICATIONS: As reported from her last discharge on April 21 are omeprazole 20 mg daily, theophylline 300 mg b.i.d., multivitamin 1 p.o. daily, clonidine 0.1 mg at bedtime, gabapentin 600 mg t.i.d., Lipitor 20 mg at bedtime, metformin 850 b.i.d., folic acid 1 mg daily, montelukast 10 mg at bedtime, paroxetine 40 mg daily, loratadine 10 mg daily, valsartan 40 mg b.i.d., Spiriva 1 capsule daily, Duloxetine 30 mg daily, albuterol inhaler q.i.d. as needed, Seroquel 200 mg at bedtime, amlodipine 2.5 mg daily, doxepin 200 mg daily, Eliquis 5 mg b.i.d. PHYSICAL EXAMINATION: GENERAL: The patient is sitting on bed, pale-appearing, does not appear to be short of breath. HEENT: Pupils equal, round, and reactive to light and accommodation. Extraocular muscles intact. NECK: Supple. HEART: Regular rate rhythm. LUNGS: She has bilateral rhonchi with good air movement. ABDOMEN: Soft, nontender. EXTREMITIES: Without clubbing, cyanosis, or edema. NEURO: Nonfocal. The patient is alert, oriented x3. Speech is clear. SKIN: Pale with no acute rashes. LABORATORY DATA: [place] PCR negative. Sodium 140, potassium 4.2, BUN 5, and creatinine of 0.7. Random blood sugar 99. CBC showed a WBC count of 10.8, hematocrit 32, platelet count of 483. WBC 10.8. IMAGING STUDIES: As mentioned, chest x-ray showed no acute infiltrate. Head CT showed no acute abnormality. Two sets of blood cultures have been obtained. ASSESSMENT AND PLAN: A 54-year-old female patient presented with multiple medical issues including migraine headache, generalized weakness, dizziness, shortness of breath and cough productive of yellow phlegm. The patient is being admitted to [facility] with a diagnosis of sepsis related to chronic obstructive pulmonary disease exacerbation. 1. Sepsis related to tachycardia, tachypnea due to chronic obstructive pulmonary disease exacerbation. The patient will be admitted to intermediate care unit, will be treated with IV Solu-Medrol, DuoNeb as scheduled and as needed. We will use azithromycin for chronic obstructive pulmonary disease. We will follow blood cultures x2. 2. History of hypertension. The patient has been noted to have low blood pressure on arrival to the emergency room and recently was discharged with orthostatic hypotension. The patient is on multiple antihypertensive medications including Norvasc, Zestril, and clonidine. We will discontinue above medication and will resume 1 medication at a time. We will follow orthostatic blood pressures. 3. History of renal infarction. The patient will be continued on Eliquis. 4. Acute on chronic respiratory failure. The patient was noted to have hypoxemia with exertion, likely due to deconditioning since the patient is wheelchair bound for the last 1 month. We will recommend patient to have oxygen with activity. Also, patient will need home O2 eval prior to discharge. We will also need a PT evaluation. 5. Diabetes mellitus. The patient is on metformin. We will place patient on diabetic diet and insulin sliding scale. 6. History of depression and anxiety. The patient is on multiple psychiatric medications that needs to be reassessed by her PCP. We will continue current medication at the present time. 7. Deep vein thrombosis prophylaxis. The patient is on Eliquis. 8. Code status. The patient is a full code. MD ALBERTINA Argueta/LIZETH / [id number]
[2020-05-19 19:30] VITALS: BP 121/72; PULSE 117; RESP 18; TEMP 36.9; O2SAT 98
[2020-05-19] MEDS: Albuterol/Iprat 2.5/0.5MG 3 ML AMPUL.NEB INHALE (19:34)
[2020-05-19 19:36] VITALS: PULSE 117; O2SAT 98
[2020-05-19 20:00] VITALS: BP 121/72; PULSE 110; RESP 20; TEMP 36.9; O2SAT 98
[2020-05-19 20:24] LABS: Glucose, Whole Blood 275 mg/dL (60-115)
[2020-05-19] MEDS: QUEtiapine Fumarate 200 MG TABLET PO (20:49)
[2020-05-19] MEDS: metFORMIN HCl 850 MG TABLET PO (20:49)
[2020-05-19] MEDS: Montelukast Sodium 10 MG TABLET PO (20:49)
[2020-05-19] MEDS: Gabapentin 600 MG TABLET PO (20:49)
[2020-05-19] MEDS: Atorvastatin Calcium 20 MG TABLET PO (20:49)
[2020-05-19] MEDS: Insulin Lispro 100 UNIT/ML 3 ML VIAL SUBCUT (20:49)
[2020-05-19] MEDS: Apixaban 5 MG TABLET PO (20:49)
[2020-05-19 23:23] LABS: Glucose Urine UA 500 MG/DL (NEG); Leukocyte Esterase Urine NEG (NEG); Nitrite Urine NEG (NEG); PH 5.5 (5.0-8.0); Specific Gravity - Urine >= 1.030 (1.005-1.025); Urine Blood NEG (NEG); Urine Ketones 5 MG/DL (NEG); Urine Protein NEG (NEG-TRACE)
[2020-05-19 23:25] LABS: Appearance Urine CLEAR; Color Urine YELLOW
[2020-05-19 23:34] LABS: Bacteria Urine TRACE /LPF; RBC Urine 0 /HPF (0); Squamous Epithelial Cell Urine 2+ /LPF; WBC Urine 0-2 /HPF (0-4)
[2020-05-20] VITALS (10 sets, daily range): BP systolic 117–146; BP diastolic 72–87; PULSE 83–120; RESP 16–20; TEMP 36.1–36.8; O2SAT 92–100
--- NOTE | 2020-05-20 00:12 | PC.NURSE ---
pt arrived to unit approx 1930. 98% on 3L NC AND C/O SOB. lungs diminished with expiratory wheezing throughout. respiratory called and breathing treatment administered.
[2020-05-20] MEDS: 0.9 % Sodium Chloride Flush 3 ML SYRINGE IVFLUSH ×4 (00:50→20:51)
[2020-05-20] MEDS: Acetaminophen 325 MG TABLET 650 MG PO ×3 (04:00→18:40)
[2020-05-20] MEDS: Albuterol/Iprat 2.5/0.5MG 3 ML AMPUL.NEB INHALE ×3 (07:33→20:00)
[2020-05-20 08:05] LABS: Glucose, Whole Blood 109 mg/dL (60-115)
[2020-05-20] MEDS: Doxepin HCl 25 MG CAPSULE 200 MG PO ×2 (08:21→21:55)
[2020-05-20] MEDS: Gabapentin 600 MG TABLET PO ×3 (08:22→20:50)
[2020-05-20] MEDS: metFORMIN HCl 850 MG TABLET PO ×2 (08:22→20:50)
[2020-05-20] MEDS: Ferrous Sulfate 324 MG TABLET.DR PO (08:22)
[2020-05-20] MEDS: PARoxetine HCL 40 MG TABLET PO (08:22)
[2020-05-20] MEDS: Folic Acid 1 MG TABLET PO (08:22)
[2020-05-20] MEDS: Apixaban 5 MG TABLET PO ×2 (08:22→20:50)
[2020-05-20] MEDS: DULoxetine HCl 30 MG CAPSULE.DR PO (08:22)
[2020-05-20] MEDS: Multivitamin TABLET 1 TAB PO (08:22)
[2020-05-20] MEDS: Loratadine 10 MG TABLET PO (08:22)
[2020-05-20 09:22] LABS: Iron 14 mcg/dL (30-160); Percent Iron Saturation 4 % (15-50); Total Iron Binding Capacity 340 mcg/dL (228-428); Unsaturated Iron Binding 326 ug/dL
[2020-05-20 09:43] LABS: Ferritin 9 ng/mL (10-250)
--- NOTE | 2020-05-20 09:44 | MHC.CM.PN ---
Pt resides in a sober living facility run by [facility]. Pt is independent with self care, has home O2 provided by [employer], a nebulizer, and recently began using a wheel chair. Pts PCP and HCP are on file. Pt medically cleared to return home today, CM will arrange transportation
[2020-05-20] MEDS: Azithromycin 500 MG in 0.9 % Sodium Chloride 250 ML 125 MG IV (10:29)
[2020-05-20] MEDS: Ketorolac Tromethamine 30 MG/ML VIAL IVPUSH (11:24)
[2020-05-20] MEDS: ondansetron HCL 4 MG/2 ML VIAL IVPUSH (11:30)
[2020-05-20 11:34] LABS: Glucose, Whole Blood 179 mg/dL (60-115)
[2020-05-20] MEDS: Insulin Lispro 100 UNIT/ML 3 ML VIAL SUBCUT ×2 (11:54→17:13)
[2020-05-20] MEDS: Sodium Chloride 0.65 % Nasal 44 ML SPRBTL 1 SPRAY NOSTRIL-B ×8 (12:24→21:55)
[2020-05-20] MEDS: Fluticasone Propionate Nasal 16 GM SPRAY 1 SPRAY NOSTRIL-B ×2 (12:24→21:55)
[2020-05-20] MEDS: Famotidine 20 MG TABLET PO ×2 (13:32→20:50)
--- NOTE | 2020-05-20 15:34 | P.PNIM_ITS ---
Subjective Subjective Date of Service: 05/20/20 Interval History: the patient was seen and evaluated this morning Laying in bed, feels tired, complaining of headache which is mainly frontal Denies any fever, chills but reports coughing and shortness of breath No reported other overnight events. Systemic review: has headache, no fever, chills or weakness No chest pain, palpitation mild, worse than baseline shortness of breath or coughing No abdominal pain, nausea or vomiting No urinary symptoms No any rash or wounds Physical Exam Vital Signs: Vital Signs: Last Vital Signs Temp 97.4 F 05/20/20 15:08 Pulse 112 H 05/20/20 15:08 Resp 16 05/20/20 15:08 BP 131/84 05/20/20 15:08 Pulse Ox 93 05/20/20 15:08 Body Mass Index 29.9 Constitutional : Alert, oriented, not in distress Frontal right sinus tenderness Neck : Normal inspection, Supple Cardiovascular : RRR, S1 S2, no lower extremity edema Respiratory : decrease bilateral air entry, no crackles, scattered fine wheezes or rhonchi Gastrointestinal: soft, lax, Normal bowel sounds, Non tender Skin : Warm/Dry, No rash Neurological : Alert & oriented x3, No focal deficit Objective Data Current Medications Generic Name Dose Route Start Last Admin Trade Name Freq PRN Reason Stop Dose Admin Acetaminophen 650 mg 05/19/20 17:48 05/20/20 10:38 Acetaminophen 325 Mg Tablet PO 650 mg Q6H PRN Administration Pain, Mild (Pain Scale 1-3) Albuterol Sulfate 0.63 mg 05/19/20 18:37 Albuterol Sulfate (0.042%) 1.25 Mg/3 Ml Vial.Neb INHALE QID PRN Shortness Of Breath Albuterol/Ipratropium 3 ml 05/19/20 20:00 05/20/20 13:17 Albuterol/Iprat 2.5/0.5mg 3 Ml Ampul.Neb INHALE 3 ml RQ6H WHILE AWAKE CARLOS Administration Apixaban 5 mg 05/19/20 21:00 05/20/20 08:22 Apixaban 5 Mg Tablet PO 5 mg BID CARLOS Administration Atorvastatin Calcium 20 mg 05/19/20 21:00 05/19/20 20:49 Atorvastatin Calcium 20 Mg Tablet PO 20 mg BEDTIME CARLOS Administration Doxepin HCl 200 mg 05/20/20 09:00 05/20/20 08:21 Doxepin Hcl 25 Mg Capsule PO 200 mg DAILY CARLOS Administration Duloxetine HCl 30 mg 05/20/20 09:00 05/20/20 08:22 Duloxetine Hcl 30 Mg Capsule. PO 30 mg DAILY CARLOS Administration Famotidine 20 mg 05/20/20 12:30 05/20/20 13:32 Famotidine 20 Mg Tablet PO 20 mg BID [facility] Administration Ferrous Sulfate 324 mg 05/20/20 09:00 05/20/20 08:22 Ferrous Sulfate 324 Mg Tablet. PO 324 mg DAILY CARLOS Administration Fluticasone Propionate 1 spray 05/20/20 11:05 05/20/20 12:24 Fluticasone Propionate Nasal 16 Gm Export NOSTRIL-B 1 spray BID [facility] Administration Folic Acid 1 mg 05/20/20 09:00 05/20/20 08:22 Folic Acid 1 Mg Tablet PO 1 mg DAILY [facility] Administration Gabapentin 600 mg 05/19/20 21:00 05/20/20 13:32 Gabapentin 600 Mg Tablet PO 600 mg TID [facility] Administration Guaifenesin/Dextromethorphan 10 ml 05/19/20 17:25 Guaifenesin Dm 200/20/10 Ml 10 Ml Syrup PO Q6H PRN cough Azithromycin 500 mg/ Sodium 250 mls @ 125 mls/hr 05/20/20 10:00 05/20/20 12:31 Chloride IV Infused Q24H [facility] Infusion Ibuprofen 400 mg 05/20/20 17:00 Ibuprofen 400 Mg Tablet PO TIDWM [facility] Insulin Human Lispro 0 unit 05/19/20 21:00 05/20/20 11:54 Insulin Lispro 100 Unit/Ml 3 Ml Vial SUBCUT 2 unit QIDACHS [facility] Administration Protocol Loratadine 10 mg 05/20/20 09:00 05/20/20 08:22 Loratadine 10 Mg Tablet PO 10 mg DAILY [facility] Administration Metformin HCl 850 mg 05/19/20 21:00 05/20/20 08:22 Metformin Hcl 850 Mg Tablet PO 850 mg BID [facility] Administration Methylprednisolone Sodium Succinate 40 mg 05/21/20 09:00 Methylprednisolone Sod Succ/Pf 40 Mg/Ml Vial IVPUSH Q24H [facility] Montelukast Sodium 10 mg 05/19/20 21:00 05/19/20 20:49 Montelukast Sodium 10 Mg Tablet PO 10 mg BEDTIME CARLOS Administration Multivitamins/Vitamin C 1 tab 05/20/20 09:00 05/20/20 08:22 Multivitamin Tablet PO 1 tab DAILY CARLOS Administration Ondansetron HCl 4 mg 05/19/20 17:48 05/20/20 11:30 Ondansetron Hcl 4 Mg/2 Ml Vial IVPUSH 4 mg Q8H PRN Administration Nausea and Vomiting Paroxetine HCl 40 mg 05/20/20 09:00 05/20/20 08:22 Paroxetine Hcl 40 Mg Tablet PO 40 mg DAILY CARLOS Administration Pharmacy Consult 1 each 05/19/20 17:21 Consult Rx Perform Med Rec MISCELLANE ONCE PRN Consult order Quetiapine Fumarate 200 mg 05/19/20 21:00 05/19/20 20:49 Quetiapine Fumarate 200 Mg Tablet PO 200 mg BEDTIME CARLOS Administration Sodium Chloride 3 ml 05/20/20 00:00 05/20/20 08:26 0.9 % Sodium Chloride Flush 3 Ml Syringe IVFLUSH 3 ml QSHIFT CARLOS Administration Sodium Chloride 1 spray 05/20/20 11:00 05/20/20 15:30 Sodium Chloride 0.65 % Nasal 44 Ml Sprbtl NOSTRIL-B Not Given Q1H CARLOS Labs CBC & Chem 7: 05/19/20 14:39 05/19/20 14:39 Assessment and Plan (1) COPD exacerbation: Status: Acute (2) Bronchitis: Status: Acute (3) Asthma with exacerbation: Status: Acute (4) Sinus tachycardia: Status: Acute (5) Sinusitis: Status: Acute Assessment and Plan: A 54-year-old female patient presented with multiple medical issues including migraine headache, generalized weakness, dizziness, shortness of breath and cough productive of yellow phlegm. The patient is being admitted to [facility] with a diagnosis of sepsis related to chronic obstructive pulmonary disease exacerbation. acute On chronic hypoxemic respiratory failure, controlled COPD exacerbation Improving Continue IV Solu-Medrol Continue DuoNeb ATC and p.r.n. O2 supplement, Wean down to home O2 level To changes azithromycin to Levaquin pending blood cultures x2. Frontal sinusitis to treat with nasal saline and Flonase To use Levofloxacin Hypertension Was hypotensive at time of presentation The patient is on multiple antihypertensive Was orthostatic hypotensive at admission To restart blood pressure medications once at a time History of renal infarction The patient will be continued on Eliquis. Physical deconditioning likely due to deconditioning since the patient is wheelchair bound for the last 1 month. recommend patient to have oxygen with activity PT evaluation. Diabetes mellitus Hold metformin diabetic diet and insulin sliding scale. History of depression and anxiety. continue home medications DVT PPX Eliquis.
[2020-05-20 16:13] LABS: Glucose, Whole Blood 214 mg/dL (60-115)
[2020-05-20] MEDS: Ibuprofen 200 MG TABLET PO ×2 (17:12→18:41)
[2020-05-20 20:38] LABS: Glucose, Whole Blood 142 mg/dL (60-115)
[2020-05-20] MEDS: Atorvastatin Calcium 20 MG TABLET PO (20:50)
[2020-05-20] MEDS: Montelukast Sodium 10 MG TABLET PO (20:50)
[2020-05-20] MEDS: QUEtiapine Fumarate 200 MG TABLET PO (20:50)
--- NOTE | 2020-05-20 21:47 | PM.IMHP ---
History of Present Illness Date of Service: 05/20/20 Chief Complaint: lethargy, altered mentation, hypoxic PMFSH Medical History Acute and chronic respiratory failure ([id number]) Acute exacerbation of COPD with asthma Anxiety Bronchitis COPD (chronic obstructive pulmonary disease) COPD (chronic obstructive pulmonary disease) Diabetes H/O blood clots History of DVT (deep vein thrombosis) Hyperlipidemia Hypertension Hypotension Renal infarct Sinus tachycardia Supplemental oxygen dependent Family History Father Diabetes mellitus Myocardial infarction Social History Household Members: Other Housing: Other Alcohol intake: never Smoking Status: Current some day smoker Tobacco Type: Cigarette Cigarettes Per Day: 2 Second Hand Smoke Exposure: Yes Use of substances other than those prescribed or required for medical reasons: No Currently Displaying Signs/Symptoms of Drug Intoxication Withdrawal: No Advance Directives: No Advance Directives Information Provided: Yes Do you have thoughts of harming others: None Do you have a plan to hurt others: No Plan service: No Current occupational status: unemployed and disabled Meds Allergies Allergy/AdvReac Type Severity Reaction Status Date / Time No Known Allergies Allergy Verified 04/14/20 10:25 Home Medications Medication Instructions Recorded Confirmed Type albuterol sulfate 0.63 mg INHALATION QID PRN 03/25/20 05/19/20 History amlodipine 2.5 mg PO DAILY 03/25/20 05/19/20 History apixaban 5 mg BID 03/25/20 05/19/20 History atorvastatin 20 mg PO BEDTIME 03/25/20 05/19/20 History clonidine HCl 0.1 mg PO BEDTIME 03/25/20 05/19/20 History doxepin 200 mg PO DAILY 03/25/20 05/19/20 History duloxetine 30 mg PO DAILY 03/25/20 05/19/20 History folic acid 1 mg PO DAILY 03/25/20 05/19/20 History gabapentin 600 mg PO TID 03/25/20 05/19/20 History loratadine 10 mg DAILY 03/25/20 05/19/20 History metformin 850 mg PO BID 03/25/20 05/19/20 History montelukast 10 mg PO BEDTIME 03/25/20 05/19/20 History multivitamin 1 tab PO DAILY 03/25/20 05/19/20 History paroxetine HCl 40 mg PO DAILY 03/25/20 05/19/20 History quetiapine 200 mg PO BEDTIME 03/25/20 05/19/20 History valsartan 40 mg PO BID 03/25/20 05/19/20 History Physical Exam Vital Signs and Narrative: Vital Signs: Last Vital Signs Temp 97 F 05/20/20 19:04 Pulse 115 H 05/20/20 19:04 Resp 18 05/20/20 19:04 BP 146/79 H 05/20/20 19:04 Pulse Ox 97 05/20/20 19:04 Body Mass Index 29.9 Results Labs CBC and Chem 7: 05/19/20 14:39 05/19/20 14:39 Labs: Laboratory Results - last 24 hr 05/19/20 05/19/20 05/20/20 14:39 23:03 07:37 POC Glucose 109 Iron 14 L TIBC 340 % Saturation 4 L Unsat Iron Binding 326 Ferritin 9 L Urine Color YELLOW Urine Appearance CLEAR Urine pH 5.5 Ur Specific [place] >= 1.030 H Urine Protein NEG Urine Glucose (UA) 500 H Urine Ketones 5 Urine Blood NEG Urine Nitrite NEG Ur Leukocyte Esterase NEG Urine RBC 0 Urine WBC 0-2 Ur Squamous Epith Cells 2+ Urine Bacteria TRACE Urine Yeast TRACE 05/20/20 05/20/20 05/20/20 11:08 16:05 20:31 POC Glucose 179 H 214 H 142 H Iron TIBC % Saturation Unsat Iron Binding Ferritin Urine Color Urine Appearance Urine pH Ur Specific [place] Urine Protein Urine Glucose (UA) Urine Ketones Urine Blood Urine Nitrite Ur Leukocyte Esterase Urine RBC Urine WBC Ur Squamous Epith Cells Urine Bacteria Urine Yeast
[2020-05-21] MEDS: Sodium Chloride 0.65 % Nasal 44 ML SPRBTL 1 SPRAY NOSTRIL-B ×5 (03:39→12:14)
[2020-05-21 03:42] VITALS: BP 147/98; PULSE 116; RESP 18; TEMP 36.4; O2SAT 97
[2020-05-21] MEDS: Acetaminophen 325 MG TABLET 650 MG PO (05:24)
[2020-05-21 07:21] VITALS: BP 137/89; PULSE 113; RESP 19; TEMP 36.4; O2SAT 99
[2020-05-21 07:26] LABS: Anion Gap 12 (12-20); Blood Urea Nitrogen 12 mg/dL (9-16); Calcium 8.4 mg/dL (8.4-10.2); Carbon Dioxide 29 mmol/L (22-29); Chloride 105 mmol/L (96-108); Creatinine Clr Calc Pharmacy 80.8; Estimated Glomerular Filt Rate > 60; Glucose Random 95 mg/dL (60-115); Potassium 4.6 mmol/l (3.3-5.1); Sodium 141 mmol/L (135-145)
[2020-05-21] MEDS: Albuterol/Iprat 2.5/0.5MG 3 ML AMPUL.NEB INHALE (07:40)
[2020-05-21 08:10] LABS: Glucose, Whole Blood 81 mg/dL (60-115)
[2020-05-21] MEDS: Apixaban 5 MG TABLET PO (09:07)
[2020-05-21] MEDS: 0.9 % Sodium Chloride Flush 3 ML SYRINGE IVFLUSH (09:07)
[2020-05-21] MEDS: Gabapentin 600 MG TABLET PO (09:07)
[2020-05-21] MEDS: DULoxetine HCl 30 MG CAPSULE.DR PO (09:07)
[2020-05-21] MEDS: Folic Acid 1 MG TABLET PO (09:08)
[2020-05-21] MEDS: Ferrous Sulfate 324 MG TABLET.DR PO (09:08)
[2020-05-21] MEDS: PARoxetine HCL 40 MG TABLET PO (09:08)
[2020-05-21] MEDS: Ibuprofen 400 MG TABLET PO ×2 (09:08→11:10)
[2020-05-21] MEDS: Loratadine 10 MG TABLET PO (09:08)
[2020-05-21] MEDS: Multivitamin TABLET 1 TAB PO (09:08)
[2020-05-21] MEDS: Famotidine 20 MG TABLET PO (09:08)
[2020-05-21] MEDS: metFORMIN HCl 850 MG TABLET PO (09:08)
[2020-05-21] MEDS: Fluticasone Propionate Nasal 16 GM SPRAY 1 SPRAY NOSTRIL-B (09:15)
--- NOTE | 2020-05-21 10:56 | MHC.CM.PN ---
Pt will DC home today and needs home PT. Referrals sent to VNAs in her area, currently awaiting responses
[2020-05-21] MEDS: Ketorolac Tromethamine 15 MG/ML VIAL IVPUSH (11:07)
[2020-05-21] MEDS: levoFLOXacin 500 MG TABLET PO (11:07)
[2020-05-21 11:22] VITALS: BP 131/72; PULSE 121; RESP 19; TEMP 36.9; O2SAT 97
[2020-05-21 11:56] LABS: Glucose, Whole Blood 161 mg/dL (60-115)
[2020-05-21] MEDS: Insulin Lispro 100 UNIT/ML 3 ML VIAL SUBCUT (12:11)
--- NOTE | 2020-05-21 12:19 | MHC.CM.PN ---
PT BEING DISCHARGED HOME TODAY. CM STILL SEEKING A VNA THAT CAN PROVIDE HOME PT MOST ARE BOOKED AND UNABLE TO SEE PT FOR MORE THAN A WEEK. PT WILL BE TRANSPORTED VIA TAX[facility] SHE IS NOT APPROPRIATE FOR CHAIR VAN DUE TO LEVEL OF FUNCTIONING AND DOES NOT LIVE ON A BUS ROUTE. PT MAY LEAVE PRIOR TO VNA ARRANGEMENT, CM WILL NOTIFY VIA T/C IF THAT OCCURS. [facility] VOUCHER FOR [facility] PROVIDED
--- NOTE | 2020-05-21 12:49 | MHC.CM.PN ---
pt will DC with [facility] for home pt. Pt aware
--- NOTE | 2020-05-21 13:06 | PM.DS ---
DS: Providers Provider Date of admission: 05/19/20 16:51 Primary care physician: BIJAL Fofana DS: Diagnosis Discharge Diagnosis (1) Acute and chronic respiratory failure ([id number]): Status: Inactive (2) COPD exacerbation: Status: Acute (3) Bronchitis: Status: Acute (4) Asthma with exacerbation: Status: Acute (5) Sinus tachycardia: Status: Acute (6) Sinusitis: Status: Acute DS: Medications Discharge Medications Home Medications: Home Medications Medication Instructions Recorded Confirmed albuterol sulfate 0.63 mg INHALATION QID PRN 03/25/20 05/19/20 amlodipine 2.5 mg PO DAILY 03/25/20 05/19/20 apixaban 5 mg BID 03/25/20 05/19/20 atorvastatin 20 mg PO BEDTIME 03/25/20 05/19/20 clonidine HCl 0.1 mg PO BEDTIME 03/25/20 05/19/20 doxepin 200 mg PO DAILY 03/25/20 05/19/20 duloxetine 30 mg PO DAILY 03/25/20 05/19/20 folic acid 1 mg PO DAILY 03/25/20 05/19/20 gabapentin 600 mg PO TID 03/25/20 05/19/20 loratadine 10 mg DAILY 03/25/20 05/19/20 metformin 850 mg PO BID 03/25/20 05/19/20 montelukast 10 mg PO BEDTIME 03/25/20 05/19/20 multivitamin 1 tab PO DAILY 03/25/20 05/19/20 paroxetine HCl 40 mg PO DAILY 03/25/20 05/19/20 quetiapine 200 mg PO BEDTIME 03/25/20 05/19/20 valsartan 40 mg PO BID 03/25/20 05/19/20 Previous Rx's Medication Instructions Recorded nystatin 500,000 unit PO QID #10 ml 04/21/20 famotidine 20 mg PO DAILY #30 tab 05/21/20 ferrous sulfate 324 mg PO DAILY #30 tab 05/21/20 fluticasone propionate 1 spray INTRANASAL BID 7 Days ml 05/21/20 levofloxacin 500 mg PO Q24H #4 tab 05/21/20 prednisone 40 mg PO DAILY #6 tab 05/21/20 sodium chloride [Deep Sea Nasal] 1 spray INTRANASAL Q1H 7 Days ml 05/21/20 DS: Summary Hospital Course Hospital Course: admission note HPI This is a 54-year-old female patient with multiple recent hospitalization in March of 2020 due to symptoms of shortness of breath, fall, orthostatic hypotension. The patient is a resident of [facility] with past medical history significant for COPD, on home O2 at 2 L at night, history of type 2 diabetes mellitus, hypertension, hyperlipidemia, renal infarction, on Eliquis, presented to [facility] since she developed migraine headache 5 days ago. She has been using her regular medications including aspirin. She became weak and yesterday was unable to get out of bed. She is also complaining of shortness of breath associated with cough productive of yellowish phlegm. She denies fever, but feels chilly and not well today and she has been mostly in wheelchair for last 1 month. Today, she wanted to get up and walk for her dinner. When she stood up to ambulate, she became short of breath, weak, and therefore was brought into [facility]. In the ER, the patient underwent extensive workup including a chest x-ray that showed no acute infiltrate. A CT head showed no acute abnormality. A COVID test came back negative. The patient was treated in the ER with IV fluid due to borderline low blood pressure on arrival of 108/71. She also received 1 dose of IV Solu-Medrol and updraft treatment. She was given a trial of ambulation in the emergency room, but was noted to have drop in oxygenation to low 80s. Therefore, it was decided to admit the patient for further treatment and evaluation for acute on chronic hypoxic respiratory failure, COPD exacerbation, and headache. Of note, the patient was recently discharged from [facility] after diagnosis of orthostatic hypotension. Hospital course The patient was treated with oxygen supplement, bronchodilators and steroids with fair response as her oxygen requirement decreased to baseline and she was able to maintain O2 sat in 90s on room air. She was complaining mainly of headache which was frontal. On exam there was a frontal sinus tenderness. She was treated with nasal saline and Flonase along with levofloxacin as antibiotic. Ibuprofen and Toradol was use for pain as needed. She was noted to have low iron stores. No bleeding was noticed. She was started on iron pills and to follow-up with her PCP. Time Spent with Patient Time attestation: Total time spent providing and/or coordinating discharge services: Physical Exam Vital Signs: Vital Signs: Last Vital Signs Temp 98.5 F 05/21/20 11:22 Pulse 121 H 05/21/20 11:22 Resp 19 05/21/20 11:22 BP 131/72 05/21/20 11:22 Pulse Ox 97 05/21/20 11:22 Body Mass Index 29.9 Constitutional : Alert, oriented, not in distress Neck : Normal inspection, Supple Cardiovascular : RRR, S1 S2, no lower extremity edema Respiratory : Fair bilateral air entry blood generally decreased, no crackles, no wheezes or rhonchi Gastrointestinal: soft, lax, Normal bowel sounds, Non tender Skin : Warm/Dry, No rash Neurological : Alert & oriented x3, No focal deficit DS: Data Data Completed and Pending Completed studies during hospitalization [Text1]: Procedures Assistance with Respiratory Ventilation, Less than 24 Consecutive Hours, Continuous Positive Airway Pressure (04/14/20) Insertion of Infusion Device into Superior Vena Cava, Percutaneous Approach (04/19/20) Ultrasonography of Superior Vena Cava, Guidance (04/19/20) Labs on day of discharge: 05/19/20 14:[address] head/brain wo con Stat 0.9 % Sodium Chloride [Ns] 500 ml IV 1,000 mls/hr Morphine Sulfate 4 mg IVPUSH ONCE ONE ondansetron HCL [Zofran] 4 mg IVPUSH ONCE ONE 05/19/20 14:34 XR chest 1V Stat 05/19/20 14:39 B Type Natriuretic Peptide Stat Complete Blood Count Auto Diff Stat Comprehensive Met. Panel Stat D Dimer Stat Ferritin Stat IRON PROFILE Stat Lactic Acid Stat Partial Thromboplastin Time Stat Prothrombin Time INR Stat SARS-CoV2/FLU/RSV Stat Troponin-I High Sensitivity Stat 05/19/20 14:44 Albuterol Sulfate [Ventolin] 4 puff INHALE ONCE ONE methylPREDNISolone Sod Succ/PF [SOLU-MedroL] 125 mg IVPUSH ONCE ONE 05/19/20 14:50 Add Laboratory Test Stat 05/19/20 15:36 Acetaminophen [Tylenol] 975 mg PO ONCE ONE levoFLOXacin/D5W [Levaquin] 750 mg in 150 ml IV ONCE 05/19/20 16:43 Transfer Order Routine 05/19/20 17:48 Butalb/Acetamin/Caff 50/325/40 [Fioricet] 1 tab PO ONCE ONE 05/19/20 20:21 Glucose, Whole Blood Routine 05/19/20 23:03 UA ClnCatch+Micro w/rflx Cult Stat 05/20/20 07:37 Glucose, Whole Blood Routine 05/20/20 09:00 Doxepin HCl [Sinequan] 200 mg PO DAILY methylPREDNISolone Sod Succ/PF [SOLU-MedroL] 40 mg IVPUSH BID 05/20/20 09:11 Add Laboratory Test Routine 05/20/20 10:00 Azithromycin [Zithromax] 500 mg 0.9 % Sodium Chloride [Ns] 250 ml IV Q24H 05/20/20 10:18 Azithromycin [Zithromax] 500 mg IV .STK-MED ONE 05/20/20 10:59 Ketorolac Tromethamine [Toradol] 30 mg IVPUSH ONCE ONE 05/20/20 11:08 Glucose, Whole Blood Routine 05/20/20 16:05 Glucose, Whole Blood Routine 05/20/20 17:00 Ibuprofen [Motrin] 200 mg PO TIDWM Ibuprofen [Motrin] 400 mg PO TIDWM 05/20/20 17:32 Ibuprofen [Motrin] 200 mg PO ONCE ONE 05/20/20 20:31 Glucose, Whole Blood Routine 05/21/20 06:12 Basic Metabolic Panel DAILY@0600 05/21/20 07:23 Glucose, Whole Blood Routine 05/21/20 10:27 Ketorolac Tromethamine [Toradol] 15 mg IVPUSH ONCE ONE 05/21/20 11:24 Glucose, Whole Blood Routine Laboratory Last Values WBC 10.8 X10*3/uL (4.8-10.8) 05/19/20 14:39 RBC 4.12 X10*6/uL (4.20-5.50) L 05/19/20 14:39 Hgb 9.0 g/dl (12.0-16.0) L 05/19/20 14:39 Hct 32.1 % (37-47) L 05/19/20 14:39 MCV 77.9 fL (80-98) L 05/19/20 14:39 MCH 21.8 pg (27.0-33.0) L 05/19/20 14:39 MCHC 28.0 g/dl (31.0-35.0) L 05/19/20 14:39 RDW 20.1 % (11.0-16.0) H 05/19/20 14:39 Plt Count 483 X10*3/uL (160-400) H D 05/19/20 14:39 MPV 10.1 fL (9.4-12.3) 05/19/20 14:39 Immature Gran % (Auto) 0.6 % (0.0-0.4) H 05/19/20 14:39 Neut % (Auto) 63.4 % (45-73) 05/19/20 14:39 Lymph % (Auto) 24.0 % (20-40) 05/19/20 14:39 [place] % (Auto) 9.5 % (2-11) 05/19/20 14:39 Eos % (Auto) 1.6 % (0-4) 05/19/20 14:39 Baso % (Auto) 0.9 % (0-2) 05/19/20 14:39 Lymph # (Auto) 2.6 X10*3/uL (1.2-4.9) 05/19/20 14:39 [place] # (Auto) 1.0 X10*3/uL (0.1-1.2) 05/19/20 14:39 Eos # (Auto) 0.2 X10*3/uL (0.0-0.4) 05/19/20 14:39 Baso # (Auto) 0.1 X10*3/uL (0.0-0.2) 05/19/20 14:39 Abs Immat Gran (auto) 0.07 X10*3/uL (0.00-0.03) H 05/19/20 14:39 Absolute Neuts (auto) 6.9 X10*3/uL (2.0-8.3) 05/19/20 14:39 Absolute Nucleated RBC 0.000 X10*3/uL (0.0-0.012) 05/19/20 14:39 Nucleated RBC % (auto) 0.0 /100WBC (0.0-0.2) 05/19/20 14:39 PT 11.5 SEC (10.8-13.0) 05/19/20 14:39 INR 1.0 (0.9-1.1) 05/19/20 14:39 APTT 37.0 SEC (24.1-38.0) 05/19/20 14:39 D-Dimer < 200 NG/ML 05/19/20 14:39 Sodium 141 mmol/L (135-145) 05/21/20 06:12 Potassium 4.6 mmol/l (3.3-5.1) 05/21/20 06:12 Chloride 105 mmol/L (96-108) 05/21/20 06:12 Carbon Dioxide 29 mmol/L (22-29) 05/21/20 06:12 Anion Gap 12 (12-20) 05/21/20 06:12 BUN 12 mg/dL (9-16) D 05/21/20 06:12 Creatinine 0.79 mg/dL (0.5-1.4) 05/21/20 06:12 Estim Creat Clear Calc 80.8 05/21/20 06:12 Estimated GFR > 60 05/21/20 06:12 POC Glucose 161 mg/dL (60-115) H 05/21/20 11:24 Random Glucose 95 mg/dL (60-115) 05/21/20 06:12 Lactic Acid 1.5 mmol/L (0.5-2.0) 05/19/20 14:39 Calcium 8.4 mg/dL (8.4-10.2) 05/21/20 06:12 Iron 14 mcg/dL (30-160) L 05/19/20 14:39 TIBC 340 mcg/dL (228-428) 05/19/20 14:39 % Saturation 4 % (15-50) L 05/19/20 14:39 Unsat Iron Binding 326 ug/dL 05/19/20 14:39 Ferritin 9 ng/mL (10-250) L 05/19/20 14:39 Total Bilirubin 0.4 mg/dL (0.0-1.0) 05/19/20 14:39 AST 13 U/L (5-31) D 05/19/20 14:39 ALT 16 U/L (0-31) 05/19/20 14:39 Alkaline Phosphatase 75 U/L (39-117) 05/19/20 14:39 Troponin I High Sens 4.9 ng/L (<3.5-17.0) 05/19/20 14:39 B-Natriuretic Peptide 22 pg/mL (<100) 05/19/20 14:39 Total Protein 5.9 g/dL (6.5-8.0) L 05/19/20 14:39 Albumin 3.7 g/dL (3.5-5.0) 05/19/20 14:39 Urine Color YELLOW 05/19/20 23:03 Urine Appearance CLEAR 05/19/20 23:03 Urine pH 5.5 (5.0-8.0) 05/19/20 23:03 Ur Specific [place] >= 1.030 (1.005-1.025) H 05/19/20 23:03 Urine Protein NEG MG/DL (NEG-TRACE) 05/19/20 23:03 Urine Glucose (UA) 500 MG/DL (NEG) H 05/19/20 23:03 Urine Ketones 5 MG/DL (NEG) 05/19/20 23:03 Urine Blood NEG (NEG) 05/19/20 23:03 Urine Nitrite NEG (NEG) 05/19/20 23:03 Ur Leukocyte Esterase NEG (NEG) 05/19/20 23:03 Urine RBC 0 /HPF (0) 05/19/20 23:03 Urine WBC 0-2 /HPF (0-4) 05/19/20 23:03 Ur Squamous Epith Cells 2+ /LPF 05/19/20 23:03 Urine Bacteria TRACE /LPF 05/19/20 23:03 Urine Yeast TRACE /HPF 05/19/20 23:03 Coronavirus (PCR) NEGATIVE (Negative) 05/19/20 14:39 Influenza Type A (PCR) NEGATIVE (Negative) 05/19/20 14:39 Influenza Type B (PCR) NEGATIVE (Negative) 05/19/20 14:39 RSV RNA Qual (PCR) NEGATIVE (Negative) 05/19/20 14:39 Preliminary micro results at discharge 05/19/20 14:53 Blood Culture - Preliminary Blood - Venous No growth after 24 hours. 05/19/20 14:39 Blood Culture - Preliminary Blood - Venous No growth after 24 hours. Discharge Plan Discharge Patient Disposition: Home Health Service Referrals: Patti Duckworth PA [Primary Care Provider] - 1 Week (Please call and schedule a follow up appointment within 1 week.) Discharge Medications: New famotidine 20 mg Tablet 20 mg PO DAILY Qty: 30 RF: 0 levofloxacin 500 mg Tablet 500 mg PO Q24H Qty: 4 RF: 0 fluticasone propionate 50 mcg/actuation [place],Suspension 1 spray intranasal BID 7 Days RF: 0 sodium chloride [Deep Sea Nasal] 0.65 % Aerosol,[place] 1 spray intranasal Q1H 7 Days RF: 0 ferrous sulfate 324 mg (65 mg iron) Tablet,Delayed Release (Dr/Ec) 324 mg PO DAILY Qty: 30 RF: 0 prednisone 20 mg tablet 40 mg PO DAILY Qty: 6 RF: 0 Continued nystatin 100,000 unit/mL Suspension 500,000 unit PO QID Qty: 10 RF: 0 multivitamin Tablet 1 tab PO DAILY RF: 0 clonidine HCl 0.1 mg Tablet 0.1 mg PO BEDTIME RF: 0 gabapentin 600 mg Tablet 600 mg PO TID RF: 0 atorvastatin 20 mg Tablet 20 mg PO BEDTIME RF: 0 metformin 850 mg Tablet 850 mg PO BID RF: 0 folic acid 1 mg Tablet 1 mg PO DAILY RF: 0 montelukast 10 mg Tablet 10 mg PO BEDTIME RF: 0 paroxetine HCl 40 mg Tablet 40 mg PO DAILY RF: 0 loratadine 10 mg Tablet 10 mg DAILY RF: 0 valsartan 40 mg Tablet 40 mg PO BID RF: 0 duloxetine 30 mg Capsule,Delayed Release(Dr/Ec) 30 mg PO DAILY RF: 0 albuterol sulfate 0.63 mg/3 mL Solution For Nebulization 0.63 mg INHALATION QID PRN (Reason: Shortness Of Breath) RF: 0 quetiapine 200 mg Tablet 200 mg PO BEDTIME RF: 0 amlodipine 2.5 mg Tablet 2.5 mg PO DAILY RF: 0 doxepin 100 mg Capsule 200 mg PO DAILY RF: 0 apixaban 5 mg Tablet 5 mg BID RF: 0 Discontinued doxycycline hyclate 100 mg capsule 100 mg PO BID 7 Days Qty: 14 RF: 0 Discharge Orders: Discharge Order (Routine); Ordered 05/21/20 Ordered By: Mahendar Reyes Diet: advance to usual diet Activity on Discharge: As tolerated Discharge Date/Time: 05/21/20 13:00 Visit Report Forms: Patient Portal Discharge page Care Plan Goals: read below Health Concerns: read below Plan of Treatment: you have presented to the hospital with reported headache and faculty breathing. Admitted for treatment of COPD exacerbation with nebulizers and steroids with fair response. Your main complaint was the headache which seems to be a result of frontal sinus infection. Your treated with antibiotic of levofloxacin and usage of nasal sprays of Saline and Flonase. Use Tylenol and Advil up to 3 times a day for pain to use warm compressors 40 frontal sinus Use nasal sprays as instructed You were noticed to have low iron levels, to take iron pill daily To use famotidine for stomach protection Continue the rest of your medications as prescribed
== END 2020-05-21 13:00 | disposition home health service (06) | DRG 140 ==
LOC: HO.ED 15:17 → HO.IMC 17:26
PROVIDERS: Nurse Practitioner Primary Care; Admitting Provider Hospitalist; Emergency Provider Emergency Medicine Emergency Medical Services; PCP Physician Assistant Medical; Visit Provider Student in an Organized Health Care Education/Training Program
DX: J44.0 Chronic obstructive pulmonary disease with (acute) lower respiratory infection (principal); J96.21 Acute and chronic respiratory failure with hypoxia; Z99.81 Dependence on supplemental oxygen; J20.9 Acute bronchitis, unspecified; J44.1 Chronic obstructive pulmonary disease with (acute) exacerbation; J32.1 Chronic frontal sinusitis; F32.9 Major depressive disorder, single episode, unspecified; F41.9 Anxiety disorder, unspecified; F17.210 Nicotine dependence, cigarettes, uncomplicated; R00.0 Tachycardia, unspecified; Z71.6 Tobacco abuse counseling; Z20.828 Contact with and (suspected) exposure to other viral communicable diseases; Z79.01 Long term (current) use of anticoagulants; Z79.52 Long term (current) use of systemic steroids; Z79.84 Long term (current) use of oral hypoglycemic drugs; Z79.899 Other long term (current) drug therapy
CPT/HCPCS: 0241U; 36415; 70450; 71045; 80048; 80053; 81001; 82728; 82947; 83540; 83605; 83880; 84484; 85025; 85379; 85610; 85730; 87040; 93005; 94640; 96365; 96366; 96375; 97161; 99285; J0456; J1885; J1956; J2270; J2405; J2920; J2930

== ENCOUNTER 2020-05-21 13:30 | Emergency (ER) | payer OTHER, SELFPAY ==
[2020-05-21 13:43] VITALS: BP 123/63; PULSE 127; RESP 44; TEMP 36.9; O2SAT 96; BMI 29.2
[2020-05-21] MEDS: Albuterol Sulfate (0.083%) 2.5 MG/3 ML VIAL.NEB 5 MG INHALE (13:46)
[2020-05-21] MEDS: Albuterol/Iprat 2.5/0.5MG 3 ML AMPUL.NEB INHALE (13:47)
[2020-05-21 13:51] VITALS: PULSE 117; O2SAT 98
--- NOTE | 2020-05-21 14:30 | PC.NURSE ---
hospitalist at bedside
--- NOTE | 2020-05-21 14:40 | ED_ITS ---
HPI - SOB/Dyspnea General Chief Complaint: Dyspnea Stated Complaint: diff breathing Time Seen by Provider: 05/21/20 13:40 Source: patient Mode of arrival: ambulatory Limitations: no limitations History of Present Illness HPI Narrative: patient with COPD on home oxygen 2 L at night just discharged today from upstairs admitted for COPD while going to the cap in the parking lot patient felt short of breath brought back to the ER very tachypneic saturating 96% at room air wheezing. Patient had similar episodes in the past supposed to be on oxygen during daytime as needed but did not have any oxygen to carry. Fili eldridge be discharged on bronchodilator steroids and home oxygen to continue MD elicited complaint: shortness of breath Pertinent past history: COPD Onset (ago): minute(s) ( just prior to arrival) Timing: constant Severity: moderate Exacerbating factors: coughing Related Data Home Medications Medication Instructions Recorded Confirmed albuterol sulfate 0.63 mg INHALATION QID PRN 03/25/20 05/19/20 amlodipine 2.5 mg PO DAILY 03/25/20 05/19/20 apixaban 5 mg BID 03/25/20 05/19/20 atorvastatin 20 mg PO BEDTIME 03/25/20 05/19/20 clonidine HCl 0.1 mg PO BEDTIME 03/25/20 05/19/20 doxepin 200 mg PO DAILY 03/25/20 05/19/20 duloxetine 30 mg PO DAILY 03/25/20 05/19/20 folic acid 1 mg PO DAILY 03/25/20 05/19/20 gabapentin 600 mg PO TID 03/25/20 05/19/20 loratadine 10 mg DAILY 03/25/20 05/19/20 metformin 850 mg PO BID 03/25/20 05/19/20 montelukast 10 mg PO BEDTIME 03/25/20 05/19/20 multivitamin 1 tab PO DAILY 03/25/20 05/19/20 paroxetine HCl 40 mg PO DAILY 03/25/20 05/19/20 quetiapine 200 mg PO BEDTIME 03/25/20 05/19/20 valsartan 40 mg PO BID 03/25/20 05/19/20 Previous Rx's Medication Instructions Recorded nystatin 500,000 unit PO QID #10 ml 04/21/20 famotidine 20 mg PO DAILY #30 tab 05/21/20 ferrous sulfate 324 mg PO DAILY #30 tab 05/21/20 fluticasone propionate 1 spray INTRANASAL BID 7 Days ml 05/21/20 levofloxacin 500 mg PO Q24H #4 tab 05/21/20 prednisone 40 mg PO DAILY #6 tab 05/21/20 sodium chloride [Deep Sea Nasal] 1 spray INTRANASAL Q1H 7 Days ml 05/21/20 Allergies Allergy/AdvReac Type Severity Reaction Status Date / Time No Known Allergies Allergy Verified 05/21/20 13:43 Review of Systems Review of Systems: REVIEW OF SYSTEMS: Pertinent positives and negatives are stated above in the history. GEN: no fevers, chills, fatigue HEENT: no nasal congestion, sore throat, ear pain NEURO: no headache, dizziness, focal weakness PULM: no cough, CV: no chest pain, palpitations, LE edema ABD: no abdominal pain, nausea, vomiting, diarrhea : no dysuria, urgency, frequency SKIN: no rash ROS otherwise negative x 10 PMFSH Past Medical History Medical History Acute and chronic respiratory failure ([id number]) Acute exacerbation of COPD with asthma Anxiety Bronchitis COPD (chronic obstructive pulmonary disease) COPD (chronic obstructive pulmonary disease) Diabetes H/O blood clots History of DVT (deep vein thrombosis) Hyperlipidemia Hypertension Hypotension Renal infarct Sinus tachycardia Supplemental oxygen dependent Family History Family History Father Diabetes mellitus Myocardial infarction Social History Social History Household Members: Other Housing: Other Alcohol intake: never Smoking Status: Current every day smoker Tobacco Type: Cigarette Cigarettes Per Day: 2 Smoked in Last 30 Days: No Second Hand Smoke Exposure: Yes Use of substances other than those prescribed or required for medical reasons: No Advance Directives: No Advance Directives Information Provided: No service: No Current occupational status: unemployed and disabled Physical Exam Vital Signs: Vital Signs: Last Vital Signs Temp 98.5 F 05/21/20 13:43 Pulse 117 H 05/21/20 13:51 Resp 44 H 05/21/20 13:43 BP 123/63 05/21/20 13:43 Pulse Ox 96 05/21/20 13:43 Body Mass Index 29.2 Const: General: cooperative, well developed and in distress moderate Nutritional Appearance: average body habitus Orientation/consciousness: oriented to person, oriented to place and patient oriented x3 Limitations: no limitations HENMT: Head: Yes normal to inspection Ears: hearing grossly normal bilaterally General nose exam: Normal external nose present Mouth: moist mucous membranes Eyes: Periorbital: periorbital findings normal Conjunctivae: conjunctivae normal Sclerae: sclerae normal Neck: Neck: Yes normal visual inspection, Yes full ROM and Yes no JVD Thyroid: Thyroid normal Resp: Effort & Inspection: audible wheezes, respiratory distress, tachypneic and uses accessory muscles Auscultation: no crackles, no rales, rhonchi and wheezes Percussion: percussion normal Cardio: Jugular venous distension: no JVD Rate: tachycardic Rhythm: regular rhythm Heart sounds: S1 normal heart sound present and S2 normal heart sound present GI: Inspection: Yes normal to inspection Palpation (GI): Soft to palpation and nontender Neuro: General: oriented to person, oriented to place, oriented to time, patient oriented x3 and gait normal Extrem: General: Yes normal to inspection, Yes full ROM and No pedal edema MDM - SOB/Dyspnea MDM Narrative Medical decision making narrative: patient with COPD just discharged from medical floor while going to the car felt short of breath patient supposed to be on oxygen as needed but did not have any oxygen patient received nebulizing treatment in the ER feeling much better back to baseline saturating 93-94% at room air will discharge her home advised to continue her medications but was prescribed. Patient has in here with her and she lives about 20 minutes from the hospital Differential Diagnosis Differential diagnosis: Likely acute exacerbation of chronic obstructive airways disease, pneumonia and asthma with exacerbation Discharge Plan Discharge Clinical Impression: COPD exacerbation Patient Disposition: Home, Self-Care Instructions: COPD (Chronic Obstructive Pulmonary Disease) (ED) Additional Instructions: continue medication as prescribed by discharge physician today and follow with PCP and use oxygen as needed Prescriptions: No Action nystatin 100,000 unit/mL Suspension 500,000 unit PO QID Qty: 10 RF: 0 multivitamin Tablet 1 tab PO DAILY RF: 0 clonidine HCl 0.1 mg Tablet 0.1 mg PO BEDTIME RF: 0 gabapentin 600 mg Tablet 600 mg PO TID RF: 0 atorvastatin 20 mg Tablet 20 mg PO BEDTIME RF: 0 metformin 850 mg Tablet 850 mg PO BID RF: 0 folic acid 1 mg Tablet 1 mg PO DAILY RF: 0 montelukast 10 mg Tablet 10 mg PO BEDTIME RF: 0 paroxetine HCl 40 mg Tablet 40 mg PO DAILY RF: 0 loratadine 10 mg Tablet 10 mg DAILY RF: 0 valsartan 40 mg Tablet 40 mg PO BID RF: 0 duloxetine 30 mg Capsule,Delayed Release(Dr/Ec) 30 mg PO DAILY RF: 0 albuterol sulfate 0.63 mg/3 mL Solution For Nebulization 0.63 mg INHALATION QID PRN (Reason: Shortness Of Breath) RF: 0 quetiapine 200 mg Tablet 200 mg PO BEDTIME RF: 0 amlodipine 2.5 mg Tablet 2.5 mg PO DAILY RF: 0 doxepin 100 mg Capsule 200 mg PO DAILY RF: 0 apixaban 5 mg Tablet 5 mg BID RF: 0 famotidine 20 mg Tablet 20 mg PO DAILY Qty: 30 RF: 0 levofloxacin 500 mg Tablet 500 mg PO Q24H Qty: 4 RF: 0 fluticasone propionate 50 mcg/actuation [place],Suspension 1 spray intranasal BID 7 Days RF: 0 sodium chloride [Deep Sea Nasal] 0.65 % Aerosol,[place] 1 spray intranasal Q1H 7 Days RF: 0 ferrous sulfate 324 mg (65 mg iron) Tablet,Delayed Release (Dr/Ec) 324 mg PO DAILY Qty: 30 RF: 0 prednisone 20 mg tablet 40 mg PO DAILY Qty: 6 RF: 0 Interventions: ED Discharge Assessment Last Done: 05/21/20 14:57 Discharge Date/Time: 05/21/20 15:37
== END 2020-05-21 15:37 | disposition home or self-care (01) ==
PROVIDERS: Emergency Provider Internal Medicine; PCP Physician Assistant Medical
DX: J44.1 Chronic obstructive pulmonary disease with (acute) exacerbation (principal); R06.00 Dyspnea, unspecified; Z99.81 Dependence on supplemental oxygen; F17.210 Nicotine dependence, cigarettes, uncomplicated; Z71.6 Tobacco abuse counseling; Z79.899 Other long term (current) drug therapy; Z79.84 Long term (current) use of oral hypoglycemic drugs
CPT/HCPCS: 94640; 94644; 99284

== ENCOUNTER 2020-05-31 04:44 | Inpatient (IN) | payer OTHER, SELFPAY ==
[2020-05-31] VITALS (12 sets, daily range): BP systolic 106–140; BP diastolic 65–77; PULSE 70–122; RESP 16–20; TEMP 36.5–36.9; O2SAT 93–98; BMI 29.2
--- NOTE | 2020-05-31 04:52 | XR_ITS ---
EXAMINATION: XR CHEST CLINICAL INFORMATION: Shortness of breath COMPARISON: 05/19/2020 TECHNIQUE: Frontal view of the chest was obtained. FINDINGS: Streaky opacities within the left lower lobe appears similar to prior. Right lung clear. No pleural effusion or pneumothorax. Heart size and pulmonary vascularity within normal limits. XR/XR chest 1V IMPRESSION: Left lower lobe streaky airspace opacities, favor subsegmental atelectasis.
--- NOTE | 2020-05-31 04:54 | ED.GENADULT ---
HPI - General Adult General Chief complaint: Dyspnea Stated complaint: SOB Time Seen by Provider: 05/31/20 04:50 Source: EMS Mode of arrival: EMS Limitations: other ( shortness of breath) History of Present Illness HPI narrative: patient comes to the emergency room complaining of shortness of breath. Patient states prior to arrival she tried giving herself 1 nebulization without relief. According to EMS, oxygen saturation was in the 90s, they did not give any medication, patient was placed on CPAP, patient's oxygen saturation 97% on room air. Patient denies more coughing than usual, no fever. Patient states that she lost count on how many nebulization treatments she used prior to arrival. MD complaint: asthma exacerbation Related Data Home Medications Medication Instructions Recorded Confirmed albuterol sulfate 0.63 mg INHALATION QID PRN 03/25/20 05/19/20 amlodipine 2.5 mg PO DAILY 03/25/20 05/19/20 apixaban 5 mg BID 03/25/20 05/19/20 atorvastatin 20 mg PO BEDTIME 03/25/20 05/19/20 clonidine HCl 0.1 mg PO BEDTIME 03/25/20 05/19/20 doxepin 200 mg PO DAILY 03/25/20 05/19/20 duloxetine 30 mg PO DAILY 03/25/20 05/19/20 folic acid 1 mg PO DAILY 03/25/20 05/19/20 gabapentin 600 mg PO TID 03/25/20 05/19/20 loratadine 10 mg DAILY 03/25/20 05/19/20 metformin 850 mg PO BID 03/25/20 05/19/20 montelukast 10 mg PO BEDTIME 03/25/20 05/19/20 multivitamin 1 tab PO DAILY 03/25/20 05/19/20 paroxetine HCl 40 mg PO DAILY 03/25/20 05/19/20 quetiapine 200 mg PO BEDTIME 03/25/20 05/19/20 valsartan 40 mg PO BID 03/25/20 05/19/20 Previous Rx's Medication Instructions Recorded nystatin 500,000 unit PO QID #10 ml 04/21/20 famotidine 20 mg PO DAILY #30 tab 05/21/20 ferrous sulfate 324 mg PO DAILY #30 tab 05/21/20 fluticasone propionate 1 spray INTRANASAL BID 7 Days ml 05/21/20 levofloxacin 500 mg PO Q24H #4 tab 05/21/20 prednisone 40 mg PO DAILY #6 tab 05/21/20 sodium chloride [Deep Sea Nasal] 1 spray INTRANASAL Q1H 7 Days ml 05/21/20 Allergies Allergy/AdvReac Type Severity Reaction Status Date / Time No Known Allergies Allergy Verified 05/21/20 13:43 Review of Systems Review of Systems: shortness of breath Yes Unobtainable due to mental condition [facility] Past Medical History Medical History Acute and chronic respiratory failure ([id number]) Acute exacerbation of COPD with asthma Anxiety Bronchitis COPD (chronic obstructive pulmonary disease) COPD (chronic obstructive pulmonary disease) Diabetes H/O blood clots History of DVT (deep vein thrombosis) Hyperlipidemia Hypertension Hypotension Renal infarct Sinus tachycardia Supplemental oxygen dependent Family History Family History Father Diabetes mellitus Myocardial infarction Social History Social History Household Members: Other Housing: Other Alcohol intake: unknown Smoking Status: Current every day smoker Tobacco Type: Cigarette Cigarettes Per Day: 2 Second Hand Smoke Exposure: Yes Advance Directives: No Advance Directives Information Provided: No service: No Current occupational status: unemployed and disabled Physical Exam Vital Signs: Vital Signs: Last Vital Signs Temp 98.4 F 05/31/20 04:48 Pulse 119 H 05/31/20 06:11 Resp 20 05/31/20 06:00 BP 114/74 05/31/20 04:48 Pulse Ox 94 05/31/20 06:00 Body Mass Index 29.2 Appearance: Alert. Oriented X3. moderate distress Eyes: Pupils equal, round and reactive to light. ENT: Pharynx normal. Neck: Normal inspection. Neck supple. No lymph nodes noted. No crepitus CVS: Normal heart rate and rhythm. Pulses normal. Normal S1 and S2 Respiratory: moderate distress, bilateral expiratory wheezing Abdomen: Soft and nontender. No rigidity. No distention. good BS x4 Skin: Skin warm and dry. Normal skin color. Normal skin turgor. Extremities: No lower extremity edema. No lower extremity edema. No Lacerations. No Rash Neuro: Oriented X 3. No motor deficit. No sensory deficit. Moving all extermities. No slurred speech. Course Course Course Narrative: Patient has had 1 hour long nebulization treatment and DuoNeb, patient continues wheezing. Patient was weaned off CPAP, currently on oxygen saturation, O2 saturation 97% on room air. Patient's tachycardia secondary to multiple nebulization treatments, sepsis is not suspected at this time. Due to patient's comorbidities, she was empirically treated with the ofloxacin and mild hydration. at this time, asthma exacerbation is suspected over COPD exacerbation. Medical Decision Making Lab Data Result diagrams: 05/31/20 05:04 05/31/20 05:04 Labs: Lab Results 05/31/20 05/31/20 05/31/20 Range/Units 05:03 05:04 05:04 WBC 12.1 H (4.8-10.8) X10*3/uL RBC 3.68 L (4.20-5.50) X10*6/uL Hgb 8.1 L (12.0-16.0) g/dl Hct 28.6 L (37-47) % MCV 77.7 L (80-98) fL MCH 22.0 L (27.0-33.0) pg MCHC 28.3 L (31.0-35.0) g/dl RDW 20.9 H (11.0-16.0) % Plt Count 393 (160-400) X10*3/uL MPV 9.5 (9.4-12.3) fL Immature Gran % (Auto) 0.5 H (0.0-0.4) % Neut % (Auto) 62.6 (45-73) % Lymph % (Auto) 19.0 L (20-40) % [place] % (Auto) 10.4 (2-11) % Eos % (Auto) 6.6 H (0-4) % Baso % (Auto) 0.9 (0-2) % Lymph # (Auto) 2.3 (1.2-4.9) X10*3/uL [place] # (Auto) 1.3 H (0.1-1.2) X10*3/uL Eos # (Auto) 0.8 H (0.0-0.4) X10*3/uL Baso # (Auto) 0.1 (0.0-0.2) X10*3/uL Abs Immat Gran (auto) 0.06 H (0.00-0.03) X10*3/uL Absolute Neuts (auto) 7.6 (2.0-8.3) X10*3/uL Absolute Nucleated RBC 0.000 (0.0-0.012) X10*3/uL Nucleated RBC % (auto) 0.0 (0.0-0.2) /100WBC Sodium 142 (135-145) mmol/L Potassium 3.9 (3.3-5.1) mmol/l Chloride 106 (96-108) mmol/L Carbon Dioxide 25 (22-29) mmol/L Anion Gap 15 (12-20) BUN 8 L (9-16) mg/dL Creatinine 0.66 (0.5-1.4) mg/dL Estim Creat Clear Calc 94.4 Estimated GFR > 60 Random Glucose 135 H D (60-115) mg/dL Lactic Acid 0.9 (0.5-2.0) mmol/L Calcium 8.5 (8.4-10.2) mg/dL B-Natriuretic Peptide (<100) pg/mL 05/31/20 Range/Units 05:04 WBC (4.8-10.8) X10*3/uL RBC (4.20-5.50) X10*6/uL Hgb (12.0-16.0) g/dl Hct (37-47) % MCV (80-98) fL MCH (27.0-33.0) pg MCHC (31.0-35.0) g/dl RDW (11.0-16.0) % Plt Count (160-400) X10*3/uL MPV (9.4-12.3) fL Immature Gran % (Auto) (0.0-0.4) % Neut % (Auto) (45-73) % Lymph % (Auto) (20-40) % [place] % (Auto) (2-11) % Eos % (Auto) (0-4) % Baso % (Auto) (0-2) % Lymph # (Auto) (1.2-4.9) X10*3/uL [place] # (Auto) (0.1-1.2) X10*3/uL Eos # (Auto) (0.0-0.4) X10*3/uL Baso # (Auto) (0.0-0.2) X10*3/uL Abs Immat Gran (auto) (0.00-0.03) X10*3/uL Absolute Neuts (auto) (2.0-8.3) X10*3/uL Absolute Nucleated RBC (0.0-0.012) X10*3/uL Nucleated RBC % (auto) (0.0-0.2) /100WBC Sodium (135-145) mmol/L Potassium (3.3-5.1) mmol/l Chloride (96-108) mmol/L Carbon Dioxide (22-29) mmol/L Anion Gap (12-20) BUN (9-16) mg/dL Creatinine (0.5-1.4) mg/dL Estim Creat Clear Calc Estimated GFR Random Glucose (60-115) mg/dL Lactic Acid (0.5-2.0) mmol/L Calcium (8.4-10.2) mg/dL B-Natriuretic Peptide 33 (<100) pg/mL Imaging Data Chest x-ray: Radiologist's impression: Streaky opacities within the left lower lobe appears similar to prior. Right lung clear. No pleural effusion or pneumothorax. Heart size and pulmonary vascularity within normal limits. XR/XR chest 1V IMPRESSION: Left lower lobe streaky airspace opacities, favor subsegmental atelectasis. Discharge Plan Discharge Clinical Impression: Asthma with exacerbation Qualifiers: Asthma severity: unspecified severity Asthma persistence: unspecified Qualified Code(s): J45.901 - Unspecified asthma with (acute) exacerbation Patient Disposition: Admitted As Inpatient
[2020-05-31] MEDS: methylPREDNISolone Sod Succ/PF 125 MG/2 ML VIAL IVPUSH (05:09)
[2020-05-31 05:10] LABS: Basophils Absolute Auto 0.1 X10*3/uL (0.0-0.2); Basophils Percent Auto 0.9 % (0-2); Eosinophils Absolute Auto 0.8 X10*3/uL (0.0-0.4); Eosinophils Percent Auto 6.6 % (0-4); Hematocrit 28.6 % (37-47); Hemoglobin 8.1 g/dl (12.0-16.0); Imm Gran Abs Auto 0.06 X10*3/uL (0.00-0.03); Imm Gran Pct Auto 0.5 % (0.0-0.4); Lymphocytes Absolute Auto 2.3 X10*3/uL (1.2-4.9); MANUAL DIFF FLAG NO; Mean Corpuscular HGB Conc 28.3 g/dl (31.0-35.0); Mean Corpuscular Volume 77.7 fL (80-98); Mean Platelet Volume 9.5 fL (9.4-12.3); Monocytes Absolute Auto 1.3 X10*3/uL (0.1-1.2); Monocytes Percent Auto 10.4 % (2-11); Neutrophils Absolute Auto 7.6 X10*3/uL (2.0-8.3); Neutrophils Percent Auto 62.6 % (45-73); Platelet Count 393 X10*3/uL (160-400); Red Blood Count 3.68 X10*6/uL (4.20-5.50); Red Cell Distribution Width 20.9 % (11.0-16.0); White Blood Count 12.1 X10*3/uL (4.8-10.8)
[2020-05-31] MEDS: Magnesium Sulfate/H2O 2 GM/50 ML PIGGYBACK IV (05:16)
[2020-05-31] MEDS: Albuterol Sulfate (0.083%) 2.5 MG/3 ML VIAL.NEB 10 MG INHALE (05:27)
[2020-05-31 05:45] LABS: Lactic Acid 0.9 mmol/L (0.5-2.0)
[2020-05-31 05:48] LABS: Anion Gap 15 (12-20); Blood Urea Nitrogen 8 mg/dL (9-16); Calcium 8.5 mg/dL (8.4-10.2); Carbon Dioxide 25 mmol/L (22-29); Chloride 106 mmol/L (96-108); Creatinine Clr Calc Pharmacy 94.4; Estimated Glomerular Filt Rate > 60; Glucose Random 135 mg/dL (60-115); Potassium 3.9 mmol/l (3.3-5.1); Sodium 142 mmol/L (135-145)
[2020-05-31 05:53] LABS: B Type Natriuretic Peptide 33 pg/mL (<100)
[2020-05-31] MEDS: Albuterol/Iprat 2.5/0.5MG 3 ML AMPUL.NEB INHALE (06:11)
--- NOTE | 2020-05-31 06:22 | PC.NURSE ---
pt titrated off bipap to nc at this time.
--- NOTE | 2020-05-31 06:37 | PC.NURSE ---
per poision control patient is medically cleared when urinary symptoms resolved. no further ekgs are needed at this time. can uses benzos to treat urinary retention but it is not needed.
[2020-05-31] MEDS: 0.9 % Sodium Chloride 1,000 ML 999 ML IVCONT (07:18)
[2020-05-31] MEDS: levoFLOXacin/D5W 500 MG/100 ML PIGGYBACK 100 MG IV (07:18)
[2020-05-31 08:00] LABS: COVID-19 Test Negative (Negative)
--- NOTE | 2020-05-31 08:29 | P.HPHOSP_ITS ---
History of Present Illness Date of Service: 05/31/20 Chief Complaint: Shortness of breath, difficulty breathing A 55 years old lady with PMH of chronic respiratory failure on 2 L of oxygen, asthma, COPD, depression, chronic anemia, diabetes among others who presents to the hospital frequently with respiratory failure presented this time complaining of worsening shortness of breath and wheezing for the last 3 days. The patient was treated almost 10 days ago in the hospital for similar presentation with sinusitis and finished prednisone treatment recently. She reports over the last 3-4 days she has been complaining of worsening shortness of breath and wheezing requiring using multiple nebulizer treatment at home. Her symptoms did not improve much and she continued to feel weak and difficult to breathe. She decided to come to the emergency for further evaluation. She denies any fever, chills, chest pain, nausea or vomiting, change in her bowel movement or dark color stool. In the emergency she was found to have difficulty breathing requiring CPAP treatment with fair response. Admitted for further evaluation and treatment. [facility] Medical History Acute and chronic respiratory failure ([id number]) Acute exacerbation of COPD with asthma Anxiety Bronchitis COPD (chronic obstructive pulmonary disease) COPD (chronic obstructive pulmonary disease) Diabetes H/O blood clots History of DVT (deep vein thrombosis) Hyperlipidemia Hypertension Hypotension Renal infarct Sinus tachycardia Supplemental oxygen dependent Family History Father Diabetes mellitus Myocardial infarction Social History Household Members: Friend(s) Housing: Other Housing Other:: custodial house Do you presently have visiting nurse or other home services: No Alcohol intake: unknown Smoking Status: Current every day smoker Tobacco Type: Cigarette Cigarettes Per Day: 2 Smoked in Last 30 Days: Yes Patient Interested in Nicotine Replacement: No Patient Given Instructions on How to Stop Smoking: Yes Date Education Initiated: 05/31/20 Second Hand Smoke Exposure: Yes Use of substances other than those prescribed or required for medical reasons: No Currently Displaying Signs/Symptoms of Drug Intoxication Withdrawal: No Have you been hit, kicked, punched, or otherwise hurt by someone within the past year? If so, by whom?: No Do you feel safe in your current relationship?: No Current Relationship Is there a partner from a previous relationship who is making you feel unsafe now?: No Are you made to feel afraid or neglected: No Advance Directives: No Advance Directives Information Provided: No Do you have thoughts of harming others: None Do you have a plan to hurt others: No Plan Recently lost weight without trying: No service: No Current occupational status: unemployed and disabled Meds Allergies Allergy/AdvReac Type Severity Reaction Status Date / Time No Known Allergies Allergy Verified 05/21/20 13:43 Home Medications Medication Instructions Recorded Confirmed Type albuterol sulfate 0.63 mg INHALATION QID PRN 03/25/20 05/31/20 History amlodipine 2.5 mg PO DAILY 03/25/20 05/31/20 History apixaban 5 mg BID 03/25/20 05/31/20 History atorvastatin 20 mg PO BEDTIME 03/25/20 05/31/20 History clonidine HCl 0.1 mg PO BEDTIME 03/25/20 05/31/20 History doxepin 200 mg PO BEDTIME 03/25/20 05/31/20 History duloxetine 30 mg PO DAILY 03/25/20 05/31/20 History folic acid 1 mg PO DAILY 03/25/20 05/31/20 History gabapentin 600 mg PO TID 03/25/20 05/31/20 History loratadine 10 mg DAILY 03/25/20 05/31/20 History metformin 850 mg PO BID 03/25/20 05/31/20 History montelukast 10 mg PO BEDTIME 03/25/20 05/31/20 History multivitamin 1 tab PO DAILY 03/25/20 05/31/20 History paroxetine HCl 40 mg PO DAILY 03/25/20 05/31/20 History quetiapine 200 mg PO BEDTIME 03/25/20 05/31/20 History valsartan 40 mg PO BID 03/25/20 05/31/20 History bupropion HCl 150 mg PO BID 05/31/20 05/31/20 History docusate sodium 100 mg PO BID 05/31/20 05/31/20 History fluticasone furoate-vilanterol 1 inh INHALATION DAILY 05/31/20 05/31/20 History [Breo Ellipta] melatonin 10 mg PO BEDTIME 05/31/20 05/31/20 History olanzapine 5 mg PO BEDTIME 05/31/20 05/31/20 History pantoprazole 40 mg PO DAILY 05/31/20 05/31/20 History sumatriptan succinate 50 mg PO Q2-4H PRN 05/31/20 05/31/20 History tiotropium bromide 1 cap INHALATION DAILY 05/31/20 05/31/20 History Physical Exam Vital Signs and Narrative: Vital Signs: Last Vital Signs Temp 98.4 F 05/31/20 04:48 Pulse 119 H 05/31/20 06:11 Resp 20 05/31/20 06:00 BP 114/74 05/31/20 04:48 Pulse Ox 94 05/31/20 06:00 Body Mass Index 29.2 Results Labs CBC and Chem 7: 05/31/20 05:04 06/01/20 05:28 Labs: Laboratory Results - last 24 hr 05/31/20 05/31/20 05/31/20 05:03 05:04 05:04 MCV 77.7 L MCH 22.0 L MCHC 28.3 L RDW 20.9 H Plt Count 393 MPV 9.5 Immature Gran % (Auto) 0.5 H Neut % (Auto) 62.6 Lymph % (Auto) 19.0 L [place] % (Auto) 10.4 Eos % (Auto) 6.6 H Baso % (Auto) 0.9 Lymph # (Auto) 2.3 [place] # (Auto) 1.3 H Eos # (Auto) 0.8 H Baso # (Auto) 0.1 Abs Immat Gran (auto) 0.06 H Absolute Neuts (auto) 7.6 Absolute Nucleated RBC 0.000 Nucleated RBC % (auto) 0.0 Anion Gap 15 Estim Creat Clear Calc 94.4 Estimated GFR > 60 Random Glucose 135 H D Lactic Acid 0.9 Calcium 8.5 B-Natriuretic Peptide COVID-19 ([facility]) COVID-19 Clin Com 05/31/20 05/31/20 05:04 07:26 MCV MCH MCHC RDW Plt Count MPV Immature Gran % (Auto) Neut % (Auto) Lymph % (Auto) [place] % (Auto) Eos % (Auto) Baso % (Auto) Lymph # (Auto) [place] # (Auto) Eos # (Auto) Baso # (Auto) Abs Immat Gran (auto) Absolute Neuts (auto) Absolute Nucleated RBC Nucleated RBC % (auto) Anion Gap Estim Creat Clear Calc Estimated GFR Random Glucose Lactic Acid Calcium B-Natriuretic Peptide 33 COVID-19 ([facility]) Negative COVID-19 Clin Com See Note Imaging Radiologist's Impressions: Impressions Chest X-Ray 05/31/20 04:52 IMPRESSION: Left lower lobe streaky airspace opacities, favor subsegmental atelectasis. Assessment and Plan (1) Acute and chronic respiratory failure ([id number]): Status: Acute (2) Acute exacerbation of COPD with asthma: Status: Inactive (3) COPD (chronic obstructive pulmonary disease): Status: Acute A 55 years old lady with PMH of chronic respiratory failure on 2 L of oxygen, asthma, COPD, depression, chronic anemia, diabetes among others who presents to the hospital frequently with respiratory failure presented this time complaining of worsening shortness of breath and wheezing for the last 3 days. acute On chronic hypoxemic respiratory failure Secondary to asthma and COPD exacerbation On oxygen supplement To use CPAP at night, to get evaluation for home CPAP Continue IV Solu-Medrol Continue DuoNeb ATC and p.r.n. O2 supplement, Wean down to home O2 level Continue with Levaquin Pending blood cultures x2. Atelectasis Secondary to physical deconditioning and not moving around CXR showing changes Covered with antibiotic To do spirometry To add Mucinex Hypertension patient is on multiple antihypertensive restart blood pressure medications and monitor She might need less blood pressure meds History of renal infarction The patient will be continued on Eliquis. Physical deconditioning Had recent PT evaluation with recommendation for home therapy Active smoker Advised again to quit smoking completely Diabetes mellitus Hold metformin diabetic diet and insulin sliding scale. History of depression and anxiety. continue home medications DVT PPX Eliquis.
[2020-05-31] MEDS: Omeprazole 40 MG CAPSULE.DR PO (09:21)
[2020-05-31] MEDS: buPROPion HCl XL 150 MG TAB.ER.24H PO ×2 (09:21→21:14)
[2020-05-31] MEDS: Albuterol Sulfate (0.083%) 2.5 MG/3 ML VIAL.NEB INHALE ×2 (14:35→20:19)
[2020-05-31] MEDS: Docusate Sodium 100 MG CAPSULE PO ×2 (15:16→21:14)
[2020-05-31] MEDS: Gabapentin 600 MG TABLET PO ×2 (15:16→21:14)
[2020-05-31] MEDS: Apixaban 5 MG TABLET PO ×2 (15:16→21:14)
[2020-05-31] MEDS: DULoxetine HCl 30 MG CAPSULE.DR PO (15:16)
[2020-05-31] MEDS: Folic Acid 1 MG TABLET PO (15:16)
[2020-05-31] MEDS: 0.9 % Sodium Chloride Flush 3 ML SYRINGE IVFLUSH (15:17)
[2020-05-31] MEDS: Valsartan 40 MG TABLET PO ×2 (15:17→21:14)
[2020-05-31] MEDS: Loratadine 10 MG TABLET PO (15:17)
[2020-05-31] MEDS: amLODIPine Besylate 2.5 MG TABLET PO (15:17)
[2020-05-31] MEDS: PARoxetine HCL 40 MG TABLET PO (15:17)
[2020-05-31 16:30] LABS: Glucose, Whole Blood 220 mg/dL (60-115)
[2020-05-31] MEDS: Insulin Lispro 100 UNIT/ML 3 ML VIAL SUBCUT (17:45)
[2020-05-31] MEDS: Flu Vacc QS2020-21(6mos up)/PF 0.5 ML SYRINGE IM (17:45)
--- NOTE | 2020-05-31 19:49 | PC.NURSE ---
Pt to floor from ED, ambulated to bathroom with O2, when back in bed pt had extreme SOB. Instructed pt to take slow deep breathes. pt's SOB improved. Pt was given bedside commode. When pt had BM, she became extremely SOB, instructed pt to take slow deep breathes, try to calm down since it worsens breathing. Pt satated her SOB subsided after a couple minutes. Pt expressed she was tired of being sick and having trouble breathing, reassured pt that she was in the right place and were going to help. Pt able to relax in bed. HOB at 90% so pt can rest back against bed.
[2020-05-31] MEDS: cloNIDine HCL 0.1 MG TABLET PO (21:14)
[2020-05-31] MEDS: QUEtiapine Fumarate 200 MG TABLET PO (21:14)
[2020-05-31] MEDS: Atorvastatin Calcium 20 MG TABLET PO (21:14)
[2020-05-31] MEDS: Montelukast Sodium 10 MG TABLET PO (21:14)
[2020-05-31] MEDS: OLANZapine 5 MG TABLET PO (21:15)
[2020-05-31 21:35] LABS: Glucose, Whole Blood 124 mg/dL (60-115)
[2020-06-01] VITALS (12 sets, daily range): BP systolic 145–166; BP diastolic 72–95; PULSE 104–120; RESP 18–24; TEMP 36.2–37; O2SAT 92–99
[2020-06-01] MEDS: 0.9 % Sodium Chloride Flush 3 ML SYRINGE IVFLUSH ×4 (00:16→23:57)
[2020-06-01 06:49] LABS: Anion Gap 13 (12-20); Blood Urea Nitrogen 8 mg/dL (9-16); Calcium 8.5 mg/dL (8.4-10.2); Carbon Dioxide 26 mmol/L (22-29); Chloride 105 mmol/L (96-108); Creatinine Clr Calc Pharmacy 90.4; Estimated Glomerular Filt Rate > 60; Glucose Random 131 mg/dL (60-115); Potassium 4.3 mmol/l (3.3-5.1); Sodium 140 mmol/L (135-145)
[2020-06-01] MEDS: Albuterol Sulfate (0.083%) 2.5 MG/3 ML VIAL.NEB INHALE ×4 (07:52→19:22)
[2020-06-01 08:31] LABS: Glucose, Whole Blood 150 mg/dL (60-115)
[2020-06-01] MEDS: buPROPion HCl XL 150 MG TAB.ER.24H PO ×2 (08:34→21:16)
[2020-06-01] MEDS: Valsartan 40 MG TABLET PO ×2 (08:34→21:17)
[2020-06-01] MEDS: amLODIPine Besylate 2.5 MG TABLET PO (08:34)
[2020-06-01] MEDS: PARoxetine HCL 40 MG TABLET PO (08:34)
[2020-06-01] MEDS: DULoxetine HCl 30 MG CAPSULE.DR PO (08:34)
[2020-06-01] MEDS: Docusate Sodium 100 MG CAPSULE PO ×2 (08:34→21:16)
[2020-06-01] MEDS: Gabapentin 600 MG TABLET PO ×3 (08:35→21:16)
[2020-06-01] MEDS: Loratadine 10 MG TABLET PO (08:35)
[2020-06-01] MEDS: Apixaban 5 MG TABLET PO ×2 (08:35→21:17)
[2020-06-01] MEDS: Folic Acid 1 MG TABLET PO (08:35)
[2020-06-01] MEDS: Omeprazole 40 MG CAPSULE.DR PO (08:35)
--- NOTE | 2020-06-01 09:28 | MHC.CM.PN ---
Female 55 DX SOB Hypoxic Respiratory Failure. She lives in a [facility] house. She has a steady gait. She uses a WC for energy conservation. 2L O2 via [place] NOC only. Updrafts during the day. Oximity is Oxygen supply Second Light. HCP on file from previous visit. DP home no services cab voucher. CM will follow to assess for change in DC needs.
--- NOTE | 2020-06-01 12:53 | HO.PM.IMPN ---
Subjective Subjective Date of Service: 06/01/20 Interval History: The patient was seen and evaluated this morning Laying in bed, feels short of breath and wheezy Denies any fever, chills or chest pain No reported other overnight events. Systemic review: No fever, chills or weakness No chest pain, palpitation Reporting shortness of breath with minimal exertion and coughing with wheezing No abdominal pain, nausea or vomiting No urinary symptoms No any rash or wounds Physical Exam Vital Signs: Vital Signs: Last Vital Signs Temp 98.6 F 06/01/20 11:24 Pulse 112 H 06/01/20 12:20 Resp 22 H 06/01/20 11:24 BP 166/90 H 06/01/20 11:24 Pulse Ox 92 06/01/20 11:24 Body Mass Index 29.2 Constitutional : Alert, oriented, not in distress Neck : Normal inspection, Supple Cardiovascular : RRR, S1 S2, no lower extremity edema Respiratory : Decreased bilateral air entry with bilateral wheezing, no crackles noted Gastrointestinal: soft, lax, Normal bowel sounds, Non tender Skin : Warm/Dry, No rash Neurological : Alert & oriented x3, No focal deficit Objective Data Current Medications Generic Name Dose Route Start Last Admin Trade Name Freq PRN Reason Stop Dose Admin Acetaminophen 650 mg 05/31/20 14:17 Acetaminophen 325 Mg Tablet PO Q6H PRN Pain, Mild (Pain Scale 1-3) Albuterol Sulfate 2.5 mg 05/31/20 14:17 06/01/20 12:03 Albuterol Sulfate (0.083%) 2.5 Mg/3 Ml Vial.Neb INHALE 2.5 mg RQ4H WHILE AWAKE CARLOS Administration Amlodipine Besylate 2.5 mg 05/31/20 14:17 06/01/20 08:34 Amlodipine Besylate 2.5 Mg Tablet PO 2.5 mg DAILY CARLOS Administration Protocol Apixaban 5 mg 05/31/20 14:17 06/01/20 08:35 Apixaban 5 Mg Tablet PO 5 mg BID CARLOS Administration Atorvastatin Calcium 20 mg 05/31/20 21:00 05/31/20 21:14 Atorvastatin Calcium 20 Mg Tablet PO 20 mg BEDTIME CARLOS Administration Bupropion HCl 150 mg 05/31/20 09:00 06/01/20 08:34 Bupropion Hcl Xl 150 Mg Tab.Er.24h PO 150 mg BID CARLOS Administration Clonidine HCl 0.1 mg 05/31/20 21:00 05/31/20 21:14 Clonidine Hcl 0.1 Mg Tablet PO 0.1 mg BEDTIME CARLOS Administration Protocol Docusate Sodium 100 mg 05/31/20 14:17 06/01/20 08:34 Docusate Sodium 100 Mg Capsule PO 100 mg BID CARLOS Administration Duloxetine HCl 30 mg 05/31/20 14:17 06/01/20 08:34 Duloxetine Hcl 30 Mg Capsule. PO 30 mg DAILY CARLOS Administration Fluticasone/Vilanterol 1 puff 05/31/20 14:17 06/01/20 08:10 Fluticasone/Vilanterol 100/25 Blst.W.Dev INHALE Not Given DAILY CARLOS Folic Acid 1 mg 05/31/20 14:17 06/01/20 08:35 Folic Acid 1 Mg Tablet PO 1 mg DAILY CARLOS Administration Gabapentin 600 mg 05/31/20 14:17 06/01/20 08:35 Gabapentin 600 Mg Tablet PO 600 mg TID CARLOS Administration Insulin Human Lispro 0 unit 05/31/20 21:00 06/01/20 08:33 Insulin Lispro 100 Unit/Ml 3 Ml Vial SUBCUT Not Given QIDACHS [facility] Protocol Loratadine 10 mg 05/31/20 14:17 06/01/20 08:35 Loratadine 10 Mg Tablet PO 10 mg DAILY CARLOS Administration Methylprednisolone Sodium Succinate 40 mg 06/01/20 09:00 06/01/20 08:35 Methylprednisolone Sod Succ/Pf 40 Mg/Ml Vial IVPUSH 40 mg DAILY CARLOS Administration Montelukast Sodium 10 mg 05/31/20 21:00 05/31/20 21:14 Montelukast Sodium 10 Mg Tablet PO 10 mg BEDTIME CARLOS Administration Olanzapine 5 mg 05/31/20 21:00 05/31/20 21:15 Olanzapine 5 Mg Tablet PO 5 mg BEDTIME CARLOS Administration Omeprazole 40 mg 05/31/20 09:00 06/01/20 08:35 Omeprazole 40 Mg Capsule. PO 40 mg DAILY CARLOS Administration Paroxetine HCl 40 mg 05/31/20 14:17 06/01/20 08:34 Paroxetine Hcl 40 Mg Tablet PO 40 mg DAILY CARLOS Administration Pharmacy Consult 1 each 05/31/20 06:13 Consult Rx Perform Med Rec MISCELLANE ONCE PRN Consult order Quetiapine Fumarate 200 mg 05/31/20 21:00 05/31/20 21:14 Quetiapine Fumarate 200 Mg Tablet PO 200 mg BEDTIME CARLOS Administration Sodium Chloride 3 ml 05/31/20 14:17 06/01/20 08:34 0.9 % Sodium Chloride Flush 3 Ml Syringe IVFLUSH 3 ml QSHIFT CARLOS Administration Sumatriptan Succinate 50 mg 05/31/20 14:17 Sumatriptan Succinate 50 Mg Tablet PO Q2H PRN Migraine Headache Tiotropium [place] 1 puff 06/01/20 08:00 06/01/20 07:56 Tiotropium [place] 18 Mcg Cap.W.Dev INHALE Not Given RDAILY CARLOS Valsartan 40 mg 05/31/20 14:17 06/01/20 08:34 Valsartan 40 Mg Tablet PO 40 mg BID CARLOS Administration Protocol Labs CBC & Chem 7: 05/31/20 05:04 06/01/20 05:28 Microbiology Microbiology Results: Microbiology 05/31/20 07:26 Blood - Venous Blood Culture - Preliminary No growth after 24 hours. 05/31/20 05:04 Blood - Venous Blood Culture - Preliminary No growth after 24 hours. Assessment and Plan (1) Acute and chronic respiratory failure ([id number]): Status: Acute (2) Acute exacerbation of COPD with asthma: Status: Inactive (3) COPD (chronic obstructive pulmonary disease): Status: Acute Assessment and Plan: A 55 years old lady with PMH of chronic respiratory failure on 2 L of oxygen, asthma, COPD, depression, chronic anemia, diabetes among others who presents to the hospital frequently with respiratory failure presented this time complaining of worsening shortness of breath and wheezing for the last 3 days. acute On chronic hypoxemic respiratory failure Secondary to asthma and COPD exacerbation On oxygen supplement Continue IV Solu-Medrol Continue DuoNeb ATC and p.r.n. O2 supplement, Wean down to home O2 level Continue with Levaquin Pending blood cultures x2. 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 Physical deconditioning Had recent PT evaluation with recommendation for home therapy Active smoker Advised again to quit smoking completely Diabetes mellitus Hold metformin diabetic diet and insulin sliding scale. History of depression and anxiety. continue home medications DVT PPX Eliquis.
[2020-06-01 12:59] LABS: Glucose, Whole Blood 207 mg/dL (60-115)
[2020-06-01] MEDS: Insulin Lispro 100 UNIT/ML 3 ML VIAL SUBCUT ×2 (13:17→16:45)
[2020-06-01] MEDS: guaiFENesin LA 600 MG TAB.ER.12H PO ×2 (13:17→21:17)
[2020-06-01 16:36] LABS: Glucose, Whole Blood 205 mg/dL (60-115)
[2020-06-01 20:30] LABS: Glucose, Whole Blood 116 mg/dL (60-115)
[2020-06-01] MEDS: OLANZapine 5 MG TABLET PO (21:16)
[2020-06-01] MEDS: Montelukast Sodium 10 MG TABLET PO (21:17)
[2020-06-01] MEDS: cloNIDine HCL 0.1 MG TABLET PO (21:17)
[2020-06-01] MEDS: QUEtiapine Fumarate 200 MG TABLET PO (21:17)
[2020-06-01] MEDS: Atorvastatin Calcium 20 MG TABLET PO (21:17)
[2020-06-02] VITALS (11 sets, daily range): BP systolic 122–170; BP diastolic 73–91; PULSE 68–122; RESP 18–24; TEMP 36.1–36.7; O2SAT 91–99
[2020-06-02 07:46] LABS: Glucose, Whole Blood 126 mg/dL (60-115)
[2020-06-02] MEDS: 0.9 % Sodium Chloride Flush 3 ML SYRINGE IVFLUSH ×2 (08:18→16:37)
[2020-06-02] MEDS: guaiFENesin LA 600 MG TAB.ER.12H PO ×2 (08:19→21:10)
[2020-06-02] MEDS: DULoxetine HCl 30 MG CAPSULE.DR PO (08:19)
[2020-06-02] MEDS: Docusate Sodium 100 MG CAPSULE PO ×2 (08:19→21:10)
[2020-06-02] MEDS: Apixaban 5 MG TABLET PO ×2 (08:19→21:10)
[2020-06-02] MEDS: PARoxetine HCL 40 MG TABLET PO (08:19)
[2020-06-02] MEDS: Omeprazole 40 MG CAPSULE.DR PO (08:19)
[2020-06-02] MEDS: Loratadine 10 MG TABLET PO (08:19)
[2020-06-02] MEDS: buPROPion HCl XL 150 MG TAB.ER.24H PO ×2 (08:19→21:10)
[2020-06-02] MEDS: Gabapentin 600 MG TABLET PO ×3 (08:19→21:10)
[2020-06-02] MEDS: Folic Acid 1 MG TABLET PO (08:19)
[2020-06-02] MEDS: amLODIPine Besylate 2.5 MG TABLET PO (08:19)
[2020-06-02] MEDS: Valsartan 40 MG TABLET PO ×2 (08:20→21:10)
[2020-06-02] MEDS: Albuterol Sulfate (0.083%) 2.5 MG/3 ML VIAL.NEB INHALE ×4 (09:06→19:52)
[2020-06-02] MEDS: Fluticasone/Vilanterol 100/25 BLST.W.DEV 1 PUFF INHALE (09:06)
[2020-06-02 11:32] LABS: Glucose, Whole Blood 177 mg/dL (60-115)
[2020-06-02] MEDS: Insulin Lispro 100 UNIT/ML 3 ML VIAL SUBCUT ×3 (11:40→21:09)
--- NOTE | 2020-06-02 13:29 | PM.PSYCN ---
History of Present Illness Date of Service: 06/02/2020 Chief Complaint: hypoxic resp. failure Reason for Consult: Medication Evaluation Requesting physician: Veronica Youngblood Discussed with referring provider: Yes (DerianerText) Sources of Information: patient interviewed and chart reviewed HPI Narrative: 55 yo female, admitted with asthma exacerbation, COPD, hypoxic respiratory failure. Request for eval of current psychotropic regime for recurrent major depression, severe. Documented history of alcohol use disorder. Pt reports she is followed by PCP Patti APPIAH of [facility] and Shelli who works in the primary care practice to manage her medications. Currently, pt reports regime to be effective, without adverse effects and she asks that no changes be made. Any and all changes will be made with Patti Shelley and Shelli per pt request. Currently no questions regarding medicaitons with pt. She denies SE. 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) Psychiatric: Reports no additional psychiatric complaints and Reports as per HPI [facility] Medical History Acute and chronic respiratory failure ([id number]) Acute exacerbation of COPD with asthma Anxiety Bronchitis COPD (chronic obstructive pulmonary disease) COPD (chronic obstructive pulmonary disease) Diabetes H/O blood clots History of DVT (deep vein thrombosis) Hyperlipidemia Hypertension Hypotension Renal infarct Sinus tachycardia Supplemental oxygen dependent Social History: , currently on disability Substance History: Significant alcohol use disorder, hx of multiple detoxes and custodial placements including a nursing home house in [facility]. Trauma History: Losses of relationships due to illness Diagnostics Vital Signs (24Hr): Vital Signs - 24 hr 06/01/20 15:36 06/01/20 15:43 06/01/20 19:23 Temperature 97.5 F Pulse Rate 112 H 112 H 107 H Respiratory Rate 24 H Blood Pressure 166/90 H Pulse Oximetry 99 06/01/20 19:41 06/01/20 21:17 06/01/20 23:46 Temperature 97.8 F 97.2 F Pulse Rate 109 H 109 H 104 H Respiratory Rate 18 19 Blood Pressure 156/95 H 156/95 H 145/87 H Pulse Oximetry 97 98 06/02/20 03:42 06/02/20 07:05 06/02/20 08:19 Temperature 98.0 F 98 F Pulse Rate 112 H 68 68 Respiratory Rate 19 19 Blood Pressure 170/76 H 144/90 H 144/90 H Pulse Oximetry 96 94 06/02/20 08:20 06/02/20 09:13 06/02/20 10:59 Temperature 97 F Pulse Rate 68 107 H 110 H Respiratory Rate 18 Blood Pressure 144/90 H 140/83 H Pulse Oximetry 91 L Body Mass Index 29.2 Labs Results: 05/31/20 05:04 06/01/20 05:28 Labs: Laboratory Results - last 48 hr 05/31/20 05/31/20 06/01/20 16:25 21:18 05:28 Sodium 140 Potassium 4.3 Chloride 105 Carbon Dioxide 26 Anion Gap 13 BUN 8 L Creatinine 0.69 Estim Creat Clear Calc 90.4 Estimated GFR > 60 POC Glucose 220 H 124 H Random Glucose 131 H Calcium 8.5 06/01/20 06/01/20 06/01/20 08:28 12:55 15:46 Sodium Potassium Chloride Carbon Dioxide Anion Gap BUN Creatinine Estim Creat Clear Calc Estimated GFR POC Glucose 150 H 207 H 205 H Random Glucose Calcium 06/01/20 06/02/20 06/02/20 20:26 07:43 11:21 Sodium Potassium Chloride Carbon Dioxide Anion Gap BUN Creatinine Estim Creat Clear Calc Estimated GFR POC Glucose 116 H 126 H 177 H Random Glucose Calcium Imaging Radiology Impressions: ITS Impressions Chest X-Ray 05/31/20 04:52 IMPRESSION: Left lower lobe streaky airspace opacities, favor subsegmental atelectasis. Mental Status Exam Mental Status Exam Patient Appearance: Well Grooomed and Appropriate Patient Orientation: Person, Place, Time and Situation Level of Consciousness: Awake, Appropriate and Alert Patient Behavior: Guarded, Talkative, Cooperative, Suspicious, Anxious, Avoidant and Good Eye Contact Mood Description: Suspicious, Constricted, Fearful, Hostile (mild), Anxious, Nervous and Apprehensive Affect Description: Constricted and Blunted Patient Cognition Impaired: No Ability to Follow Directions: Excellent Speech Pattern: Clear, Appropriate, Spontaneous Speech and Coherent Memory Description: Intact Hallucinations: None Delusions: Not Present Thought Process: Intact and Evasive Thought Content: positive for Intact, positive for [place] and positive for Circumstantial Judgement: Good Medications Medications Current Medications Generic Name Dose Route Start Last Admin Trade Name [place]ora PRN Reason Stop Dose Admin Acetaminophen 650 mg 05/31/20 14:17 Acetaminophen 325 Mg Tablet PO Q6H PRN Pain, Mild (Pain Scale 1-3) Albuterol Sulfate 2.5 mg 05/31/20 14:17 06/02/20 12:26 Albuterol Sulfate (0.083%) 2.5 Mg/3 Ml Vial.Neb INHALE 2.5 mg RQ4H WHILE AWAKE CARLOS Administration Amlodipine Besylate 2.5 mg 05/31/20 14:17 06/02/20 08:19 Amlodipine Besylate 2.5 Mg Tablet PO 2.5 mg DAILY CARLOS Administration Protocol Apixaban 5 mg 05/31/20 14:17 06/02/20 08:19 Apixaban 5 Mg Tablet PO 5 mg BID CARLOS Administration Atorvastatin Calcium 20 mg 05/31/20 21:00 06/01/20 21:17 Atorvastatin Calcium 20 Mg Tablet PO 20 mg BEDTIME CARLOS Administration Bupropion HCl 150 mg 05/31/20 09:00 06/02/20 08:19 Bupropion Hcl Xl 150 Mg Tab.Er.24h PO 150 mg BID CARLOS Administration Clonidine HCl 0.1 mg 05/31/20 21:00 06/01/20 21:17 Clonidine Hcl 0.1 Mg Tablet PO 0.1 mg BEDTIME CARLOS Administration Protocol Docusate Sodium 100 mg 05/31/20 14:17 06/02/20 08:19 Docusate Sodium 100 Mg Capsule PO 100 mg BID CARLOS Administration Duloxetine HCl 30 mg 05/31/20 14:17 06/02/20 08:19 Duloxetine Hcl 30 Mg Capsule.Dr PO 30 mg DAILY CARLOS Administration Fluticasone/Vilanterol 1 puff 05/31/20 14:17 06/02/20 09:06 Fluticasone/Vilanterol 100/25 Blst.W.Dev INHALE 1 puff DAILY CARLOS Administration Folic Acid 1 mg 05/31/20 14:17 06/02/20 08:19 Folic Acid 1 Mg Tablet PO 1 mg DAILY CARLOS Administration Gabapentin 600 mg 05/31/20 14:17 06/02/20 08:19 Gabapentin 600 Mg Tablet PO 600 mg TID CARLOS Administration Guaifenesin 600 mg 06/01/20 13:05 06/02/20 08:19 Guaifenesin [place] 600 Mg Tab.Er.12h PO 600 mg BID CARLOS Administration Insulin Human Lispro 0 unit 05/31/20 21:00 06/02/20 11:40 Insulin Lispro 100 Unit/Ml 3 Ml Vial SUBCUT 2 unit QIDACHS CARLOS Administration Protocol Loratadine 10 mg 05/31/20 14:17 06/02/20 08:19 Loratadine 10 Mg Tablet PO 10 mg DAILY CARLOS Administration Methylprednisolone Sodium Succinate 40 mg 06/01/20 09:00 06/02/20 08:19 Methylprednisolone Sod Succ/Pf 40 Mg/Ml Vial IVPUSH 40 mg DAILY CARLOS Administration Montelukast Sodium 10 mg 05/31/20 21:00 06/01/20 21:17 Montelukast Sodium 10 Mg Tablet PO 10 mg BEDTIME CARLOS Administration Olanzapine 5 mg 05/31/20 21:00 06/01/20 21:16 Olanzapine 5 Mg Tablet PO 5 mg BEDTIME CARLOS Administration Omeprazole 40 mg 05/31/20 09:00 06/02/20 08:19 Omeprazole 40 Mg Capsule.Dr PO 40 mg DAILY CARLOS Administration Paroxetine HCl 40 mg 05/31/20 14:17 06/02/20 08:19 Paroxetine Hcl 40 Mg Tablet PO 40 mg DAILY CARLOS Administration Pharmacy Consult 1 each 05/31/20 06:13 Consult Rx Perform Med Rec MISCELLANE ONCE PRN Consult order Quetiapine Fumarate 200 mg 05/31/20 21:00 06/01/20 21:17 Quetiapine Fumarate 200 Mg Tablet PO 200 mg BEDTIME CARLOS Administration Sodium Chloride 3 ml 05/31/20 14:17 06/02/20 08:18 0.9 % Sodium Chloride Flush 3 Ml Syringe IVFLUSH 3 ml QSHIFT CARLOS Administration Sumatriptan Succinate 50 mg 05/31/20 14:17 Sumatriptan Succinate 50 Mg Tablet PO Q2H PRN Migraine Headache Tiotropium [place] 1 puff 06/01/20 08:00 06/02/20 09:08 Tiotropium [place] 18 Mcg Cap.W.Dev INHALE Not Given RDAILY CARLOS Valsartan 40 mg 05/31/20 14:17 06/02/20 08:20 Valsartan 40 Mg Tablet PO 40 mg BID CARLOS Administration Protocol Allergies Allergies Allergy/AdvReac Type Severity Reaction Status Date / Time No Known Allergies Allergy Verified 05/21/20 13:43 Assessment & Plan Assessment & Plan (1) Recurrent major depression: Status: Acute Code(s): F33.9 - Major depressive disorder, recurrent, unspecified Recommendations: No changes recommended. Pt prefers to follow up with PCP team. Suggest EKG as pt is on two atypical agents. Greater than 50% of the session was spent on counseling and/or coordination of care
--- NOTE | 2020-06-02 14:30 | PC.RT ---
A home oxygen evaluation was ordered prior to discharge today, But as been set up on home oxygen on multiple admissions. She [facility] a concentrator at the [facility] already. [employer], the oxygen company, has made attempts to deliver her tanks but was told they could not come into the [facility] as it is a safe halfway. The family independence case manager worked with Delisa and I on on a past admission trying to get the tanks into the facility, Delisa had a male carrier driver, seemed to be the reason why. would not meet them at the door to accept tanks. She now says the [facility] was trying to send her to a group home since she requires a higher level of care and she does not want to be transferred. She is refusing portable tanks. She said she will uses the O2 concentrator at night and when in the room but that is all. I explained to her that nothing would change and she will continue to come in SOB with out the portable oxygen and with her continued smoking. She said she knows and does not care, she does not want to be moved to another facility. I spoke with the doctor and RN and let them know her decision.
--- NOTE | 2020-06-02 15:08 | HO.PM.IMPN ---
Subjective Subjective Date of Service: 06/02/20 Interval History: Patient seen in follow-up for acute respiratory failure/COPD exacerbation, patient complaining of shortness of breath with exertion at home patient uses a wheelchair for ambulating short distance, continue to smoke a couple cigarettes a day. Review of Systems General no headache, no dizziness no fever chills. CVS no chest pain, no palpitation. Respiratory no cough , respiratory distress with exertion. Gastrointestinal no nausea, no vomiting, no abdominal pain Physical Exam Vital Signs: Vital Signs: Last Vital Signs Temp 97 F 06/02/20 10:59 Pulse 110 H 06/02/20 10:59 Resp 18 06/02/20 10:59 BP 140/83 H 06/02/20 10:59 Pulse Ox 91 L 06/02/20 10:59 Body Mass Index 29.2 General patient resting comfortably in no acute distress. Neck supple no JVD. CVS regular rate rhythm, Respiratory good air entry,no respiratory distress, no wheeze, no rhonchi. Gastrointestinal abdomen soft, nontender, bowel sounds audible. Extremities no clubbing, cyanosis or edema. Neuro nonfocal . Skin no rash Objective Data Current Medications Generic Name Dose Route Start Last Admin Trade Name Freq PRN Reason Stop Dose Admin Acetaminophen 650 mg 05/31/20 14:17 Acetaminophen 325 Mg Tablet PO Q6H PRN Pain, Mild (Pain Scale 1-3) Albuterol Sulfate 2.5 mg 05/31/20 14:17 06/02/20 12:26 Albuterol Sulfate (0.083%) 2.5 Mg/3 Ml Vial.Neb INHALE 2.5 mg RQ4H WHILE AWAKE CARLOS Administration Amlodipine Besylate 2.5 mg 05/31/20 14:17 06/02/20 08:19 Amlodipine Besylate 2.5 Mg Tablet PO 2.5 mg DAILY CARLOS Administration Protocol Apixaban 5 mg 05/31/20 14:17 06/02/20 08:19 Apixaban 5 Mg Tablet PO 5 mg BID CARLOS Administration Atorvastatin Calcium 20 mg 05/31/20 21:00 06/01/20 21:17 Atorvastatin Calcium 20 Mg Tablet PO 20 mg BEDTIME CARLOS Administration Bupropion HCl 150 mg 05/31/20 09:00 06/02/20 08:19 Bupropion Hcl Xl 150 Mg Tab.Er.24h PO 150 mg BID CARLOS Administration Clonidine HCl 0.1 mg 12/08/20 21:00 06/01/20 21:17 Clonidine Hcl 0.1 Mg Tablet PO 0.1 mg BEDTIME CARLOS Administration Protocol Docusate Sodium 100 mg 05/31/20 14:17 06/02/20 08:19 Docusate Sodium 100 Mg Capsule PO 100 mg BID CARLOS Administration Duloxetine HCl 30 mg 05/31/20 14:17 06/02/20 08:19 Duloxetine Hcl 30 Mg Capsule.Dr PO 30 mg DAILY CARLOS Administration Fluticasone/Vilanterol 1 puff 05/31/20 14:17 06/02/20 09:06 Fluticasone/Vilanterol 100/25 Blst.W.Dev INHALE 1 puff DAILY CARLOS Administration Folic Acid 1 mg 05/31/20 14:17 06/02/20 08:19 Folic Acid 1 Mg Tablet PO 1 mg DAILY CARLOS Administration Gabapentin 600 mg 05/31/20 14:17 06/02/20 14:09 Gabapentin 600 Mg Tablet PO 600 mg TID CARLOS Administration Guaifenesin 600 mg 06/01/20 13:05 06/02/20 08:19 Guaifenesin [place] 600 Mg Tab.Er.12h PO 600 mg BID CARLOS Administration Insulin Human Lispro 0 unit 05/31/20 21:00 06/02/20 11:40 Insulin Lispro 100 Unit/Ml 3 Ml Vial SUBCUT 2 unit QIDACHS CARLOS Administration Protocol Loratadine 10 mg 05/31/20 14:17 06/02/20 08:19 Loratadine 10 Mg Tablet PO 10 mg DAILY CARLOS Administration Methylprednisolone Sodium Succinate 40 mg 06/01/20 09:00 06/02/20 08:19 Methylprednisolone Sod Succ/Pf 40 Mg/Ml Vial IVPUSH 40 mg DAILY CARLOS Administration Montelukast Sodium 10 mg 05/31/20 21:00 06/01/20 21:17 Montelukast Sodium 10 Mg Tablet PO 10 mg BEDTIME CARLOS Administration Olanzapine 5 mg 05/31/20 21:00 06/01/20 21:16 Olanzapine 5 Mg Tablet PO 5 mg BEDTIME CARLOS Administration Omeprazole 40 mg 05/31/20 09:00 06/02/20 08:19 Omeprazole 40 Mg Capsule.Dr PO 40 mg DAILY CARLOS Administration Paroxetine HCl 40 mg 05/31/20 14:17 06/02/20 08:19 Paroxetine Hcl 40 Mg Tablet PO 40 mg DAILY CARLOS Administration Pharmacy Consult 1 each 05/31/20 06:13 Consult Rx Perform Med Rec MISCELLANE ONCE PRN Consult order Quetiapine Fumarate 200 mg 05/31/20 21:00 06/01/20 21:17 Quetiapine Fumarate 200 Mg Tablet PO 200 mg BEDTIME CARLOS Administration Sodium Chloride 3 ml 05/31/20 14:17 06/02/20 08:18 0.9 % Sodium Chloride Flush 3 Ml Syringe IVFLUSH 3 ml QSHIFT CARLOS Administration Sumatriptan Succinate 50 mg 05/31/20 14:17 Sumatriptan Succinate 50 Mg Tablet PO Q2H PRN Migraine Headache Tiotropium [place] 1 puff 06/01/20 08:00 06/02/20 09:08 Tiotropium [place] 18 Mcg Cap.W.Dev INHALE Not Given RDAILY [facility] Valsartan 40 mg 05/31/20 14:17 06/02/20 08:20 Valsartan 40 Mg Tablet PO 40 mg BID CARLOS Administration Protocol Labs CBC & Chem 7: 05/31/20 05:04 06/01/20 05:28 Microbiology Microbiology Results: Microbiology 05/31/20 07:26 Blood - Venous Blood Culture - Preliminary No growth after 48 hours. 05/31/20 05:04 Blood - Venous Blood Culture - Preliminary No growth after 48 hours. Assessment and Plan (1) Acute and chronic respiratory failure ([id number]): Status: Acute (2) Asthma with exacerbation: Status: Acute (3) Recurrent major depression: Status: Acute (4) COPD (chronic obstructive pulmonary disease): Status: Acute Assessment and Plan: 55 years old lady with PMH of chronic respiratory failure on 2 L of oxygen, asthma, COPD, depression, chronic anemia, diabetes among others who presents to the hospital frequently with respiratory failure presented this time complaining of worsening shortness of breath and wheezing for the last 3 days. Acute On chronic hypoxemic respiratory failure due to asthma and COPD exacerbation Patient feeling better at rest but has chronic dyspnea on exertion, will DC IV Solumedrol and placed on by mouth prednisone, continue DuoNeb scheduled and as needed Patient seen by respiratory therapist for home O2 eval but since patient has had multiple home O2 evals in the past and it is documented that patient needs 2 L of oxygen with exertion, and oxygen has been prescribed for her in the past but [employer] was unable to deliver oxygen tank since the [facility] [place] did not allow a gentleman to go inside the facility, when discussed with patient that we will arrange for oxygen, she declined because [facility] is unable to provide care for her if she needs oxygen during the daytime, and patient wishes to stay there, case discussed with social security benefits interviewer they will discuss Discharge planning with director social service. Patient recurrent hospitalization is mainly due to shortness of breath upon exertion, likely due to continued smoking and not using oxygen. blood cultures x2, no growth. Atelectasis Secondary to physical deconditioning and not moving around CXR showing streaky opacity in the left lower lobe favoring subsegmental atelectasis encourage spirometry Continue Mucinex Hypertension patient is on multiple antihypertensive including low-dose Norvasc, Cozaar and clonidine, noted to have elevated blood pressure and tachycardia today will continue current medicines for now. Will recommend to increase dose of clonidine to b.i.d. and DC norvasc. History of renal infarction continued on Eliquis. Physical deconditioning Had recent PT evaluation with recommendation for home therapy Active smoker Advised again to quit smoking Diabetes mellitus Blood sugars elevated likely due to steroids, resume metformin upon discharge continue diabetic diet and insulin sliding scale. History of depression and anxiety. Patient is on multiple psychiatric medications including both Zyprexa and Seroquel, therefore consulted psychiatry they evaluated patient however patient refused to make any changes and wishes to follow with her clinician, will check EKG since patient on two atypical agent. DVT PPX Eliquis.
[2020-06-02 16:29] LABS: Glucose, Whole Blood 245 mg/dL (60-115)
[2020-06-02 21:01] LABS: Glucose, Whole Blood 152 mg/dL (60-115)
[2020-06-02] MEDS: cloNIDine HCL 0.1 MG TABLET PO (21:10)
[2020-06-02] MEDS: QUEtiapine Fumarate 200 MG TABLET PO (21:10)
[2020-06-02] MEDS: Montelukast Sodium 10 MG TABLET PO (21:10)
[2020-06-02] MEDS: Atorvastatin Calcium 20 MG TABLET PO (21:10)
[2020-06-02] MEDS: OLANZapine 5 MG TABLET PO (21:10)
--- NOTE | 2020-06-02 22:38 | PC.NURSE ---
Pt stating frustration about not being discharged. Itzel, respiratory therapist, and this RN gavept reasons why she couldn't be safely discharge. Pt still stating she is frustrated, told pt we understood the frustration but we needed to make sure she would be safe at home. Pt had no difficulty breathing, mild PALM.
[2020-06-03] VITALS: RESP 18
[2020-06-03] MEDS: 0.9 % Sodium Chloride Flush 3 ML SYRINGE IVFLUSH ×2 (01:06→08:26)
[2020-06-03 04:00] VITALS: RESP 20; TEMP 35.9
[2020-06-03 07:59] VITALS: BP 105/87; PULSE 120; RESP 20; TEMP 35.9; O2SAT 92
[2020-06-03 08:12] LABS: Glucose, Whole Blood 153 mg/dL (60-115)
[2020-06-03] MEDS: Albuterol Sulfate (0.083%) 2.5 MG/3 ML VIAL.NEB INHALE ×2 (08:13→11:39)
[2020-06-03 08:15] VITALS: PULSE 102; O2SAT 95
[2020-06-03] MEDS: Insulin Lispro 100 UNIT/ML 3 ML VIAL SUBCUT (08:26)
[2020-06-03] MEDS: Gabapentin 600 MG TABLET PO (08:27)
[2020-06-03] MEDS: Docusate Sodium 100 MG CAPSULE PO (08:27)
[2020-06-03] MEDS: DULoxetine HCl 30 MG CAPSULE.DR PO (08:27)
[2020-06-03] MEDS: Folic Acid 1 MG TABLET PO (08:27)
[2020-06-03] MEDS: guaiFENesin LA 600 MG TAB.ER.12H PO (08:27)
[2020-06-03] MEDS: PARoxetine HCL 40 MG TABLET PO (08:28)
[2020-06-03] MEDS: Loratadine 10 MG TABLET PO (08:28)
[2020-06-03] MEDS: buPROPion HCl XL 150 MG TAB.ER.24H PO (08:28)
[2020-06-03] MEDS: Apixaban 5 MG TABLET PO (08:28)
[2020-06-03] MEDS: Omeprazole 40 MG CAPSULE.DR PO (08:29)
[2020-06-03] MEDS: predniSONE 20 MG TABLET PO (08:36)
[2020-06-03 10:30] VITALS: BP 90/58; O2SAT 94
[2020-06-03 10:54] VITALS: BP 92/58
[2020-06-03 11:38] LABS: Glucose, Whole Blood 105 mg/dL (60-115)
--- NOTE | 2020-06-03 12:43 | P.DS_ITS ---
DS: Providers Provider Date of admission: 05/31/20 08:06 Primary care physician: BIJAL Fofana Consults: 06/02/20 10:40 Consult to Psychiatry Routine Consulting Provider: Leny White Reason for consultation: medication adjustment Has provider been notified: No DS: Diagnosis Discharge Diagnosis (1) Acute and chronic respiratory failure ([id number]): Status: Acute (2) Asthma with exacerbation: Status: Acute (3) Recurrent major depression: Status: Acute (4) COPD (chronic obstructive pulmonary disease): Status: Acute DS: Medications Discharge Medications Home Medications: Home Medications Medication Instructions Recorded Confirmed albuterol sulfate 0.63 mg INHALATION QID PRN 03/25/20 05/31/20 amlodipine 2.5 mg PO DAILY 03/25/20 05/31/20 apixaban 5 mg BID 03/25/20 05/31/20 atorvastatin 20 mg PO BEDTIME 03/25/20 05/31/20 clonidine HCl 0.1 mg PO BEDTIME 03/25/20 05/31/20 doxepin 200 mg PO BEDTIME 03/25/20 05/31/20 duloxetine 30 mg PO DAILY 03/25/20 05/31/20 folic acid 1 mg PO DAILY 03/25/20 05/31/20 gabapentin 600 mg PO TID 03/25/20 05/31/20 loratadine 10 mg DAILY 03/25/20 05/31/20 metformin 850 mg PO BID 03/25/20 05/31/20 montelukast 10 mg PO BEDTIME 03/25/20 05/31/20 multivitamin 1 tab PO DAILY 03/25/20 05/31/20 paroxetine HCl 40 mg PO DAILY 03/25/20 05/31/20 quetiapine 200 mg PO BEDTIME 03/25/20 05/31/20 valsartan 40 mg PO BID 03/25/20 05/31/20 Breo Ellipta 1 inh INHALATION DAILY 05/31/20 05/31/20 bupropion HCl 150 mg PO BID 05/31/20 05/31/20 docusate sodium 100 mg PO BID 05/31/20 05/31/20 melatonin 10 mg PO BEDTIME 05/31/20 05/31/20 olanzapine 5 mg PO BEDTIME 05/31/20 05/31/20 pantoprazole 40 mg PO DAILY 05/31/20 05/31/20 sumatriptan succinate 50 mg PO Q2-4H PRN 05/31/20 05/31/20 tiotropium bromide 1 cap INHALATION DAILY 05/31/20 05/31/20 Previous Rx's Medication Instructions Recorded prednisone See Taper PO DAILY #30 tab 06/03/20 DS: Summary Hospital Course Hospital Course: Admission note HPI A 55 years old lady with PMH of chronic respiratory failure on 2 L of oxygen, asthma, COPD, depression, chronic anemia, diabetes among others who presents to the hospital frequently with respiratory failure presented this time complaining of worsening shortness of breath and wheezing for the last 3 days. The patient was treated almost 10 days ago in the hospital for similar presentation with sinusitis and finished prednisone treatment recently. She reports over the last 3-4 days she has been complaining of worsening shortness of breath and wheezing requiring using multiple nebulizer treatment at home. Her symptoms did not improve much and she continued to feel weak and difficult to breathe. She decided to come to the emergency for further evaluation. She denies any fever, chills, chest pain, nausea or vomiting, change in her bowel movement or dark color stool. In the emergency she was found to have difficulty breathing requiring CPAP treatment with fair response. Admitted for further evaluation and treatment. Hospital course The patient was treated with IV steroids, nebulizers and oxygen supplement with good response. Antibiotic was added for concern of infection but turned out to be atelectasis treated mainly with incentive spirometry. No fever during the hospital stay. The patient improved back to her baseline on room air during the day and 2 L during the night. She was advised strongly to quit smoking and to use oxygen all day around. To be discharged on tapering dose of steroids To follow-up with pulmonology later this month Time Spent with Patient Time attestation: Total time spent providing and/or coordinating discharge services: Physical Exam Vital Signs: Vital Signs: Last Vital Signs Temp 96.6 F L 06/03/20 07:59 Pulse 102 H 06/03/20 08:15 Resp 20 06/03/20 07:59 BP 92/58 L 06/03/20 10:54 Pulse Ox 92 06/03/20 07:59 Body Mass Index 29.2 Constitutional : Alert, oriented, not in distress Neck : Normal inspection, Supple Cardiovascular : RRR, S1 S2, no lower extremity edema Respiratory : Fair bilateral air entry very mild scattered wheezing, no crackles Gastrointestinal: soft, lax, Normal bowel sounds, Non tender Skin : Warm/Dry, No rash Neurological : Alert & oriented x3, No focal deficit DS: Data Data Completed and Pending Completed studies during hospitalization [Text1]: Procedures Assistance with Respiratory Ventilation, Less than 24 Consecutive Hours, Continuous Positive Airway Pressure (04/14/20) Insertion of Infusion Device into Superior Vena Cava, Percutaneous Approach (04/19/20) Ultrasonography of Superior Vena Cava, Guidance (04/19/20) Labs on day of discharge: 05/31/20 04:52 XR chest 1V Stat 05/31/20 04:53 Albuterol Sulfate (0.083%) [Ventolin (0.083%)] 10 mg INHALE ONCE ONE Magnesium Sulfate/H2O 2 gm in 50 ml IV ONCE methylPREDNISolone Sod Succ/PF [SOLU-MedroL] 125 mg IVPUSH ONCE ONE 05/31/20 05:03 Lactic Acid Stat 05/31/20 05:04 B Type Natriuretic Peptide Stat Basic Metabolic Panel Stat Complete Blood Count Auto Diff Stat 05/31/20 06:06 Albuterol/Iprat 2.5/0.5MG 3 ML [Duoneb] 3 ml INHALE ONCE ONE 05/31/20 06:25 0.9 % Sodium Chloride [Ns] 1,000 ml IVCONT 999 mls/hr levoFLOXacin/D5W [Levaquin] 500 mg in 100 ml IV PREOP 05/31/20 07:26 COVID-19 ID NOW (Savage) Stat 05/31/20 07:53 Consult Rx Perform Med Rec 1 each MISCELLANE ONCE PRN 05/31/20 07:54 Transfer Order Routine 05/31/20 12:30 ED Diet NOW 05/31/20 15:30 Flu Vacc [id number](6mos up)/PF [Fluarix Quad [id number]] 0.5 ml IM .ONCE ONE 05/31/20 16:25 Glucose, Whole Blood Routine 05/31/20 21:18 Glucose, Whole Blood Routine 06/01/20 05:28 Basic Metabolic Panel DAILY@0600 06/01/20 08:28 Glucose, Whole Blood Routine 06/01/20 09:00 methylPREDNISolone Sod Succ/PF [SOLU-MedroL] 40 mg IVPUSH DAILY 06/01/20 12:55 Glucose, Whole Blood Routine 06/01/20 15:46 Glucose, Whole Blood Routine 06/01/20 19:21 Albuterol Sulfate (0.083%) [Ventolin (0.083%)] 2.5 mg .ROUTE .[facility] ONE 06/01/20 20:26 Glucose, Whole Blood Routine 06/02/20 07:43 Glucose, Whole Blood Routine 06/02/20 11:21 Glucose, Whole Blood Routine 06/02/20 16:23 Glucose, Whole Blood Routine 06/02/20 19:46 Albuterol Sulfate (0.083%) [Ventolin (0.083%)] 2.5 mg .ROUTE .[facility] ONE 06/02/20 20:58 Glucose, Whole Blood Routine 06/03/20 08:06 Glucose, Whole Blood Routine 06/03/20 11:28 Glucose, Whole Blood Routine Laboratory Last Values WBC 12.1 X10*3/uL (4.8-10.8) H 05/31/20 05:04 RBC 3.68 X10*6/uL (4.20-5.50) L 05/31/20 05:04 Hgb 8.1 g/dl (12.0-16.0) L 05/31/20 05:04 Hct 28.6 % (37-47) L 05/31/20 05:04 MCV 77.7 fL (80-98) L 05/31/20 05:04 MCH 22.0 pg (27.0-33.0) L 05/31/20 05:04 MCHC 28.3 g/dl (31.0-35.0) L 05/31/20 05:04 RDW 20.9 % (11.0-16.0) H 05/31/20 05:04 Plt Count 393 X10*3/uL (160-400) 05/31/20 05:04 MPV 9.5 fL (9.4-12.3) 05/31/20 05:04 Immature Gran % (Auto) 0.5 % (0.0-0.4) H 05/31/20 05:04 Neut % (Auto) 62.6 % (45-73) 05/31/20 05:04 Lymph % (Auto) 19.0 % (20-40) L 05/31/20 05:04 [place] % (Auto) 10.4 % (2-11) 05/31/20 05:04 Eos % (Auto) 6.6 % (0-4) H 05/31/20 05:04 Baso % (Auto) 0.9 % (0-2) 05/31/20 05:04 Lymph # (Auto) 2.3 X10*3/uL (1.2-4.9) 05/31/20 05:04 [place] # (Auto) 1.3 X10*3/uL (0.1-1.2) H 05/31/20 05:04 Eos # (Auto) 0.8 X10*3/uL (0.0-0.4) H 05/31/20 05:04 Baso # (Auto) 0.1 X10*3/uL (0.0-0.2) 05/31/20 05:04 Abs Immat Gran (auto) 0.06 X10*3/uL (0.00-0.03) H 05/31/20 05:04 Absolute Neuts (auto) 7.6 X10*3/uL (2.0-8.3) 05/31/20 05:04 Absolute Nucleated RBC 0.000 X10*3/uL (0.0-0.012) 05/31/20 05:04 Nucleated RBC % (auto) 0.0 /100WBC (0.0-0.2) 05/31/20 05:04 Sodium 140 mmol/L (135-145) 06/01/20 05:28 Potassium 4.3 mmol/l (3.3-5.1) 06/01/20 05:28 Chloride 105 mmol/L (96-108) 06/01/20 05:28 Carbon Dioxide 26 mmol/L (22-29) 06/01/20 05:28 Anion Gap 13 (-20) 06/01/20 05:28 BUN 8 mg/dL (9-16) L 06/01/20 05:28 Creatinine 0.69 mg/dL (0.5-1.4) 06/01/20 05:28 Estim Creat Clear Calc 90.4 06/01/20 05:28 Estimated GFR > 60 06/01/20 05:28 POC Glucose 105 mg/dL (60-115) 06/03/20 11:28 Random Glucose 131 mg/dL (60-115) H 06/01/20 05:28 Lactic Acid 0.9 mmol/L (0.5-2.0) 05/31/20 05:03 Calcium 8.5 mg/dL (8.4-10.2) 06/01/20 05:28 B-Natriuretic Peptide 33 pg/mL (<100) 05/31/20 05:04 COVID-19 (ZACH) Negative (Negative) 05/31/20 07:26 COVID-19 Clin Com See Note 05/31/20 07:26 Preliminary micro results at discharge 05/31/20 07:26 Blood Culture - Preliminary Blood - Venous No growth after 48 hours. 05/31/20 05:04 Blood Culture - Preliminary Blood - Venous No growth after 48 hours. Discharge Plan Discharge Patient Disposition: Home, Self-Care Referrals: Patti Duckworth PA [Primary Care Provider] - 1 Week (Please call and schedule a follow up appointment within 1 week.) Discharge Medications: New prednisone 10 mg tablet See Taper mg PO DAILY Qty: 30 RF: 0 Continued bupropion HCl 150 mg Tablet Sustained-Release 12 Hr 150 mg PO BID RF: 0 olanzapine 5 mg Tablet 5 mg PO BEDTIME RF: 0 sumatriptan succinate 50 mg Tablet 50 mg PO Q2-4H PRN (Reason: Migraine Headache) RF: 0 pantoprazole 40 mg Tablet,Delayed Release (Dr/Ec) 40 mg PO DAILY RF: 0 docusate sodium 100 mg Capsule 100 mg PO BID RF: 0 tiotropium bromide 18 mcg Capsule, W/Inhalation Device 1 cap INHALATION DAILY RF: 0 melatonin 10 mg Capsule 10 mg PO BEDTIME RF: 0 Breo Ellipta 100-25 mcg/dose Blister With Device 1 inh INHALATION DAILY RF: 0 multivitamin Tablet 1 tab PO DAILY RF: 0 clonidine HCl 0.1 mg Tablet 0.1 mg PO BEDTIME RF: 0 gabapentin 600 mg Tablet 600 mg PO TID RF: 0 atorvastatin 20 mg Tablet 20 mg PO BEDTIME RF: 0 metformin 850 mg Tablet 850 mg PO BID RF: 0 folic acid 1 mg Tablet 1 mg PO DAILY RF: 0 montelukast 10 mg Tablet 10 mg PO BEDTIME RF: 0 paroxetine HCl 40 mg Tablet 40 mg PO DAILY RF: 0 loratadine 10 mg Tablet 10 mg DAILY RF: 0 valsartan 40 mg Tablet 40 mg PO BID RF: 0 duloxetine 30 mg Capsule,Delayed Release(Dr/Ec) 30 mg PO DAILY RF: 0 albuterol sulfate 0.63 mg/3 mL Solution For Nebulization 0.63 mg INHALATION QID PRN (Reason: Shortness Of Breath) RF: 0 quetiapine 200 mg Tablet 200 mg PO BEDTIME RF: 0 amlodipine 2.5 mg Tablet 2.5 mg PO DAILY RF: 0 doxepin 100 mg Capsule 200 mg PO BEDTIME RF: 0 apixaban 5 mg Tablet 5 mg BID RF: 0 Discharge Orders: Discharge Order (Routine); Ordered 06/03/20 Ordered By: Mahendra Reyes Diet: advance to usual diet Activity on Discharge: As tolerated Visit Report Forms: Patient Portal Discharge page Care Plan Goals: Read below Health Concerns: Read below Plan of Treatment: You were admitted to the hospital for treatment of acute COPD exacerbation requiring treatment with steroids, nebulizers and oxygen supplement. You have improved during hospital stay and your lung sound almost clear at the day of discharge. We strongly advise you to stop smoking To wear oxygen during day and night To use home medications as prescribed, continue with nebulizer every 4-6 hours To use tapering dose prednisone To follow-up with pulmonology office, consider asking about CPAP
--- NOTE | 2020-06-03 12:49 | MHC.CM.PN ---
Addendum entered by Bev Young 06/03/20 13:24: Patient has a ride, taxi voucher cancelled. Original Note: Patient will be discharged home today no services. Taxi voucher given for transport.
== END 2020-06-03 13:50 | disposition home or self-care (01) | DRG 140 ==
LOC: HO.ED 06:30 → HO.IMC 13:29
PROVIDERS: Hospitalist; Admitting Provider Student in an Organized Health Care Education/Training Program; Emergency Provider Emergency Medicine; PCP Physician Assistant Medical; Visit Provider Student in an Organized Health Care Education/Training Program
DX: J44.1 Chronic obstructive pulmonary disease with (acute) exacerbation (principal); J96.20 Acute and chronic respiratory failure, unspecified whether with hypoxia or hypercapnia; Z99.81 Dependence on supplemental oxygen; J45.901 Unspecified asthma with (acute) exacerbation; F33.9 Major depressive disorder, recurrent, unspecified; Z71.6 Tobacco abuse counseling; F17.210 Nicotine dependence, cigarettes, uncomplicated; J98.11 Atelectasis; Z20.828 Contact with and (suspected) exposure to other viral communicable diseases; Z79.01 Long term (current) use of anticoagulants; Z79.84 Long term (current) use of oral hypoglycemic drugs; Z79.52 Long term (current) use of systemic steroids; Z79.899 Other long term (current) drug therapy
CPT/HCPCS: 36415; 71045; 80048; 82947; 83605; 83880; 85025; 87040; 87635; 90686; 94640; 94644; 94660; 96365; 96367; 96375; 99222; 99284; 99285; J1956; J2920; J2930; J3475

== ENCOUNTER 2020-06-20 08:53 | Emergency (ER) | payer OTHER, SELFPAY ==
[2020-06-20 09:03] VITALS: BP 103/72; BP 125/80; PULSE 98; RESP 24; TEMP 36.6; O2SAT 94; O2SAT 96; BMI 31.0
--- NOTE | 2020-06-20 09:09 | ECG_ITS ---
Test Reason : CHEST PAIN Blood Pressure : / mmHG Vent. Rate : 095 BPM Atrial Rate : 095 BPM P-R Int : 174 ms QRS Dur : 072 ms QT Int : 356 ms P-R-T Axes : 076 045 071 degrees QTc Int : 447 ms Normal sinus rhythm Possible Left atrial enlargement Low voltage QRS Cannot rule out Anterior infarct , age undetermined Abnormal ECG When compared with ECG of 19-MAY-2020 13:48, No significant change was found Referred By: Anatoliy Kerr Electronically Signed By:VICTOR HUGO PAGAN
--- NOTE | 2020-06-20 09:22 | XR_ITS ---
EXAMINATION: XR CHEST CLINICAL INFORMATION: Shortness of breath, chest pain COMPARISON: Chest radiographs 05/31/2020, 05/19/2020, 05/05/2020 TECHNIQUE: Portable upright AP view of the chest was obtained. FINDINGS: There is no pneumothorax or pleural reaction. Coarsening bronchovascular markings lower zones is stable. Subsegmental atelectasis left base is decreased. The upper and mid zones are unremarkable. The heart is within normal size. The vascularity is normal. The hilar and mediastinal contours and bony structures are unremarkable. XR/XR chest 1V IMPRESSION: 1. Coarsening bronchiolar markings lower zones stable. Left base subsegmental atelectasis decreased. 2. No pneumothorax, vascular congestion, or effusion.
--- NOTE | 2020-06-20 09:26 | ED.GENADULT ---
HPI - General Adult General Chief complaint: Dyspnea Stated complaint: SOB Time Seen by Provider: 06/20/20 09:09 Source: patient and EMS Mode of arrival: EMS Limitations: no limitations History of Present Illness HPI narrative: 55-year-old female with history of COPD on 2 L via nasal cannula who presents emergency department for evaluation of shortness of breath, chest pain and cough. The patient's symptoms began 2 days prior. She states that she was very short of breath. She states that she used her nebulizers with some improvement her symptoms. She states that this morning, she was making her bed when she became very short of breath. She used her nebulizers with no relief. She called 911. The patient was given a DuoNeb in route with some improvement of her symptoms. She states that she has been feeling short of breath and having dyspnea on exertion for 2 days and the symptoms have gotten progressively worse. She is complaining of chest pain. She states she has a heaviness that is intermittent located in the center of her chest, worse with breathing and with coughing. She states the pain ranges from 5 to 8 out of 10. The patient has a cough which is occasionally productive of thick phlegm. She denied fever, chills, loss of sense of taste or smell, myalgias or arthralgias. She states that she was constipated but developed diarrhea several days ago but this resolved. Related Data Home Medications Medication Instructions Recorded Confirmed albuterol sulfate 0.63 mg INHALATION QID PRN 03/25/20 05/31/20 amlodipine 2.5 mg PO DAILY 03/25/20 05/31/20 apixaban 5 mg BID 03/25/20 05/31/20 atorvastatin 20 mg PO BEDTIME 03/25/20 05/31/20 clonidine HCl 0.1 mg PO BEDTIME 03/25/20 05/31/20 doxepin 200 mg PO BEDTIME 03/25/20 05/31/20 duloxetine 30 mg PO DAILY 03/25/20 05/31/20 folic acid 1 mg PO DAILY 03/25/20 05/31/20 gabapentin 600 mg PO TID 03/25/20 05/31/20 loratadine 10 mg DAILY 03/25/20 05/31/20 metformin 850 mg PO BID 03/25/20 05/31/20 montelukast 10 mg PO BEDTIME 03/25/20 05/31/20 multivitamin 1 tab PO DAILY 03/25/20 05/31/20 paroxetine HCl 40 mg PO DAILY 03/25/20 05/31/20 quetiapine 200 mg PO BEDTIME 03/25/20 05/31/20 valsartan 40 mg PO BID 03/25/20 05/31/20 Breo Ellipta 1 inh INHALATION DAILY 05/31/20 05/31/20 bupropion HCl 150 mg PO BID 05/31/20 05/31/20 docusate sodium 100 mg PO BID 05/31/20 05/31/20 melatonin 10 mg PO BEDTIME 05/31/20 05/31/20 olanzapine 5 mg PO BEDTIME 05/31/20 05/31/20 pantoprazole 40 mg PO DAILY 05/31/20 05/31/20 sumatriptan succinate 50 mg PO Q2-4H PRN 05/31/20 05/31/20 tiotropium bromide 1 cap INHALATION DAILY 05/31/20 05/31/20 Previous Rx's Medication Instructions Recorded prednisone See Taper PO DAILY #30 tab 06/03/20 prednisone 60 mg PO DAILY 5 Days #15 tab 06/20/20 Allergies Allergy/AdvReac Type Severity Reaction Status Date / Time No Known Allergies Allergy Verified 05/21/20 13:43 Review of Systems Review of Systems: Yes all other systems are reviewed and are negative Constitutional: Constitutional: Reports as per HPI Eyes: Eyes: Reports as per HPI ENT: Reports as per HPI Cardiovascular: Cardiovascular: Reports as per HPI Respiratory: Respiratory: Reports as per HPI Gastrointestinal: Gastrointestinal: Reports as per HPI Genitourinary: Genitourinary: Reports as per HPI Musculoskeletal: Musculoskeletal: Reports as per HPI Integumentary/Breasts: Skin/Breast: Reports as per HPI Neurologic: Reports as per HPI and Reports Abnormal speech present Psychiatric: Psychiatric: Reports as per HPI Allergic/Immunologic: Allergic/Immunologic: Reports as per HPI [facility] Past Medical History Medical History Acute and chronic respiratory failure ([id number]) Acute exacerbation of COPD with asthma Anxiety Bronchitis COPD (chronic obstructive pulmonary disease) COPD (chronic obstructive pulmonary disease) Diabetes H/O blood clots History of DVT (deep vein thrombosis) Hyperlipidemia Hypertension Hypotension Recurrent major depression Renal infarct Sinus tachycardia Supplemental oxygen dependent Family History Family History Father Diabetes mellitus Myocardial infarction Social History Social History Household Members: Friend(s) Housing: Other Alcohol intake: unknown Smoking Status: Light tobacco smoker Tobacco Type: Cigarette Cigarettes Per Day: 2 Smoked in Last 30 Days: Yes Second Hand Smoke Exposure: Yes Use of substances other than those prescribed or required for medical reasons: No Advance Directives: Yes Advance Directives Information Provided: No service: No Current occupational status: unemployed and disabled Physical Exam Vital Signs: Vital Signs: Last Vital Signs Temp 97.8 F 06/20/20 09:03 Pulse 89 06/20/20 10:48 Resp 18 06/20/20 10:00 BP 109/76 06/20/20 10:00 Pulse Ox 98 06/20/20 10:00 Body Mass Index 31.0 Const: General: cooperative and in distress ([id number] respiratory distress, using accessory muscles) Orientation/consciousness: oriented to person and oriented to place Limitations: no limitations HENMT: Head: Yes normal to inspection, Yes normocephalic and Yes atraumatic Ears: external ears normal General nose exam: Normal external nose present Face and sinus: Yes normal facial exam Mouth: Normal oral and palatal mucosa present Throat: Yes posterior oropharynx normal Eyes: Periorbital: periorbital findings normal Eyelids: Yes eyelids normal Conjunctivae: conjunctivae normal Sclerae: sclerae normal Corneas: corneas normal Pupils: Equal, round and reactive pupils present Direct Ophthalmoscopy: normal light reflex Neck: Neck: Yes full ROM, Yes no lymphadenopathy, Yes no meningeal signs, Yes trachea midline and Yes supple Chest: Chest palpation & inspection: normal inspection of the chest and normal palpation of entire chest wall Resp: Effort & Inspection: able to speak in complete sentences and labored ([id number], using accessory muscles) Auscultation: rales bilateral, rhonchi lower bilaterally and wheezes scattered wheezes Cardio: Rate: regular rate Rhythm: regular rhythm Heart sounds: S1 normal heart sound present, S2 normal heart sound present and no murmurs GI: Inspection: Yes normal to inspection Palpation (GI): Soft to palpation, nontender, no guarding, not rigid and No hepatosplenomegaly present : General: Yes no CVA tenderness Back/Spine/Pelvis: Back: no CVA tenderness Cervical Spine: normal cervical lordosis Thoracic/Lumbar Spine: thoracic and lumbar spine normal to inspection Skin: Lesions: no lesions Rashes: no rashes Wounds: no wounds Neuro: General: oriented to person, oriented to place and no meningeal signs Cranial nerves: Yes Equal, round and reactive pupils present Cognition (Neuro): normal cognition Speech: Abnormal speech present Motor exam (neuro): 5/5 motor strength present throughout Extrem: General: Yes normal to inspection and Yes full ROM Psych: Appearance: well kempt Mental Status: mental status grossly normal Speech and movement: Normal speech and movement present Affect: normal affect Attitude: cooperative Thought process: Normal thought process present Thought content: Normal thought content present Course Course Course Narrative: 55-year-old female with history of COPD on 2 L via nasal cannula who presents to emergency department for evaluation of shortness of breath, chest pain and cough x2 days. The patient did receive a DuoNeb treatment EN route to the hospital with some improved her symptoms. On presentation she is using accessory muscles to breathe and has [id number] dyspnea. The patient's lung exam revealed diffuse wheezing, rhonchi and rales. I ordered Solu-Medrol 125 mg IV and albuterol nebulizer. I did order a cardiac workup on this patient as well. 1101: The patient's laboratory evaluation revealed a [place] [address] and slight anemia with an H&H of 8.9 and 32.1, I believe this is chronic. Her chest x-ray on my review is consistent with COPD changes, the radiologist noted some acute changes but I do not think that these represent pneumonia. The patient's COVID 19, influenza and RSV tests were negative. The patient was treated with an albuterol inhaler, 6 puffs through a spacer with improvement of her symptoms. The patient does appear to be dyspneic but she states that this is chronic for her and she is feeling significantly better and she wants to be discharged home. The respiratory therapist to to care for knows her well and states that the patient often refuses therapy because she does not want to lose her spine and the correction. Given her improvement, I will discharge the patient home but I a.m. concerned that she may get worse today and I did tolerate this and she is aware that she should call 911 if her symptoms worsen in any way. Medical Decision Making Lab Data Result diagrams: 06/20/20 09:36 06/20/20 09:36 Labs: Lab Results 06/20/20 06/20/20 06/20/20 Range/Units 09:36 09:36 09:36 WBC 12.7 H (4.8-10.8) X10*3/uL RBC 3.92 L (4.20-5.50) X10*6/uL Hgb 8.9 L (12.0-16.0) g/dl Hct 32.1 L (37-47) % MCV 81.9 (80-98) fL MCH 22.7 L (27.0-33.0) pg MCHC 27.7 L (31.0-35.0) g/dl RDW 23.9 H (11.0-16.0) % Plt Count 450 H (160-400) X10*3/uL MPV 10.5 (9.4-12.3) fL Immature Gran % (Auto) 0.5 H (0.0-0.4) % Neut % (Auto) 69.6 (45-73) % Lymph % (Auto) 15.6 L (20-40) % Sumner % (Auto) 8.2 (2-11) % Eos % (Auto) 5.7 H (0-4) % Baso % (Auto) 0.4 (0-2) % Lymph # (Auto) 2.0 (1.2-4.9) X10*3/uL Sumner # (Auto) 1.1 (0.1-1.2) X10*3/uL Eos # (Auto) 0.7 H (0.0-0.4) X10*3/uL Baso # (Auto) 0.1 (0.0-0.2) X10*3/uL Abs Immat Gran (auto) 0.06 H (0.00-0.03) X10*3/uL Absolute Neuts (auto) 8.9 H (2.0-8.3) X10*3/uL Absolute Nucleated RBC 0.020 H (0.0-0.012) X10*3/uL Nucleated RBC % (auto) 0.2 (0.0-0.2) /100WBC Sodium Cancelled Potassium Cancelled Chloride Cancelled Carbon Dioxide Cancelled Anion Gap Cancelled BUN Cancelled Creatinine Cancelled Estim Creat Clear Calc Cancelled Estimated GFR Cancelled Random Glucose Cancelled Calcium Cancelled Total Bilirubin Cancelled AST Cancelled ALT Cancelled Alkaline Phosphatase Cancelled Troponin I High Sens < 3.5 (<3.5-17.0) ng/L Total Protein Cancelled Albumin Cancelled Coronavirus (PCR) (Negative) Influenza Type A (PCR) (Negative) Influenza Type B (PCR) (Negative) RSV RNA Qual (PCR) (Negative) 06/20/20 Range/Units 09:36 WBC (4.8-10.8) X10*3/uL RBC (4.20-5.50) X10*6/uL Hgb (12.0-16.0) g/dl Hct (37-47) % MCV (80-98) fL MCH (27.0-33.0) pg MCHC (31.0-35.0) g/dl RDW (11.0-16.0) % Plt Count (160-400) X10*3/uL MPV (9.4-12.3) fL Immature Gran % (Auto) (0.0-0.4) % Neut % (Auto) (45-73) % Lymph % (Auto) (20-40) % Sumner % (Auto) (2-11) % Eos % (Auto) (0-4) % Baso % (Auto) (0-2) % Lymph # (Auto) (1.2-4.9) X10*3/uL Sumner # (Auto) (0.1-1.2) X10*3/uL Eos # (Auto) (0.0-0.4) X10*3/uL Baso # (Auto) (0.0-0.2) X10*3/uL Abs Immat Gran (auto) (0.00-0.03) X10*3/uL Absolute Neuts (auto) (2.0-8.3) X10*3/uL Absolute Nucleated RBC (0.0-0.012) X10*3/uL Nucleated RBC % (auto) (0.0-0.2) /100WBC Sodium Potassium Chloride Carbon Dioxide Anion Gap BUN Creatinine Estim Creat Clear Calc Estimated GFR Random Glucose Calcium Total Bilirubin AST ALT Alkaline Phosphatase Troponin I High Sens (<3.5-17.0) ng/L Total Protein Albumin Coronavirus (PCR) NEGATIVE (Negative) Influenza Type A (PCR) NEGATIVE (Negative) Influenza Type B (PCR) NEGATIVE (Negative) RSV RNA Qual (PCR) NEGATIVE (Negative) ECG Data Attestation: I personally reviewed and interpreted this ECG as follows: Prior ECG tracings: not available for review Interpretation: Normal sinus rhythm with rate of 95, normal LA, QRS and QTC intervals, Q-wave in lead 3 and V1, inverted T-wave in V2, no ST segment elevation, no ST segment depression, no evidence of cardiac ischemia or cardiac injury, no old EKG for comparison. Discharge Plan Discharge Clinical Impression: Acute exacerbation of chronic obstructive pulmonary disease Patient Disposition: Home, Self-Care Instructions: COPD (Chronic Obstructive Pulmonary Disease) (ED) Additional Instructions: Your chest x-ray did not reveal any pneumonia on my review of this x-ray. Your laboratory evaluation was unremarkable. Your COVID-19 test was negative. Your influenza test was negative. The presentation is consistent with a flare-up of your COPD. Continue to take your medications as prescribed by your doctor. Take prednisone 60 mg once a day for 5 days. Take your 1st dose tomorrow morning. You received Solu-Medrol (steroids) today. Take Tylenol (acetaminophen) 500 mg pills, 2 pills every 4 to 6 hours as needed for pain. Follow-up with your doctor in 2 days. Please return to the emergency department if your symptoms get worse or if you develop any symptoms that are concerning to you. Prescriptions: New prednisone 20 mg tablet 60 mg PO DAILY 5 Days Qty: 15 RF: 0 No Action bupropion HCl 150 mg Tablet Sustained-Release 12 Hr 150 mg PO BID RF: 0 olanzapine 5 mg Tablet 5 mg PO BEDTIME RF: 0 sumatriptan succinate 50 mg Tablet 50 mg PO Q2-4H PRN (Reason: Migraine Headache) RF: 0 pantoprazole 40 mg Tablet,Delayed Release (Dr/Ec) 40 mg PO DAILY RF: 0 docusate sodium 100 mg Capsule 100 mg PO BID RF: 0 tiotropium bromide 18 mcg Capsule, W/Inhalation Device 1 cap INHALATION DAILY RF: 0 melatonin 10 mg Capsule 10 mg PO BEDTIME RF: 0 Breo Ellipta 100-25 mcg/dose Blister With Device 1 inh INHALATION DAILY RF: 0 prednisone 10 mg tablet See Taper mg PO DAILY Qty: 30 RF: 0 multivitamin Tablet 1 tab PO DAILY RF: 0 clonidine HCl 0.1 mg Tablet 0.1 mg PO BEDTIME RF: 0 gabapentin 600 mg Tablet 600 mg PO TID RF: 0 atorvastatin 20 mg Tablet 20 mg PO BEDTIME RF: 0 metformin 850 mg Tablet 850 mg PO BID RF: 0 folic acid 1 mg Tablet 1 mg PO DAILY RF: 0 montelukast 10 mg Tablet 10 mg PO BEDTIME RF: 0 paroxetine HCl 40 mg Tablet 40 mg PO DAILY RF: 0 loratadine 10 mg Tablet 10 mg DAILY RF: 0 valsartan 40 mg Tablet 40 mg PO BID RF: 0 duloxetine 30 mg Capsule,Delayed Release(Dr/Ec) 30 mg PO DAILY RF: 0 albuterol sulfate 0.63 mg/3 mL Solution For Nebulization 0.63 mg INHALATION QID PRN (Reason: Shortness Of Breath) RF: 0 quetiapine 200 mg Tablet 200 mg PO BEDTIME RF: 0 amlodipine 2.5 mg Tablet 2.5 mg PO DAILY RF: 0 doxepin 100 mg Capsule 200 mg PO BEDTIME RF: 0 apixaban 5 mg Tablet 5 mg BID RF: 0
[2020-06-20 09:48] VITALS: BP 100/74; PULSE 93; RESP 20; O2SAT 99
--- NOTE | 2020-06-20 09:50 | PC.NURSE ---
Medicated as charted, pt sleeping, auditory wheezing. awaiting resp treatment
[2020-06-20 09:55] LABS: MANUAL DIFF FLAG NO
[2020-06-20 10:00] VITALS: BP 109/76; PULSE 91; RESP 18; O2SAT 98
[2020-06-20 10:00] LABS: Basophils Absolute Auto 0.1 X10*3/uL (0.0-0.2); Basophils Percent Auto 0.4 % (0-2); Eosinophils Absolute Auto 0.7 X10*3/uL (0.0-0.4); Eosinophils Percent Auto 5.7 % (0-4); Hematocrit 32.1 % (37-47); Hemoglobin 8.9 g/dl (12.0-16.0); Imm Gran Abs Auto 0.06 X10*3/uL (0.00-0.03); Imm Gran Pct Auto 0.5 % (0.0-0.4); Lymphocytes Percent Auto 15.6 % (20-40); Mean Corpuscular HGB Conc 27.7 g/dl (31.0-35.0); Mean Corpuscular Hemoglobin 22.7 pg (27.0-33.0); Mean Corpuscular Volume 81.9 fL (80-98); Mean Platelet Volume 10.5 fL (9.4-12.3); Monocytes Absolute Auto 1.1 X10*3/uL (0.1-1.2); Monocytes Percent Auto 8.2 % (2-11); NRBC Pct Auto 0.2 /100WBC (0.0-0.2); Neutrophils Absolute Auto 8.9 X10*3/uL (2.0-8.3); Neutrophils Percent Auto 69.6 % (45-73); Platelet Count 450 X10*3/uL (160-400); Red Blood Count 3.92 X10*6/uL (4.20-5.50); Red Cell Distribution Width 23.9 % (11.0-16.0); White Blood Count 12.7 X10*3/uL (4.8-10.8)
[2020-06-20 10:23] LABS: Troponin-I High Sensitivity < 3.5 ng/L (<3.5-17.0)
[2020-06-20 10:31] LABS: Influenza A PCR NEGATIVE (Negative); Influenza B PCR NEGATIVE (Negative); Resp Syncy Virus RNA Qual PCR NEGATIVE (Negative); SARS COV2 PCR INHOUSE NEGATIVE (Negative)
[2020-06-20] MEDS: Albuterol Sulfate 90 MCG 8 GM INHALER 6 PUFF INHALE (10:47)
[2020-06-20 10:48] VITALS: PULSE 89; O2SAT 94
[2020-06-20 11:44] LABS: Alanine Aminotransferase 12 U/L (0-31); Albumin Level 3.8 g/dL (3.5-5.0); Alkaline Phosphatase 80 U/L (39-117); Anion Gap 12 (12-20); Aspartate Amino Transferase 8 U/L (5-31); Bilirubin Total 0.2 mg/dL (0.0-1.0); Blood Urea Nitrogen 7 mg/dL (9-16); Calcium 8.1 mg/dL (8.4-10.2); Carbon Dioxide 30 mmol/L (22-29); Chloride 103 mmol/L (96-108); Creatinine Clr Calc Pharmacy 91.8; Estimated Glomerular Filt Rate > 60; Glucose Random 249 mg/dL (60-115); Potassium 4.5 mmol/l (3.3-5.1); Sodium 140 mmol/L (135-145); Total Protein 5.8 g/dL (6.5-8.0)
== END 2020-06-20 12:02 | disposition home or self-care (01) ==
PROVIDERS: Emergency Provider Emergency Medicine Emergency Medical Services; PCP Physician Assistant Medical
DX: J44.1 Chronic obstructive pulmonary disease with (acute) exacerbation (principal); F17.210 Nicotine dependence, cigarettes, uncomplicated; Z71.6 Tobacco abuse counseling; Z99.81 Dependence on supplemental oxygen; Z79.899 Other long term (current) drug therapy; Z20.828 Contact with and (suspected) exposure to other viral communicable diseases
CPT/HCPCS: 0241U; 36415; 71045; 80053; 84484; 85025; 93005; 94640; 96365; 99284; J2930